=== PATIENT | female | born 1960 | race Caucasian/White ===

== ENCOUNTER → 2019-04-27 | Outpatient (CLI) | payer BC ==
--- NOTE | 2019-04-28 08:49 | USB ---
Reason for exam: additional evaluation requested from abnormal screening. History: Patient is postmenopausal. Family history of breast cancer in mother at age 37, breast cancer in maternal grandmother, and breast cancer in maternal cousin. Benign excisional biopsy of the right breast, 1999. Physical Findings: Nurse did not find any significant physical abnormalities on exam. US Breast Workup Limited LT Left limited breast ultrasound including focal area of concern, retroareolar and axilla demonstrates a 10 x 4 x 7mm oval, hypoechoic lesion at 10 o'clock. These results were verbally communicated with the patient and result sheet given to the patient on 04/27/19. ASSESSMENT: Suspicious, BI-RAD 4 RECOMMENDATION: Ultrasound core biopsy of the left breast. Called Dr. Rubio's office with mammographic findings and has scheduled an appointment for the patient for 05/26/19 at 4:[address] Bell. Biopsy scheduled for 05/29/19 at 12:20. PRELIMINARY REPORT CALLED AND FAXED TO DR. BELL ON 04/28/19.
== END | disposition home or self-care (01) ==
LOC: RADUSWWP 15:00
PROVIDERS: ATTEND Family Medicine
DX: R92.8 Other abnormal and inconclusive findings on diagnostic imaging of breast (principal)

== ENCOUNTER → 2019-05-29 | Day surgery (SDC) | payer BC ==
--- NOTE | 2019-05-29 14:09 | USB ---
EXAMINATION TYPE: US biopsy breast VAD LT DATE OF EXAM: 05/29/2019 CLINICAL HISTORY: R92.8 ABN. MAMMOGRAM. TECHNIQUE: Ultrasound guided core biopsy of left breast. COMPARISON: Left breast ultrasound dated 04/27/2019 FINDINGS: The procedure of ultrasound guided core biopsy was explained to the patient. Benefits, alt ernatives, and risks were discussed. An informed consent was then obtained. Preprocedural timeout w as performed. The patient was placed in supine positioning for imaging and for the procedure. The overlying skin wa s prepped and draped in usual sterile fashion. 10 cc of 1% lidocaine was used as anesthetic into the skin and subcutaneous tissue up to a 1.0 x 0.4 x 0.7 cm mass at the 10:00 position in the left breast . Under ultrasound guidance, a 12-gauge vacuum assisted biopsy gun device was used to obtain 5 core drew ples. Following this, a ribbon-shaped biopsy marker was left in the mass. Postprocedure mammogram de monstrates appropriate biopsy marker placement, concordant with the mammographic mass on the exam of 04/13/2019. The patient tolerated the procedure well without any immediate complication. The patient was kept in the radiology department for short stay after the procedure and then discharged home in stable condi tion. IMPRESSION: Successful, uncomplicated ultrasound guided core biopsy of a 1.0 cm left breast mass at t he 10:00 position, full pathology results to follow.
--- NOTE | 2019-05-29 14:27 | MM ---
Reason for exam: additional evaluation requested from abnormal screening. Last mammogram was performed 1 month ago. History: Patient is postmenopausal. Family history of breast cancer in mother at age 37, breast cancer in maternal grandmother, and breast cancer in maternal cousin. Benign excisional biopsy of the right breast, 1999. MG Diagnostic Mammo LT Wo CAD CC and MLO view(s) were taken of the left breast. Prior study comparison: April 13, 2019, bilateral MG 3d screening mammo w/cad. December 16, 2017, mammogram, performed at [facility]. ASSESSMENT: Post procedure mammogram for marker placement RECOMMENDATION: Ultrasound of the left breast in 6 months. PENDING PATHOLOGY RESULTS.
[2019-05-29 15:22] VITALS: BP 142/77; PULSE 98; RESP 16; TEMP 97.8
== END ==
LOC: RADUSWWP 11:17
PROVIDERS: ATTEND Surgery
DX: D24.2 Benign neoplasm of left breast (principal); Z80.3 Family history of malignant neoplasm of breast; Z78.0 Asymptomatic menopausal state
CPT/HCPCS: 88305; 77065; 19083; A4648; J2001

== ENCOUNTER → 2019-06-02 | Outpatient (CLI) | payer BC ==
[2019-06-02 15:27] VITALS: BP 184/78; PULSE 98; RESP 16; TEMP 98.2
--- NOTE | 2019-06-02 15:42 | P.PN ---
Subjective Progress Note Date: 06/02/19 Principal diagnosis: Patient status post ultrasound quite guided core biopsy left breast/fibroadenoma Sergio is a 58-year-old white female status post ultrasound guided core biopsy left breast on . Pathology revealed fibroadenoma. Patient developed some ecchymosis following the procedure but otherwise has no complaints. Objective - Vital Signs Vital signs: Vital Signs Temp 98.2 F 06/02/19 15:25 Pulse 98 06/02/19 15:25 Resp 16 06/02/19 15:25 BP 184/78 06/02/19 15:25 Pulse Ox 96 06/02/19 15:25 Intake & Output 06/01/19 06/02/19 06/02/19 18:59 06:59 18:59 Weight 113.398 kg - Exam BMI 45.7 - Constitutional General appearance: Present: obese - EENT Eyes: Present: EOMI ENT: Present: hearing grossly normal - Respiratory Respiratory: bilateral: CTA - Cardiovascular Rhythm: regular Heart sounds: normal: S1, S2 - Integumentary Integumentary: Present: normal turgor - Musculoskeletal Musculoskeletal: Present: gait normal - Psychiatric Psychiatric: Present: A&O x's 3, appropriate affect - Additional findings Additional findings: Breast exam: Ecchymosis at biopsy site left breast No evidence of infection Assessment and Plan Assessment: Impression: 1. Patient status post left breast ultrasound core biopsy pathology consistent with fibroadenoma this is concordant Plan: 1. Repeat left breast mammogram and ultrasound in 6 months 2. If patient notes anything of concern she will call us sooner Cc: Dr. Rubio encounter 15 minutes, > 50% of time in planning and counselling
== END ==
LOC: WWCWWP 15:09
PROVIDERS: ATTEND Surgery
DX: Z53.9 Procedure and treatment not carried out, unspecified reason (principal)

== ENCOUNTER → 2019-11-27 | Outpatient (CLI) | payer BC ==
--- NOTE | 2019-11-27 13:18 | MM ---
Reason for exam: follow-up at short interval from prior study. Last mammogram was performed 6 months ago. History: Patient is postmenopausal. Family history of breast cancer in mother at age 37, breast cancer in maternal grandmother, and breast cancer in maternal cousin. Benign US biopsy breast VAD LT of the left breast, May 29, 2019. Benign excisional biopsy of the right breast, 1999. Physical Findings: Nurse did not find any significant physical abnormalities on exam. MG 3D Diag Mammo W/Cad LT CC, MLO, and XCCL view(s) were taken of the left breast. Prior study comparison: May 29, 2019, left breast MG diagnostic mammo LT wo CAD. April 13, 2019, bilateral MG 3d screening mammo w/cad. There are scattered fibroglandular densities. Previous mammotome biopsy in the left breast. There is chronic nodularity in the left breast. No significant new findings when compared with previous films. These results were verbally communicated with the patient and result sheet given to the patient on 11/27/19. ASSESSMENT: Incomplete: need additional imaging evaluation, BI-RAD 0 RECOMMENDATION: Ultrasound of the left breast.
--- NOTE | 2019-11-27 13:20 | USB ---
Reason for exam: follow-up at short interval from prior study. History: Patient is postmenopausal. Family history of breast cancer in mother at age 37, breast cancer in maternal grandmother, and breast cancer in maternal cousin. Benign US biopsy breast VAD LT of the left breast, May 29, 2019. Benign excisional biopsy of the right breast, 1999. US Breast Limited LT Left limited breast ultrasound including focal area of concern, retroareolar and axilla demonstrates a 0.6 x 0.5 x 0.5cm mixed, hypoechoic, benign lesion at 10 o'clock, biopsy proven fibroadenoma and a 0.3 x 0.3 x 0.2cm oval lesion too small to characterize at 11:30. Scanned 9-12 o'clock. These results were verbally communicated with the patient and result sheet given to the patient on 11/27/19. ASSESSMENT: Benign, BI-RAD 2 RECOMMENDATION: Return to routine screening mammogram schedule for both breasts. Back on schedule for April 2020.
== END | disposition home or self-care (01) ==
LOC: RADMAMWWP 10:54
PROVIDERS: ATTEND Surgery
DX: R92.8 Other abnormal and inconclusive findings on diagnostic imaging of breast (principal)
CPT/HCPCS: 77061; 77065

== ENCOUNTER 2021-03-18 09:50 | Inpatient (IN) | payer BC ==
[2021-03-18] MEDS ORDERED: DEXAMETHASONE SOD PHOSPHATE 10 MG/ML 1 ML VIAL IV STA (10:14)
[2021-03-18] MEDS ORDERED: ACETAMINOPHEN TAB 500 MG TAB PO STA (10:16)
--- NOTE | 2021-03-18 10:18 | ED ---
General Adult HPI - General Chief complaint: Shortness of Breath Stated complaint: covid+, low oxygen Time Seen by Provider: 03/18/21 10:07 Source: patient, RN notes reviewed Mode of arrival: wheelchair Limitations: no limitations - History of Present Illness Initial comments: Patient is a 60-year-old female presented to the emergency room today with chief complaint of increased shortness of breath. Patient does admit that symptoms started on March 06. Patient states that 2 days ago she had a positive cocaine test. Patient states that she's been checking her pulse ox at home as been running down into the 80s and at times even in the 70s percent. Patient does admit to cough, congestion, bodyaches. Patient denies any other complaints or symptoms at this time. Patient denies any chest pain, back pain, abdominal pain, nausea or vomiting, headaches or visual changes, or any other complaints. - Related Data Home Medications Medication Instructions Recorded Confirmed Empagliflozin [Jardiance] 25 mg PO QAM 05/18/19 06/02/19 Insuln Asp Prt/Insulin Aspart 65 unit SQ BID 05/18/19 06/02/19 [NovoLOG MIX 70-30 VIAL] sitaGLIPtin PHOS/metFORMIN HCL 1 each PO BID 05/18/19 06/02/19 [Janumet 50-1,000 mg Tablet] Allergies Allergy/AdvReac Type Severity Reaction Status Date / Time No Known Allergies Allergy Verified 06/02/19 15:24 Review of Systems ROS Statement: Those systems with pertinent positive or pertinent negative responses have been documented in the HPI. ROS Other: All systems not noted in ROS Statement are negative. Past Medical History Past Medical History: Diabetes Mellitus History of Any Multi-Drug Resistant Organisms: None Reported Past Surgical History: Breast Surgery, Tonsillectomy Additional Past Surgical History / Comment(s): right breast biopsy benign Past Anesthesia/Blood Transfusion Reactions: No Reported Reaction Past Psychological History: No Psychological Hx Reported Smoking Status: Former smoker Past Alcohol Use History: Occasional Past Drug Use History: None Reported General Exam - General Exam Comments Initial Comments: General: The patient is awake and alert, in no distress, and does not appear acutely ill. Eye: There is normal conjunctiva bilaterally. No signs of icterus. Ears, nose, mouth and throat: There are moist mucous membranes and no oral lesions. Neck: The neck is supple, there is no tenderness or JVD. Respiratory: respirations are non-labored, breath sounds are equal. Musculoskeletal: Normal ROM, no tenderness. Strength 5/5. Sensation intact. Neurological: A&O x 3. CN II-XII intact, There are no obvious motor or sensory deficits. Coordination appears grossly intact. Speech is normal. Skin: Skin is warm and dry and no rashes or lesions are noted. Psychiatric: Cooperative, appropriate mood & affect, normal judgment. Limitations: no limitations Course Vital Signs 03/18/21 03/18/21 09:57 11:02 Temperature 100.6 F H Pulse Rate 102 H Respiratory 21 Rate Blood Pressure 139/72 O2 Sat by Pulse 75 L 90 L Oximetry Medical Decision Making - Medical Decision Making Patient was hypoxic at triage and in the 70s. Was placed on nasal cannula oxygen at 6 L. Oxygenation improved at the ninth 1%. Patient's chest x-ray does show bilateral Covid pneumonia. Patient started on dexamethasone here in emergency room. Case discussed with admitting physician Dr. Tompkins with consult pulmonary. - Lab Data Result diagrams: 03/18/21 11:00 03/18/21 11:00 Lab Results 03/18/21 03/18/21 03/18/21 Range/Units 11:00 11:00 11:00 WBC 8.4 (3.8-10.6) k/uL RBC 4.81 (3.80-5.40) m/uL Hgb 14.2 (11.4-16.0) gm/dL Hct 43.7 (34.0-46.0) % MCV 90.8 (80.0-100.0) fL MCH 29.6 (25.0-35.0) pg MCHC 32.6 (31.0-37.0) g/dL RDW 13.4 (11.5-15.5) % Plt Count 204 (150-450) k/uL MPV 8.5 Neutrophils % 87 % Lymphocytes % 9 % Monocytes % 3 % Eosinophils % 0 % Basophils % 0 % Neutrophils # 7.3 (1.3-7.7) k/uL Lymphocytes # 0.7 L (1.0-4.8) k/uL Monocytes # 0.3 (0-1.0) k/uL Eosinophils # 0.0 (0-0.7) k/uL Basophils # 0.0 (0-0.2) k/uL Sodium 134 L (137-145) mmol/L Potassium 4.0 (3.5-5.1) mmol/L Chloride 99 (98-107) mmol/L Carbon Dioxide 22 (22-30) mmol/L Anion Gap 13 mmol/L BUN 29 H (7-17) mg/dL Creatinine 0.83 (0.52-1.04) mg/dL Est GFR (CKD-EPI)AfAm 88 (>60 ml/min/1.73 sqM) Est GFR (CKD-EPI)NonAf 76 (>60 ml/min/1.73 sqM) Glucose 200 H (74-99) mg/dL Plasma Lactic Acid Niko 2.1 H* (0.7-2.0) mmol/L Calcium 9.7 (8.4-10.2) mg/dL Total Bilirubin 0.6 (0.2-1.3) mg/dL AST 54 H (14-36) U/L ALT 38 H (4-34) U/L Alkaline Phosphatase 73 (38-126) U/L Total Protein 7.4 (6.3-8.2) g/dL Albumin 4.1 (3.5-5.0) g/dL Critical Care Time Critical Care Time: Yes (hypoxia) Total Critical Care Time: 32 Disposition Clinical Impression: Pneumonia due to COVID-19 virus, Hypoxia Disposition: ADMITTED IP TO THIS HOSP Condition: Fair Is patient prescribed a controlled substance at d/c from ED?: No Referrals: Dayami Rubio MD [Primary Care Provider] - 1-2 days
--- NOTE | 2021-03-18 10:58 | XR ---
EXAMINATION TYPE: XR chest 1V portable DATE OF EXAM: 03/18/2021 COMPARISON: NONE HISTORY: Shortness of breath TECHNIQUE: Single frontal view of the chest is obtained. FINDINGS: Diffuse bilateral near complete opacification of both hemithoraces compatible with diffuse pneumonia. ARDS in the differential diagnosis. No sizable pleural effusion or pneumothorax. Heart si ze normal. Osseous structures intact. IMPRESSION: Diffuse near complete opacification of bilateral lungs suggestive of diffuse pneumonia or ARDS.
[2021-03-18 11:14] LABS: Basophils % (A) 0 %; Eosinophils % (A) 0 %; HCT 43.7 % (34.0-46.0); HGB 14.2 gm/dL (11.4-16.0); Lymphocytes # (A) 0.7 k/uL (1.0-4.8); Lymphocytes % (A) 9 %; MCH 29.6 pg (25.0-35.0); MCHC 32.6 g/dL (31.0-37.0); MCV 90.8 fL (80.0-100.0); Mean Platelet Volume 8.5; Monocytes # (A) 0.3 k/uL (0-1.0); Monocytes % (A) 3 %; Neutrophils # (A) 7.3 k/uL (1.3-7.7); Neutrophils % (A) 87 %; Platelet Count 204 k/uL (150-450); RBC 4.81 m/uL (3.80-5.40); RDW 13.4 % (11.5-15.5); WBC 8.4 k/uL (3.8-10.6)
[2021-03-18 11:27] LABS: Albumin 4.1 g/dL (3.5-5.0); Calcium 9.7 mg/dL (8.4-10.2); Total Bilirubin 0.6 mg/dL (0.2-1.3); Total Protein 7.4 g/dL (6.3-8.2)
[2021-03-18] MEDS ORDERED: SODIUM CHLORIDE 0.9% 1,000 ML IV ONE (11:47)
[2021-03-18] MEDS: ALBUTEROL HFA INHALER INHALATION SCH ×2 (17:21→20:05)
--- NOTE | 2021-03-18 17:28 | P.HPIM ---
History of Present Illness H&P Date: 03/18/21 Sergio Villatoro, is a 60-year-old female who presented to [facility] emergency room with a chief complaint of cough and shortness of breath, patient stated that she started getting sick on 03/06/2021, she was checked for Covid at that time but the test was negative, she continued to get worse, she had a second test on 03/16/2021 that was positive, patient started getting worsening shortness of breath and she decided to come to emergency room on 03/18/2021. Patient stated that she did not get vaccinated for Covid, her risk factors include diabetes and morbid obesity, she denies any cardiac history. She was evaluated in the emergency room vital examination reveals a temperature of 100.6 pulse 102 respiration 21 blood pressure 139/72 pulse ox 75% on room air and 90% on 6 L nasal cannula, white blood count was 8.4 hemoglobin 14.2 platelet count 204 sodium 134 potassium 4.2 chloride 99 CO2 22 BUN 29 creatinine 0.83 plasma lactic acid was 2.1 AST 54 ALT 38 troponin less than 0.012 EKG was normal, chest x-ray revealed diffuse near complete opacification of bilateral lungs suggestive of diffuse pneumonia or ARDS. Patient was started on IV dexamethasone, subcu Lovenox, vitamin C, vitamin D, and zinc supplements, pulmonary consultation and infectious disease consultation were requested. Patient is a former smoker, she denies ever being diagnosed with asthma or emphysema. Past Medical History Past Medical History: Diabetes Mellitus History of Any Multi-Drug Resistant Organisms: None Reported Past Surgical History: Breast Surgery, Tonsillectomy Additional Past Surgical History / Comment(s): right breast biopsy benign Past Anesthesia/Blood Transfusion Reactions: No Reported Reaction Past Psychological History: No Psychological Hx Reported Smoking Status: Former smoker Past Alcohol Use History: Occasional Past Drug Use History: None Reported Medications and Allergies Home Medications Medication Instructions Recorded Confirmed Type Empagliflozin [Jardiance] 25 mg PO DAILY 05/18/19 03/18/21 History Insuln Asp Prt/Insulin Aspart 65 unit SQ BID 05/18/19 03/18/21 History [NovoLOG MIX 70-30 VIAL] Albuterol Nebulized [Ventolin 2.5 mg INHALATION RT-QID PRN 03/18/21 03/18/21 History Nebulized] Azithromycin [Zithromax] 500 mg PO DAILY 03/18/21 03/18/21 History Dulaglutide [Trulicity] 1.5 mg SQ BENITO 03/18/21 03/18/21 History predniSONE [Deltasone] 20 mg PO BID 03/18/21 03/18/21 History sitaGLIPtin PHOS/metFORMIN HCL 1 tab PO DAILY 03/18/21 03/18/21 History [Janumet Xr 50-1,000 mg Tablet] Allergies Allergy/AdvReac Type Severity Reaction Status Date / Time No Known Allergies Allergy Verified 03/18/21 12:12 Physical Exam Vitals: Vital Signs Temp Pulse Resp BP Pulse Ox 03/18/21 13:35 98.9 F 83 22 117/84 85 L 03/18/21 11:02 90 L 03/18/21 09:57 100.6 F H 102 H 21 139/72 75 L Intake and Output 03/18/21 03/18/21 03/18/21 06:59 14:59 22:59 Other: Weight 127.006 kg In general patient is alert and oriented x 3 in no distress HEENT head normocephalic and atraumatic Neck is supple no JVD no goiter no lymphadenopathy no carotid bruit Chest examination coarse crackles in both lung shah with wheezing Cardiac exam reveals regular heart sounds S1 and S2 no gallops no murmurs Abdomen is soft nontender no organomegaly with normal bowel sounds Extremity exam reveals no edema no cyanosis or clubbing Neurological examination reveals no gross focal deficits Results CBC & Chem 7: 03/18/21 11:00 03/18/21 11:00 Labs: Abnormal Lab Results - Last 24 Hours (Table) 03/18/21 03/18/21 03/18/21 Range/Units 11:00 11:00 11:00 Lymphocytes # 0.7 L (1.0-4.8) k/uL Sodium 134 L (137-145) mmol/L BUN 29 H (7-17) mg/dL Glucose 200 H (74-99) mg/dL Plasma Lactic Acid Niko 2.1 H* (0.7-2.0) mmol/L AST 54 H (14-36) U/L ALT 38 H (4-34) U/L Assessment and Plan Plan: Acute COVID-19 infection Bilateral Pneumonia related to COVID-19 Acute hypoxic respiratory failure, now maintained on high flow oxygen Underlying history of insulin-dependent diabetes mellitus Underlying history of morbid obesity Previous history of smoking patient denies being diagnosed with COPD in the past At this time patient will be admitted to telemetry floor Home medications reviewed and reordered I started patient on subcu Lovenox, IV Decadron, vitamin C vitamin D and zinc supplements Pulmonary and infectious disease consultation were requested, case was discussed with Dr. Huynh over the phone Prognosis is guarded, will follow closely
[2021-03-18] MEDS: ZINC SULFATE 220 MG CAP PO SCH (17:37)
[2021-03-18] MEDS: ENOXAPARIN 40 MG/0.4 ML SYRINGE SQ SCH (17:37)
[2021-03-18] MEDS: CHOLECALCIFEROL 25 MCG (1000 IU) TABLET PO SCH (17:37)
[2021-03-18] MEDS ORDERED: ALBUTEROL NEBULIZED 2.5 MG/3 ML INHALATION SCH (20:00)
[2021-03-18 20:28] LABS: Glucose,Whole Blood 365 mg/dL (75-99)
[2021-03-18] MEDS: ASCORBIC ACID 500 MG TAB PO SCH (20:39)
[2021-03-18] MEDS: INSULN ASP PRT/INSULIN ASPART 100 UNIT/ML 10 ML VIAL SQ SCH (20:39)
[2021-03-18] MEDS ORDERED: LORazepam 2 MG/ML INJ IV PRN (23:39)
[2021-03-19 00:37] LABS: ABG Base Excess 3.1 mmol/L; ABG HCO3 28 mmol/L (21-25); ABG Oxygen Saturation 91.2 % (94-97); ABG PCO2 44 mmHg (35-45); ABG PH 7.41 (7.35-7.45); ABG TCO2 29 mmol/L (19-24); Allen Test Performed? Yes
[2021-03-19 00:55] LABS: ABG PO2 58 mmHg (83-108)
[2021-03-19 01:16] LABS: Glucose,Whole Blood 239 mg/dL (75-99)
[2021-03-19] MEDS ORDERED: LORazepam 2 MG/ML INJ IV PRN (01:34)
[2021-03-19] MEDS ORDERED: DEXMEDETOMIDINE/0.9% NACL(PMX) 400 MCG in EMPTY BAG 1 BAG IV SCH (03:30)
[2021-03-19] MEDS ORDERED: CISATRACURIUM 2 MG/ML 5 ML VIAL IV ONE (04:37)
[2021-03-19 04:41] LABS: Basophils % (A) 0 %; Eosinophils % (A) 0 %; HCT 45.2 % (34.0-46.0); HGB 14.9 gm/dL (11.4-16.0); Lymphocytes # (A) 0.5 k/uL (1.0-4.8); Lymphocytes % (A) 6 %; MCH 30.8 pg (25.0-35.0); MCV 93.3 fL (80.0-100.0); Mean Platelet Volume 8.6; Monocytes # (A) 0.2 k/uL (0-1.0); Monocytes % (A) 3 %; Neutrophils # (A) 8.1 k/uL (1.3-7.7); Neutrophils % (A) 90 %; Platelet Count 195 k/uL (150-450); RBC 4.85 m/uL (3.80-5.40); RDW 14.1 % (11.5-15.5)
[2021-03-19] MEDS: CISATRACURIUM 200 MG in SODIUM CHLORIDE 0.9% 180 ML IV SCH ×2 (04:53→16:27)
[2021-03-19 05:25] LABS: ALT 32 U/L (4-34); AST 92 U/L (14-36); African American GFR (CKD) >90 (>60 ml/min/1.73 sqM); Albumin 3.7 g/dL (3.5-5.0); Alkaline Phosphatase 54 U/L (38-126); Anion Gap 15 mmol/L; Blood Urea Nitrogen 28 mg/dL (7-17); Calcium 9.4 mg/dL (8.4-10.2); Carbon Dioxide 15 mmol/L (22-30); Chloride 104 mmol/L (98-107); Glucose 215 mg/dL (74-99); Non-African American GFR(CKD) >90 (>60 ml/min/1.73 sqM); Sodium 134 mmol/L (137-145); Total Bilirubin 1.1 mg/dL (0.2-1.3); Total Protein 7.3 g/dL (6.3-8.2)
[2021-03-19 05:30] LABS: Potassium 6.1 mmol/L (3.5-5.1)
--- NOTE | 2021-03-19 05:33 | XR ---
EXAMINATION TYPE: XR chest 1V portable DATE OF EXAM: 03/19/2021 COMPARISON: Yesterday HISTORY: Respiratory failure TECHNIQUE: Single view FINDINGS: Endotracheal tube is 6 cm from the jennifer. There is moderate pulmonary airspace edema. Ther e is nasogastric tube that appears to have the tip in the lower esophagus at the T11 level. There are chest leads. IMPRESSION: There is moderate pulmonary edema without change compared to yesterday.
[2021-03-19] MEDS: HYDROmorphone 1 MG/ML 1 ML SYRINGE IVP SCH ×10 (05:39→22:12)
[2021-03-19 06:03] LABS: ABG Base Excess 1.2 mmol/L; ABG HCO3 28 mmol/L (21-25); ABG Oxygen Saturation 94.3 % (94-97); ABG PCO2 57 mmHg (35-45); ABG PH 7.29 (7.35-7.45); ABG PO2 76 mmHg (83-108); ABG TCO2 30 mmol/L (19-24); Allen Test Performed? Yes
[2021-03-19 06:13] LABS: Glucose,Whole Blood 245 mg/dL (75-99)
[2021-03-19] MEDS: ALBUTEROL HFA INHALER INHALATION SCH ×4 (08:25→19:36)
[2021-03-19] MEDS ORDERED: NON FORMULARY DRUG (Empagliflozin [Jardiance] 25 MG Tablet) PO SCH (09:00)
[2021-03-19] MEDS ORDERED: LINAGLIPTIN 5 MG TABLET PO SCH (09:00)
[2021-03-19] MEDS ORDERED: metFORMIN 500 MG TAB PO SCH (09:00)
[2021-03-19] MEDS: ASCORBIC ACID 500 MG TAB PO SCH ×2 (09:09→20:51)
[2021-03-19] MEDS: CHOLECALCIFEROL 25 MCG (1000 IU) TABLET PO SCH (09:09)
[2021-03-19] MEDS: ZINC SULFATE 220 MG CAP PO SCH (09:09)
[2021-03-19] MEDS: CHLORHEXIDINE GLUCONATE 15 ML CUP MUCOUS MEM SCH ×2 (09:09→20:52)
[2021-03-19] MEDS: DEXAMETHASONE SOD PHOSPHATE 10 MG/ML 1 ML VIAL IVP SCH (09:10)
[2021-03-19] MEDS: INSULN ASP PRT/INSULIN ASPART 100 UNIT/ML 10 ML VIAL SQ SCH ×2 (09:12→20:52)
[2021-03-19] MEDS: ARTIFICIAL TEARS-HYPROMELLOSE DROPS 15 ML BTL BOTH EYES SCH ×4 (09:16→20:52)
[2021-03-19] MEDS ORDERED: INSULIN REGULAR 100 UNIT/ML VIAL (IV) IV ONE (09:32)
[2021-03-19] MEDS ORDERED: DEXTROSE 50% SYRINGE 50 ML IVP STA (09:32)
[2021-03-19] MEDS ORDERED: SODIUM BICARB 8.4% 50 ML SYR (1 MEQ/ML) IV STA (09:34)
--- NOTE | 2021-03-19 10:58 | XR ---
EXAMINATION TYPE: XR chest 1V portable DATE OF EXAM: 03/19/2021 COMPARISON: 03/19/2021 HISTORY: Central line placement TECHNIQUE: Single frontal view of the chest is obtained. FINDINGS: Central line seen with the tip overlying the SVC. NG tube at the level of the GE junction could be advanced. Diffuse bilateral infiltrates are stable. Tiny effusion suspected with no sizable pneumothorax. ET tube is been removed. IMPRESSION: 1. Central line appears in good position with no sizable pneumothorax. 2. Diffuse bilateral airspace disease stable. 3. Interval removal of ET tube.
--- NOTE | 2021-03-19 11:44 | P.CNPUL ---
History of Present Illness Consult date: 03/19/21 Requesting physician: Clover Tompkins Reason for consult: hypoxemia, abnormal CXR/CT, other (Ventilator/critical care management) Chief complaint: Shortness of breath, cough, congestion History of present illness: This is a 60-year-old female patient with a history of diabetes mellitus, obesity, former smoker who presented to the emergency room yesterday with complaints of increasing shortness of breath and low oxygen that she was measuring at home. The patient started having symptoms of shortness of breath cough congestion on 03/06/2021 and reportedly tested negative for CoVID. She was treated with azithromycin and prednisone in the outpatient setting. Her symptoms progressed and she did test positive on 03/16/2021. She was admitted to the regular medical floor and placed on BiPAP over 6 and 70% FiO2 with O2 saturations 85-86% with respiratory rate of 44 and A team was called at 11:00 last night and the patient remained on the floor. Her oxygen requirements continued to progress and she was urgently intubated at 04:43 this morning and placed on mechanical ventilator. He is seen today in consultation in the intensive care unit. Current settings are assist-control mode at a rate of 26, tidal volume 500, FiO2 100% and a PEEP of 14. Blood gases revealed a PaO2 of 76, pCO2 of 47 and a pH of 7.29. She is currently sedated on to follow at 40 mcg/kg/m. She is on Nimbex at 2 mcg/kg/m. She is receiving Dilaudid IVP. 0.9 normal saline at 75 ML's per hour. Chest x-ray reveals diffuse bilateral airspace disease. The endotracheal tube was noted to be quite high and is to be repositioned urgently. White count 9.0. Hemoglobin 14.9. Lymphocytes 0.5. Sodium 134. Potassium 6.1. Chloride 104. Bicarb 15. BUN 28. Creatinine 0.72. Glucose 215. She was initiated on Decadron, Lovenox, vitamin supplements. Review of Systems ROS unobtainable: due to endotracheal tube Past Medical History Past Medical History: Diabetes Mellitus History of Any Multi-Drug Resistant Organisms: None Reported Past Surgical History: Breast Surgery, Tonsillectomy Additional Past Surgical History / Comment(s): right/left breast biopsy benign Past Anesthesia/Blood Transfusion Reactions: No Reported Reaction Past Psychological History: No Psychological Hx Reported Smoking Status: Former smoker Past Alcohol Use History: Occasional Additional Past Alcohol Use History / Comment(s): Quit smoking in 2014, smoked for 30 years, 1ppd Past Drug Use History: None Reported Medications and Allergies Home Medications Medication Instructions Recorded Confirmed Type Empagliflozin [Jardiance] 25 mg PO DAILY 05/18/19 03/18/21 History Insuln Asp Prt/Insulin Aspart 65 unit SQ BID 05/18/19 03/18/21 History [NovoLOG MIX 70-30 VIAL] Albuterol Nebulized [Ventolin 2.5 mg INHALATION RT-QID PRN 03/18/21 03/18/21 History Nebulized] Azithromycin [Zithromax] 500 mg PO DAILY 03/18/21 03/18/21 History Dulaglutide [Trulicity] 1.5 mg SQ BENITO 03/18/21 03/18/21 History predniSONE [Deltasone] 20 mg PO BID 03/18/21 03/18/21 History sitaGLIPtin PHOS/metFORMIN HCL 1 tab PO DAILY 03/18/21 03/18/21 History [Janumet Xr 50-1,000 mg Tablet] Allergies Allergy/AdvReac Type Severity Reaction Status Date / Time No Known Allergies Allergy Verified 03/18/21 12:12 Physical Exam Vitals: Vital Signs Temp Pulse Pulse Resp BP BP Pulse Ox 03/19/21 07:10 88 26 H 146/54 93 L 03/19/21 07:00 89 26 H 134/59 93 L 03/19/21 06:50 84 26 H 139/55 93 L 03/19/21 06:40 83 26 H 139/53 93 L 03/19/21 06:30 80 26 H 134/53 93 L 03/19/21 06:20 76 26 H 147/57 91 L 03/19/21 06:10 74 26 H 122/83 94 L 03/19/21 06:00 84 16 124/63 94 L 03/19/21 05:50 74 26 H 132/57 94 L 03/19/21 05:40 62 23 121/65 93 L 03/19/21 05:30 64 26 H 111/56 93 L 03/19/21 05:20 58 L 26 H 89/45 91 L 03/19/21 05:10 55 L 26 H 92/79 89 L 03/19/21 05:06 92 L 12/15/21 05:00 72 56 H 151/66 63 L 03/19/21 04:50 66 0 L 90 L 03/19/21 04:40 65 51 H 114/57 91 L 03/19/21 04:30 65 38 H 114/57 91 L 03/19/21 04:20 63 62 H 114/57 89 L 03/19/21 04:10 62 64 H 114/57 90 L 03/19/21 04:00 101.3 F H 60 33 H 127/80 87 L 03/19/21 03:50 87 5 L 127/80 85 L 03/19/21 03:40 106 H 53 H 127/80 85 L 03/19/21 03:30 105 H 16 127/80 91 L 03/19/21 03:20 101.7 F H 109 H 55 H 127/80 84 L 03/19/21 03:10 95 28 H 127/80 85 L 03/19/21 03:00 93 40 H 154/64 92 L 03/19/21 02:50 94 55 H 154/64 93 L 03/19/21 02:40 103 H 35 H 154/64 91 L 03/19/21 02:30 101 H 60 H 154/64 90 L 03/19/21 02:20 86 51 H 154/64 89 L 03/19/21 02:10 98 57 H 154/64 92 L 03/19/21 02:00 67 52 H 150/65 92 L 03/19/21 01:50 99 48 H 150/65 92 L 03/19/21 01:40 79 44 H 150/65 90 L 03/19/21 01:30 92 58 H 150/65 91 L 03/19/21 01:20 95 26 H 91 L 03/19/21 01:15 52 H 03/19/21 00:35 107 H 53 H 163/74 88 L 03/19/21 00:26 108 H 54 H 165/74 90 L 03/19/21 00:04 115 H 50 H 168/72 82 L 03/18/21 23:12 99.8 F H 113 H 44 H 180/81 85 L 03/18/21 20:00 99 F 72 33 H 162/67 91 L 03/18/21 17:38 88 24 91 L 03/18/21 13:35 98.9 F 83 22 117/84 85 L Intake and Output 03/18/21 03/19/21 03/19/21 22:59 06:59 14:59 Intake Total 80 69.914 Output Total 800 0 Balance -720 69.914 Intake: Intake, IV Titration 80 69.914 Amount Sodium Chloride 0.9% 1, 80 20 000 ml @ 20 mls/hr IV . Q24H [facility] Rx#:[id number] propofoL 1,000 mg In 49.914 Empty Bag 1 bag @ Titrate IV .Q0M [facility] Rx#: [id number] Oral 0 Output: Urine 800 0 Other: Voiding Method Bedside Commode Indwelling Catheter # Voids 2 Weight 127.006 kg 113.7 kg GENERAL EXAM: Intubated, sedated and paralyzed 60-year-old female patient on the mechanical ventilator with FiO2 100% and a PEEP of 14, comfortable in no apparent distress. HEAD: Normocephalic. EYES: Sluggish reaction of pupils, equal size. NOSE: Clear with pink turbinates. THROAT: Oral endotracheal and gastric tube secured in place. No erythema or exudates. NECK: No masses, no JVD. CHEST: No chest wall deformity. LUNGS: Equal air entry with bibasilar coarse crackles. CVS: S1 and S2 normal with no audible murmur, regular rhythm. ABDOMEN: No hepatosplenomegaly, normal bowel sounds, no guarding or rigidity. SPINE: No scoliosis or deformity SKIN: No rashes CENTRAL NERVOUS SYSTEM: Sedated, paralyzed, tone is normal in all 4 extremities. EXTREMITIES: There is no peripheral edema. No clubbing, no cyanosis. Peripheral pulses are intact. Results - Laboratory Findings CBC and BMP: 03/19/21 04:24 03/19/21 04:24 ABG ABG pH 7.29 (7.35-7.45) L 03/19/21 05:58 ABG pCO2 57 mmHg (35-45) H 03/19/21 05:58 ABG pO2 76 mmHg (83-108) L 03/19/21 05:58 ABG O2 Saturation 94.3 % (94-97) 03/19/21 05:58 PT/INR, D-dimer D-Dimer 1.23 mg/L FEU (<0.60) H 03/18/21 19:43 Abnormal lab findings: Abnormal Labs 03/18/21 03/18/21 03/18/21 11:00 11:00 11:00 Neutrophils # Lymphocytes # 0.7 L D-Dimer ABG pH ABG pCO2 ABG pO2 ABG HCO3 ABG Total CO2 ABG O2 Saturation Sodium 134 L Potassium Carbon Dioxide BUN 29 H Glucose 200 H POC Glucose (mg/dL) Plasma Lactic Acid Niko 2.1 H* AST 54 H ALT 38 H 03/18/21 03/18/21 03/19/21 19:43 20:26 00:33 Neutrophils # Lymphocytes # D-Dimer 1.23 H ABG pH ABG pCO2 ABG pO2 58 L* ABG HCO3 28 H ABG Total CO2 29 H ABG O2 Saturation 91.2 L Sodium Potassium Carbon Dioxide BUN Glucose POC Glucose (mg/dL) 365 H Plasma Lactic Acid Niko AST ALT 03/19/21 03/19/21 03/19/21 01:15 04:24 04:24 Neutrophils # 8.1 H Lymphocytes # 0.5 L D-Dimer ABG pH ABG pCO2 ABG pO2 ABG HCO3 ABG Total CO2 ABG O2 Saturation Sodium 134 L Potassium 6.1 H* Carbon Dioxide 15 L BUN 28 H Glucose 215 H POC Glucose (mg/dL) 239 H Plasma Lactic Acid Niko AST 92 H ALT 03/19/21 03/19/21 05:58 06:12 Neutrophils # Lymphocytes # D-Dimer ABG pH 7.29 L ABG pCO2 57 H ABG pO2 76 L ABG HCO3 28 H ABG Total CO2 30 H ABG O2 Saturation Sodium Potassium Carbon Dioxide BUN Glucose POC Glucose (mg/dL) 245 H Plasma Lactic Acid Niko AST ALT - Diagnostic Findings Chest x-ray: image reviewed Assessment and Plan Assessment: 1 Acute hypoxemic respiratory failure secondary to COVID-19 pneumonia requiring intubation and mechanical ventilatory support on 03/19/2021. The patient is not vaccinated. She tested positive on 03/16/2021. Symptoms started 03/06/2021. 2 Obesity with a BMI of 45.8 kg per metered square 3 Diabetes mellitus 4 Former smoker 5 Hyperkalemia Plan: The patient was seen and evaluated Chest x-ray, ABGs and labs reviewed Emergent repositioning of the endotracheal tube Left subclavian triple-lumen catheter placed Right radial arterial line placed Increase the PEEP to 18, increased respiratory rate 30 Titrate down the FiO2 as tolerated Obtain inflammatory markers Obtain pro-calcitonin Continue Lovenox, Decadron, vitamin supplement Follow-up chest x-ray, ABGs and labs in the a.m. We will continue to follow make further recommendations based on her clinical status I, the cosigning physician, performed a history & physical examination of the patient. Lungs sounds with bibasilar crackles. Maintaining O2 saturations in the 90s and 100% FiO2 and a PEEP of 18 via the mechanical ventilator I discussed the assessment and plan of care with my nurse practitioner, Gloria Melgar. I attest to the above consultation as dictated by her. Time with Patient: Greater than 30
--- NOTE | 2021-03-19 12:22 | P.PN ---
Subjective Progress Note Date: 03/19/21 Sergio Villatoro, is a 60-year-old female who presented to [facility] emergency room with a chief complaint of cough and shortness of breath, patient stated that she started getting sick on 03/06/2021, she was checked for Covid at that time but the test was negative, she continued to get worse, she had a second test on 03/16/2021 that was positive, patient started getting worsening shortness of breath and she decided to come to emergency room on 03/18/2021. Patient stated that she did not get vaccinated for Covid, her risk factors include diabetes and morbid obesity, she denies any cardiac history. She was evaluated in the emergency room vital examination reveals a temperature of 100.6 pulse 102 respiration 21 blood pressure 139/72 pulse ox 75% on room air and 90% on 6 L nasal cannula, white blood count was 8.4 hemoglobin 14.2 platelet count 204 sodium 134 potassium 4.2 chloride 99 CO2 22 BUN 29 creatinine 0.83 plasma lactic acid was 2.1 AST 54 ALT 38 troponin less than 0.012 EKG was normal, chest x-ray revealed diffuse near complete opacification of bilateral lungs suggestive of diffuse pneumonia or ARDS. Patient was started on IV dexamethasone, subcu Lovenox, vitamin C, vitamin D, and zinc supplements, pulmonary consultation and infectious disease consultation were requested. Patient is a former smoker, she denies ever being diagnosed with asthma or emphysema. On 03/19/2021 patient was urgently intubated this a.m. per critical care services due to decreasing respiratory status. Patient has been started on sedation. Patient remains on Decadron, vitamin C, vitamin D and zinc. Critical care and infectious disease services are following. Patient remains on Lovenox for DVT prophylaxis. PH 7.29, pCO2 57, pO2 76 HCO3 28. Objective - Vital Signs Vital signs: Vital Signs Temp 101.3 F H 03/19/21 04:00 Pulse 88 03/19/21 07:10 Resp 26 H 03/19/21 07:10 BP 146/54 03/19/21 07:10 Pulse Ox 93 L 03/19/21 07:10 Intake & Output 03/18/21 03/19/21 03/19/21 18:59 06:59 18:59 Intake Total 80 124.831 Output Total 800 0 Balance -720 124.831 Weight 127.006 kg 113.7 kg 113.7 kg Intake: Intake, IV Titration 80 124.831 Amount Sodium Chloride 0.9% 1, 80 20 000 ml @ 20 mls/hr IV . Q24H [facility] Rx#:[id number] propofoL 1,000 mg In 104.831 Empty Bag 1 bag @ Titrate IV .Q0M [facility] Rx#: [id number] Oral 0 Output: Urine 800 0 Other: Voiding Method Indwelling Catheter # Voids 2 - Exam In general patient is alert and oriented x 3 in no distress HEENT head normocephalic and atraumatic Neck is supple no JVD no goiter no lymphadenopathy no carotid bruit Chest examination coarse crackles in both lung shah with wheezing Cardiac exam reveals regular heart sounds S1 and S2 no gallops no murmurs Abdomen is soft nontender no organomegaly with normal bowel sounds Extremity exam reveals no edema no cyanosis or clubbing Neurological examination reveals no gross focal deficits - Labs CBC & Chem 7: 03/19/21 04:24 03/19/21 04:24 Labs: Abnormal Lab Results - Last 24 Hours (Table) 03/18/21 03/18/21 03/19/21 Range/Units 19:43 20:26 00:33 Neutrophils # (1.3-7.7) k/uL Lymphocytes # (1.0-4.8) k/uL D-Dimer 1.23 H (<0.60) mg/L FEU ABG pH (7.35-7.45) ABG pCO2 (35-45) mmHg ABG pO2 58 L* (83-108) mmHg ABG HCO3 28 H (21-25) mmol/L ABG Total CO2 29 H (19-24) mmol/L ABG O2 Saturation 91.2 L (94-97) % Sodium (137-145) mmol/L Potassium (3.5-5.1) mmol/L Carbon Dioxide (22-30) mmol/L BUN (7-17) mg/dL Glucose (74-99) mg/dL POC Glucose (mg/dL) 365 H (75-99) mg/dL AST (14-36) U/L 03/19/21 03/19/21 03/19/21 Range/Units 01:15 04:24 04:24 Neutrophils # 8.1 H (1.3-7.7) k/uL Lymphocytes # 0.5 L (1.0-4.8) k/uL D-Dimer (<0.60) mg/L FEU ABG pH (7.35-7.45) ABG pCO2 (35-45) mmHg ABG pO2 (83-108) mmHg ABG HCO3 (21-25) mmol/L ABG Total CO2 (19-24) mmol/L ABG O2 Saturation (94-97) % Sodium 134 L (137-145) mmol/L Potassium 6.1 H* (3.5-5.1) mmol/L Carbon Dioxide 15 L (22-30) mmol/L BUN 28 H (7-17) mg/dL Glucose 215 H (74-99) mg/dL POC Glucose (mg/dL) 239 H (75-99) mg/dL AST 92 H (14-36) U/L 03/19/21 03/19/21 Range/Units 05:58 06:12 Neutrophils # (1.3-7.7) k/uL Lymphocytes # (1.0-4.8) k/uL D-Dimer (<0.60) mg/L FEU ABG pH 7.29 L (7.35-7.45) ABG pCO2 57 H (35-45) mmHg ABG pO2 76 L (83-108) mmHg ABG HCO3 28 H (21-25) mmol/L ABG Total CO2 30 H (19-24) mmol/L ABG O2 Saturation (94-97) % Sodium (137-145) mmol/L Potassium (3.5-5.1) mmol/L Carbon Dioxide (22-30) mmol/L BUN (7-17) mg/dL Glucose (74-99) mg/dL POC Glucose (mg/dL) 245 H (75-99) mg/dL AST (14-36) U/L Assessment and Plan Plan: Acute COVID-19 infection Acute hypoxic respiratory failure secondary to COVID-19 pneumonia requiring in tubation and mechanical ventilation on 03/19/2021 Bilateral Pneumonia related to COVID-19 Underlying history of insulin-dependent diabetes mellitus Underlying history of morbid obesity Previous history of smoking patient denies being diagnosed with COPD in the past Hyperkalemia Maintained on subcu Lovenox, IV Decadron, vitamin C vitamin D and zinc supplements Pulmonary and infectious disease consultation were requested, case was discussed with Dr. Huynh over the phone Prognosis is guarded, will follow closely Repeat labs and x-ray ordered for a.m.
--- NOTE | 2021-03-19 12:26 | XR ---
EXAMINATION TYPE: XR chest 1V portable DATE OF EXAM: 03/19/2021 COMPARISON: 03/19/2021 HISTORY: ET tube clinically TECHNIQUE: Single frontal view of the chest is obtained. FINDINGS: ET tube is now seen approximately 5.7 cm from the jennifer. Left-sided central line seen wit h diffuse bilateral interstitial alveolar infiltrate. No pneumothorax or pleural effusion. Central li ne stable. IMPRESSION: 1. Bilateral interstitial infiltrate stable. 2. ET tube 5.7 cm above jennifer.
[2021-03-19 12:40] LABS: Appearance,Urine Cloudy (Clear); Bacteria,Urine Rare /hpf; Bilirubin,Urine Negative (Negative); Blood,Urine Moderate (Negative); Color,Urine Yellow; Glucose,Urine (UA) 3+ (Negative); Hyaline Casts,Urine 7 /lpf (0-2); Ketones,Urine Negative (Negative); Leukocyte Esterase,Urine Trace (Negative); Mucus,Urine Rare /hpf; Nitrite,Urine Negative (Negative); Protein,Urine 1+ (Negative); RBC,Urine 8 /hpf (0-5); Specific Gravity,Urine 1.022 (1.001-1.035); Squamous Epithelial Cell,Urine <1 /hpf (0-4); Urobilinogen,Urine <2.0 mg/dL (<2.0); WBC,Urine 5 /hpf (0-5)
[2021-03-19 12:41] LABS: Glucose,Whole Blood 272 mg/dL (75-99)
[2021-03-19 12:56] LABS: Albumin 3.3 g/dL (3.5-5.0); Calcium 8.9 mg/dL (8.4-10.2); Potassium 4.6 mmol/L (3.5-5.1); Total Bilirubin 0.5 mg/dL (0.2-1.3); Total Protein 6.2 g/dL (6.3-8.2)
[2021-03-19 13:19] LABS: C Reactive Protein 18.6 mg/dL (<1.0)
[2021-03-19] MEDS ORDERED: NOREPINEPHRIN 4 MG-0.9% NS PMX 4 MG/250 ML ML IV ONE (14:36)
[2021-03-19] MEDS ORDERED: SUCCINYLCHOLINE CHLORIDE VIAL 200 MG/10 ML VIAL IV ONE (16:43)
[2021-03-19] MEDS ORDERED: ETOMIDATE 2 MG/ML 10 ML VIAL ONE (16:43)
[2021-03-19 17:38] LABS: Glucose,Whole Blood 245 mg/dL (75-99)
[2021-03-19] MEDS: ENOXAPARIN 40 MG/0.4 ML SYRINGE SQ SCH (18:21)
[2021-03-19] MEDS: INSULIN ASPART (NovoLOG) 100 UNIT/ML VIAL SQ SCH (18:21)
[2021-03-19] MEDS: NOREPINEPHRINE 4 MG in SODIUM CHLORIDE 0.9% 250 ML IV SCH (18:21)
[2021-03-19] MEDS: SODIUM CHLORIDE 0.9% 1,000 ML IV SCH ×2 (18:22→20:52)
--- NOTE | 2021-03-19 19:32 | PCN ---
PROCEDURE NOTE PULMONARY/CRITICAL CARE PROCEDURE NOTE: PROCEDURE PERFORMED: Left subclavian triple-lumen catheter. PREOP DIAGNOSIS: Administration of fluids and pressors. POSTOP: Administration of fluids and pressors. OPERATORS: Dr. Bach, Dr. Melgar And Dr. Manning. TRIPLE LUMEN CATHETER PLACEMENT: Indication: Hemodynamic monitoring/Intravenous access. A time-out was completed verifying correct patient, procedure, site, positioning, and implant(s) or special equipment if applicable. The patient was placed in a dependent position appropriate for triple lumen catheter placement based on the vein to be cannulated. The patient's left shoulder was prepped and draped in sterile fashion. 1% Lidocaine was used to anesthetize the surrounding skin area. A triple lumen 9F Cordis catheter was introduced into the subclavian vein using Seldinger technique. The catheter was threaded smoothly over the guide wire and appropriate blood return was obtained. Each lumen of the catheter was evacuated of air and flushed with sterile saline. The catheter was then sutured in place to the skin and a sterile dressing applied. Perfusion to the extremity distal to the point of catheter insertion was checked and found to be adequate. There was informed consent. We used the left subclavian site. There was no immediate complications. There was good blood return from all 3 ports. The patient tolerated the procedure well. The catheter was sutured in place. A sterile dressing was applied by the nurse. The tip of catheter was seen in the area of the superior vena cava right atrium. A sterile dressing was applied by the nurse. There was no immediate complication. A chest x-ray was ordered. MMODL / IJN: [id number] /
--- NOTE | 2021-03-19 20:38 | PCN ---
PROCEDURE NOTE RIGHT RADIAL ARTERIAL LINE PLACEMENT: OPERATORS: 1. Dr. Bach. 2. Dr. Melgar. 3. Dr. Manning. PREOPERATIVE DIAGNOSIS: Frequent blood draws and blood gas monitoring. POSTOPERATIVE DIAGNOSIS: Frequent blood draws and blood gas monitoring. PROCEDURE DESCRIPTION: There was informed consent, and universal timeout was completed verifying correct patient, procedure, site, positioning, and implant(s) or special equipment if applicable. Zachary's test was performed to ensure adequate perfusion. The patient's right wrist was prepped and draped in sterile fashion. 1% Lidocaine was used to anesthetize the area. An 18G Arrow arterial line was introduced into the right radial artery. The catheter was threaded over the guide wire and the needle was removed with appropriate pulsatile blood return. There was good blood return and waveform. Blood loss was minimal. The catheter was then sutured in place to the skin and a sterile dressing was applied by the nurse. Perfusion to the extremity distal to the point of catheter insertion was checked and found to be adequate. The patient tolerated the procedure well without issues and there were no immediate complications. MMODL / IJN: [id number] /
[2021-03-19 23:59] LABS: Glucose,Whole Blood 222 mg/dL (75-99)
[2021-03-20] MEDS: INSULIN ASPART (NovoLOG) 100 UNIT/ML VIAL SQ SCH ×5 (00:45→23:57)
[2021-03-20] MEDS: ARTIFICIAL TEARS-HYPROMELLOSE DROPS 15 ML BTL BOTH EYES SCH ×7 (00:46→23:56)
[2021-03-20] MEDS: HYDROmorphone 1 MG/ML 1 ML SYRINGE IVP SCH ×12 (00:46→23:55)
[2021-03-20] MEDS: NOREPINEPHRINE 4 MG in SODIUM CHLORIDE 0.9% 250 ML IV SCH ×2 (01:05→14:52)
[2021-03-20] MEDS: CISATRACURIUM 200 MG in SODIUM CHLORIDE 0.9% 180 ML IV SCH ×2 (04:48→20:08)
[2021-03-20] MEDS: SODIUM CHLORIDE 0.9% 1,000 ML IV SCH ×2 (04:48→18:19)
[2021-03-20 04:49] LABS: Basophils % (A) 0 %; Eosinophils % (A) 0 %; HCT 37.4 % (34.0-46.0); HGB 12.1 gm/dL (11.4-16.0); Lymphocytes # (A) 0.6 k/uL (1.0-4.8); Lymphocytes % (A) 8 %; MCH 30.3 pg (25.0-35.0); MCHC 32.4 g/dL (31.0-37.0); MCV 93.5 fL (80.0-100.0); Mean Platelet Volume 8.5; Monocytes # (A) 0.3 k/uL (0-1.0); Monocytes % (A) 4 %; Neutrophils # (A) 6.9 k/uL (1.3-7.7); Neutrophils % (A) 86 %; Platelet Count 224 k/uL (150-450); RDW 13.7 % (11.5-15.5)
[2021-03-20 05:02] LABS: Albumin 3.1 g/dL (3.5-5.0); Calcium 8.7 mg/dL (8.4-10.2); Potassium 4.6 mmol/L (3.5-5.1); Total Bilirubin 0.4 mg/dL (0.2-1.3)
[2021-03-20 05:23] LABS: C Reactive Protein 16.1 mg/dL (<1.0)
[2021-03-20 05:35] LABS: ABG Base Excess 2.7 mmol/L; ABG HCO3 28 mmol/L (21-25); ABG Oxygen Saturation 94.8 % (94-97); ABG PCO2 51 mmHg (35-45); ABG PH 7.35 (7.35-7.45); ABG PO2 71 mmHg (83-108); ABG TCO2 30 mmol/L (19-24); Allen Test Performed? Yes
[2021-03-20 06:35] LABS: Glucose,Whole Blood 159 mg/dL (75-99)
--- NOTE | 2021-03-20 06:56 | XR ---
EXAMINATION TYPE: XR chest 1V portable DATE OF EXAM: 03/20/2021 CLINICAL HISTORY: Difficulty breathing progress study. TECHNIQUE: Single AP portable semiupright view of the chest is obtained. COMPARISON: Chest x-ray from one day earlier and older studies. FINDINGS: Stable orogastric tube and left subclavian central venous catheter. Endotracheal tube not included in field of view preserved high in position. Bilateral multifocal increased opacities redemonstrated. Cardiac silhouette size is stable and within normal limits. Osseous structures are intact. IMPRESSION: 1. Bilateral multifocal increased opacities consistent with covid-19 infection redemonstrated. No sig nificant change from one day earlier. 2. High positioned endotracheal tube outside the field of view above superior clavicular margin, advi se advancing 4.0 cm. A Yellow level critical message alert has been initiated for Dre Bach via the [employer] Critical Results System on 03/20/2021 6:53 AM. This message alert has been sent to Dre Bach via the preferences provided by the clinician for the receipt of Radiology Critical Findings. Message ID [id number].
[2021-03-20] MEDS: CHLORHEXIDINE GLUCONATE 15 ML CUP MUCOUS MEM SCH ×2 (09:00→20:09)
[2021-03-20] MEDS: ASCORBIC ACID 500 MG TAB PO SCH ×2 (09:00→20:09)
[2021-03-20] MEDS: ZINC SULFATE 220 MG CAP PO SCH (09:00)
[2021-03-20] MEDS: DEXAMETHASONE SOD PHOSPHATE 10 MG/ML 1 ML VIAL IVP SCH (09:00)
--- NOTE | 2021-03-20 09:02 | XR ---
EXAMINATION TYPE: XR chest 1V portable DATE OF EXAM: 03/20/2021 Comparison: 03/20/2021 Clinical History: 60-year-old female confirm ET placement Findings: ET tube tip remains high at the level of the thoracic inlet. Advancement by 3.5 cm in reassessment fo llow-up. Left subclavian CVC tip at the cavoatrial junction. Heart upper limits of normal in size. NG tube is present. Patchy groundglass and interstitial changes bilaterally are unchanged. Impression: 1. ET tube remains high. Tip at the thoracic inlet. Advance by 3.5 cm and reassess at follow-up. 2. Continued bilateral groundglass infiltrates.
[2021-03-20] MEDS: CHOLECALCIFEROL 25 MCG (1000 IU) TABLET PO SCH (09:04)
[2021-03-20] MEDS: INSULN ASP PRT/INSULIN ASPART 100 UNIT/ML 10 ML VIAL SQ SCH ×2 (09:06→20:10)
[2021-03-20] MEDS: ALBUTEROL HFA INHALER INHALATION SCH ×4 (09:08→19:50)
--- NOTE | 2021-03-20 09:41 | P.PN ---
Subjective Progress Note Date: 03/20/21 Principal diagnosis: COVID-19 pneumonia This is a 60-year-old female patient with a history of diabetes mellitus, obesity, former smoker who presented to the emergency room yesterday with complaints of increasing shortness of breath and low oxygen that she was measuring at home. The patient started having symptoms of shortness of breath cough congestion on 03/06/2021 and reportedly tested negative for CoVID. She was treated with azithromycin and prednisone in the outpatient setting. Her symptoms progressed and she did test positive on 03/16/2021. She was admitted to the regular medical floor and placed on BiPAP over 6 and 70% FiO2 with O2 saturations 85-86% with respiratory rate of 44 and A team was called at 11:00 last night and the patient remained on the floor. Her oxygen requirements continued to progress and she was urgently intubated at 04:43 this morning and placed on mechanical ventilator. He is seen today in consultation in the intensive care unit. Current settings are assist-control mode at a rate of 26, tidal volume 500, FiO2 100% and a PEEP of 14. Blood gases revealed a PaO2 of 76, pCO2 of 47 and a pH of 7.29. She is currently sedated on to follow at 40 mcg/kg/m. She is on Nimbex at 2 mcg/kg/m. She is receiving Dilaudid IVP. 0.9 normal saline at 75 ML's per hour. Chest x-ray reveals diffuse bilateral airspace disease. The endotracheal tube was noted to be quite high and is to be repositioned urgently. White count 9.0. Hemoglobin 14.9. Lymphocytes 0.5. Sodium 134. Potassium 6.1. Chloride 104. Bicarb 15. BUN 28. Creatinine 0.72. Glucose 215. She was initiated on Decadron, Lovenox, vitamin supplements. The patient is seen today 03/20/2021 in follow-up in the intensive care unit. She remains intubated and on mechanical ventilator. Currently an assist-control mode at a rate of 30, temperature Ativan 400, FiO2 70% and a PEEP of 14. Morning blood gases revealed a PaO2 of 71, pCO2 51, pH 7.35. Continued on sedat ion of propofol at 50 mcg/kg/m, Nimbex at 1 mcg/kg/m. Normal saline at 75 ML's per hour. Norepinephrine has been off since approximately 8 PM last evening. She is being nourished with vital AF at 36 ML's per hour which is goal. Urine output has been borderline. Creatinine is up to 1.30. BUN 49. Sodium 136. Potassium 4.6. AST 5. ALT 23. LDH 2112. C-reactive protein 16.1. White count 8.0. Hemoglobin 12.1. Lymphocytes 0.6. D-dimer 1.63. She remains on Lovenox, Decadron, vitamin supplements. Chest x-ray continues show patchy bilateral infiltrates. Endotracheal tube to be repositioned. Sputum culture reveals no growth to date. Blood cultures reveal no growth to date. Had a t emperature of 100.2 yesterday afebrile today. Objective - Vital Signs Vital signs: Vital Signs Temp 98.6 F 03/20/21 04:00 Pulse 65 03/20/21 07:00 Resp 30 H 03/20/21 07:00 BP 103/54 03/20/21 07:00 Pulse Ox 92 L 03/20/21 07:00 Intake & Output 03/19/21 03/20/21 03/20/21 18:59 06:59 18:59 Intake Total 4810.429 3843.640 242.746 Output Total 485 385 30 Balance 765.240 1201.640 212.746 Weight 115.5 kg Intake: Intake, IV Titration 5790.565 4442.640 192.746 Amount Cisatracurium 200 mg In 176.288 188.226 50.549 Sodium Chloride 0.9% 180 ml @ 2 MCG/KG/MIN 15.241 mls/hr IV .Q13H8M [facility] Rx# :[id number] Sodium Chloride 0.9% 1, 40 000 ml @ 20 mls/hr IV . Q24H ONE Rx#:[id number] Sodium Chloride 0.9% 1, 750 825 75 000 ml @ 75 mls/hr IV . [id number] [facility] Rx#:[id number] propofoL 1,000 mg In 196.928 252.414 67.197 Empty Bag 1 bag @ Titrate IV .Q0M [facility] Rx#: [id number] Tube Feeding 220 20 Other 150 30 Output: Urine 485 385 30 Other: Voiding Method Indwelling Catheter Indwelling Catheter ABP, PAP, CO, CI - Last Documented Arterial Blood Pressure 126/54 - Exam GENERAL EXAM: Intubated, sedated and paralyzed 60-year-old female patient on the mechanical ventilator with FiO2 70% and a PEEP of 14, comfortable in no apparent distress. HEAD: Normocephalic. EYES: Sluggish reaction of pupils, equal size. NOSE: Clear with pink turbinates. THROAT: Oral endotracheal and gastric tube secured in place. No erythema or exudates. NECK: No masses, no JVD. CHEST: No chest wall deformity. LUNGS: Equal air entry with bibasilar coarse crackles. CVS: S1 and S2 normal with no audible murmur, regular rhythm. ABDOMEN: No hepatosplenomegaly, normal bowel sounds, no guarding or rigidity. SPINE: No scoliosis or deformity SKIN: No rashes CENTRAL NERVOUS SYSTEM: Sedated, paralyzed, tone is normal in all 4 extremities. EXTREMITIES: There is no peripheral edema. No clubbing, no cyanosis. Peripheral pulses are intact. - Labs CBC & Chem 7: 03/20/21 04:10 03/20/21 04:10 Labs: Abnormal Lab Results - Last 24 Hours (Table) 03/18/21 03/19/21 03/19/21 Range/Units 12:10 12:10 12:10 Lymphocytes # (1.0-4.8) k/uL D-Dimer 1.28 H (<0.60) mg/L FEU ABG pCO2 (35-45) mmHg ABG pO2 (83-108) mmHg ABG HCO3 (21-25) mmol/L ABG Total CO2 (19-24) mmol/L Sodium (137-145) mmol/L BUN 37 H (7-17) mg/dL Creatinine 1.17 H (0.52-1.04) mg/dL Glucose 299 H (74-99) mg/dL POC Glucose (mg/dL) (75-99) mg/dL AST 64 H (14-36) U/L Lactate Dehydrogenase 2533 H (313-618) U/L C-Reactive Protein 18.6 H (<1.0) mg/dL Total Protein 6.2 L (6.3-8.2) g/dL Albumin 3.3 L (3.5-5.0) g/dL Procalcitonin (0.02-0.09) ng/mL Urine Appearance Cloudy H (Clear) Urine Protein 1+ H (Negative) Urine Glucose (UA) 3+ H (Negative) Urine Blood Moderate H (Negative) Ur Leukocyte Esterase Trace H (Negative) Urine RBC 8 H (0-5) /hpf Urine Bacteria Rare H (None) /hpf Hyaline Casts 7 H (0-2) /lpf Urine Mucus Rare H (None) /hpf 03/19/21 03/19/21 03/19/21 Range/Units 12:10 12:29 17:37 Lymphocytes # (1.0-4.8) k/uL D-Dimer (<0.60) mg/L FEU ABG pCO2 (35-45) mmHg ABG pO2 (83-108) mmHg ABG HCO3 (21-25) mmol/L ABG Total CO2 (19-24) mmol/L Sodium (137-145) mmol/L BUN (7-17) mg/dL Creatinine (0.52-1.04) mg/dL Glucose (74-99) mg/dL POC Glucose (mg/dL) 272 H 245 H (75-99) mg/dL AST (14-36) U/L Lactate Dehydrogenase (313-618) U/L C-Reactive Protein (<1.0) mg/dL Total Protein (6.3-8.2) g/dL Albumin (3.5-5.0) g/dL Procalcitonin 0.89 H (0.02-0.09) ng/mL Urine Appearance (Clear) Urine Protein (Negative) Urine Glucose (UA) (Negative) Urine Blood (Negative) Ur Leukocyte Esterase (Negative) Urine RBC (0-5) /hpf Urine Bacteria (None) /hpf Hyaline Casts (0-2) /lpf Urine Mucus (None) /hpf 03/19/21 03/20/21 03/20/21 Range/Units 23:56 04:10 04:10 Lymphocytes # (1.0-4.8) k/uL D-Dimer 1.63 H (<0.60) mg/L FEU ABG pCO2 (35-45) mmHg ABG pO2 (83-108) mmHg ABG HCO3 (21-25) mmol/L ABG Total CO2 (19-24) mmol/L Sodium 136 L (137-145) mmol/L BUN 49 H (7-17) mg/dL Creatinine 1.30 H (0.52-1.04) mg/dL Glucose 191 H (74-99) mg/dL POC Glucose (mg/dL) 222 H (75-99) mg/dL AST 45 H (14-36) U/L Lactate Dehydrogenase 2112 H (313-618) U/L C-Reactive Protein 16.1 H (<1.0) mg/dL Total Protein 6.0 L (6.3-8.2) g/dL Albumin 3.1 L (3.5-5.0) g/dL Procalcitonin (0.02-0.09) ng/mL Urine Appearance (Clear) Urine Protein (Negative) Urine Glucose (UA) (Negative) Urine Blood (Negative) Ur Leukocyte Esterase (Negative) Urine RBC (0-5) /hpf Urine Bacteria (None) /hpf Hyaline Casts (0-2) /lpf Urine Mucus (None) /hpf 03/20/21 03/20/21 03/20/21 Range/Units 04:10 05:32 06:34 Lymphocytes # 0.6 L (1.0-4.8) k/uL D-Dimer (<0.60) mg/L FEU ABG pCO2 51 H (35-45) mmHg ABG pO2 71 L (83-108) mmHg ABG HCO3 28 H (21-25) mmol/L ABG Total CO2 30 H (19-24) mmol/L Sodium (137-145) mmol/L BUN (7-17) mg/dL Creatinine (0.52-1.04) mg/dL Glucose (74-99) mg/dL POC Glucose (mg/dL) 159 H (75-99) mg/dL AST (14-36) U/L Lactate Dehydrogenase (313-618) U/L C-Reactive Protein (<1.0) mg/dL Total Protein (6.3-8.2) g/dL Albumin (3.5-5.0) g/dL Procalcitonin (0.02-0.09) ng/mL Urine Appearance (Clear) Urine Protein (Negative) Urine Glucose (UA) (Negative) Urine Blood (Negative) Ur Leukocyte Esterase (Negative) Urine RBC (0-5) /hpf Urine Bacteria (None) /hpf Hyaline Casts (0-2) /lpf Urine Mucus (None) /hpf Microbiology - Last 24 Hours (Table) 03/19/21 05:16 Sputum Culture - Preliminary Sputum 03/18/21 11:00 Blood Culture - Preliminary Blood No Growth after 24 hours Assessment and Plan Assessment: 1 Acute hypoxemic respiratory failure secondary to COVID-19 pneumonia requiring intubation and mechanical ventilatory support on 03/19/2021. The patient is not vaccinated. She tested positive on 03/16/2021. Symptoms started 03/06/2021. 2 Obesity with a BMI of 45.8 kg per metered square 3 Diabetes mellitus 4 Former smoker 5 Hyperkalemia Plan: The patient was seen and evaluated Chest x-ray, ABGs and labs reviewed Obtain a Doppler of the lower extremities Titrate down the FiO2 as tolerated Procalcitonin 0.89, sputum and blood cultures pending Continue Lovenox, Decadron, vitamin supplement Follow-up chest x-ray, ABGs and labs in the a.m. We will continue to follow make further recommendations based on her clinical status Critical care time 38 minutes I, the cosigning physician, performed a history & physical examination of the patient. Lungs sounds with bibasilar crackles. Maintaining O2 saturations in the 90s and 70% FiO2 and a PEEP of 14 via the mechanical ventilator I discussed the assessment and plan of care with my nurse practitioner, Gloria Melgar. I attest to the above note as dictated by her.
--- NOTE | 2021-03-20 11:07 | US ---
EXAMINATION TYPE: US venous doppler duplex LE DATE OF EXAM: 03/20/2021 10:31 AM COMPARISON: NONE CLINICAL HISTORY: CoVID, Elevated d-dimer. Swelling. SIDE PERFORMED: Bilateral TECHNIQUE: The lower extremity deep venous system is examined utilizing real time linear array sonog idalmis with graded compression, doppler sonography and color-flow sonography. VESSELS IMAGED: Common Femoral Vein Deep Femoral Vein Greater Saphenous Vein * Femoral Vein Popliteal Vein Small Saphenous Vein * Proximal Calf Veins (* superficial vessels) slow flow noted. Right Leg: Negative for DVT Left Leg: Negative for DVT Grayscale, color doppler, spectral doppler imaging performed of the deep veins of the bilateral lower extremities. There is normal flow, compressibility, vascular waveforms. IMPRESSION: No ultrasound evidence for acute DVT in either lower extremity.
[2021-03-20 13:20] LABS: Glucose,Whole Blood 198 mg/dL (75-99)
[2021-03-20] MEDS: ENOXAPARIN 40 MG/0.4 ML SYRINGE SQ SCH (16:21)
[2021-03-20 17:15] LABS: Glucose,Whole Blood 157 mg/dL (75-99)
--- NOTE | 2021-03-20 17:15 | P.PN ---
Subjective Progress Note Date: 03/20/21 Sergio Villatoro, is a 60-year-old female who presented to [facility] emergency room with a chief complaint of cough and shortness of breath, patient stated that she started getting sick on 03/06/2021, she was checked for Covid at that time but the test was negative, she continued to get worse, she had a second test on 03/16/2021 that was positive, patient started getting worsening shortness of breath and she decided to come to emergency room on 03/18/2021. Patient stated that she did not get vaccinated for Covid, her risk factors include diabetes and morbid obesity, she denies any cardiac history. She was evaluated in the emergency room vital examination reveals a temperature of 100.6 pulse 102 respiration 21 blood pressure 139/72 pulse ox 75% on room air and 90% on 6 L nasal cannula, white blood count was 8.4 hemoglobin 14.2 platelet count 204 sodium 134 potassium 4.2 chloride 99 CO2 22 BUN 29 creatinine 0.83 plasma lactic acid was 2.1 AST 54 ALT 38 troponin less than 0.012 EKG was normal, chest x-ray revealed diffuse near complete opacification of bilateral lungs suggestive of diffuse pneumonia or ARDS. Patient was started on IV dexamethasone, subcu Lovenox, vitamin C, vitamin D, and zinc supplements, pulmonary consultation and infectious disease consultation were requested. Patient is a former smoker, she denies ever being diagnosed with asthma or emphysema. On 03/19/2021 patient was urgently intubated this a.m. per critical care services due to decreasing respiratory status. Patient has been started on sedation. Patient remains on Decadron, vitamin C, vitamin D and zinc. Critical care and infectious disease services are following. Patient remains on Lovenox for DVT prophylaxis. PH 7.29, pCO2 57, pO2 76 HCO3 28. On 03/20/2021 patient was seen and examined in the ICU she is intubated sedated maintained on mechanical ventilation, she is maintained on IV Decadron subcu Lovenox, and vitamin supplements bilateral lower extremity Doppler was negative for DVT, pulmonary and infectious disease are following, prognosis is guarded Objective - Vital Signs Vital signs: Vital Signs Temp 98.6 F 03/20/21 04:00 Pulse 65 03/20/21 07:00 Resp 30 H 03/20/21 07:00 BP 103/54 03/20/21 07:00 Pulse Ox 92 L 03/20/21 07:00 Intake & Output 03/19/21 03/20/21 03/20/21 18:59 06:59 18:59 Intake Total 9995.454 5534.640 242.746 Output Total 485 385 30 Balance 559.409 7967.640 212.746 Weight 115.5 kg Intake: Intake, IV Titration 9241.912 6979.640 192.746 Amount Cisatracurium 200 mg In 176.288 188.226 50.549 Sodium Chloride 0.9% 180 ml @ 2 MCG/KG/MIN 15.241 mls/hr IV .Q13H8M [facility] Rx# :[id number] Sodium Chloride 0.9% 1, 40 000 ml @ 20 mls/hr IV . Q24H [facility] Rx#:[id number] Sodium Chloride 0.9% 1, 750 825 75 000 ml @ 75 mls/hr IV . [id number] [facility] Rx#:[id number] propofoL 1,000 mg In 196.928 252.414 67.197 Empty Bag 1 bag @ Titrate IV .Q0M [facility] Rx#: [id number] Tube Feeding 220 20 Other 150 30 Output: Urine 485 385 30 Other: Voiding Method Indwelling Catheter Indwelling Catheter ABP, PAP, CO, CI - Last Documented Arterial Blood Pressure 126/54 - Exam In general patient is alert and oriented x 3 in no distress HEENT head normocephalic and atraumatic Neck is supple no JVD no goiter no lymphadenopathy no carotid bruit Chest examination coarse crackles in both lung shah with wheezing Cardiac exam reveals regular heart sounds S1 and S2 no gallops no murmurs Abdomen is soft nontender no organomegaly with normal bowel sounds Extremity exam reveals no edema no cyanosis or clubbing Neurological examination reveals no gross focal deficits - Labs CBC & Chem 7: 03/20/21 04:10 03/20/21 04:10 Labs: Abnormal Lab Results - Last 24 Hours (Table) 03/18/21 03/19/21 03/19/21 Range/Units 12:10 12:10 12:10 Lymphocytes # (1.0-4.8) k/uL D-Dimer 1.28 H (<0.60) mg/L FEU ABG pCO2 (35-45) mmHg ABG pO2 (83-108) mmHg ABG HCO3 (21-25) mmol/L ABG Total CO2 (19-24) mmol/L Sodium (137-145) mmol/L BUN 37 H (7-17) mg/dL Creatinine 1.17 H (0.52-1.04) mg/dL Glucose 299 H (74-99) mg/dL POC Glucose (mg/dL) (75-99) mg/dL AST 64 H (14-36) U/L Lactate Dehydrogenase 2533 H (313-618) U/L C-Reactive Protein 18.6 H (<1.0) mg/dL Total Protein 6.2 L (6.3-8.2) g/dL Albumin 3.3 L (3.5-5.0) g/dL Procalcitonin (0.02-0.09) ng/mL Urine Appearance Cloudy H (Clear) Urine Protein 1+ H (Negative) Urine Glucose (UA) 3+ H (Negative) Urine Blood Moderate H (Negative) Ur Leukocyte Esterase Trace H (Negative) Urine RBC 8 H (0-5) /hpf Urine Bacteria Rare H (None) /hpf Hyaline Casts 7 H (0-2) /lpf Urine Mucus Rare H (None) /hpf 03/19/21 03/19/21 03/19/21 Range/Units 12:10 12:29 17:37 Lymphocytes # (1.0-4.8) k/uL D-Dimer (<0.60) mg/L FEU ABG pCO2 (35-45) mmHg ABG pO2 (83-108) mmHg ABG HCO3 (21-25) mmol/L ABG Total CO2 (19-24) mmol/L Sodium (137-145) mmol/L BUN (7-17) mg/dL Creatinine (0.52-1.04) mg/dL Glucose (74-99) mg/dL POC Glucose (mg/dL) 272 H 245 H (75-99) mg/dL AST (14-36) U/L Lactate Dehydrogenase (313-618) U/L C-Reactive Protein (<1.0) mg/dL Total Protein (6.3-8.2) g/dL Albumin (3.5-5.0) g/dL Procalcitonin 0.89 H (0.02-0.09) ng/mL Urine Appearance (Clear) Urine Protein (Negative) Urine Glucose (UA) (Negative) Urine Blood (Negative) Ur Leukocyte Esterase (Negative) Urine RBC (0-5) /hpf Urine Bacteria (None) /hpf Hyaline Casts (0-2) /lpf Urine Mucus (None) /hpf 03/19/21 03/20/21 03/20/21 Range/Units 23:56 04:10 04:10 Lymphocytes # (1.0-4.8) k/uL D-Dimer 1.63 H (<0.60) mg/L FEU ABG pCO2 (35-45) mmHg ABG pO2 (83-108) mmHg ABG HCO3 (21-25) mmol/L ABG Total CO2 (19-24) mmol/L Sodium 136 L (137-145) mmol/L BUN 49 H (7-17) mg/dL Creatinine 1.30 H (0.52-1.04) mg/dL Glucose 191 H (74-99) mg/dL POC Glucose (mg/dL) 222 H (75-99) mg/dL AST 45 H (14-36) U/L Lactate Dehydrogenase 2112 H (313-618) U/L C-Reactive Protein 16.1 H (<1.0) mg/dL Total Protein 6.0 L (6.3-8.2) g/dL Albumin 3.1 L (3.5-5.0) g/dL Procalcitonin (0.02-0.09) ng/mL Urine Appearance (Clear) Urine Protein (Negative) Urine Glucose (UA) (Negative) Urine Blood (Negative) Ur Leukocyte Esterase (Negative) Urine RBC (0-5) /hpf Urine Bacteria (None) /hpf Hyaline Casts (0-2) /lpf Urine Mucus (None) /hpf 03/20/21 03/20/21 03/20/21 Range/Units 04:10 05:32 06:34 Lymphocytes # 0.6 L (1.0-4.8) k/uL D-Dimer (<0.60) mg/L FEU ABG pCO2 51 H (35-45) mmHg ABG pO2 71 L (83-108) mmHg ABG HCO3 28 H (21-25) mmol/L ABG Total CO2 30 H (19-24) mmol/L Sodium (137-145) mmol/L BUN (7-17) mg/dL Creatinine (0.52-1.04) mg/dL Glucose (74-99) mg/dL POC Glucose (mg/dL) 159 H (75-99) mg/dL AST (14-36) U/L Lactate Dehydrogenase (313-618) U/L C-Reactive Protein (<1.0) mg/dL Total Protein (6.3-8.2) g/dL Albumin (3.5-5.0) g/dL Procalcitonin (0.02-0.09) ng/mL Urine Appearance (Clear) Urine Protein (Negative) Urine Glucose (UA) (Negative) Urine Blood (Negative) Ur Leukocyte Esterase (Negative) Urine RBC (0-5) /hpf Urine Bacteria (None) /hpf Hyaline Casts (0-2) /lpf Urine Mucus (None) /hpf Microbiology - Last 24 Hours (Table) 03/19/21 05:16 Sputum Culture - Preliminary Sputum 03/18/21 11:00 Blood Culture - Preliminary Blood No Growth after 24 hours Assessment and Plan Plan: Acute COVID-19 infection Acute hypoxic respiratory failure secondary to COVID-19 pneumonia requiring intubation and mechanical ventilation on 03/19/2021 Bilateral Pneumonia related to COVID-19 Underlying history of insulin-dependent diabetes mellitus Underlying history of morbid obesity Previous history of smoking patient denies being diagnosed with COPD in the past Hyperkalemia Maintained on subcu Lovenox, IV Decadron, vitamin C vitamin D and zinc supplements Pulmonary and infectious disease consultation were requested, case was discussed with Dr. Huynh over the phone Prognosis is guarded, will follow closely Repeat labs and x-ray ordered for a.m.
--- NOTE | 2021-03-20 22:45 | PN ---
PROGRESS NOTE DATE OF SERVICE: 03/20/2021 REASON FOR FOLLOWUP: COVID-19 pneumonia. INTERVAL HISTORY: The patient's overall fever pattern has improved. The patient is hemodynamically stable. FiO2 is currently 55%. No significant purulent secretions in the ET, diarrhea or any other changes reported by the nursing staff. The patient has been tolerating her tube feeds. PHYSICAL EXAMINATION: Blood pressure 117/59, pulse of 60, temperature of 99. She is 93% on 55% FiO2. General description is a middle-aged female intubated on the vent. Respiratory system: Unlabored breathing, decreased intensity of breath sounds. No wheeze. Heart S1, S2. Regular rate and rhythm. Abdomen soft, no tenderness. Extremities no edema of the feet. LABS: Hemoglobin is 12.1, white count 8.0. Creatinine is 1.30. DIAGNOSTIC IMPRESSION AND PLAN: Patient with acute respiratory failure secondary to COVID-19 pneumonia in this patient currently covered with dexamethasone, Lovenox, zinc and ascorbic acid; to continue along with respiratory support and monitor clinical course closely. MMODL / MELISSAN: [id number] /
[2021-03-20 23:28] LABS: Glucose,Whole Blood 133 mg/dL (75-99)
[2021-03-21] MEDS: HYDROmorphone 1 MG/ML 1 ML SYRINGE IVP SCH ×5 (01:05→08:38)
[2021-03-21] MEDS: NOREPINEPHRINE 4 MG in SODIUM CHLORIDE 0.9% 250 ML IV SCH ×2 (02:16→16:17)
[2021-03-21 06:06] LABS: ABG Base Excess 2.8 mmol/L; ABG HCO3 28 mmol/L (21-25); ABG Oxygen Saturation 97.1 % (94-97); ABG PCO2 47 mmHg (35-45); ABG PH 7.38 (7.35-7.45); ABG PO2 89 mmHg (83-108); ABG TCO2 29 mmol/L (19-24); Allen Test Performed? Yes
[2021-03-21 06:16] LABS: Glucose,Whole Blood 80 mg/dL (75-99)
--- NOTE | 2021-03-21 06:27 | XR ---
EXAMINATION TYPE: XR chest 1V portable DATE OF EXAM: 03/21/2021 CLINICAL HISTORY: Shortness of breath. TECHNIQUE: Single AP portable semiupright view of the chest is obtained. COMPARISON: Chest x-ray from one day earlier and older studies. FINDINGS: Interval advancement of endotracheal tube now at aortic knob level approximately 2 cm abov e jennifer. Stable left sided subclavian central venous catheter. Stable orogastric tube projecting below diaphra gm. Bilateral multifocal increased reticular opacities redemonstrated. Cardiac silhouette size is stable and within normal limits. Osseous structures are intact. IMPRESSION: 1. Bilateral multifocal reticular increased opacities consistent with covid-19 infection redemonstrat ed. No significant change from one day earlier. 2. Interval advancement of endotracheal tube. IMPRESSION: Overall stable findings,
[2021-03-21] MEDS: ARTIFICIAL TEARS-HYPROMELLOSE DROPS 15 ML BTL BOTH EYES SCH ×5 (06:38→20:33)
[2021-03-21] MEDS: INSULIN ASPART (NovoLOG) 100 UNIT/ML VIAL SQ SCH ×3 (06:39→17:26)
[2021-03-21] MEDS: ALBUTEROL HFA INHALER INHALATION SCH ×4 (07:34→18:52)
[2021-03-21 08:28] LABS: Glucose,Whole Blood 76 mg/dL (75-99)
[2021-03-21] MEDS: INSULN ASP PRT/INSULIN ASPART 100 UNIT/ML 10 ML VIAL SQ SCH ×3 (08:28→20:36)
[2021-03-21] MEDS: DEXAMETHASONE SOD PHOSPHATE 10 MG/ML 1 ML VIAL IVP SCH (08:37)
[2021-03-21] MEDS: CHLORHEXIDINE GLUCONATE 15 ML CUP MUCOUS MEM SCH ×2 (08:37→20:33)
[2021-03-21] MEDS: ZINC SULFATE 220 MG CAP PO SCH (08:38)
[2021-03-21] MEDS: ASCORBIC ACID 500 MG TAB PO SCH ×2 (08:38→20:33)
[2021-03-21] MEDS: CISATRACURIUM 200 MG in SODIUM CHLORIDE 0.9% 180 ML IV SCH ×2 (08:39→23:56)
[2021-03-21 09:36] LABS: Basophils % (A) 0 %; Eosinophils % (A) 0 %; HCT 35.8 % (34.0-46.0); Lymphocytes # (A) 0.9 k/uL (1.0-4.8); Lymphocytes % (A) 10 %; MCH 31.4 pg (25.0-35.0); MCHC 33.5 g/dL (31.0-37.0); MCV 93.7 fL (80.0-100.0); Mean Platelet Volume 8.6; Monocytes # (A) 0.4 k/uL (0-1.0); Monocytes % (A) 5 %; Neutrophils % (A) 82 %; Platelet Count 248 k/uL (150-450); RBC 3.82 m/uL (3.80-5.40); RDW 14.3 % (11.5-15.5); WBC 8.5 k/uL (3.8-10.6)
[2021-03-21 09:58] LABS: Potassium 4.7 mmol/L (3.5-5.1)
[2021-03-21 09:59] LABS: C Reactive Protein 4.4 mg/dL (<1.0); Calcium 9.1 mg/dL (8.4-10.2); Total Bilirubin 0.3 mg/dL (0.2-1.3)
--- NOTE | 2021-03-21 10:07 | P.PN ---
Subjective Progress Note Date: 03/21/21 Sergio Villatoro, is a 60-year-old female who presented to [facility] emergency room with a chief complaint of cough and shortness of breath, patient stated that she started getting sick on 03/06/2021, she was checked for Covid at that time but the test was negative, she continued to get worse, she had a second test on 03/16/2021 that was positive, patient started getting worsening shortness of breath and she decided to come to emergency room on 03/18/2021. Patient stated that she did not get vaccinated for Covid, her risk factors include diabetes and morbid obesity, she denies any cardiac history. She was evaluated in the emergency room vital examination reveals a temperature of 100.6 pulse 102 respiration 21 blood pressure 139/72 pulse ox 75% on room air and 90% on 6 L nasal cannula, white blood count was 8.4 hemoglobin 14.2 platelet count 204 sodium 134 potassium 4.2 chloride 99 CO2 22 BUN 29 creatinine 0.83 plasma lactic acid was 2.1 AST 54 ALT 38 troponin less than 0.012 EKG was normal, chest x-ray revealed diffuse near complete opacification of bilateral lungs suggestive of diffuse pneumonia or ARDS. Patient was started on IV dexamethasone, subcu Lovenox, vitamin C, vitamin D, and zinc supplements, pulmonary consultation and infectious disease consultation were requested. Patient is a former smoker, she denies ever being diagnosed with asthma or emphysema. On 03/19/2021 patient was urgently intubated this a.m. per critical care services due to decreasing respiratory status. Patient has been started on sedation. Patient remains on Decadron, vitamin C, vitamin D and zinc. Critical care and infectious disease services are following. Patient remains on Lovenox for DVT prophylaxis. PH 7.29, pCO2 57, pO2 76 HCO3 28. On 03/20/2021 patient was seen and examined in the ICU she is intubated sedated maintained on mechanical ventilation, she is maintained on IV Decadron subcu Lovenox, and vitamin supplements bilateral lower extremity Doppler was negative for DVT, pulmonary and infectious disease are following, prognosis is guarded On 03/21/2021 patient is intubated and remains on sedation. Per nursing staff patient is no longer on Levophed. Patient currently on an FiO2 of 55%. PH of 7.38, pCO2 47 pO2 HCO3 28. Pulmonary and infectious disease service is following Objective - Vital Signs Vital signs: Vital Signs Temp 99.0 F 03/21/21 08:00 Pulse 60 03/21/21 09:15 Resp 30 H 03/21/21 09:15 BP 121/55 03/21/21 08:00 Pulse Ox 95 03/21/21 09:15 Intake & Output 03/20/21 03/21/21 03/21/21 18:59 06:59 18:59 Intake Total 8531.887 9043.946 111 Output Total 410 485 30 Balance 9499.461 2539.946 81 Intake: IV 825 75 Sodium Chloride 0.9% 1, 825 75 000 ml @ 75 mls/hr IV . [id number] [facility] Rx#:[id number] Intake, IV Titration 1368.306 613.946 Amount Cisatracurium 200 mg In 50.549 149.451 Sodium Chloride 0.9% 180 ml @ 2 MCG/KG/MIN 15.241 mls/hr IV .[id number] [facility] Rx# :[id number] Sodium Chloride 0.9% 1, 975 000 ml @ 75 mls/hr IV . [id number] [facility] Rx#:[id number] propofoL 1,000 mg In 342.757 464.495 Empty Bag 1 bag @ Titrate IV .Q0M MENDOZA Rx#: [id number] Tube Feeding 416 396 36 Other 90 90 Output: Urine 410 485 30 Other: Voiding Method Indwelling Catheter Indwelling Catheter ABP, PAP, CO, CI - Last Documented Arterial Blood Pressure 147/54 - Exam In general patient is alert and oriented x 3 in no distress HEENT head normocephalic and atraumatic Neck is supple no JVD no goiter no lymphadenopathy no carotid bruit Chest examination coarse crackles in both lung shah with wheezing Cardiac exam reveals regular heart sounds S1 and S2 no gallops no murmurs Abdomen is soft nontender no organomegaly with normal bowel sounds Extremity exam reveals no edema no cyanosis or clubbing Neurological examination reveals no gross focal deficits - Labs CBC & Chem 7: 03/21/21 09:00 03/21/21 09:00 Labs: Abnormal Lab Results - Last 24 Hours (Table) 03/20/21 03/20/21 03/20/21 Range/Units 13:18 17:14 23:27 Lymphocytes # (1.0-4.8) k/uL D-Dimer (<0.60) mg/L FEU ABG pCO2 (35-45) mmHg ABG HCO3 (21-25) mmol/L ABG Total CO2 (19-24) mmol/L ABG O2 Saturation (94-97) % Chloride (98-107) mmol/L BUN (7-17) mg/dL Creatinine (0.52-1.04) mg/dL POC Glucose (mg/dL) 198 H 157 H 133 H (75-99) mg/dL AST (14-36) U/L Lactate Dehydrogenase (313-618) U/L C-Reactive Protein (<1.0) mg/dL Total Protein (6.3-8.2) g/dL Albumin (3.5-5.0) g/dL 03/21/21 03/21/21 03/21/21 Range/Units 06:20 09:00 09:00 Lymphocytes # 0.9 L (1.0-4.8) k/uL D-Dimer (<0.60) mg/L FEU ABG pCO2 47 H (35-45) mmHg ABG HCO3 28 H (21-25) mmol/L ABG Total CO2 29 H (19-24) mmol/L ABG O2 Saturation 97.1 H (94-97) % Chloride 108 H (98-107) mmol/L BUN 48 H (7-17) mg/dL Creatinine 1.05 H (0.52-1.04) mg/dL POC Glucose (mg/dL) (75-99) mg/dL AST 41 H (14-36) U/L Lactate Dehydrogenase 1559 H (313-618) U/L C-Reactive Protein 4.4 H (<1.0) mg/dL Total Protein 6.0 L (6.3-8.2) g/dL Albumin 3.0 L (3.5-5.0) g/dL 03/21/21 Range/Units 09:00 Lymphocytes # (1.0-4.8) k/uL D-Dimer 10.94 H (<0.60) mg/L FEU ABG pCO2 (35-45) mmHg ABG HCO3 (21-25) mmol/L ABG Total CO2 (19-24) mmol/L ABG O2 Saturation (94-97) % Chloride (98-107) mmol/L BUN (7-17) mg/dL Creatinine (0.52-1.04) mg/dL POC Glucose (mg/dL) (75-99) mg/dL AST (14-36) U/L Lactate Dehydrogenase (313-618) U/L C-Reactive Protein (<1.0) mg/dL Total Protein (6.3-8.2) g/dL Albumin (3.5-5.0) g/dL Microbiology - Last 24 Hours (Table) 03/18/21 11:00 Blood Culture - Preliminary Blood No Growth after 48 hours 03/19/21 05:16 Gram Stain - Preliminary Sputum Sputum Culture - Preliminary Assessment and Plan Plan: Acute COVID-19 infection Acute hypoxic respiratory failure secondary to COVID-19 pneumonia requiring intubation and mechanical ventilation on 03/19/2021 Bilateral Pneumonia related to COVID-19 Underlying history of insulin-dependent diabetes mellitus Underlying history of morbid obesity Previous history of smoking patient denies being diagnosed with COPD in the past Hyperkalemia Maintained on subcu Lovenox, IV Decadron, vitamin C vitamin D and zinc supplements Pulmonary and infectious disease consultation were requested, case was discussed with Dr. Huynh over the phone Prognosis is guarded, will follow closely Repeat labs and x-ray ordered for a.m.
--- NOTE | 2021-03-21 11:01 | P.PN ---
Subjective Progress Note Date: 03/21/21 Principal diagnosis: COVID-19 pneumonia This is a 60-year-old female patient with a history of diabetes mellitus, obesity, former smoker who presented to the emergency room yesterday with complaints of increasing shortness of breath and low oxygen that she was measuring at home. The patient started having symptoms of shortness of breath cough congestion on 03/06/2021 and reportedly tested negative for CoVID. She was treated with azithromycin and prednisone in the outpatient setting. Her symptoms progressed and she did test positive on 03/16/2021. She was admitted to the regular medical floor and placed on BiPAP over 6 and 70% FiO2 with O2 saturations 85-86% with respiratory rate of 44 and A team was called at 11:00 last night and the patient remained on the floor. Her oxygen requirements continued to progress and she was urgently intubated at 04:43 this morning and placed on mechanical ventilator. He is seen today in consultation in the intensive care unit. Current settings are assist-control mode at a rate of 26, tidal volume 500, FiO2 100% and a PEEP of 14. Blood gases revealed a PaO2 of 76, pCO2 of 47 and a pH of 7.29. She is currently sedated on to follow at 40 mcg/kg/m. She is on Nimbex at 2 mcg/kg/m. She is receiving Dilaudid IVP. 0.9 normal saline at 75 ML's per hour. Chest x-ray reveals diffuse bilateral airspace disease. The endotracheal tube was noted to be quite high and is to be repositioned urgently. White count 9.0. Hemoglobin 14.9. Lymphocytes 0.5. Sodium 134. Potassium 6.1. Chloride 104. Bicarb 15. BUN 28. Creatinine 0.72. Glucose 215. She was initiated on Decadron, Lovenox, vitamin supplements. The patient is seen today 03/20/2021 in follow-up in the intensive care unit. She remains intubated and on mechanical ventilator. Currently an assist-control mode at a rate of 30, temperature Ativan 400, FiO2 70% and a PEEP of 14. Morning blood gases revealed a PaO2 of 71, pCO2 51, pH 7.35. Continued on sedat ion of propofol at 50 mcg/kg/m, Nimbex at 1 mcg/kg/m. Normal saline at 75 ML's per hour. Norepinephrine has been off since approximately 8 PM last evening. She is being nourished with vital AF at 36 ML's per hour which is goal. Urine output has been borderline. Creatinine is up to 1.30. BUN 49. Sodium 136. Potassium 4.6. AST 5. ALT 23. LDH 2112. C-reactive protein 16.1. White count 8.0. Hemoglobin 12.1. Lymphocytes 0.6. D-dimer 1.63. She remains on Lovenox, Decadron, vitamin supplements. Chest x-ray continues show patchy bilateral infiltrates. Endotracheal tube to be repositioned. Sputum culture reveals no growth to date. Blood cultures reveal no growth to date. Had a t emperature of 100.2 yesterday afebrile today. The patient is seen today 03/21/2021 in follow-up in the intensive care unit. She remains intubated on the mechanical ventilator. Current settings are assist control mode with respiratory rate of 30, telephone 400, FiO2 55% and a PEEP of 18. Morning blood gases reveal a pO2 of 89, pCO2 47, pH 7.38. She is sedated on propofol. Nimbex at 1 g/kg/m. Normal saline at 75 ML's per hour. He is being nourished with vital AF at 36 ML's per hour which is goal. Urine output averaging 30-50 ML's per hour. Today's chest x-ray reveals bilateral multifocal reticular opacities consistent with COVID-19 pneumonia. Endotracheal tube in good position. Blood cultures reveal no growth. Sputum culture pending. White count 8.5. Hemoglobin 12.0. Lymphocytes 0.9. D-dimer 10.94. Sodium 138. Potassium 4.7. Creatinine 1.05. LDH 1559. C-reactive protein 4.4. Currently on Decadron, Lovenox, vitamin supplements. Objective - Vital Signs Vital signs: Vital Signs Temp 99.0 F 03/21/21 08:00 Pulse 60 03/21/21 09:15 Resp 30 H 03/21/21 09:15 BP 121/55 03/21/21 08:00 Pulse Ox 95 03/21/21 09:15 Intake & Output 03/20/21 03/21/21 03/21/21 18:59 06:59 18:59 Intake Total 9222.218 2714.946 111 Output Total 410 485 30 Balance 6696.395 5551.946 81 Intake: IV 825 75 Sodium Chloride 0.9% 1, 825 75 000 ml @ 75 mls/hr IV . [id number] [facility] Rx#:[id number] Intake, IV Titration 1368.306 613.946 Amount Cisatracurium 200 mg In 50.549 149.451 Sodium Chloride 0.9% 180 ml @ 2 MCG/KG/MIN 15.241 mls/hr IV .Q13H8M [facility] Rx# :[id number] Sodium Chloride 0.9% 1, 975 000 ml @ 75 mls/hr IV . [id number] [facility] Rx#:[id number] propofoL 1,000 mg In 342.757 464.495 Empty Bag 1 bag @ Titrate IV .Q0M [facility]OZA Rx#: [id number] Tube Feeding 416 396 36 Other 90 90 Output: Urine 410 485 30 Other: Voiding Method Indwelling Catheter Indwelling Catheter ABP, PAP, CO, CI - Last Documented Arterial Blood Pressure 147/54 - Exam GENERAL EXAM: Intubated, sedated and paralyzed 60-year-old female patient on the mechanical ventilator with FiO2 55% and a PEEP of 18, comfortable in no apparent distress. HEAD: Normocephalic. EYES: Sluggish reaction of pupils, equal size. NOSE: Clear with pink turbinates. THROAT: Oral endotracheal and gastric tube secured in place. No erythema or exudates. NECK: No masses, no JVD. CHEST: No chest wall deformity. LUNGS: Equal air entry with bibasilar coarse crackles. CVS: S1 and S2 normal with no audible murmur, regular rhythm. ABDOMEN: No hepatosplenomegaly, normal bowel sounds, no guarding or rigidity. SPINE: No scoliosis or deformity SKIN: No rashes CENTRAL NERVOUS SYSTEM: Sedated, paralyzed, tone is normal in all 4 extremities. EXTREMITIES: There is no peripheral edema. No clubbing, no cyanosis. Peripheral pulses are intact. - Labs CBC & Chem 7: 03/21/21 09:00 03/21/21 09:00 Labs: Abnormal Lab Results - Last 24 Hours (Table) 03/20/21 03/20/21 03/20/21 Range/Units 13:18 17:14 23:27 Lymphocytes # (1.0-4.8) k/uL D-Dimer (<0.60) mg/L FEU ABG pCO2 (35-45) mmHg ABG HCO3 (21-25) mmol/L ABG Total CO2 (19-24) mmol/L ABG O2 Saturation (94-97) % Chloride (98-107) mmol/L BUN (7-17) mg/dL Creatinine (0.52-1.04) mg/dL POC Glucose (mg/dL) 198 H 157 H 133 H (75-99) mg/dL AST (14-36) U/L Lactate Dehydrogenase (313-618) U/L C-Reactive Protein (<1.0) mg/dL Total Protein (6.3-8.2) g/dL Albumin (3.5-5.0) g/dL 03/21/21 03/21/21 03/21/21 Range/Units 06:20 09:00 09:00 Lymphocytes # 0.9 L (1.0-4.8) k/uL D-Dimer (<0.60) mg/L FEU ABG pCO2 47 H (35-45) mmHg ABG HCO3 28 H (21-25) mmol/L ABG Total CO2 29 H (19-24) mmol/L ABG O2 Saturation 97.1 H (94-97) % Chloride 108 H (98-107) mmol/L BUN 48 H (7-17) mg/dL Creatinine 1.05 H (0.52-1.04) mg/dL POC Glucose (mg/dL) (75-99) mg/dL AST 41 H (14-36) U/L Lactate Dehydrogenase 1559 H (313-618) U/L C-Reactive Protein 4.4 H (<1.0) mg/dL Total Protein 6.0 L (6.3-8.2) g/dL Albumin 3.0 L (3.5-5.0) g/dL 03/21/21 Range/Units 09:00 Lymphocytes # (1.0-4.8) k/uL D-Dimer 10.94 H (<0.60) mg/L FEU ABG pCO2 (35-45) mmHg ABG HCO3 (21-25) mmol/L ABG Total CO2 (19-24) mmol/L ABG O2 Saturation (94-97) % Chloride (98-107) mmol/L BUN (7-17) mg/dL Creatinine (0.52-1.04) mg/dL POC Glucose (mg/dL) (75-99) mg/dL AST (14-36) U/L Lactate Dehydrogenase (313-618) U/L C-Reactive Protein (<1.0) mg/dL Total Protein (6.3-8.2) g/dL Albumin (3.5-5.0) g/dL Microbiology - Last 24 Hours (Table) 03/18/21 11:00 Blood Culture - Preliminary Blood No Growth after 48 hours 03/19/21 05:16 Gram Stain - Preliminary Sputum Sputum Culture - Preliminary Assessment and Plan Assessment: 1 Acute hypoxemic respiratory failure secondary to COVID-19 pneumonia requiring intubation and mechanical ventilatory support on 03/19/2021. The patient is not vaccinated. She tested positive on 03/16/2021. Symptoms started 03/06/2021. 2 Obesity with a BMI of 45.8 kg per metered square 3 Diabetes mellitus 4 Former smoker 5 Hyperkalemia, improved 6 Elevated inflammatory markers secondary to above Plan: The patient was seen and evaluated Chest x-ray, ABGs and labs reviewed Venous Dopplers negative yesterday Elevated d-dimer, obtain a CT angiogram Titrate down the FiO2 as tolerated Add fentanyl drip Continue Lovenox, Decadron, vitamin supplement Follow-up chest x-ray, ABGs and labs in the a.m. We will continue to follow make further recommendations based on her clinical status Critical care time 36 minutes I, the cosigning physician, performed a history & physical examination of the patient. Lungs sounds with bibasilar crackles. Maintaining O2 saturations in the 90s and 55% FiO2 and a PEEP of 18 via the mechanical ventilator I discussed the assessment and plan of care with my nurse practitioner, Gloria Melgar. I attest to the above note as dictated by her.
[2021-03-21] MEDS: fentaNYL (PF). 1,000 MCG in SODIUM CHLORIDE 0.9% 80 ML IV SCH ×4 (11:36→23:21)
[2021-03-21 11:39] LABS: Glucose,Whole Blood 101 mg/dL (75-99)
[2021-03-21] MEDS: SODIUM CHLORIDE 0.9% 1,000 ML IV SCH (11:44)
--- NOTE | 2021-03-21 14:33 | CT ---
EXAMINATION TYPE: CT angio chest DATE OF EXAM: 03/21/2021 COMPARISON: Chest x-ray earlier today and older x-ray studies. HISTORY: covid, elevated dimer CT DLP: 918.3 mGycm. Automated Exposure Control for Dose Reduction was Utilized. CONTRAST: CTA scan of the thorax is performed with IV Contrast, patient injected with 100 mL of Isovue 300, pul monary embolism protocol. MIP Images are created on CT scanner and reviewed. FINDINGS: LUNGS: Multifocal and fairly diffuse areas of groundglass opacity bilaterally with posterior consolid ations correlates with x-ray. No significant pleural effusions or pneumothorax. Endotracheal tube ter minates above jennifer. MEDIASTINUM: There is slightly suboptimal study due to sedated patient with heterogeneity but no conv incing CT evidence for acute central pulmonary embolism. There are enlarged bilateral hilar and medi astinal lymph nodes presumed reactive. No cardiomegaly or pericardial effusion is seen. OTHER: The oral gastric tube projects below diaphragm. IMPRESSION: Suboptimal study without central acute pulmonary embolism. Bilateral fairly diffuse groun dglass opacities with posterior consolidations consistent with known covid-19 infection are redemonst rated.
[2021-03-21] MEDS: ENOXAPARIN 40 MG/0.4 ML SYRINGE SQ SCH (16:20)
[2021-03-21 17:15] LABS: Glucose,Whole Blood 160 mg/dL (75-99)
[2021-03-21 23:47] LABS: Glucose,Whole Blood 167 mg/dL (75-99)
[2021-03-22] MEDS: INSULIN ASPART (NovoLOG) 100 UNIT/ML VIAL SQ SCH ×4 (01:14→19:03)
[2021-03-22] MEDS: ARTIFICIAL TEARS-HYPROMELLOSE DROPS 15 ML BTL BOTH EYES SCH ×6 (01:15→19:44)
--- NOTE | 2021-03-22 01:25 | PN ---
PROGRESS NOTE DATE OF SERVICE: 03/21/2021 REASON FOR FOLLOWUP: COVID-19 pneumonia. INTERVAL HISTORY: The patient is afebrile. The patient is hemodynamically stable. FiO2 is currently stable. No significant purulent secretions through the ET, diarrhea or any other changes reported by the nursing staff. PHYSICAL EXAMINATION: Blood pressure 130/60 with a pulse of 49, temperature 98.7. She is 97% on 55% FiO2. General description is a middle-aged female intubated on the vent. Respiratory system: Unlabored breathing, decreased breath sounds, no wheeze. Heart S1, S2. Regular rate and rhythm. Abdomen soft, no tenderness. LABS: Hemoglobin is 12.7, white count 8.5, creatinine is 1.05. Blood culture has been negative. DIAGNOSTIC IMPRESSION AND PLAN: Patient with acute respiratory failure secondary to COVID-19 pneumonia. The patient did have an elevated D-dimer. Did have a CT angiogram which was negative for PE, did show evidence of bilateral diffuse ground glass opacities related to COVID-19. The patient is currently covered with dexamethasone, Lovenox, zinc and ascorbic acid to continue along with respiratory support and monitor clinical course closely. MMODL / IJN: [id number] /
[2021-03-22] MEDS: NOREPINEPHRINE 4 MG in SODIUM CHLORIDE 0.9% 250 ML IV SCH ×2 (04:23→13:16)
[2021-03-22] MEDS: fentaNYL (PF). 1,000 MCG in SODIUM CHLORIDE 0.9% 80 ML IV SCH ×5 (04:25→21:39)
[2021-03-22] MEDS: SODIUM CHLORIDE 0.9% 1,000 ML IV SCH ×2 (04:25→19:02)
[2021-03-22 05:03] LABS: Basophils # (A) 0.1 k/uL (0-0.2); Basophils % (A) 1 %; Eosinophils # (A) 0.1 k/uL (0-0.7); Eosinophils % (A) 1 %; HCT 36.7 % (34.0-46.0); HGB 11.9 gm/dL (11.4-16.0); Lymphocytes # (A) 1.1 k/uL (1.0-4.8); Lymphocytes % (A) 15 %; MCH 30.3 pg (25.0-35.0); MCHC 32.5 g/dL (31.0-37.0); MCV 93.5 fL (80.0-100.0); Mean Platelet Volume 8.6; Monocytes # (A) 0.5 k/uL (0-1.0); Monocytes % (A) 7 %; Neutrophils # (A) 5.4 k/uL (1.3-7.7); Neutrophils % (A) 73 %; Platelet Count 286 k/uL (150-450); RBC 3.92 m/uL (3.80-5.40); RDW 13.9 % (11.5-15.5); WBC 7.4 k/uL (3.8-10.6)
[2021-03-22 05:23] LABS: Albumin 2.9 g/dL (3.5-5.0); C Reactive Protein 2.6 mg/dL (<1.0); Calcium 8.8 mg/dL (8.4-10.2); Potassium 4.8 mmol/L (3.5-5.1); Total Bilirubin 0.3 mg/dL (0.2-1.3); Total Protein 5.8 g/dL (6.3-8.2)
[2021-03-22 05:55] LABS: ABG Base Excess 0.9 mmol/L; ABG HCO3 26 mmol/L (21-25); ABG Oxygen Saturation 98.5 % (94-97); ABG PCO2 42 mmHg (35-45); ABG PO2 110 mmHg (83-108); ABG TCO2 27 mmol/L (19-24)
[2021-03-22 06:17] LABS: Allen Test Performed? no
--- NOTE | 2021-03-22 06:33 | XR ---
EXAMINATION TYPE: XR chest 1V portable DATE OF EXAM: 03/22/2021 COMPARISON: 03/21/2021 HISTORY: Tube placement TECHNIQUE: Single frontal view of the chest is obtained. There is a PICC line entering the left arm and terminating in the SVC/R junction. ET tube is approxim ately 3.7 cm above the jennifer. There is an NG tube stomach. The osseous structures are intact. FINDINGS: There is persistent mild pulmonary vascular congestion and interstitial edema. There are n o large pleural effusions and no pneumothorax. IMPRESSION: No change in the acute cardiopulmonary disease as described above. ET tube is 3.7-3.8 cm above the jennifer.
[2021-03-22] MEDS: ALBUTEROL HFA INHALER INHALATION SCH ×4 (09:09→21:55)
[2021-03-22] MEDS: CHOLECALCIFEROL 25 MCG (1000 IU) TABLET PO SCH (09:46)
[2021-03-22] MEDS: ASCORBIC ACID 500 MG TAB PO SCH ×2 (09:46→19:44)
[2021-03-22] MEDS: ZINC SULFATE 220 MG CAP PO SCH (09:46)
[2021-03-22] MEDS: DEXAMETHASONE SOD PHOSPHATE 10 MG/ML 1 ML VIAL IVP SCH (10:08)
[2021-03-22] MEDS: CHLORHEXIDINE GLUCONATE 15 ML CUP MUCOUS MEM SCH ×2 (10:08→19:44)
[2021-03-22] MEDS: INSULN ASP PRT/INSULIN ASPART 100 UNIT/ML 10 ML VIAL SQ SCH ×2 (10:09→19:44)
[2021-03-22 10:13] LABS: Glucose,Whole Blood 164 mg/dL (75-99)
--- NOTE | 2021-03-22 10:14 | P.PN ---
Subjective Progress Note Date: 03/22/21 Principal diagnosis: Respiratory failure. COVID-19 pneumonia This is a 60-year-old female patient with a history of diabetes mellitus, obesity, former smoker who presented to the emergency room yesterday with complaints of increasing shortness of breath and low oxygen that she was measuring at home. The patient started having symptoms of shortness of breath cough congestion on 03/06/2021 and reportedly tested negative for CoVID. She was treated with azithromycin and prednisone in the outpatient setting. Her symptoms progressed and she did test positive on 03/16/2021. She was admitted to the regular medical floor and placed on BiPAP over 6 and 70% FiO2 with O2 saturations 85-86% with respiratory rate of 44 and A team was called at 11:00 last night and the patient remained on the floor. Her oxygen requirements continued to progress and she was urgently intubated at 04:43 this morning and placed on mechanical ventilator. He is seen today in consultation in the intensive care unit. Current settings are assist-control mode at a rate of 26, tidal volume 500, FiO2 100% and a PEEP of 14. Blood gases revealed a PaO2 of 76, pCO2 of 47 and a pH of 7.29. She is currently sedated on to follow at 40 mcg/kg/m. She is on Nimbex at 2 mcg/kg/m. She is receiving Dilaudid IVP. 0.9 normal saline at 75 ML's per hour. Chest x-ray reveals diffuse bilateral airspace disease. The endotracheal tube was noted to be quite high and is to be repositioned urgently. White count 9.0. Hemoglobin 14.9. Lymphocytes 0.5. Sodium 134. Potassium 6.1. Chloride 104. Bicarb 15. BUN 28. Creatinine 0.72. Glucose 215. She was initiated on Decadron, Lovenox, vitamin supple ments. The patient is seen today 03/20/2021 in follow-up in the intensive care unit. She remains intubated and on mechanical ventilator. Currently an assist-control mode at a rate of 30, temperature Ativan 400, FiO2 70% and a PEEP of 14. Morning blood gases revealed a PaO2 of 71, pCO2 51, pH 7.35. Continued on sedation of propofol at 50 mcg/kg/m, Nimbex at 1 mcg/kg/m. Normal saline at 75 ML's per hour. Norepinephrine has been off since approximately 8 PM last evening. She is being nourished with vital AF at 36 ML's per hour which is goal. Urine output has been borderline. Creatinine is up to 1.30. BUN 49. Sodium 136. Potassium 4.6. AST 5. ALT 23. LDH 2112. C-reactive protein 16.1. White count 8.0. Hemoglobin 12.1. Lymphocytes 0.6. D-dimer 1.63. She remains on Lovenox, Decadron, vitamin supplements. Chest x-ray continues show patchy bilateral infiltrates. Endotracheal tube to be repositioned. Sputum culture reveals no growth to date. Blood cultures reveal no growth to date. Had a temperature of 100.2 yesterday afebrile today. The patient is seen today 03/21/2021 in follow-up in the intensive care unit. She remains intubated on the mechanical ventilator. Current settings are assist control mode with respiratory rate of 30, telephone 400, FiO2 55% and a PEEP of 18. Morning blood gases reveal a pO2 of 89, pCO2 47, pH 7.38. She is sedated on propofol. Nimbex at 1 g/kg/m. Normal saline at 75 ML's per hour. He is being nourished with vital AF at 36 ML's per hour which is goal. Urine output averaging 30-50 ML's per hour. Today's chest x-ray reveals bilateral multifocal reticular opacities consistent with COVID-19 pneumonia. Endotracheal tube in good position. Blood cultures reveal no growth. Sputum culture pending. White count 8.5. Hemoglobin 12.0. Lymphocytes 0.9. D-dimer 10.94. Sodium 138. Potassium 4.7. Creatinine 1.05. LDH 1559. C-reactive protein 4.4. Currently on Decadron, Lovenox, vitamin supplements. Progress note dated 03/22/2021. 60-year-old female, who was seen in room 264. The patient was admitted with a diagnosis of coronavirus associated pneumonia. Because of worsening hypoxemic respiratory failure, she was intubated and mechanically ventilated on 03/19/2021. She remains on the ventilator. She currently is on the volume assist control mode, rate 30, tidal volume 400, FiO2 55%, and a PEEP of 18. Blood gases show pO2 of 110, pCO2 42, and a pH is 7.4. The patient is on Nimbex at 1 mcg/kg/m, and fentanyl at 2 mcg/kg per hour. She's getting propofol at 50 mcg/kg/m, saline at 75 mL an hour, and vital HP at 29 mL an hour, which is goal. The patient's FiO2 will be reduced down to 50%. White count 7.4, hemoglobin 11.9, hematocrit 36.7, and platelet count 286,000. Sodium 139, potassium 4.8, c hlorides 107, CO2 26, anion gap 6, BUN 40, with a creatinine of 0.91. Chest x- ray shows diffuse bilateral infiltrates. CT angiogram was negative for pulmonary embolism. Objective - Vital Signs Vital signs: Vital Signs Temp 98.3 F 03/22/21 04:00 Pulse 48 L 03/22/21 07:00 Resp 30 H 03/22/21 07:00 BP 132/60 03/22/21 07:00 Pulse Ox 97 03/22/21 07:00 Intake & Output 03/21/21 03/22/21 03/22/21 18:59 06:59 18:59 Intake Total 9621.121 8611.533 111 Output Total 610 850 75 Balance 3274.214 6769.533 36 Weight 115.5 kg Intake: IV 675 825 75 Sodium Chloride 0.9% 1, 675 825 75 000 ml @ 75 mls/hr IV . [id number] [facility] Rx#:[id number] Intake, IV Titration 381.717 586.533 Amount fentaNYL (PF). 1,000 mcg 81.717 294.133 In Sodium Chloride 0.9% 80 ml @ 0.5 MCG/KG/HR 5. 775 mls/hr IV .[id number] [facility] Rx#:[id number] propofoL 1,000 mg In 300 292.4 Empty Bag 1 bag @ Titrate IV .Q0M [facility] Rx#: [id number] Tube Feeding 504 432 36 Other 90 90 Output: Urine 610 850 75 Other: Voiding Method Indwelling Catheter Indwelling Catheter ABP, PAP, CO, CI - Last Documented Arterial Blood Pressure 160/52 - Exam No acute distress, sedated and paralyzed, with an orally placed endotracheal tube and NG tube. HEENT examination is grossly unremarkable. Neck supple. Full range of motion. No adenopathy thyromegaly or neck vein distention. Cardiovascular examination reveals regular rhythm rate. S1-S2 normal. No S3 or S4. No discernible murmur noted. Heart sounds distant. Heart rate 50 bpm. Lungs reveal coarse rhonchi. No wheezes or crackles. Breath sounds equal bilaterally. Saturations 97%. Abdomen soft bowel sounds are heard. No masses or tenderness. Extremities are intact. No cyanosis clubbing or edema. Skin is without rash or lesion. Neurologic examination cannot be adequately assessed as the patient's currently sedated and paralyzed. - Labs CBC & Chem 7: 03/22/21 04:30 03/22/21 04:30 Labs: Abnormal Lab Results - Last 24 Hours (Table) 03/21/21 03/21/21 03/21/21 Range/Units 11:37 17:12 23:46 D-Dimer (<0.60) mg/L FEU ABG pO2 (83-108) mmHg ABG HCO3 (21-25) mmol/L ABG Total CO2 (19-24) mmol/L ABG O2 Saturation (94-97) % BUN (7-17) mg/dL Glucose (74-99) mg/dL POC Glucose (mg/dL) 101 H 160 H 167 H (75-99) mg/dL Lactate Dehydrogenase (313-618) U/L C-Reactive Protein (<1.0) mg/dL Total Protein (6.3-8.2) g/dL Albumin (3.5-5.0) g/dL 03/22/21 03/22/21 03/22/21 Range/Units 04:30 04:30 05:53 D-Dimer 6.36 H (<0.60) mg/L FEU ABG pO2 110 H (83-108) mmHg ABG HCO3 26 H (21-25) mmol/L ABG Total CO2 27 H (19-24) mmol/L ABG O2 Saturation 98.5 H (94-97) % BUN 40 H (7-17) mg/dL Glucose 130 H (74-99) mg/dL POC Glucose (mg/dL) (75-99) mg/dL Lactate Dehydrogenase 1275 H (313-618) U/L C-Reactive Protein 2.6 H (<1.0) mg/dL Total Protein 5.8 L (6.3-8.2) g/dL Albumin 2.9 L (3.5-5.0) g/dL Microbiology - Last 24 Hours (Table) 03/18/21 11:00 Blood Culture - Preliminary Blood No Growth after 72 hours 03/19/21 05:16 Gram Stain - Final Sputum Sputum Culture - Final Assessment and Plan Assessment: Acute hypoxemic respiratory failure secondary to coronavirus associated pneumonia, with intubation and mechanical ventilation on March 19. Obesity, with a BMI of 46. Diabetes mellitus. Former tobacco user. Hyperkalemia, improved. Elevated inflammatory marker secondary to coronavirus action. Plan: Plan dated 03/22/2021. The patient's CT angiogram was negative for pulmonary embolism. Venous Dopplers were also negative for DVT. The patient will have morning labs including a CBC, basic metabolic profile, and blood gas. A chest x-ray will also be ordered. The patient continues on Lovenox, Decadron, and vitamin C, vitamin D3, and zinc. The patient remains on Nimbex, fentanyl, and propofol. The patient is re ceiving nutrition at goal. We will continue to follow make patients where appropriate. Prognosis is guarded. Time with Patient: Greater than 30
[2021-03-22] MEDS: CLEVIDIPINE BUTYRATE 25 MG in EMPTY BAG 1 BAG IV SCH ×5 (10:55→22:47)
[2021-03-22] MEDS: CISATRACURIUM 200 MG in SODIUM CHLORIDE 0.9% 180 ML IV SCH (11:09)
--- NOTE | 2021-03-22 11:12 | P.PN ---
Subjective Progress Note Date: 03/22/21 Sergio Villatoro, is a 60-year-old female who presented to [facility] emergency room with a chief complaint of cough and shortness of breath, patient stated that she started getting sick on 03/06/2021, she was checked for Covid at that time but the test was negative, she continued to get worse, she had a second test on 03/16/2021 that was positive, patient started getting worsening shortness of breath and she decided to come to emergency room on 03/18/2021. Patient stated that she did not get vaccinated for Covid, her risk factors include diabetes and morbid obesity, she denies any cardiac history. She was evaluated in the emergency room vital examination reveals a temperature of 100.6 pulse 102 respiration 21 blood pressure 139/72 pulse ox 75% on room air and 90% on 6 L nasal cannula, white blood count was 8.4 hemoglobin 14.2 platelet count 204 sodium 134 potassium 4.2 chloride 99 CO2 22 BUN 29 creatinine 0.83 plasma lactic acid was 2.1 AST 54 ALT 38 troponin less than 0.012 EKG was normal, chest x-ray revealed diffuse near complete opacification of bilateral lungs suggestive of diffuse pneumonia or ARDS. Patient was started on IV dexamethasone, subcu Lovenox, vitamin C, vitamin D, and zinc supplements, pulmonary consultation and infectious disease consultation were requested. Patient is a former smoker, she denies ever being diagnosed with asthma or emphysema. On 03/19/2021 patient was urgently intubated this a.m. per critical care services due to decreasing respiratory status. Patient has been started on sedation. Patient remains on Decadron, vitamin C, vitamin D and zinc. Critical care and infectious disease services are following. Patient remains on Lovenox for DVT prophylaxis. PH 7.29, pCO2 57, pO2 76 HCO3 28. On 03/20/2021 patient was seen and examined in the ICU she is intubated sedated maintained on mechanical ventilation, she is maintained on IV Decadron subcu Lovenox, and vitamin supplements bilateral lower extremity Doppler was negative for DVT, pulmonary and infectious disease are following, prognosis is guarded On 03/21/2021 patient is intubated and remains on sedation. Per nursing staff patient is no longer on Levophed. Patient currently on an FiO2 of 55%. PH of 7.38, pCO2 47 pO2 HCO3 28. Pulmonary and infectious disease service is following On 03/22/2021 patient was seen and examined in the ICU she is intubated sedated maintained on mechanical ventilation, she is maintained on IV Decadron subcu Lovenox, and vitamin supplements bilateral lower extremity Doppler was negative for DVT, temperature is 98.3 pulse 48 respiration 30 blood pressure 130/58 pulse ox 97% on FiO2 of 50% white blood count 7.4 hemoglobin 11.9 platelet count 286 d-dimer elevated at 6.36 ABG reveals a pH of 7.4 pCO2 42 PO2 110 pulmonary and infectious disease are following, prognosis is guarded Objective - Vital Signs Vital signs: Vital Signs Temp 98.3 F 03/22/21 04:00 Pulse 48 L 03/22/21 07:00 Resp 30 H 03/22/21 07:00 BP 132/60 03/22/21 07:00 Pulse Ox 97 03/22/21 07:00 Intake & Output 03/21/21 03/22/21 03/22/21 18:59 06:59 18:59 Intake Total 4492.927 1701.533 111 Output Total 610 850 75 Balance 5163.531 0092.533 36 Weight 115.5 kg Intake: IV 675 825 75 Sodium Chloride 0.9% 1, 675 825 75 000 ml @ 75 mls/hr IV . [id number] [facility] Rx#:[id number] Intake, IV Titration 381.717 586.533 Amount fentaNYL (PF). 1,000 mcg 81.717 294.133 In Sodium Chloride 0.9% 80 ml @ 0.5 MCG/KG/HR 5. 775 mls/hr IV .[id number] [facility] Rx#:[id number] propofoL 1,000 mg In 300 292.4 Empty Bag 1 bag @ Titrate IV .Q0M [facility] Rx#: [id number] Tube Feeding 504 432 36 Other 90 90 Output: Urine 610 850 75 Other: Voiding Method Indwelling Catheter Indwelling Catheter ABP, PAP, CO, CI - Last Documented Arterial Blood Pressure 160/52 - Exam In general patient is intubated sedated maintained on mechanical ventilation HEENT head normocephalic and atraumatic Neck is supple no JVD no goiter no lymphadenopathy no carotid bruit Chest examination coarse crackles in both lung shah with wheezing Cardiac exam reveals regular heart sounds S1 and S2 no gallops no murmurs Abdomen is soft nontender no organomegaly with normal bowel sounds Extremity exam reveals no edema no cyanosis or clubbing Neurological examination reveals no gross focal deficits - Labs CBC & Chem 7: 03/22/21 04:30 03/22/21 04:30 Labs: Abnormal Lab Results - Last 24 Hours (Table) 03/21/21 03/21/21 03/21/21 Range/Units 11:37 17:12 23:46 D-Dimer (<0.60) mg/L FEU ABG pO2 (83-108) mmHg ABG HCO3 (21-25) mmol/L ABG Total CO2 (19-24) mmol/L ABG O2 Saturation (94-97) % BUN (7-17) mg/dL Glucose (74-99) mg/dL POC Glucose (mg/dL) 101 H 160 H 167 H (75-99) mg/dL Lactate Dehydrogenase (313-618) U/L C-Reactive Protein (<1.0) mg/dL Total Protein (6.3-8.2) g/dL Albumin (3.5-5.0) g/dL 03/22/21 03/22/21 03/22/21 Range/Units 04:30 04:30 05:53 D-Dimer 6.36 H (<0.60) mg/L FEU ABG pO2 110 H (83-108) mmHg ABG HCO3 26 H (21-25) mmol/L ABG Total CO2 27 H (19-24) mmol/L ABG O2 Saturation 98.5 H (94-97) % BUN 40 H (7-17) mg/dL Glucose 130 H (74-99) mg/dL POC Glucose (mg/dL) (75-99) mg/dL Lactate Dehydrogenase 1275 H (313-618) U/L C-Reactive Protein 2.6 H (<1.0) mg/dL Total Protein 5.8 L (6.3-8.2) g/dL Albumin 2.9 L (3.5-5.0) g/dL 03/22/21 Range/Units 10:12 D-Dimer (<0.60) mg/L FEU ABG pO2 (83-108) mmHg ABG HCO3 (21-25) mmol/L ABG Total CO2 (19-24) mmol/L ABG O2 Saturation (94-97) % BUN (7-17) mg/dL Glucose (74-99) mg/dL POC Glucose (mg/dL) 164 H (75-99) mg/dL Lactate Dehydrogenase (313-618) U/L C-Reactive Protein (<1.0) mg/dL Total Protein (6.3-8.2) g/dL Albumin (3.5-5.0) g/dL Microbiology - Last 24 Hours (Table) 03/18/21 11:00 Blood Culture - Preliminary Blood No Growth after 72 hours 03/19/21 05:16 Gram Stain - Final Sputum Sputum Culture - Final Assessment and Plan Plan: Acute COVID-19 infection Acute hypoxic respiratory failure secondary to COVID-19 pneumonia requiring intubation and mechanical ventilation on 03/19/2021 Bilateral Pneumonia related to COVID-19 Underlying history of insulin-dependent diabetes mellitus Underlying history of morbid obesity Previous history of smoking patient denies being diagnosed with COPD in the past Hyperkalemia Maintained on subcu Lovenox, IV Decadron, vitamin C vitamin D and zinc supplements Pulmonary and infectious disease consultation were requested, case was discussed with Dr. Huynh over the phone Prognosis is guarded, will follow closely Repeat labs and x-ray ordered for a.m.
[2021-03-22 11:30] LABS: Glucose,Whole Blood 186 mg/dL (75-99)
[2021-03-22 17:34] LABS: Glucose,Whole Blood 183 mg/dL (75-99)
[2021-03-22] MEDS: ENOXAPARIN 40 MG/0.4 ML SYRINGE SQ SCH (19:03)
--- NOTE | 2021-03-22 23:14 | PN ---
PROGRESS NOTE DATE OF SERVICE: 03/22/2021 REASON FOR FOLLOWUP: COVID-19 pneumonia. INTERVAL HISTORY: Patient is afebrile. The patient is hemodynamically stable not on any pressor support. FiO2 is currently stable. No significant purulent secretions thru the ET, diarrhea or any other changes reported by the nursing staff. EXAMINATION: Blood pressure 158/59, pulse 79, temperature 98. She is 94% on 50% FIO2. General description is a middle-aged female lying in bed in no distress. Respiratory system: Unlabored breathing, decreased intensity of breath sounds. No wheeze. Heart S1, S2. Regular rate and rhythm. Abdomen soft, no tenderness. LABS: Hemoglobin is 11.8, white count 7.4, creatinine 0.91. DIAGNOSTIC IMPRESSION/PLAN: Patient with acute respiratory failure secondary to Covid 19 pneumonia in this patient seems to have shown some clinical improvement and has required less supplemental oxygen. Patient is covered with dexamethasone, Lovenox, zinc and ascorbic acid along with respiratory support and monitor clinical course closely. MMODL / IJN: [id number] /
[2021-03-23 00:50] LABS: Glucose,Whole Blood 161 mg/dL (75-99)
[2021-03-23] MEDS: ARTIFICIAL TEARS-HYPROMELLOSE DROPS 15 ML BTL BOTH EYES SCH ×6 (01:17→22:15)
[2021-03-23] MEDS: INSULIN ASPART (NovoLOG) 100 UNIT/ML VIAL SQ SCH ×4 (01:17→17:32)
[2021-03-23] MEDS: fentaNYL (PF). 1,000 MCG in SODIUM CHLORIDE 0.9% 80 ML IV SCH ×5 (02:55→22:12)
[2021-03-23] MEDS: CISATRACURIUM 200 MG in SODIUM CHLORIDE 0.9% 180 ML IV SCH ×2 (04:36→12:41)
[2021-03-23] MEDS: NOREPINEPHRINE 4 MG in SODIUM CHLORIDE 0.9% 250 ML IV SCH ×2 (04:36→17:32)
[2021-03-23 04:59] LABS: Basophils # (A) 0.1 k/uL (0-0.2); Basophils % (A) 1 %; Eosinophils # (A) 0.1 k/uL (0-0.7); Eosinophils % (A) 1 %; HGB 11.8 gm/dL (11.4-16.0); Lymphocytes # (A) 1.4 k/uL (1.0-4.8); Lymphocytes % (A) 14 %; MCH 30.3 pg (25.0-35.0); MCHC 31.8 g/dL (31.0-37.0); MCV 95.2 fL (80.0-100.0); Mean Platelet Volume 8.4; Monocytes # (A) 0.7 k/uL (0-1.0); Monocytes % (A) 7 %; Neutrophils # (A) 7.4 k/uL (1.3-7.7); Neutrophils % (A) 74 %; Platelet Count 297 k/uL (150-450); RBC 3.88 m/uL (3.80-5.40); RDW 14.1 % (11.5-15.5)
[2021-03-23 05:19] LABS: Albumin 2.8 g/dL (3.5-5.0); Calcium 8.7 mg/dL (8.4-10.2); Potassium 4.7 mmol/L (3.5-5.1); Total Bilirubin 0.3 mg/dL (0.2-1.3); Total Protein 5.7 g/dL (6.3-8.2)
--- NOTE | 2021-03-23 06:27 | XR ---
EXAMINATION TYPE: XR chest 1V portable DATE OF EXAM: 03/23/2021 COMPARISON: 03/22/2021 HISTORY: Tube placement TECHNIQUE: Single frontal view of the chest is obtained. FINDINGS: There is been no change in the placement left PICC line or NG tube. The ET tube is 3.67 cm above the jennifer. There has been no change moderate pulmonary vascular congestion and mild interstitial edema. There is no large pleural effusion. There is no pneumothorax. The osseous structures are intact. IMPRESSION: No change in the acute cardiopulmonary disease or interval placement of the NG tube, ET tube or left arm PICC line.
[2021-03-23] MEDS: SODIUM CHLORIDE 0.9% 1,000 ML IV SCH ×2 (06:36→19:08)
[2021-03-23 06:39] LABS: ABG HCO3 25 mmol/L (21-25); ABG Oxygen Saturation 96.1 % (94-97); ABG PCO2 45 mmHg (35-45); ABG PH 7.35 (7.35-7.45); ABG PO2 83 mmHg (83-108); ABG TCO2 26 mmol/L (19-24); Allen Test Performed? Yes
[2021-03-23] MEDS ORDERED: NON FORMULARY DRUG (Dulaglutide [Trulicity] 1.5 MG/0.5 ML Each) SQ SCH (07:00)
[2021-03-23] MEDS: CLEVIDIPINE BUTYRATE 25 MG in EMPTY BAG 1 BAG IV SCH ×3 (07:26→23:44)
[2021-03-23] MEDS ORDERED: propofoL 100 ML IV ONE (07:49)
[2021-03-23] MEDS: CHOLECALCIFEROL 25 MCG (1000 IU) TABLET PO SCH (08:12)
[2021-03-23] MEDS: ASCORBIC ACID 500 MG TAB PO SCH ×2 (08:12→22:16)
[2021-03-23] MEDS: ZINC SULFATE 220 MG CAP PO SCH (08:12)
[2021-03-23] MEDS: CHLORHEXIDINE GLUCONATE 15 ML CUP MUCOUS MEM SCH ×2 (08:13→22:15)
[2021-03-23] MEDS: DEXAMETHASONE SOD PHOSPHATE 10 MG/ML 1 ML VIAL IVP SCH (08:13)
[2021-03-23] MEDS: ALBUTEROL HFA INHALER INHALATION SCH ×4 (09:09→19:23)
[2021-03-23] MEDS: INSULN ASP PRT/INSULIN ASPART 100 UNIT/ML 10 ML VIAL SQ SCH ×2 (09:44→22:15)
--- NOTE | 2021-03-23 10:48 | P.PN ---
Subjective Progress Note Date: 03/23/21 Sergio Villatoro, is a 60-year-old female who presented to [facility] emergency room with a chief complaint of cough and shortness of breath, patient stated that she started getting sick on 03/06/2021, she was checked for Covid at that time but the test was negative, she continued to get worse, she had a second test on 03/16/2021 that was positive, patient started getting worsening shortness of breath and she decided to come to emergency room on 03/18/2021. Patient stated that she did not get vaccinated for Covid, her risk factors include diabetes and morbid obesity, she denies any cardiac history. She was evaluated in the emergency room vital examination reveals a temperature of 100.6 pulse 102 respiration 21 blood pressure 139/72 pulse ox 75% on room air and 90% on 6 L nasal cannula, white blood count was 8.4 hemoglobin 14.2 platelet count 204 sodium 134 potassium 4.2 chloride 99 CO2 22 BUN 29 creatinine 0.83 plasma lactic acid was 2.1 AST 54 ALT 38 troponin less than 0.012 EKG was normal, chest x-ray revealed diffuse near complete opacification of bilateral lungs suggestive of diffuse pneumonia or ARDS. Patient was started on IV dexamethasone, subcu Lovenox, vitamin C, vitamin D, and zinc supplements, pulmonary consultation and infectious disease consultation were requested. Patient is a former smoker, she denies ever being diagnosed with asthma or emphysema. On 03/19/2021 patient was urgently intubated this a.m. per critical care services due to decreasing respiratory status. Patient has been started on sedation. Patient remains on Decadron, vitamin C, vitamin D and zinc. Critical care and infectious disease services are following. Patient remains on Lovenox for DVT prophylaxis. PH 7.29, pCO2 57, pO2 76 HCO3 28. On 03/20/2021 patient was seen and examined in the ICU she is intubated sedated maintained on mechanical ventilation, she is maintained on IV Decadron subcu Lovenox, and vitamin supplements bilateral lower extremity Doppler was negative for DVT, pulmonary and infectious disease are following, prognosis is guarded On 03/21/2021 patient is intubated and remains on sedation. Per nursing staff patient is no longer on Levophed. Patient currently on an FiO2 of 55%. PH of 7.38, pCO2 47 pO2 HCO3 28. Pulmonary and infectious disease service is following On 03/22/2021 patient was seen and examined in the ICU she is intubated sedated maintained on mechanical ventilation, she is maintained on IV Decadron subcu Lovenox, and vitamin supplements bilateral lower extremity Doppler was negative for DVT, temperature is 98.3 pulse 48 respiration 30 blood pressure 130/58 pulse ox 97% on FiO2 of 50% white blood count 7.4 hemoglobin 11.9 platelet count 286 d-dimer elevated at 6.36 ABG reveals a pH of 7.4 pCO2 42 PO2 110 pulmonary and infectious disease are following, prognosis is guarded On 03/23/2021 patient remains in the intensive care unit intubated sedated and on mechanical ventilation. Patient remains on fentanyl and propofol drips. Critical care and infectious disease services are following today's ABG showing pH of 7.35 pCO2 45 pO2 83 and HCO3 levels 25 Objective - Vital Signs Vital signs: Vital Signs Temp 99.9 F H 03/23/21 00:00 Pulse 58 L 03/23/21 07:00 Resp 30 H 03/23/21 07:00 BP 132/60 03/22/21 07:00 Pulse Ox 95 03/23/21 07:00 Intake & Output 03/22/21 03/23/21 03/23/21 18:59 06:59 18:59 Intake Total 2129.550 1848.992 204 Output Total 750 620 50 Balance 6453.279 5794.992 154 Intake: IV 900 900 75 Sodium Chloride 0.9% 1, 900 900 75 000 ml @ 75 mls/hr IV . [id number] [facility] Rx#:[id number] Intake, IV Titration 812.550 540.992 100 Amount Cisatracurium 200 mg In 200 Sodium Chloride 0.9% 180 ml @ 2 MCG/KG/MIN 15.241 mls/hr IV .[id number] [facility] Rx# :[id number] Clevidipine Butyrate 25 77.700 146.667 mg In Empty Bag 1 bag @ 1 MG/HR 2 mls/hr IV .Q24H [facility] Rx#:[id number] fentaNYL (PF). 1,000 mcg 255.155 194.325 100 In Sodium Chloride 0.9% 80 ml @ 0.5 MCG/KG/HR 5. 775 mls/hr IV .[id number] [facility] Rx#:[id number] propofoL 1,000 mg In 279.695 200 Empty Bag 1 bag @ Titrate IV .Q0M [facility] Rx#: [id number] Tube Feeding 297 348 29 Other 120 60 Output: Urine 750 620 50 Other: Voiding Method Indwelling Catheter Indwelling Catheter ABP, PAP, CO, CI - Last Documented Arterial Blood Pressure 145/49 - Exam In general patient is intubated sedated maintained on mechanical ventilation HEENT head normocephalic and atraumatic Neck is supple no JVD no goiter no lymphadenopathy no carotid bruit Chest examination coarse crackles in both lung shah with wheezing Cardiac exam reveals regular heart sounds S1 and S2 no gallops no murmurs Abdomen is soft nontender no organomegaly with normal bowel sounds Extremity exam reveals no edema no cyanosis or clubbing - Labs CBC & Chem 7: 03/23/21 04:25 03/23/21 04:25 Labs: Abnormal Lab Results - Last 24 Hours (Table) 03/22/21 03/22/21 03/23/21 Range/Units 11:29 17:32 00:48 ABG Total CO2 (19-24) mmol/L Chloride (98-107) mmol/L BUN (7-17) mg/dL Glucose (74-99) mg/dL POC Glucose (mg/dL) 186 H 183 H 161 H (75-99) mg/dL Total Protein (6.3-8.2) g/dL Albumin (3.5-5.0) g/dL 03/23/21 03/23/21 Range/Units 04:25 06:25 ABG Total CO2 26 H (19-24) mmol/L Chloride 109 H (98-107) mmol/L BUN 45 H (7-17) mg/dL Glucose 136 H (74-99) mg/dL POC Glucose (mg/dL) (75-99) mg/dL Total Protein 5.7 L (6.3-8.2) g/dL Albumin 2.8 L (3.5-5.0) g/dL Microbiology - Last 24 Hours (Table) 03/18/21 11:00 Blood Culture - Preliminary Blood No Growth after 96 hours Assessment and Plan Plan: Acute COVID-19 infection Acute hypoxic respiratory failure secondary to COVID-19 pneumonia requiring intubation and mechanical ventilation on 03/19/2021 Bilateral Pneumonia related to COVID-19 Underlying history of insulin-dependent diabetes mellitus Underlying history of morbid obesity Previous history of smoking patient denies being diagnosed with COPD in the past Hyperkalemia. Resolved Maintained on subcu Lovenox, IV Decadron, vitamin C vitamin D and zinc supplements Pulmonary and infectious disease consultation were requested, case was discussed with Dr. Huynh over the phone Patient remains intubated and sedated on mechanical ventilation in the intensive care unit Prognosis is guarded, will follow closely Repeat labs and x-ray ordered for a.m.
--- NOTE | 2021-03-23 11:37 | P.PN ---
Subjective Progress Note Date: 03/23/21 Principal diagnosis: Respiratory failure. COVID-19 pneumonia This is a 60-year-old female patient with a history of diabetes mellitus, obesity, former smoker who presented to the emergency room yesterday with complaints of increasing shortness of breath and low oxygen that she was measuring at home. The patient started having symptoms of shortness of breath cough congestion on 03/06/2021 and reportedly tested negative for CoVID. She was treated with azithromycin and prednisone in the outpatient setting. Her symptoms progressed and she did test positive on 03/16/2021. She was admitted to the regular medical floor and placed on BiPAP over 6 and 70% FiO2 with O2 saturations 85-86% with respiratory rate of 44 and A team was called at 11:00 last night and the patient remained on the floor. Her oxygen requirements continued to progress and she was urgently intubated at 04:43 this morning and placed on mechanical ventilator. He is seen today in consultation in the intensive care unit. Current settings are assist-control mode at a rate of 26, tidal volume 500, FiO2 100% and a PEEP of 14. Blood gases revealed a PaO2 of 76, pCO2 of 47 and a pH of 7.29. She is currently sedated on to follow at 40 mcg/kg/m. She is on Nimbex at 2 mcg/kg/m. She is receiving Dilaudid IVP. 0.9 normal saline at 75 ML's per hour. Chest x-ray reveals diffuse bilateral airspace disease. The endotracheal tube was noted to be quite high and is to be repositioned urgently. White count 9.0. Hemoglobin 14.9. Lymphocytes 0.5. Sodium 134. Potassium 6.1. Chloride 104. Bicarb 15. BUN 28. Creatinine 0.72. Glucose 215. She was initiated on Decadron, Lovenox, vitamin supple ments. The patient is seen today 03/20/2021 in follow-up in the intensive care unit. She remains intubated and on mechanical ventilator. Currently an assist-control mode at a rate of 30, temperature Ativan 400, FiO2 70% and a PEEP of 14. Morning blood gases revealed a PaO2 of 71, pCO2 51, pH 7.35. Continued on sedation of propofol at 50 mcg/kg/m, Nimbex at 1 mcg/kg/m. Normal saline at 75 ML's per hour. Norepinephrine has been off since approximately 8 PM last evening. She is being nourished with vital AF at 36 ML's per hour which is goal. Urine output has been borderline. Creatinine is up to 1.30. BUN 49. Sodium 136. Potassium 4.6. AST 5. ALT 23. LDH 2112. C-reactive protein 16.1. White count 8.0. Hemoglobin 12.1. Lymphocytes 0.6. D-dimer 1.63. She remains on Lovenox, Decadron, vitamin supplements. Chest x-ray continues show patchy bilateral infiltrates. Endotracheal tube to be repositioned. Sputum culture reveals no growth to date. Blood cultures reveal no growth to date. Had a temperature of 100.2 yesterday afebrile today. The patient is seen today 03/21/2021 in follow-up in the intensive care unit. She remains intubated on the mechanical ventilator. Current settings are assist control mode with respiratory rate of 30, telephone 400, FiO2 55% and a PEEP of 18. Morning blood gases reveal a pO2 of 89, pCO2 47, pH 7.38. She is sedated on propofol. Nimbex at 1 g/kg/m. Normal saline at 75 ML's per hour. He is being nourished with vital AF at 36 ML's per hour which is goal. Urine output averaging 30-50 ML's per hour. Today's chest x-ray reveals bilateral multifocal reticular opacities consistent with COVID-19 pneumonia. Endotracheal tube in good position. Blood cultures reveal no growth. Sputum culture pending. White count 8.5. Hemoglobin 12.0. Lymphocytes 0.9. D-dimer 10.94. Sodium 138. Potassium 4.7. Creatinine 1.05. LDH 1559. C-reactive protein 4.4. Currently on Decadron, Lovenox, vitamin supplements. Progress note dated 03/22/2021. 60-year-old female, who was seen in room 264. The patient was admitted with a diagnosis of coronavirus associated pneumonia. Because of worsening hypoxemic respiratory failure, she was intubated and mechanically ventilated on 03/19/2021. She remains on the ventilator. She currently is on the volume assist control mode, rate 30, tidal volume 400, FiO2 55%, and a PEEP of 18. Blood gases show pO2 of 110, pCO2 42, and a pH is 7.4. The patient is on Nimbex at 1 mcg/kg/m, and fentanyl at 2 mcg/kg per hour. She's getting propofol at 50 mcg/kg/m, saline at 75 mL an hour, and vital HP at 29 mL an hour, which is goal. The patient's FiO2 will be reduced down to 50%. White count 7.4, hemoglobin 11.9, hematocrit 36.7, and platelet count 286,000. Sodium 139, potassium 4.8, c hlorides 107, CO2 26, anion gap 6, BUN 40, with a creatinine of 0.91. Chest x- ray shows diffuse bilateral infiltrates. CT angiogram was negative for pulmonary embolism. Progress note dated 03/23/2021. 60-year-old female, seen again in the intensive care unit, room 264. She was admitted with a diagnosis of coronavirus associated pneumonia. Because of worsening hypoxemic respiratory failure, the patient was intubated and ventilated on 03/19/2021. Patient remains on the ventilator. The patient is on the volume assist control mode, rate 30, tidal volume 400, FiO2 50%, and PEEP of 18. Blood gases show pO2 83, pCO2 45, and pH is 7.35. The patient remains on Nimbex at 1 mcg/kg/m, saline at 75 mL an hour, fentanyl at 2 mcg/kg/h, propofol at 50 mcg/kg/m, Cleveprex at 4 mg an hour, and vital high protein at 29 mL an hour, which is goal. Again, we will attempt to wean the patient off Nimbex. White count is 10, hemoglobin 11.8, hematocrit 37, and platelet count 2 97,000. Sodium 138, potassium 4.7, chlorides 109, CO2 23, anion gap 6, BUN 45, and creatinine 0.86. Microbiologic studies are thus far negative. Chest x-ray continues to show diffuse bilateral infiltrates, consistent with coronavirus associated pneumonia. Objective - Vital Signs Vital signs: Vital Signs Temp 99.9 F H 03/23/21 00:00 Pulse 64 03/23/21 11:00 Resp 30 H 03/23/21 11:00 BP 132/60 03/22/21 07:00 Pulse Ox 92 L 03/23/21 11:00 Intake & Output 03/22/21 03/23/21 03/23/21 18:59 06:59 18:59 Intake Total 2129.550 1848.992 542.018 Output Total 750 620 180 Balance 3708.150 1656.992 362.018 Intake: IV 900 900 300 Sodium Chloride 0.9% 1, 900 900 300 000 ml @ 75 mls/hr IV . [id number] MENDOZA Rx#:[id number] Intake, IV Titration 812.550 540.992 156.018 Amount Cisatracurium 200 mg In 200 Sodium Chloride 0.9% 180 ml @ 2 MCG/KG/MIN 15.241 mls/hr IV .Q13H8M [facility]OZA Rx# :[id number] Clevidipine Butyrate 25 77.700 146.667 mg In Empty Bag 1 bag @ 1 MG/HR 2 mls/hr IV .Q24H [facility] Rx#:[id number] fentaNYL (PF). 1,000 mcg 255.155 194.325 100 In Sodium Chloride 0.9% 80 ml @ 0.5 MCG/KG/HR 5. 775 mls/hr IV .[id number] [facility] Rx#:[id number] propofoL 1,000 mg In 279.695 200 56.018 Empty Bag 1 bag @ Titrate IV .Q0M [facility]ENDOZA Rx#: [id number] Tube Feeding 297 348 86 Other 120 60 Output: Urine 750 620 180 Other: Voiding Method Indwelling Catheter Indwelling Catheter ABP, PAP, CO, CI - Last Documented Arterial Blood Pressure 153/51 - Exam No acute distress, sedated and paralyzed, with an orally placed endotracheal tube and NG tube. Saturations are between 90-95%. HEENT examination is grossly unremarkable. Neck supple. Full range of motion. No adenopathy thyromegaly or neck vein distention. Cardiovascular examination reveals regular rhythm rate. S1-S2 normal. No S3 or S4. No discernible murmur noted. Heart sounds distant. Heart rate 50 bpm. Lungs reveal coarse rhonchi. No wheezes or crackles. Breath sounds equal bilaterally. Abdomen soft bowel sounds are heard. No masses or tenderness. Extremities are intact. No cyanosis clubbing or edema. Skin is without rash or lesion. Neurologic examination cannot be adequately assessed as the patient's currently sedated and paralyzed. - Labs CBC & Chem 7: 03/23/21 04:25 03/23/21 04:25 Labs: Abnormal Lab Results - Last 24 Hours (Table) 03/22/21 03/23/21 03/23/21 Range/Units 17:32 00:48 04:25 ABG Total CO2 (19-24) mmol/L Chloride 109 H (98-107) mmol/L BUN 45 H (7-17) mg/dL Glucose 136 H (74-99) mg/dL POC Glucose (mg/dL) 183 H 161 H (75-99) mg/dL Total Protein 5.7 L (6.3-8.2) g/dL Albumin 2.8 L (3.5-5.0) g/dL 03/23/21 Range/Units 06:25 ABG Total CO2 26 H (19-24) mmol/L Chloride (98-107) mmol/L BUN (7-17) mg/dL Glucose (74-99) mg/dL POC Glucose (mg/dL) (75-99) mg/dL Total Protein (6.3-8.2) g/dL Albumin (3.5-5.0) g/dL Microbiology - Last 24 Hours (Table) 03/18/21 11:00 Blood Culture - Preliminary Blood No Growth after 96 hours Assessment and Plan Assessment: Acute hypoxemic respiratory failure secondary to coronavirus associated pneumonia, S/P intubation and mechanical ventilation on March 19. Obesity, with a BMI of 46. Diabetes mellitus. Former tobacco user. Hyperkalemia, improved. Elevated inflammatory marker secondary to coronavirus action. Plan: Plan dated 03/22/2021. The patient's CT angiogram was negative for pulmonary embolism. Venous Dopplers were also negative for DVT. The patient will have morning labs including a CBC, basic metabolic profile, and blood gas. A chest x-ray will also be ordered. The patient continues on Lovenox, Decadron, and vitamin C, vitamin D3, and zinc. The patient remains on Nimbex, fentanyl, and propofol. The patient is receiving nutrition at goal. We will continue to follow make patients where appropriate. Prognosis is guarded. Plan dated 03/23/2021. As mentioned above, the patient's CT angiogram was negative for pulmonary emboli sm. Venous Dopplers were also negative for DVT. The patient continues on Lovenox, Decadron, vitamin C, vitamin D3, and zinc. The patient also continues on propofol, fentanyl, and Nimbex. We will again attempt to wean the Nimbex off. The patient is receiving vital high protein at goal. X-ray, labs, medications are all reviewed. Morning labs and x-rays will be ordered. We will continue to follow this patient and make recommendations where appropriate. Prognosis is guarded. Time with Patient: Greater than 30
[2021-03-23 11:48] LABS: Glucose,Whole Blood 131 mg/dL (75-99)
--- NOTE | 2021-03-23 17:30 | PN ---
PROGRESS NOTE DATE OF SERVICE: 03/23/2021 REASON FOR FOLLOWUP: COVID-19 pneumonia. INTERVAL HISTORY: The patient is afebrile. The patient is hemodynamically stable. The patient's FiO2 is currently 50%. PEEP is the same at 18. No purulent secretions through the ET, diarrhea or any other changes reported by nursing staff. PHYSICAL EXAMINATION: Blood pressure 149/50 with a pulse of 60, temperature of 98.8. She is 93% on 50% FiO2. General description is a middle-aged female intubated on the vent. Respiratory system: Unlabored breathing, decreased intensity of breath sounds. No wheeze. Heart S1, S2. Regular rate and rhythm. Abdomen: Soft, mildly distended. No guarding. No rigidity. Extremities are no edema of the feet. LABS: Hemoglobin 11.1, white count 10.0, creatinine 0.86. DIAGNOSTIC IMPRESSION AND PLAN: Patient with acute respiratory failure secondary to Covid 19 pneumonia. No evidence of any secondary bacterial pneumonia. The patient is currently on dexamethasone, Lovenox, zinc and ascorbic acid to continue along with respiratory support and monitor clinical course closely. MMODL / IJN: [id number] /
[2021-03-23] MEDS: ENOXAPARIN 40 MG/0.4 ML SYRINGE SQ SCH (17:31)
[2021-03-23 17:33] LABS: Glucose,Whole Blood 120 mg/dL (75-99)
[2021-03-23] MEDS: DOCUSATE ORAL SOLN 100 MG/10 ML CUP PO SCH (22:15)
[2021-03-23 23:47] LABS: Glucose,Whole Blood 138 mg/dL (75-99)
[2021-03-24] MEDS: INSULIN ASPART (NovoLOG) 100 UNIT/ML VIAL SQ SCH ×4 (00:30→19:07)
[2021-03-24] MEDS: ARTIFICIAL TEARS-HYPROMELLOSE DROPS 15 ML BTL BOTH EYES SCH ×6 (01:47→20:10)
[2021-03-24] MEDS: fentaNYL (PF). 1,000 MCG in SODIUM CHLORIDE 0.9% 80 ML IV SCH ×5 (02:47→22:00)
[2021-03-24] MEDS: CLEVIDIPINE BUTYRATE 25 MG in EMPTY BAG 1 BAG IV SCH ×5 (04:01→22:10)
[2021-03-24 04:31] LABS: Albumin 2.8 g/dL (3.5-5.0); Calcium 8.7 mg/dL (8.4-10.2); Potassium 4.7 mmol/L (3.5-5.1); Total Bilirubin 0.4 mg/dL (0.2-1.3); Total Protein 5.8 g/dL (6.3-8.2)
[2021-03-24 04:32] LABS: Basophils # (A) 0.1 k/uL (0-0.2); Basophils % (A) 1 %; Eosinophils # (A) 0.2 k/uL (0-0.7); Eosinophils % (A) 2 %; HCT 37.1 % (34.0-46.0); HGB 11.7 gm/dL (11.4-16.0); Lymphocytes # (A) 1.4 k/uL (1.0-4.8); Lymphocytes % (A) 12 %; MCH 30.2 pg (25.0-35.0); MCHC 31.6 g/dL (31.0-37.0); MCV 95.6 fL (80.0-100.0); Mean Platelet Volume 8.2; Monocytes # (A) 0.7 k/uL (0-1.0); Monocytes % (A) 6 %; Neutrophils # (A) 8.8 k/uL (1.3-7.7); Neutrophils % (A) 77 %; Platelet Count 327 k/uL (150-450); RBC 3.88 m/uL (3.80-5.40); RDW 14.2 % (11.5-15.5); WBC 11.5 k/uL (3.8-10.6)
[2021-03-24 06:00] LABS: Allen Test Performed? Yes
[2021-03-24 06:01] LABS: ABG Base Excess -1.7 mmol/L; ABG HCO3 24 mmol/L (21-25); ABG Oxygen Saturation 94.5 % (94-97); ABG PCO2 43 mmHg (35-45); ABG PH 7.36 (7.35-7.45); ABG PO2 70 mmHg (83-108); ABG TCO2 25 mmol/L (19-24)
[2021-03-24 06:05] LABS: Glucose,Whole Blood 99 mg/dL (75-99)
[2021-03-24] MEDS: DEXAMETHASONE SOD PHOSPHATE 10 MG/ML 1 ML VIAL IVP SCH (08:10)
[2021-03-24] MEDS: CHLORHEXIDINE GLUCONATE 15 ML CUP MUCOUS MEM SCH ×2 (08:10→20:10)
[2021-03-24] MEDS: ASCORBIC ACID 500 MG TAB PO SCH ×2 (08:10→20:10)
[2021-03-24] MEDS: ZINC SULFATE 220 MG CAP PO SCH (08:10)
[2021-03-24] MEDS: CHOLECALCIFEROL 25 MCG (1000 IU) TABLET PO SCH (08:13)
[2021-03-24] MEDS: SODIUM CHLORIDE 0.9% 1,000 ML IV SCH ×2 (08:14→22:27)
[2021-03-24] MEDS: NOREPINEPHRINE 4 MG in SODIUM CHLORIDE 0.9% 250 ML IV SCH (08:15)
[2021-03-24] MEDS: CISATRACURIUM 200 MG in SODIUM CHLORIDE 0.9% 180 ML IV SCH ×2 (08:15→12:08)
--- NOTE | 2021-03-24 09:08 | XR ---
EXAMINATION TYPE: XR chest 1V portable DATE OF EXAM: 03/24/2021 Comparison: 03/23/2021 Clinical History: 60-year-old female Tube placement Findings: ET tube tip 2.5 cm from the jennifer. Left subclavian CVC tip at the cavoatrial junction. Heart borderl ine enlarged. Diffuse interstitial opacity persists. Some worsening patchy left basilar and left eliot hilar opacity. Impression: Continued diffuse interstitial opacities with worsening airspace disease left base and left perihilar region.
--- NOTE | 2021-03-24 09:22 | P.PN ---
Subjective Progress Note Date: 03/24/21 This is a 60-year-old female patient with a history of diabetes mellitus, obesity, former smoker who presented to the emergency room yesterday with complaints of increasing shortness of breath and low oxygen that she was measuring at home. The patient started having symptoms of shortness of breath cough congestion on 03/06/2021 and reportedly tested negative for CoVID. She was treated with azithromycin and prednisone in the outpatient setting. Her symptoms progressed and she did test positive on 03/16/2021. She was admitted to the regular medical floor and placed on BiPAP and because of worsening hypoxemic respiratory failure, the patient was intubated and ventilated on 03/19/2021. Patient remains on the ventilator. On 03/24/2021, she is currently sedated and she is currently on propofol running at 50 mcg/kg per minute and the patient is also on Nimbex for paralysis on Nimbex is running at 1 mcg/kg per minute. The patient is adequately sedated and paralyzed. The patient has had has a mechanical ventilator. The patient is currently on a volume assist control mode, rate 30, tidal volume 400, FiO2 50%, and PEEP of 18. Blood gases from today shows a pH of 7.36 with a pCO2 of 43 and pO2 of 70. The chest x-ray from today is showing bilateral pulmonary infiltrates, consistent with COVID 19 related pneumonia. No major interval change compared to yesterday. Triple-lumen catheter in place. Orotracheal tube is also in place. In terms of her inflammatory markers, the patient had a LDH level that was downtrending and was down to 1275 on 03/22/2021. Rest of the blood work essentially normal. The white cell count is at 11.5 with a hemoglobin of 11.7, normal electrolytes, BUN is 46 with a creatinine of 0.8. The patient is currently being treated with a combination of Decadron 6 mg and the patient is also on Lovenox 40 mg subcu for DVT prophylaxis. She is hypertensice and she is on Cleveprex at 4 mg an hour, and vital high protein at 29 mL an hour, which is goal. Microbiologic studies are thus far negative. Her fluid balance is at 2.8 liters positive and 5 kg in 3 days. The procalcitonin level is at 0.89 Objective - Vital Signs Vital signs: Vital Signs Temp 100.3 F H 03/24/21 08:00 Pulse 68 03/24/21 08:00 Resp 30 H 03/24/21 08:00 BP 132/60 03/22/21 07:00 Pulse Ox 88 L 03/24/21 08:00 Intake & Output 03/23/21 03/24/21 03/24/21 18:59 06:59 18:59 Intake Total 2080.162 2009.833 413 Output Total 565 630 125 Balance 0336.485 3171.833 288 Weight 127 kg Intake: IV 900 900 150 Sodium Chloride 0.9% 1, 900 900 150 000 ml @ 75 mls/hr IV . [id number] [facility]OZA Rx#:[id number] Intake, IV Titration 742.162 592.833 200 Amount Cisatracurium 200 mg In 194.564 Sodium Chloride 0.9% 180 ml @ 2 MCG/KG/MIN 15.241 mls/hr IV .Q13H8M [facility] Rx# :[id number] Clevidipine Butyrate 25 50 92.833 mg In Empty Bag 1 bag @ 1 MG/HR 2 mls/hr IV .Q24H [facility]ENDOZA Rx#:[id number] fentaNYL (PF). 1,000 mcg 300 200 100 In Sodium Chloride 0.9% 80 ml @ 0.5 MCG/KG/HR 5. 775 mls/hr IV .[id number] [facility]ENDOZA Rx#:[id number] propofoL 1,000 mg In 197.598 300 100 Empty Bag 1 bag @ Titrate IV .Q0M MENDOZA Rx#: [id number] Tube Feeding 318 337 57 Other 120 180 6 Output: Urine 565 630 125 Other: Voiding Method Indwelling Catheter Indwelling Catheter ABP, PAP, CO, CI - Last Documented Arterial Blood Pressure 152/60 - Exam No acute distress, sedated and paralyzed, with an orally placed endotracheal tube and NG tube. HEENT examination is grossly unremarkable. Neck supple. Full range of motion. No adenopathy thyromegaly or neck vein distention. Cardiovascular examination reveals regular rhythm rate. S1-S2 normal. No S3 or S4. No discernible murmur noted. Heart sounds distant. Lungs reveal coarse rhonchi. No wheezes or crackles. Breath sounds equal bilaterally. Abdomen soft bowel sounds are heard. No masses or tenderness. Extremities are intact. No cyanosis clubbing or edema. Skin is without rash or lesion. Neurologic examination cannot be adequately assessed as the patient's currently sedated and paralyzed. - Labs CBC & Chem 7: 03/24/21 03:50 03/24/21 03:50 Labs: Abnormal Lab Results - Last 24 Hours (Table) 03/23/21 03/23/21 03/23/21 Range/Units 11:47 17:31 23:45 WBC (3.8-10.6) k/uL Neutrophils # (1.3-7.7) k/uL ABG pO2 (83-108) mmHg ABG Total CO2 (19-24) mmol/L Chloride (98-107) mmol/L BUN (7-17) mg/dL Glucose (74-99) mg/dL POC Glucose (mg/dL) 131 H 120 H 138 H (75-99) mg/dL Total Protein (6.3-8.2) g/dL Albumin (3.5-5.0) g/dL 03/24/21 03/24/21 03/24/21 Range/Units 03:50 03:50 06:00 WBC 11.5 H (3.8-10.6) k/uL Neutrophils # 8.8 H (1.3-7.7) k/uL ABG pO2 70 L (83-108) mmHg ABG Total CO2 25 H (19-24) mmol/L Chloride 110 H (98-107) mmol/L BUN 46 H (7-17) mg/dL Glucose 102 H (74-99) mg/dL POC Glucose (mg/dL) (75-99) mg/dL Total Protein 5.8 L (6.3-8.2) g/dL Albumin 2.8 L (3.5-5.0) g/dL Microbiology - Last 24 Hours (Table) 03/18/21 11:00 Blood Culture - Preliminary Blood No Growth after 120 hours Assessment and Plan Plan: 1 Acute hypoxemic respiratory failure secondary to coronavirus associated pn eum[place], S/P intubation and mechanical ventilation on 03/19/2021. The patient for now is sedated and paralyzed and intubated on a mechanical ventilator. The patient is on Decadron 6 mg IV every 24 hours and the patient is also on Lovenox for DVT prophylaxis. The CTA showed no evidence of any pulmo nary embolism. Doppler of the lower extremities has been negative. The patient failed BiPAP therapy and subsequent the patient to be intubated and placed on mechanical ventilator. The patient has been intubated on 03/19/2021 and the patient remains on a mechanical ventilator since. The patient remains hemodynamically stable at this point in time. The patient remains on Decadron. No signs of any infection at this point. The patient has bilateral pulmonary infiltrates. The peak airway pressure 37, static pressure is 35. Remains sedated and paralyzed. The patient has been noted to be in a positive fluid balance. 2 acute coronary syndrome related pneumonia with secondary respiratory failure 3 elevated inflammatory markers second COVID-19 infection 4 morbid obesity with BMI 46 5 diabetes mellitus currently on insulin 70/30 in addition to sliding scale coverage Plan Continue ventilator support no ventilator changes will be done for today The patient sedated and paralyzed Repeat another blood gases around noontime Start the patient on Lasix 40 mg every 12 hours IV fluids to KVO Continue the patient on Decadron Repeat inflammatory markers Recheck pro-calcitonin level Continue enteral feeding for nutritional support Blood sugar management We will continue to follow. Condition remains critical. Limited improvement over the past 24-48 hours. Chest x-ray findings are essentially unchanged and the patient remains on a mechanical ventilator for now. We'll continue to follow. Continued care evaluation, more than 30 minutes. Total of Time with Patient: Greater than 30
[2021-03-24] MEDS ORDERED: FUROSEMIDE 10 MG/ML 4 ML VIAL IV SCH (09:30)
[2021-03-24] MEDS: ALBUTEROL HFA INHALER INHALATION SCH ×4 (10:19→20:22)
[2021-03-24 11:53] LABS: Glucose,Whole Blood 186 mg/dL (75-99)
[2021-03-24] MEDS: DOCUSATE ORAL SOLN 100 MG/10 ML CUP PO SCH ×2 (12:02→20:18)
[2021-03-24] MEDS: INSULN ASP PRT/INSULIN ASPART 100 UNIT/ML 10 ML VIAL SQ SCH ×2 (12:08→20:53)
[2021-03-24 12:34] LABS: ABG Base Excess -0.7 mmol/L; ABG HCO3 25 mmol/L (21-25); ABG Oxygen Saturation 93.4 % (94-97); ABG PCO2 49 mmHg (35-45); ABG PH 7.32 (7.35-7.45); ABG PO2 70 mmHg (83-108); ABG TCO2 27 mmol/L (19-24); Allen Test Performed? Yes
[2021-03-24 13:08] LABS: C Reactive Protein 2.6 mg/dL (<1.0)
[2021-03-24] MEDS: ENOXAPARIN 40 MG/0.4 ML SYRINGE SQ SCH (16:41)
[2021-03-24 17:58] LABS: Glucose,Whole Blood 115 mg/dL (75-99)
--- NOTE | 2021-03-24 18:01 | P.PN ---
Subjective Progress Note Date: 03/24/21 Sergio Villatoro, is a 60-year-old female who presented to [facility] emergency room with a chief complaint of cough and shortness of breath, patient stated that she started getting sick on 03/06/2021, she was checked for Covid at that time but the test was negative, she continued to get worse, she had a second test on 03/16/2021 that was positive, patient started getting worsening shortness of breath and she decided to come to emergency room on 03/18/2021. Patient stated that she did not get vaccinated for Covid, her risk factors include diabetes and morbid obesity, she denies any cardiac history. She was evaluated in the emergency room vital examination reveals a temperature of 100.6 pulse 102 respiration 21 blood pressure 139/72 pulse ox 75% on room air and 90% on 6 L nasal cannula, white blood count was 8.4 hemoglobin 14.2 platelet count 204 sodium 134 potassium 4.2 chloride 99 CO2 22 BUN 29 creatinine 0.83 plasma lactic acid was 2.1 AST 54 ALT 38 troponin less than 0.012 EKG was normal, chest x-ray revealed diffuse near complete opacification of bilateral lungs suggestive of diffuse pneumonia or ARDS. Patient was started on IV dexamethasone, subcu Lovenox, vitamin C, vitamin D, and zinc supplements, pulmonary consultation and infectious disease consultation were requested. Patient is a former smoker, she denies ever being diagnosed with asthma or emphysema. On 03/19/2021 patient was urgently intubated this a.m. per critical care services due to decreasing respiratory status. Patient has been started on sedation. Patient remains on Decadron, vitamin C, vitamin D and zinc. Critical care and infectious disease services are following. Patient remains on Lovenox for DVT prophylaxis. PH 7.29, pCO2 57, pO2 76 HCO3 28. On 03/20/2021 patient was seen and examined in the ICU she is intubated sedated maintained on mechanical ventilation, she is maintained on IV Decadron subcu Lovenox, and vitamin supplements bilateral lower extremity Doppler was negative for DVT, pulmonary and infectious disease are following, prognosis is guarded On 03/21/2021 patient is intubated and remains on sedation. Per nursing staff patient is no longer on Levophed. Patient currently on an FiO2 of 55%. PH of 7.38, pCO2 47 pO2 HCO3 28. Pulmonary and infectious disease service is following On 03/22/2021 patient was seen and examined in the ICU she is intubated sedated maintained on mechanical ventilation, she is maintained on IV Decadron subcu Lovenox, and vitamin supplements bilateral lower extremity Doppler was negative for DVT, temperature is 98.3 pulse 48 respiration 30 blood pressure 130/58 pulse ox 97% on FiO2 of 50% white blood count 7.4 hemoglobin 11.9 platelet count 286 d-dimer elevated at 6.36 ABG reveals a pH of 7.4 pCO2 42 PO2 110 pulmonary and infectious disease are following, prognosis is guarded On 03/23/2021 patient remains in the intensive care unit intubated sedated and on mechanical ventilation. Patient remains on fentanyl and propofol drips. Critical care and infectious disease services are following today's ABG showing pH of 7.35 pCO2 45 pO2 83 and HCO3 levels 25 On 03/24/2021 patient was seen and examined in the ICU she is intubated sedated maintained on mechanical ventilation, vital examination reveals a temperature of 100.3 pulse 82 respiration 30 blood pressure 170/53 pulse ox 93% on 50% FiO2 laboratory data reveals white blood count 11.5 hemoglobin 11.7 platelet count 327 sodium 138 potassium 4.7 chloride 110 CO2 22 BUN 46 creatinine 0.83 chest x- ray reveals diffuse interstitial opacities with worsening airspace disease in the left base and left perihilar region. Arterial blood gas reveals a pH of 7.36 pCO2 43 PO2 70 Objective - Vital Signs Vital signs: Vital Signs Temp 98.0 F 03/24/21 04:00 Pulse 59 L 03/24/21 07:00 Resp 30 H 03/24/21 07:00 BP 132/60 03/22/21 07:00 Pulse Ox 87 L 03/24/21 07:00 Intake & Output 03/23/21 03/24/21 03/24/21 18:59 06:59 18:59 Intake Total 2080.162 2009.833 303 Output Total 565 630 80 Balance 9791.232 5214.833 223 Weight 127 kg Intake: IV 900 900 75 Sodium Chloride 0.9% 1, 900 900 75 000 ml @ 75 mls/hr IV . [id number] [facility] Rx#:[id number] Intake, IV Titration 742.162 592.833 200 Amount Cisatracurium 200 mg In 194.564 Sodium Chloride 0.9% 180 ml @ 2 MCG/KG/MIN 15.241 mls/hr IV .Q13H8M [facility] Rx# :[id number] Clevidipine Butyrate 25 50 92.833 mg In Empty Bag 1 bag @ 1 MG/HR 2 mls/hr IV .Q24H [facility] Rx#:[id number] fentaNYL (PF). 1,000 mcg 300 200 100 In Sodium Chloride 0.9% 80 ml @ 0.5 MCG/KG/HR 5. 775 mls/hr IV .[id number] [facility] Rx#:[id number] propofoL 1,000 mg In 197.598 300 100 Empty Bag 1 bag @ Titrate IV .Q0M [facility] Rx#: [id number] Tube Feeding 318 337 28 Other 120 180 Output: Urine 565 630 80 Other: Voiding Method Indwelling Catheter Indwelling Catheter ABP, PAP, CO, CI - Last Documented Arterial Blood Pressure 137/57 - Exam In general patient is intubated sedated maintained on mechanical ventilation HEENT head normocephalic and atraumatic Neck is supple no JVD no goiter no lymphadenopathy no carotid bruit Chest examination coarse crackles in both lung shah with wheezing Cardiac exam reveals regular heart sounds S1 and S2 no gallops no murmurs Abdomen is soft nontender no organomegaly with normal bowel sounds Extremity exam reveals no edema no cyanosis or clubbing - Labs CBC & Chem 7: 03/24/21 03:50 03/24/21 03:50 Labs: Abnormal Lab Results - Last 24 Hours (Table) 03/23/21 03/23/21 03/23/21 Range/Units 11:47 17:31 23:45 WBC (3.8-10.6) k/uL Neutrophils # (1.3-7.7) k/uL ABG pO2 (83-108) mmHg ABG Total CO2 (19-24) mmol/L Chloride (98-107) mmol/L BUN (7-17) mg/dL Glucose (74-99) mg/dL POC Glucose (mg/dL) 131 H 120 H 138 H (75-99) mg/dL Total Protein (6.3-8.2) g/dL Albumin (3.5-5.0) g/dL 03/24/21 03/24/21 03/24/21 Range/Units 03:50 03:50 06:00 WBC 11.5 H (3.8-10.6) k/uL Neutrophils # 8.8 H (1.3-7.7) k/uL ABG pO2 70 L (83-108) mmHg ABG Total CO2 25 H (19-24) mmol/L Chloride 110 H (98-107) mmol/L BUN 46 H (7-17) mg/dL Glucose 102 H (74-99) mg/dL POC Glucose (mg/dL) (75-99) mg/dL Total Protein 5.8 L (6.3-8.2) g/dL Albumin 2.8 L (3.5-5.0) g/dL Microbiology - Last 24 Hours (Table) 03/18/21 11:00 Blood Culture - Preliminary Blood No Growth after 120 hours Assessment and Plan Plan: Acute COVID-19 infection Acute hypoxic respiratory failure secondary to COVID-19 pneumonia requiring intubation and mechanical ventilation on 03/19/2021 Bilateral Pneumonia related to COVID-19 Underlying history of insulin-dependent diabetes mellitus Underlying history of morbid obesity Previous history of smoking patient denies being diagnosed with COPD in the past Hyperkalemia. Resolved Maintained on subcu Lovenox, IV Decadron, vitamin C vitamin D and zinc supplements Pulmonary and infectious disease consultation were requested, case was discussed with Dr. Huynh over the phone Patient remains intubated and sedated on mechanical ventilation in the intensive care unit Prognosis is guarded, will follow closely Repeat labs and x-ray ordered for a.m.
[2021-03-24 20:14] LABS: Glucose,Whole Blood 82 mg/dL (75-99)
[2021-03-24] MEDS: FUROSEMIDE 10 MG/ML 4 ML VIAL IV SCH (20:52)
--- NOTE | 2021-03-24 22:55 | PN ---
PROGRESS NOTE DATE OF SERVICE: 03/24/2021 REASON FOR FOLLOWUP: COVID-19 pneumonia. INTERVAL HISTORY: The patient is afebrile. The patient is hemodynamically stable. FiO2 is currently at 50%. remains to be 20 of PEEP. No significant purulent secretions through the ET, diarrhea or other changes reported by the nursing staff. PHYSICAL EXAMINATION: Blood pressure 132/52 with a pulse of 53, temperature 99.5. She is 92% on 50% FiO2. General description is a middle-aged female intubated on the vent. Respiratory system: Unlabored breathing, decreased intensity of breath sounds. No wheeze. Heart S1, S2. Regular rate and rhythm. Abdomen soft, no tenderness. LABS: Hemoglobin is 11.7, white count 11.5, creatinine 0.83. Electrolytes are normal. normal. DIAGNOSTIC IMPRESSION AND PLAN: Patient with acute respiratory failure secondary to COVID-19 pneumonia. Patient's condition remains critical. No worsening. Patient to continue with dexamethasone, Lovenox, zinc and ascorbic acid along with respiratory support and will monitor clinical course closely. MMODL / IJN: [id number] /
[2021-03-24 23:54] LABS: Glucose,Whole Blood 62 mg/dL (75-99)
[2021-03-24] MEDS ORDERED: DEXTROSE 50% SYRINGE 50 ML IVP ONE (23:55)
[2021-03-25 00:10] LABS: Glucose,Whole Blood 122 mg/dL (75-99)
[2021-03-25 02:44] LABS: Glucose,Whole Blood 58 mg/dL (75-99)
[2021-03-25] MEDS ORDERED: DEXTROSE 50% SYRINGE 50 ML IVP STA ×2 (02:45)
[2021-03-25 02:59] LABS: Glucose,Whole Blood 101 mg/dL (75-99)
[2021-03-25] MEDS: ARTIFICIAL TEARS-HYPROMELLOSE DROPS 15 ML BTL BOTH EYES SCH ×6 (03:51→20:36)
[2021-03-25] MEDS: INSULIN ASPART (NovoLOG) 100 UNIT/ML VIAL SQ SCH ×4 (03:52→18:01)
[2021-03-25] MEDS: fentaNYL (PF). 1,000 MCG in SODIUM CHLORIDE 0.9% 80 ML IV SCH ×4 (05:08→22:01)
[2021-03-25 05:14] LABS: Glucose,Whole Blood 81 mg/dL (75-99)
[2021-03-25 05:27] LABS: C Reactive Protein 3.1 mg/dL (<1.0)
[2021-03-25 06:46] LABS: Glucose,Whole Blood 96 mg/dL (75-99)
[2021-03-25 07:32] LABS: ABG Base Excess 0.6 mmol/L; ABG HCO3 25 mmol/L (21-25); ABG Oxygen Saturation 90.3 % (94-97); ABG PCO2 42 mmHg (35-45); ABG TCO2 27 mmol/L (19-24)
[2021-03-25 07:35] LABS: ABG PO2 57 mmHg (83-108); Allen Test Performed? no
[2021-03-25] MEDS: ALBUTEROL HFA INHALER INHALATION SCH ×4 (08:09→20:13)
[2021-03-25 08:17] LABS: Albumin 2.6 g/dL (3.5-5.0); Calcium 8.7 mg/dL (8.4-10.2); Potassium 4.2 mmol/L (3.5-5.1); Total Bilirubin 0.5 mg/dL (0.2-1.3); Total Protein 5.7 g/dL (6.3-8.2)
[2021-03-25 08:20] LABS: HCT 34.2 % (34.0-46.0); HGB 11.3 gm/dL (11.4-16.0); MCH 31.1 pg (25.0-35.0); MCHC 33.1 g/dL (31.0-37.0); MCV 93.7 fL (80.0-100.0); Mean Platelet Volume 8.8; Platelet Count 339 k/uL (150-450); RBC 3.65 m/uL (3.80-5.40); WBC 13.3 k/uL (3.8-10.6)
[2021-03-25 09:29] LABS: Band Neutrophils % 2 %; Eosinophils # (M) 0.27 k/uL (0-0.7); Lymphocytes # (M) 2.39 k/uL (1.0-4.8); Metamyelocytes # (M) 0.13 k/uL (0); Metamyelocytes % 1 %; Monocytes # (M) 1.06 k/uL (0-1.0); Myelocytes # (M) 0.13 k/uL (0); Myelocytes % 1 %; Neutrophils % (M) 69 %; Nucleated Red Blood Cells 0 /100 WBC (0-0); Total Cells Counted 200
--- NOTE | 2021-03-25 09:42 | P.PN ---
Subjective Progress Note Date: 03/25/21 This is a 60-year-old female patient with a history of diabetes mellitus, obesity, former smoker who presented to the emergency room yesterday with complaints of increasing shortness of breath and low oxygen that she was measuring at home. The patient started having symptoms of shortness of breath cough congestion on 03/06/2021 and reportedly tested negative for CoVID. She was treated with azithromycin and prednisone in the outpatient setting. Her symptoms progressed and she did test positive on 03/16/2021. She was admitted to the regular medical floor and placed on BiPAP and because of worsening hypoxemic respiratory failure, the patient was intubated and ventilated on 03/19/2021. Patient remains on the ventilator. On 03/24/2021, she is currently sedated and she is currently on propofol running at 50 mcg/kg per minute and the patient is also on Nimbex for paralysis on Nimbex is running at 1 mcg/kg per minute. The patient is adequately sedated and paralyzed. The patient has had has a mechanical ventilator. The patient is currently on a volume assist control mode, rate 30, tidal volume 400, FiO2 50%, and PEEP of 18. Blood gases from today shows a pH of 7.36 with a pCO2 of 43 and pO2 of 70. The chest x-ray from today is showing bilateral pulmonary infiltrates, consistent with COVID 19 related pneumonia. No major interval change compared to yesterday. Triple-lumen catheter in place. Orotracheal tube is also in place. In terms of her inflammatory markers, the patient had a LDH level that was downtrending and was down to 1275 on 03/22/2021. Rest of the blood work essentially normal. The white cell count is at 11.5 with a hemoglobin of 11.7, normal electrolytes, BUN is 46 with a creatinine of 0.8. The patient is currently being treated with a combination of Decadron 6 mg and the patient is also on Lovenox 40 mg subcu for DVT prophylaxis. She is hypertensice and she is on Cleveprex at 4 mg an hour, and vital high protein at 29 mL an hour, which is goal. Microbiologic studies are thus far negative. Her fluid balance is at 2.8 liters positive and 5 kg in 3 days. The procalcitonin level is at 0.89 on today's evaluation of 03/25/2021, the patient remains intubated on a mechanical ventilator. she is still on a combination of propofol running at 50 m cg/kg per minute and index is at 1 mcg/kg per minute. She is adequately sedated and paralyzed. On a mechanical ventilator, she is an assist-control at the rate of surgery with a tidal volume of 400 and FiO2 of 50% with a PEEP of 18. The peak airway pressure on the mechanical ventilator is 37 anesthetic pressures around 35. these are essentially the same and unchanged compared to yesterday. meanwhile, the blood pressure with a pH of 7.40 with a pCO2 of 42 and pO2 of 57 and ass such oxygenation is quite limited. no chest x-rays available from today and this is to be performed and completed. The chest x-ray from yesterday showed bilateral pulmonary infiltrates consistent with COVID 19 pneumonia. in terms of her treatment, the patient remains on Decadron 6 mg IV every 24 hours. she is also on anticoagulation with Lovenox 40 mg subcu every 24 hours. In terms of her blood work, and inflammatory markers, the patient had a LDH level of 982 and the CRP level of 3.1. rest of the electrodes are essentially within normal limits. Note that her LDH level has been down trending. BUN is a 50 with a creatinine of 0.9. on today's evaluation, the white cell count is currently at 13.3 which is slightly trending up. hemoglobin is currently at 11.3 and the platelet count is at 339. in terms of her hemodynamics and blood pressure, the patient is still on Cleviprex drip which is running at 4 mg an hour. she is also on Lasix 40 mg IV every 12 hours. this was added yesterday and the patient has been diuresing adequately and she is achieving a negative fluid balance for today. she remains on Lovenox and I reduced the dose yesterday as there was concern of hypoglycemia. She is on NovoLog 7030 mix 50 units twice a day along with a sliding scale coverage. her blood sugars have been running lower. The lowest blood sugar was from yesterday and was as low as 58 and the patient was given D50. I'm recommending a further drop in the NovoLog 7030 mix. IV fluids are currently at KVO. she is receiving enteral feeding for nutritional support and she is on vital high protein at the rate of 29 mL an hour. no abdominal distention. normal bowel movement activity at. Objective - Vital Signs Vital signs: Vital Signs Temp 99.7 F H 03/25/21 04:00 Pulse 50 L 03/25/21 05:00 Resp 30 H 03/25/21 05:00 BP 132/65 03/24/21 20:00 Pulse Ox 92 L 03/25/21 05:00 Intake & Output 03/24/21 03/25/21 03/25/21 18:59 06:59 18:59 Intake Total 1537.097 755.80 23 Output Total 1505 995 45 Balance 32.097 -239.20 -22 Weight 127 kg 128.8 kg Intake: IV 350 273 23 Sodium Chloride 0.9% 1, 350 240 20 000 ml @ 20 mls/hr IV . Q24H [facility] Rx#:[id number] pressure bag 33 3 Intake, IV Titration 880.097 350.80 Amount Cisatracurium 200 mg In 178.689 Sodium Chloride 0.9% 180 ml @ 2 MCG/KG/MIN 15.241 mls/hr IV .Q13H8M [facility] Rx# :[id number] Clevidipine Butyrate 25 110.933 50.8 mg In Empty Bag 1 bag @ 1 MG/HR 2 mls/hr IV .Q24H [facility] Rx#:[id number] fentaNYL (PF). 1,000 mcg 290.475 200.00 In Sodium Chloride 0.9% 80 ml @ 0.5 MCG/KG/HR 5. 775 mls/hr IV .[id number] [facility] Rx#:[id number] propofoL 1,000 mg In 300 100 Empty Bag 1 bag @ Titrate IV .Q0M [facility] Rx#: [id number] Tube Feeding 211 132 Other 96 Output: Urine 1505 925 45 Oral Regurgitation 70 Other: Voiding Method Indwelling Catheter Indwelling Catheter ABP, PAP, CO, CI - Last Documented Arterial Blood Pressure 129/50 - Exam No acute distress, sedated and paralyzed, with an orally placed endotracheal tube and NG tube. HEENT examination is grossly unremarkable. Neck supple. Full range of motion. No adenopathy thyromegaly or neck vein distention. Cardiovascular examination reveals regular rhythm rate. S1-S2 normal. No S3 or S4. No discernible murmur noted. Heart sounds distant. Lungs reveal coarse rhonchi. No wheezes or crackles. Breath sounds equal bilaterally. Abdomen soft bowel sounds are heard. No masses or tenderness. Extremities are intact. No cyanosis clubbing or edema. Skin is without rash or lesion. Neurologic examination cannot be adequately assessed as the patient's currently sedated and paralyzed. - Labs CBC & Chem 7: 03/25/21 07:52 03/25/21 07:52 Labs: Abnormal Lab Results - Last 24 Hours (Table) 03/24/21 03/24/21 03/24/21 Range/Units 03:50 03:50 11:52 WBC (3.8-10.6) k/uL RBC (3.80-5.40) m/uL Hgb (11.4-16.0) gm/dL Neutrophils # (Manual) (1.3-7.7) k/uL Monocytes # (Manual) (0-1.0) k/uL Metamyelocytes # (Man) (0) k/uL Myelocytes # (Manual) (0) k/uL ABG pH (7.35-7.45) ABG pCO2 (35-45) mmHg ABG pO2 (83-108) mmHg ABG Total CO2 (19-24) mmol/L ABG O2 Saturation (94-97) % Chloride (98-107) mmol/L BUN (7-17) mg/dL POC Glucose (mg/dL) 186 H (75-99) mg/dL ALT (4-34) U/L Lactate Dehydrogenase 975 H (313-618) U/L C-Reactive Protein 2.6 H (<1.0) mg/dL Total Protein (6.3-8.2) g/dL Albumin (3.5-5.0) g/dL Procalcitonin 0.18 H (0.02-0.09) ng/mL 03/24/21 03/24/21 03/24/21 Range/Units 12:29 17:56 23:52 WBC (3.8-10.6) k/uL RBC (3.80-5.40) m/uL Hgb (11.4-16.0) gm/dL Neutrophils # (Manual) (1.3-7.7) k/uL Monocytes # (Manual) (0-1.0) k/uL Metamyelocytes # (Man) (0) k/uL Myelocytes # (Manual) (0) k/uL ABG pH 7.32 L (7.35-7.45) ABG pCO2 49 H (35-45) mmHg ABG pO2 70 L (83-108) mmHg ABG Total CO2 27 H (19-24) mmol/L ABG O2 Saturation 93.4 L (94-97) % Chloride (98-107) mmol/L BUN (7-17) mg/dL POC Glucose (mg/dL) 115 H 62 L (75-99) mg/dL ALT (4-34) U/L Lactate Dehydrogenase (313-618) U/L C-Reactive Protein (<1.0) mg/dL Total Protein (6.3-8.2) g/dL Albumin (3.5-5.0) g/dL Procalcitonin (0.02-0.09) ng/mL 03/25/21 03/25/21 03/25/21 Range/Units 00:08 02:40 02:52 WBC (3.8-10.6) k/uL RBC (3.80-5.40) m/uL Hgb (11.4-16.0) gm/dL Neutrophils # (Manual) (1.3-7.7) k/uL Monocytes # (Manual) (0-1.0) k/uL Metamyelocytes # (Man) (0) k/uL Myelocytes # (Manual) (0) k/uL ABG pH (7.35-7.45) ABG pCO2 (35-45) mmHg ABG pO2 (83-108) mmHg ABG Total CO2 (19-24) mmol/L ABG O2 Saturation (94-97) % Chloride (98-107) mmol/L BUN (7-17) mg/dL POC Glucose (mg/dL) 122 H 58 L 101 H (75-99) mg/dL ALT (4-34) U/L Lactate Dehydrogenase (313-618) U/L C-Reactive Protein (<1.0) mg/dL Total Protein (6.3-8.2) g/dL Albumin (3.5-5.0) g/dL Procalcitonin (0.02-0.09) ng/mL 03/25/21 03/25/21 03/25/21 Range/Units 04:00 07:30 07:52 WBC (3.8-10.6) k/uL RBC (3.80-5.40) m/uL Hgb (11.4-16.0) gm/dL Neutrophils # (Manual) (1.3-7.7) k/uL Monocytes # (Manual) (0-1.0) k/uL Metamyelocytes # (Man) (0) k/uL Myelocytes # (Manual) (0) k/uL ABG pH (7.35-7.45) ABG pCO2 (35-45) mmHg ABG pO2 57 L* (83-108) mmHg ABG Total CO2 27 H (19-24) mmol/L ABG O2 Saturation 90.3 L (94-97) % Chloride 111 H (98-107) mmol/L BUN 50 H (7-17) mg/dL POC Glucose (mg/dL) (75-99) mg/dL ALT 40 H (4-34) U/L Lactate Dehydrogenase 982 H (313-618) U/L C-Reactive Protein 3.1 H (<1.0) mg/dL Total Protein 5.7 L (6.3-8.2) g/dL Albumin 2.6 L (3.5-5.0) g/dL Procalcitonin (0.02-0.09) ng/mL 03/25/21 Range/Units 07:52 WBC 13.3 H (3.8-10.6) k/uL RBC 3.65 L (3.80-5.40) m/uL Hgb 11.3 L (11.4-16.0) gm/dL Neutrophils # (Manual) 9.40 H (1.3-7.7) k/uL Monocytes # (Manual) 1.06 H (0-1.0) k/uL Metamyelocytes # (Man) 0.13 H (0) k/uL Myelocytes # (Manual) 0.13 H (0) k/uL ABG pH (7.35-7.45) ABG pCO2 (35-45) mmHg ABG pO2 (83-108) mmHg ABG Total CO2 (19-24) mmol/L ABG O2 Saturation (94-97) % Chloride (98-107) mmol/L BUN (7-17) mg/dL POC Glucose (mg/dL) (75-99) mg/dL ALT (4-34) U/L Lactate Dehydrogenase (313-618) U/L C-Reactive Protein (<1.0) mg/dL Total Protein (6.3-8.2) g/dL Albumin (3.5-5.0) g/dL Procalcitonin (0.02-0.09) ng/mL Microbiology - Last 24 Hours (Table) 03/18/21 11:00 Blood Culture - Final Blood No Growth after 144 hours Assessment and Plan Plan: 1 Acute hypoxemic respiratory failure secondary to coronavirus associated pneumonia, S/P intubation and mechanical ventilation on 03/19/2021. The patient for now is sedated and paralyzed and intubated on a mechanical ventilator. The patient is on Decadron 6 mg IV every 24 hours and the patient is also on Lovenox for DVT prophylaxis. The CTA showed no evidence of any pulmonary embolism. Doppler of the lower extremities has been negative. The patient failed BiPAP therapy and subsequent the patient to be intubated and placed on mechanical ventilator. The patient has been intubated on 03/19/2021 and the patient remains on a mechanical ventilator since. The patient remains hemodynamically stable at this point in time. The patient remains on Decadron. No signs of any infection at this point. The patient has bilateral pulmonary infiltrates. The peak airway pressure 37, static pressure is 35. Remains sedated and paralyzed. The patient has been noted to be in a positive fluid balance. the patient was started on Lasix yesterday 40 mg IV every 12 hours and the patient is headed towards a negative fluid balance. on today's evaluation, essentially n o changes in her blood gases or oxygenation. a follow-up chest x-ray will be needed. I think it's reasonable to repeat a blood gas at around noontime and see there is any room for weaning. She is currently on a PEEP of 18 with an FiO2 of 50%. chest x-ray from today has to be completed. 2 acute coronary syndrome related pneumonia with secondary respiratory failure 3 elevated inflammatory markers second COVID-19 infection 4 morbid obesity with BMI 46 5 diabetes mellitus currently on insulin 70/30 in addition to sliding scale coverage , having episodes of hypoglycemia and the insulin dose will be adjusted. Plan Continue ventilator support no ventilator changes will be done for today repeat the blood gases at around noontime and decide if there is any room for further weaning The patient sedated and paralyzed Repeat another blood gases around noontime continue the patient on Lasix 40 mg every 12 hours IV fluids to KVO Continue the patient on Decadron Repeat inflammatory markers , LDH and CRP levels have been improving l Continue enteral feeding for nutritional support Blood sugar management , reduce the dose of NovoLog 7030 down to 30 units twice a day along with a sliding scale coverage We will continue to follow. Condition remains critical.The patient remains on a mechanical ventilator for now. We'll continue to follow. Continued care evaluation, more than 30 minutes.
--- NOTE | 2021-03-25 10:09 | XR ---
EXAMINATION TYPE: XR chest 1V portable DATE OF EXAM: 03/25/2021 CLINICAL HISTORY: Difficulty breathing progress study. TECHNIQUE: Single AP portable semiupright view of the chest is obtained. COMPARISON: Chest x-ray from one day earlier and older studies. FINDINGS: Stable endotracheal and orogastric tubes. Stable left-sided subclavian central venous cath eter. Persistent bilateral multifocal increased opacities greatest in the bases. Cardiac silhouette size is stable and upper limits of normal. Osseous structures are intact. IMPRESSION: Bilateral multifocal increased opacities consistent with covid-19 infection redemonstrate d, no significant change from one day earlier.
[2021-03-25] MEDS: CHOLECALCIFEROL 25 MCG (1000 IU) TABLET PO SCH (10:14)
[2021-03-25] MEDS: FUROSEMIDE 10 MG/ML 4 ML VIAL IV SCH ×2 (10:14→20:36)
[2021-03-25] MEDS: ZINC SULFATE 220 MG CAP PO SCH (10:14)
[2021-03-25] MEDS: CHLORHEXIDINE GLUCONATE 15 ML CUP MUCOUS MEM SCH ×2 (10:14→20:34)
[2021-03-25] MEDS: ASCORBIC ACID 500 MG TAB PO SCH ×2 (10:14→20:35)
[2021-03-25] MEDS: DEXAMETHASONE SOD PHOSPHATE 10 MG/ML 1 ML VIAL IVP SCH (10:15)
[2021-03-25] MEDS: DOCUSATE ORAL SOLN 100 MG/10 ML CUP PO SCH ×2 (10:17→20:37)
[2021-03-25] MEDS: CISATRACURIUM 200 MG in SODIUM CHLORIDE 0.9% 180 ML IV SCH ×2 (10:18→17:53)
[2021-03-25] MEDS: CLEVIDIPINE BUTYRATE 25 MG in EMPTY BAG 1 BAG IV SCH ×2 (11:15→21:20)
[2021-03-25 12:08] LABS: Glucose,Whole Blood 135 mg/dL (75-99)
[2021-03-25 12:20] LABS: ABG Base Excess 0.2 mmol/L; ABG HCO3 25 mmol/L (21-25); ABG Oxygen Saturation 89.3 % (94-97); ABG PCO2 42 mmHg (35-45); ABG PH 7.39 (7.35-7.45); ABG TCO2 27 mmol/L (19-24)
[2021-03-25 12:23] LABS: ABG PO2 56 mmHg (83-108); Allen Test Performed? no
[2021-03-25 17:46] LABS: Glucose,Whole Blood 219 mg/dL (75-99)
[2021-03-25] MEDS: ENOXAPARIN 40 MG/0.4 ML SYRINGE SQ SCH (17:52)
--- NOTE | 2021-03-25 19:53 | P.PN ---
Subjective Progress Note Date: 03/25/21 Sergio Villatoro, is a 60-year-old female who presented to [facility] emergency room with a chief complaint of cough and shortness of breath, patient stated that she started getting sick on 03/06/2021, she was checked for Covid at that time but the test was negative, she continued to get worse, she had a second test on 03/16/2021 that was positive, patient started getting worsening shortness of breath and she decided to come to emergency room on 03/18/2021. Patient stated that she did not get vaccinated for Covid, her risk factors include diabetes and morbid obesity, she denies any cardiac history. She was evaluated in the emergency room vital examination reveals a temperature of 100.6 pulse 102 respiration 21 blood pressure 139/72 pulse ox 75% on room air and 90% on 6 L nasal cannula, white blood count was 8.4 hemoglobin 14.2 platelet count 204 sodium 134 potassium 4.2 chloride 99 CO2 22 BUN 29 creatinine 0.83 plasma lactic acid was 2.1 AST 54 ALT 38 troponin less than 0.012 EKG was normal, chest x-ray revealed diffuse near complete opacification of bilateral lungs suggestive of diffuse pneumonia or ARDS. Patient was started on IV dexamethasone, subcu Lovenox, vitamin C, vitamin D, and zinc supplements, pulmonary consultation and infectious disease consultation were requested. Patient is a former smoker, she denies ever being diagnosed with asthma or emphysema. On 03/19/2021 patient was urgently intubated this a.m. per critical care services due to decreasing respiratory status. Patient has been started on sedation. Patient remains on Decadron, vitamin C, vitamin D and zinc. Critical care and infectious disease services are following. Patient remains on Lovenox for DVT prophylaxis. PH 7.29, pCO2 57, pO2 76 HCO3 28. On 03/20/2021 patient was seen and examined in the ICU she is intubated sedated maintained on mechanical ventilation, she is maintained on IV Decadron subcu Lovenox, and vitamin supplements bilateral lower extremity Doppler was negative for DVT, pulmonary and infectious disease are following, prognosis is guarded On 03/21/2021 patient is intubated and remains on sedation. Per nursing staff patient is no longer on Levophed. Patient currently on an FiO2 of 55%. PH of 7.38, pCO2 47 pO2 HCO3 28. Pulmonary and infectious disease service is following On 03/22/2021 patient was seen and examined in the ICU she is intubated sedated maintained on mechanical ventilation, she is maintained on IV Decadron subcu Lovenox, and vitamin supplements bilateral lower extremity Doppler was negative for DVT, temperature is 98.3 pulse 48 respiration 30 blood pressure 130/58 pulse ox 97% on FiO2 of 50% white blood count 7.4 hemoglobin 11.9 platelet count 286 d-dimer elevated at 6.36 ABG reveals a pH of 7.4 pCO2 42 PO2 110 pulmonary and infectious disease are following, prognosis is guarded On 03/23/2021 patient remains in the intensive care unit intubated sedated and on mechanical ventilation. Patient remains on fentanyl and propofol drips. Critical care and infectious disease services are following today's ABG showing pH of 7.35 pCO2 45 pO2 83 and HCO3 levels 25 On 03/24/2021 patient was seen and examined in the ICU she is intubated sedated maintained on mechanical ventilation, vital examination reveals a temperature of 100.3 pulse 82 respiration 30 blood pressure 170/53 pulse ox 93% on 50% FiO2 laboratory data reveals white blood count 11.5 hemoglobin 11.7 platelet count 327 sodium 138 potassium 4.7 chloride 110 CO2 22 BUN 46 creatinine 0.83 chest x- ray reveals diffuse interstitial opacities with worsening airspace disease in the left base and left perihilar region. Arterial blood gas reveals a pH of 7.36 pCO2 43 PO2 70 On 03/25/2021 patient was seen and examined in ICU she is intubated sedated maintained on mechanical ventilation, she is on assist control tidal volume 400 FiO2 50% and PEEP of 18 she is maintained on IV Decadron and subcu Lovenox she is also maintained on insulin patient had episode of hypoglycemia and her NovoLog 70/30 was decreased to 30 units twice daily Objective - Vital Signs Vital signs: Vital Signs Temp 101.1 F H 03/25/21 12:00 Pulse 56 L 03/25/21 13:00 Resp 30 H 03/25/21 13:00 BP 132/65 03/24/21 20:00 Pulse Ox 94 L 03/25/21 13:00 Intake & Output 03/24/21 03/25/21 03/25/21 18:59 06:59 18:59 Intake Total 1537.097 805.00 713.153 Output Total 1505 995 720 Balance 32.097 -190.00 -6.847 Weight 127 kg 128.8 kg Intake: IV 350 273 161 Sodium Chloride 0.9% 1, 350 240 140 000 ml @ 20 mls/hr IV . Q24H [facility] Rx#:[id number] pressure bag 33 21 Intake, IV Titration 880.097 400.00 396.153 Amount Cisatracurium 200 mg In 178.689 168.91 Sodium Chloride 0.9% 180 ml @ 2 MCG/KG/MIN 15.241 mls/hr IV .Q13H8M [facility] Rx# :[id number] Clevidipine Butyrate 25 110.933 100.0 mg In Empty Bag 1 bag @ 1 MG/HR 2 mls/hr IV .Q24H [facility] Rx#:[id number] fentaNYL (PF). 1,000 mcg 290.475 200.00 91.823 In Sodium Chloride 0.9% 80 ml @ 0.5 MCG/KG/HR 5. 775 mls/hr IV .[id number] [facility] Rx#:[id number] propofoL 1,000 mg In 300 100 135.42 Empty Bag 1 bag @ Titrate IV .Q0M [facility] Rx#: [id number] Tube Feeding 211 132 96 Other 96 60 Output: Urine 1505 925 720 Oral Regurgitation 70 Other: Voiding Method Indwelling Catheter Indwelling Catheter Indwelling Catheter ABP, PAP, CO, CI - Last Documented Arterial Blood Pressure 156/54 - Exam In general patient is intubated sedated maintained on mechanical ventilation HEENT head normocephalic and atraumatic Neck is supple no JVD no goiter no lymphadenopathy no carotid bruit Chest examination coarse crackles in both lung shah with wheezing Cardiac exam reveals regular heart sounds S1 and S2 no gallops no murmurs Abdomen is soft nontender no organomegaly with normal bowel sounds Extremity exam reveals no edema no cyanosis or clubbing - Labs CBC & Chem 7: 03/25/21 07:52 03/25/21 07:52 Labs: Abnormal Lab Results - Last 24 Hours (Table) 03/24/21 03/24/21 03/24/21 Range/Units 03:50 17:56 23:52 WBC (3.8-10.6) k/uL RBC (3.80-5.40) m/uL Hgb (11.4-16.0) gm/dL Neutrophils # (Manual) (1.3-7.7) k/uL Monocytes # (Manual) (0-1.0) k/uL Metamyelocytes # (Man) (0) k/uL Myelocytes # (Manual) (0) k/uL ABG pO2 (83-108) mmHg ABG Total CO2 (19-24) mmol/L ABG O2 Saturation (94-97) % Chloride (98-107) mmol/L BUN (7-17) mg/dL POC Glucose (mg/dL) 115 H 62 L (75-99) mg/dL ALT (4-34) U/L Lactate Dehydrogenase (313-618) U/L C-Reactive Protein (<1.0) mg/dL Total Protein (6.3-8.2) g/dL Albumin (3.5-5.0) g/dL Procalcitonin 0.18 H (0.02-0.09) ng/mL 03/25/21 03/25/21 03/25/21 Range/Units 00:08 02:40 02:52 WBC (3.8-10.6) k/uL RBC (3.80-5.40) m/uL Hgb (11.4-16.0) gm/dL Neutrophils # (Manual) (1.3-7.7) k/uL Monocytes # (Manual) (0-1.0) k/uL Metamyelocytes # (Man) (0) k/uL Myelocytes # (Manual) (0) k/uL ABG pO2 (83-108) mmHg ABG Total CO2 (19-24) mmol/L ABG O2 Saturation (94-97) % Chloride (98-107) mmol/L BUN (7-17) mg/dL POC Glucose (mg/dL) 122 H 58 L 101 H (75-99) mg/dL ALT (4-34) U/L Lactate Dehydrogenase (313-618) U/L C-Reactive Protein (<1.0) mg/dL Total Protein (6.3-8.2) g/dL Albumin (3.5-5.0) g/dL Procalcitonin (0.02-0.09) ng/mL 03/25/21 03/25/21 03/25/21 Range/Units 04:00 04:00 07:30 WBC (3.8-10.6) k/uL RBC (3.80-5.40) m/uL Hgb (11.4-16.0) gm/dL Neutrophils # (Manual) (1.3-7.7) k/uL Monocytes # (Manual) (0-1.0) k/uL Metamyelocytes # (Man) (0) k/uL Myelocytes # (Manual) (0) k/uL ABG pO2 57 L* (83-108) mmHg ABG Total CO2 27 H (19-24) mmol/L ABG O2 Saturation 90.3 L (94-97) % Chloride (98-107) mmol/L BUN (7-17) mg/dL POC Glucose (mg/dL) (75-99) mg/dL ALT (4-34) U/L Lactate Dehydrogenase 982 H (313-618) U/L C-Reactive Protein 3.1 H (<1.0) mg/dL Total Protein (6.3-8.2) g/dL Albumin (3.5-5.0) g/dL Procalcitonin 0.20 H (0.02-0.09) ng/mL 03/25/21 03/25/21 03/25/21 Range/Units 07:52 07:52 12:08 WBC 13.3 H (3.8-10.6) k/uL RBC 3.65 L (3.80-5.40) m/uL Hgb 11.3 L (11.4-16.0) gm/dL Neutrophils # (Manual) 9.40 H (1.3-7.7) k/uL Monocytes # (Manual) 1.06 H (0-1.0) k/uL Metamyelocytes # (Man) 0.13 H (0) k/uL Myelocytes # (Manual) 0.13 H (0) k/uL ABG pO2 (83-108) mmHg ABG Total CO2 (19-24) mmol/L ABG O2 Saturation (94-97) % Chloride 111 H (98-107) mmol/L BUN 50 H (7-17) mg/dL POC Glucose (mg/dL) 135 H (75-99) mg/dL ALT 40 H (4-34) U/L Lactate Dehydrogenase (313-618) U/L C-Reactive Protein (<1.0) mg/dL Total Protein 5.7 L (6.3-8.2) g/dL Albumin 2.6 L (3.5-5.0) g/dL Procalcitonin (0.02-0.09) ng/mL 03/25/21 Range/Units 12:18 WBC (3.8-10.6) k/uL RBC (3.80-5.40) m/uL Hgb (11.4-16.0) gm/dL Neutrophils # (Manual) (1.3-7.7) k/uL Monocytes # (Manual) (0-1.0) k/uL Metamyelocytes # (Man) (0) k/uL Myelocytes # (Manual) (0) k/uL ABG pO2 56 L* (83-108) mmHg ABG Total CO2 27 H (19-24) mmol/L ABG O2 Saturation 89.3 L (94-97) % Chloride (98-107) mmol/L BUN (7-17) mg/dL POC Glucose (mg/dL) (75-99) mg/dL ALT (4-34) U/L Lactate Dehydrogenase (313-618) U/L C-Reactive Protein (<1.0) mg/dL Total Protein (6.3-8.2) g/dL Albumin (3.5-5.0) g/dL Procalcitonin (0.02-0.09) ng/mL Microbiology - Last 24 Hours (Table) 03/18/21 11:00 Blood Culture - Final Blood No Growth after 144 hours Assessment and Plan Plan: Acute COVID-19 infection Acute hypoxic respiratory failure secondary to COVID-19 pneumonia requiring intubation and mechanical ventilation on 03/19/2021 Bilateral Pneumonia related to COVID-19 Underlying history of insulin-dependent diabetes mellitus Underlying history of morbid obesity Previous history of smoking patient denies being diagnosed with COPD in the past Hyperkalemia. Resolved Maintained on subcu Lovenox, IV Decadron, vitamin C vitamin D and zinc supplements Pulmonary and infectious disease consultation were requested, case was discussed with Dr. Huynh over the phone Patient remains intubated and sedated on mechanical ventilation in the intensive care unit Prognosis is guarded, will follow closely Repeat labs and x-ray ordered for a.m.
[2021-03-25 20:39] LABS: Glucose,Whole Blood 201 mg/dL (75-99)
[2021-03-25] MEDS: INSULN ASP PRT/INSULIN ASPART 100 UNIT/ML 10 ML VIAL SQ SCH (20:54)
--- NOTE | 2021-03-25 22:14 | PN ---
PROGRESS NOTE DATE OF SERVICE: 03/25/2021 REASON FOR FOLLOWUP: COVID-19 pneumonia. INTERVAL HISTORY: The patient did spike a fever this afternoon of 101 degrees Fahrenheit. The patient was also noted to have worsening of her respiratory status, requiring more oxygen. However, no significant respiratory secretion has been reported by nursing staff or any diarrhea. The patient remains intubated on the vent. PHYSICAL EXAMINATION: Blood pressure 130/43 with a pulse of 55, temperature of 101. She is 93% on 70% FiO2. General description is a middle-aged female intubated on the vent. Respiratory system: Unlabored breathing, decreased intensity of breath sounds. No wheeze. Heart S1, S2. Regular rate and rhythm. Abdomen soft, no tenderness. Extremities no edema of the feet. LABS: Hemoglobin is 11.3 with a white count of 13.3, creatinine 0.93. DIAGNOSTIC IMPRESSION AND PLAN: Patient with acute respiratory failure secondary to COVID-19 pneumonia in this patient now with a new fever and requiring more supplemental oxygen. Cultures will be done. Sputum cultures will be obtained as well as procalcitonin and antibiotic added on the basis of these results. Continue with current supportive treatment and monitor clinical course closely. MMODL / IJN: [id number] /
[2021-03-25] MEDS: SODIUM CHLORIDE 0.9% 1,000 ML IV SCH (22:30)
[2021-03-25 23:56] LABS: Glucose,Whole Blood 185 mg/dL (75-99)
[2021-03-26] MEDS: CLEVIDIPINE BUTYRATE 25 MG in EMPTY BAG 1 BAG IV SCH ×5 (00:30→19:45)
[2021-03-26] MEDS: ARTIFICIAL TEARS-HYPROMELLOSE DROPS 15 ML BTL BOTH EYES SCH ×7 (01:24→23:23)
[2021-03-26] MEDS: INSULIN ASPART (NovoLOG) 100 UNIT/ML VIAL SQ SCH ×4 (01:24→17:39)
[2021-03-26] MEDS: fentaNYL (PF). 1,000 MCG in SODIUM CHLORIDE 0.9% 80 ML IV SCH ×5 (04:25→21:55)
[2021-03-26 05:18] LABS: Glucose,Whole Blood 165 mg/dL (75-99)
[2021-03-26 07:06] LABS: HCT 33.5 % (34.0-46.0); HGB 10.8 gm/dL (11.4-16.0); MCH 30.2 pg (25.0-35.0); MCHC 32.2 g/dL (31.0-37.0); MCV 93.8 fL (80.0-100.0); Mean Platelet Volume 9.5; Platelet Count 346 k/uL (150-450); RBC 3.57 m/uL (3.80-5.40); RDW 13.9 % (11.5-15.5); WBC 13.7 k/uL (3.8-10.6)
--- NOTE | 2021-03-26 07:24 | P.PN ---
Subjective Progress Note Date: 03/26/21 This is a 60-year-old female patient with a history of diabetes mellitus, obesity, former smoker who presented to the emergency room yesterday with complaints of increasing shortness of breath and low oxygen that she was measuring at home. The patient started having symptoms of shortness of breath cough congestion on 03/06/2021 and reportedly tested negative for CoVID. She was treated with azithromycin and prednisone in the outpatient setting. Her symptoms progressed and she did test positive on 03/16/2021. She was admitted to the regular medical floor and placed on BiPAP and because of worsening hypoxemic respiratory failure, the patient was intubated and ventilated on 03/19/2021. Patient remains on the ventilator. On 03/24/2021, she is currently sedated and she is currently on propofol running at 50 mcg/kg per minute and the patient is also on Nimbex for paralysis on Nimbex is running at 1 mcg/kg per minute. The patient is adequately sedated and paralyzed. The patient has had has a mechanical ventilator. The patient is currently on a volume assist control mode, rate 30, tidal volume 400, FiO2 50%, and PEEP of 18. Blood gases from today shows a pH of 7.36 with a pCO2 of 43 and pO2 of 70. The chest x-ray from today is showing bilateral pulmonary infiltrates, consistent with COVID 19 related pneumonia. No major interval change compared to yesterday. Triple-lumen catheter in place. Orotracheal tube is also in place. In terms of her inflammatory markers, the patient had a LDH level that was downtrending and was down to 1275 on 03/22/2021. Rest of the blood work essentially normal. The white cell count is at 11.5 with a hemoglobin of 11.7, normal electrolytes, BUN is 46 with a creatinine of 0.8. The patient is currently being treated with a combination of Decadron 6 mg and the patient is also on Lovenox 40 mg subcu for DVT prophylaxis. She is hypertensice and she is on Cleveprex at 4 mg an hour, and vital high protein at 29 mL an hour, which is goal. Microbiologic studies are thus far negative. Her fluid balance is at 2.8 liters positive and 5 kg in 3 days. The procalcitonin level is at 0.89 on today's evaluation of 03/25/2021, the patient remains intubated on a mechanical ventilator. she is still on a combination of propofol running at 50 m cg/kg per minute and index is at 1 mcg/kg per minute. She is adequately sedated and paralyzed. On a mechanical ventilator, she is an assist-control at the rate of surgery with a tidal volume of 400 and FiO2 of 50% with a PEEP of 18. The peak airway pressure on the mechanical ventilator is 37 anesthetic pressures around 35. these are essentially the same and unchanged compared to yesterday. meanwhile, the blood pressure with a pH of 7.40 with a pCO2 of 42 and pO2 of 57 and ass such oxygenation is quite limited. no chest x-rays available from today and this is to be performed and completed. The chest x-ray from yesterday showed bilateral pulmonary infiltrates consistent with COVID 19 pneumonia. in terms of her treatment, the patient remains on Decadron 6 mg IV every 24 hours. she is also on anticoagulation with Lovenox 40 mg subcu every 24 hours. In terms of her blood work, and inflammatory markers, the patient had a LDH level of 982 and the CRP level of 3.1. rest of the electrodes are essentially within normal limits. Note that her LDH level has been down trending. BUN is a 50 with a creatinine of 0.9. on today's evaluation, the white cell count is currently at 13.3 which is slightly trending up. hemoglobin is currently at 11.3 and the platelet count is at 339. in terms of her hemodynamics and blood pressure, the patient is still on Cleviprex drip which is running at 4 mg an hour. she is also on Lasix 40 mg IV every 12 hours. this was added yesterday and the patient has been diuresing adequately and she is achieving a negative fluid balance for today. she remains on Lovenox and I reduced the dose yesterday as there was concern of hypoglycemia. She is on NovoLog 7030 mix 50 units twice a day along with a sliding scale coverage. her blood sugars have been running lower. The lowest blood sugar was from yesterday and was as low as 58 and the patient was given D50. I'm recommending a further drop in the NovoLog 7030 mix. IV fluids are currently at KVO. she is receiving enteral feeding for nutritional support and she is on vital high protein at the rate of 29 mL an hour. no abdominal distention. normal bowel movement activity at. On , the patient remains intubated on a mechanical ventilator the patient is being seen for a follow-up. On today's evaluation, the patient is sedated and she remains on propofol running at 50 mcg/kg per minute and the patient is also on Nimbex running at 1 mcg/kg per minute. As such, the level of sedation and paralytics is unchanged compared to yesterday. She remains on a mechanical ventilator and she remained on assist control mode at the rate of 30 with a tidal volume of 100 and FiO2 of 65% with a PEEP of 18. Chest x-ray from today is in progress. Note that the chest x-ray from yesterday is improved. The peak air pressure today to 36, static pressures 34 and we are still awaiting for the blood gases from today. Meanwhile, the patient's current pulse ox is around 96% on above-mentioned ventilator setting. The patient continues to get diuresed with Lasix and the patient is on Lasix 40 mg IV every 12 hours. Overall fluid balance over the past 24 hours has been -157 mL and the patient seems to be he aded towards a negative fluid balance. The patient's blood sugars under better control. No further episodes of hypoglycemia. She remains on Decadron 6 mg IV every 24 hours. She is also on Lovenox 40 mg subcu every 24 hours. D-dimer level is at 3.54. In terms of her blood pressure control, the patient is on Cleviprex which is still running at 2 mg an hour. Suggestive starting the patient on Norvasc 5 mg by mouth twice a day and gradually wean off the Cleviprex and discontinue. IV fluids are currently at KVO. She is receiving enteral feeding for nutritional support and the patient is on vital high protein at the rate of 12 mL an hour. Otherwise, no other significant changes over the past 24 hours. Objective - Vital Signs Vital signs: Vital Signs Temp 98.8 F 03/25/21 16:00 Pulse 55 L 03/26/21 04:00 Resp 30 H 03/25/21 19:00 BP 132/65 03/24/21 20:00 Pulse Ox 93 L 03/25/21 19:00 Intake & Output 03/25/21 03/26/21 03/26/21 18:59 06:59 18:59 Intake Total 1175.557 985.467 Output Total 1095 1265 Balance 80.557 -279.533 Weight 127.7 kg Intake: IV 276 276 Sodium Chloride 0.9% 1, 240 240 000 ml @ 20 mls/hr IV . Q24H [facility] Rx#:[id number] pressure bag 36 36 Intake, IV Titration 653.557 697.467 Amount Cisatracurium 200 mg In 226.695 Sodium Chloride 0.9% 180 ml @ 2 MCG/KG/MIN 15.241 mls/hr IV .Q13H8M [facility] Rx# :[id number] Clevidipine Butyrate 25 197.467 mg In Empty Bag 1 bag @ 1 MG/HR 2 mls/hr IV .Q24H [facility] Rx#:[id number] fentaNYL (PF). 1,000 mcg 191.442 200 In Sodium Chloride 0.9% 80 ml @ 0.5 MCG/KG/HR 5. 775 mls/hr IV .[id number] [facility] Rx#:[id number] propofoL 1,000 mg In 235.42 300 Empty Bag 1 bag @ Titrate IV .Q0M [facility] Rx#: [id number] Oral 12 Tube Feeding 144 12 Other 90 Output: Urine 1095 1265 Other: Voiding Method Indwelling Catheter Indwelling Catheter ABP, PAP, CO, CI - Last Documented Arterial Blood Pressure 130/43 - Exam No acute distress, sedated and paralyzed, with an orally placed endotracheal tube and NG tube. HEENT examination is grossly unremarkable. Neck supple. Full range of motion. No adenopathy thyromegaly or neck vein distention. Cardiovascular examination reveals regular rhythm rate. S1-S2 normal. No S3 or S4. No discernible murmur noted. Heart sounds distant. Lungs reveal coarse rhonchi. No wheezes or crackles. Breath sounds equal bilaterally. Abdomen soft bowel sounds are heard. No masses or tenderness. Extremities are intact. No cyanosis clubbing and some increased edema in all 4 extremities. Skin is without rash or lesion. Neurologic examination cannot be adequately assessed as the patient's currently sedated and paralyzed. - Labs CBC & Chem 7: 03/25/21 07:52 03/25/21 07:52 Labs: Abnormal Lab Results - Last 24 Hours (Table) 03/25/21 03/25/21 03/25/21 Range/Units 04:00 07:30 07:52 WBC (3.8-10.6) k/uL RBC (3.80-5.40) m/uL Hgb (11.4-16.0) gm/dL Neutrophils # (Manual) (1.3-7.7) k/uL Monocytes # (Manual) (0-1.0) k/uL Metamyelocytes # (Man) (0) k/uL Myelocytes # (Manual) (0) k/uL D-Dimer (<0.60) mg/L FEU ABG pO2 57 L* (83-108) mmHg ABG Total CO2 27 H (19-24) mmol/L ABG O2 Saturation 90.3 L (94-97) % Chloride 111 H (98-107) mmol/L BUN 50 H (7-17) mg/dL POC Glucose (mg/dL) (75-99) mg/dL ALT 40 H (4-34) U/L Total Protein 5.7 L (6.3-8.2) g/dL Albumin 2.6 L (3.5-5.0) g/dL Procalcitonin 0.20 H (0.02-0.09) ng/mL 03/25/21 03/25/21 03/25/21 Range/Units 07:52 12:08 12:18 WBC 13.3 H (3.8-10.6) k/uL RBC 3.65 L (3.80-5.40) m/uL Hgb 11.3 L (11.4-16.0) gm/dL Neutrophils # (Manual) 9.40 H (1.3-7.7) k/uL Monocytes # (Manual) 1.06 H (0-1.0) k/uL Metamyelocytes # (Man) 0.13 H (0) k/uL Myelocytes # (Manual) 0.13 H (0) k/uL D-Dimer (<0.60) mg/L FEU ABG pO2 56 L* (83-108) mmHg ABG Total CO2 27 H (19-24) mmol/L ABG O2 Saturation 89.3 L (94-97) % Chloride (98-107) mmol/L BUN (7-17) mg/dL POC Glucose (mg/dL) 135 H (75-99) mg/dL ALT (4-34) U/L Total Protein (6.3-8.2) g/dL Albumin (3.5-5.0) g/dL Procalcitonin (0.02-0.09) ng/mL 03/25/21 03/25/21 03/25/21 Range/Units 17:43 20:38 23:52 WBC (3.8-10.6) k/uL RBC (3.80-5.40) m/uL Hgb (11.4-16.0) gm/dL Neutrophils # (Manual) (1.3-7.7) k/uL Monocytes # (Manual) (0-1.0) k/uL Metamyelocytes # (Man) (0) k/uL Myelocytes # (Manual) (0) k/uL D-Dimer (<0.60) mg/L FEU ABG pO2 (83-108) mmHg ABG Total CO2 (19-24) mmol/L ABG O2 Saturation (94-97) % Chloride (98-107) mmol/L BUN (7-17) mg/dL POC Glucose (mg/dL) 219 H 201 H 185 H (75-99) mg/dL ALT (4-34) U/L Total Protein (6.3-8.2) g/dL Albumin (3.5-5.0) g/dL Procalcitonin (0.02-0.09) ng/mL 03/26/21 03/26/21 Range/Units 05:00 05:15 WBC (3.8-10.6) k/uL RBC (3.80-5.40) m/uL Hgb (11.4-16.0) gm/dL Neutrophils # (Manual) (1.3-7.7) k/uL Monocytes # (Manual) (0-1.0) k/uL Metamyelocytes # (Man) (0) k/uL Myelocytes # (Manual) (0) k/uL D-Dimer 3.54 H (<0.60) mg/L FEU ABG pO2 (83-108) mmHg ABG Total CO2 (19-24) mmol/L ABG O2 Saturation (94-97) % Chloride (98-107) mmol/L BUN (7-17) mg/dL POC Glucose (mg/dL) 165 H (75-99) mg/dL ALT (4-34) U/L Total Protein (6.3-8.2) g/dL Albumin (3.5-5.0) g/dL Procalcitonin (0.02-0.09) ng/mL Assessment and Plan Plan: 1 Acute hypoxemic respiratory failure secondary to coronavirus associated pneumonia, S/P intubation and mechanical ventilation on 03/19/2021. The patient for now is sedated and paralyzed and intubated on a mechanical ventilator. The patient is on Decadron 6 mg IV every 24 hours and the patient is also on Lovenox for DVT prophylaxis. The CTA showed no evidence of any pulmonary embolism. Doppler of the lower extremities has been negative. The patient failed BiPAP therapy and subsequent the patient to be intubated and placed on mechanical ventilator. The patient has been intubated on 03/19/2021 and the patient remains on a mechanical ventilator since. The patient remains hemodynamically stable at this point in time. The patient remains on Decadron. No signs of any infection at this point. The patient has bilateral pulmonary infiltrates. The peak airway pressure 36, static pressure is 34. Remains sedated and paralyzed. No major changes since yesterday and the patient is still on Decadron. Awaiting follow-up chest x-ray and blood gases from today. Meanwhile, the patient remains sedated and paralyzed. The level of PEEP is still high at 18 with an FiO2 of 60%. Hemodynamically stable. She is subjected to diuresis. 2 acute coronary syndrome related pneumonia with secondary respiratory failure 3 elevated inflammatory markers second COVID-19 infection 4 morbid obesity with BMI 46 5 diabetes mellitus currently on insulin 70/30 in addition to sliding scale coverage , having episodes of hypoglycemia and the insulin dose will be adjusted. Plan Continue ventilator support no ventilator changes will be done for today The patient sedated and paralyzed continue the patient on Lasix 40 mg every 12 hours IV fluids to KVO Continue the patient on Decadron Repeat inflammatory markers , LDH and CRP levels have been improving Continue enteral feeding for nutritional support Blood sugar management , reduce the dose of NovoLog 7030 down to 30 units twice a day along with a sliding scale coverage Lactulose 10 cc BID We will continue to follow. Condition remains critical.The patient remains on a mechanical ventilator for now. We'll continue to follow. Continued care evaluation, more than 30 minutes.
[2021-03-26] MEDS: CISATRACURIUM 200 MG in SODIUM CHLORIDE 0.9% 180 ML IV SCH ×2 (07:29→19:13)
[2021-03-26 07:30] LABS: Calcium 8.9 mg/dL (8.4-10.2); Potassium 4.4 mmol/L (3.5-5.1)
[2021-03-26] MEDS: CHOLECALCIFEROL 25 MCG (1000 IU) TABLET PO SCH (08:28)
[2021-03-26] MEDS: INSULN ASP PRT/INSULIN ASPART 100 UNIT/ML 10 ML VIAL SQ SCH ×2 (08:28→19:58)
[2021-03-26] MEDS: ASCORBIC ACID 500 MG TAB PO SCH ×2 (08:28→19:57)
[2021-03-26] MEDS: DEXAMETHASONE SOD PHOSPHATE 10 MG/ML 1 ML VIAL IVP SCH (08:28)
[2021-03-26] MEDS: CHLORHEXIDINE GLUCONATE 15 ML CUP MUCOUS MEM SCH ×2 (08:28→19:57)
[2021-03-26] MEDS: ZINC SULFATE 220 MG CAP PO SCH (08:28)
[2021-03-26] MEDS: FUROSEMIDE 10 MG/ML 4 ML VIAL IV SCH ×2 (08:29→19:58)
[2021-03-26 08:38] LABS: Amorphous Sediment,Urine Moderate /hpf; Appearance,Urine Cloudy (Clear); Bacteria,Urine Occasional /hpf; Bilirubin,Urine Negative (Negative); Blood,Urine Small (Negative); Color,Urine Yellow; Glucose,Urine (UA) Negative (Negative); Hyaline Casts,Urine 3 /lpf (0-2); Ketones,Urine Negative (Negative); Leukocyte Esterase,Urine Small (Negative); Mucus,Urine Occasional /hpf; Nitrite,Urine Negative (Negative); Protein,Urine Trace (Negative); RBC,Urine 70 /hpf (0-5); Specific Gravity,Urine 1.024 (1.001-1.035); Squamous Epithelial Cell,Urine <1 /hpf (0-4); Urobilinogen,Urine <2.0 mg/dL (<2.0); WBC,Urine 46 /hpf (0-5)
[2021-03-26] MEDS: amLODIPine 5 MG TAB PO SCH ×2 (08:38→19:57)
[2021-03-26] MEDS: ALBUTEROL HFA INHALER INHALATION SCH ×4 (09:35→20:08)
[2021-03-26 09:49] LABS: ABG Base Excess 0.3 mmol/L; ABG HCO3 25 mmol/L (21-25); ABG PCO2 38 mmHg (35-45); ABG PH 7.42 (7.35-7.45); ABG PO2 82 mmHg (83-108); ABG TCO2 26 mmol/L (19-24); Allen Test Performed? Yes
[2021-03-26] MEDS: DOCUSATE ORAL SOLN 100 MG/10 ML CUP PO SCH ×2 (10:00→20:11)
--- NOTE | 2021-03-26 10:37 | P.PN ---
Subjective Progress Note Date: 03/26/21 Sergio Villatoro, is a 60-year-old female who presented to [facility] emergency room with a chief complaint of cough and shortness of breath, patient stated that she started getting sick on 03/06/2021, she was checked for Covid at that time but the test was negative, she continued to get worse, she had a second test on 03/16/2021 that was positive, patient started getting worsening shortness of breath and she decided to come to emergency room on 03/18/2021. Patient stated that she did not get vaccinated for Covid, her risk factors include diabetes and morbid obesity, she denies any cardiac history. She was evaluated in the emergency room vital examination reveals a temperature of 100.6 pulse 102 respiration 21 blood pressure 139/72 pulse ox 75% on room air and 90% on 6 L nasal cannula, white blood count was 8.4 hemoglobin 14.2 platelet count 204 sodium 134 potassium 4.2 chloride 99 CO2 22 BUN 29 creatinine 0.83 plasma lactic acid was 2.1 AST 54 ALT 38 troponin less than 0.012 EKG was normal, chest x-ray revealed diffuse near complete opacification of bilateral lungs suggestive of diffuse pneumonia or ARDS. Patient was started on IV dexamethasone, subcu Lovenox, vitamin C, vitamin D, and zinc supplements, pulmonary consultation and infectious disease consultation were requested. Patient is a former smoker, she denies ever being diagnosed with asthma or emphysema. On 03/19/2021 patient was urgently intubated this a.m. per critical care services due to decreasing respiratory status. Patient has been started on sedation. Patient remains on Decadron, vitamin C, vitamin D and zinc. Critical care and infectious disease services are following. Patient remains on Lovenox for DVT prophylaxis. PH 7.29, pCO2 57, pO2 76 HCO3 28. On 03/20/2021 patient was seen and examined in the ICU she is intubated sedated maintained on mechanical ventilation, she is maintained on IV Decadron subcu Lovenox, and vitamin supplements bilateral lower extremity Doppler was negative for DVT, pulmonary and infectious disease are following, prognosis is guarded On 03/21/2021 patient is intubated and remains on sedation. Per nursing staff patient is no longer on Levophed. Patient currently on an FiO2 of 55%. PH of 7.38, pCO2 47 pO2 HCO3 28. Pulmonary and infectious disease service is following On 03/22/2021 patient was seen and examined in the ICU she is intubated sedated maintained on mechanical ventilation, she is maintained on IV Decadron subcu Lovenox, and vitamin supplements bilateral lower extremity Doppler was negative for DVT, temperature is 98.3 pulse 48 respiration 30 blood pressure 130/58 pulse ox 97% on FiO2 of 50% white blood count 7.4 hemoglobin 11.9 platelet count 286 d-dimer elevated at 6.36 ABG reveals a pH of 7.4 pCO2 42 PO2 110 pulmonary and infectious disease are following, prognosis is guarded On 03/23/2021 patient remains in the intensive care unit intubated sedated and on mechanical ventilation. Patient remains on fentanyl and propofol drips. Critical care and infectious disease services are following today's ABG showing pH of 7.35 pCO2 45 pO2 83 and HCO3 levels 25 On 03/24/2021 patient was seen and examined in the ICU she is intubated sedated maintained on mechanical ventilation, vital examination reveals a temperature of 100.3 pulse 82 respiration 30 blood pressure 170/53 pulse ox 93% on 50% FiO2 laboratory data reveals white blood count 11.5 hemoglobin 11.7 platelet count 327 sodium 138 potassium 4.7 chloride 110 CO2 22 BUN 46 creatinine 0.83 chest x- ray reveals diffuse interstitial opacities with worsening airspace disease in the left base and left perihilar region. Arterial blood gas reveals a pH of 7.36 pCO2 43 PO2 70 On 03/25/2021 patient was seen and examined in ICU she is intubated sedated maintained on mechanical ventilation, she is on assist control tidal volume 400 FiO2 50% and PEEP of 18 she is maintained on IV Decadron and subcu Lovenox she is also maintained on insulin patient had episode of hypoglycemia and her NovoLog 70/30 was decreased to 30 units twice daily On 03/26/2021 patient remains in the intensive care unit intubated and sedated on mechanical ventilation. Patient's FiO2 has been increased to 65% due to increased oxygen demands. Patient remains on IV Lasix. PH 7.42, pCO2 38, pO2 82 and HCO3 level 25. Infectious disease and critical care services are following Objective - Vital Signs Vital signs: Vital Signs Temp 98.7 F 03/26/21 09:00 Pulse 42 L 03/26/21 10:00 Resp 30 H 12/22/21 10:00 BP 132/65 03/24/21 20:00 Pulse Ox 93 L 03/26/21 10:00 Intake & Output 03/25/21 03/26/21 03/26/21 18:59 06:59 18:59 Intake Total 1175.557 985.467 269.6 Output Total 1095 1265 455 Balance 80.557 -279.533 -185.4 Weight 127.7 kg Intake: IV 276 276 92 Sodium Chloride 0.9% 1, 240 240 80 000 ml @ 20 mls/hr IV . Q24H [facility] Rx#:[id number] pressure bag 36 36 12 Intake, IV Titration 653.557 697.467 111.6 Amount Cisatracurium 200 mg In 226.695 Sodium Chloride 0.9% 180 ml @ 2 MCG/KG/MIN 15.241 mls/hr IV .Q13H8M [facility] Rx# :[id number] Clevidipine Butyrate 25 197.467 11.6 mg In Empty Bag 1 bag @ 1 MG/HR 2 mls/hr IV .Q24H [facility] Rx#:[id number] fentaNYL (PF). 1,000 mcg 191.442 200 100 In Sodium Chloride 0.9% 80 ml @ 0.5 MCG/KG/HR 5. 775 mls/hr IV .[id number] [facility] Rx#:[id number] propofoL 1,000 mg In 235.42 300 Empty Bag 1 bag @ Titrate IV .Q0M [facility] Rx#: [id number] Oral 12 Tube Feeding 144 12 36 Other 90 30 Output: Urine 1095 1265 455 Other: Voiding Method Indwelling Catheter Indwelling Catheter ABP, PAP, CO, CI - Last Documented Arterial Blood Pressure 135/41 - Exam In general patient is intubated sedated maintained on mechanical ventilation HEENT head normocephalic and atraumatic Neck is supple no JVD no goiter no lymphadenopathy no carotid bruit Chest examination coarse crackles in both lung shah with wheezing Cardiac exam reveals regular heart sounds S1 and S2 no gallops no murmurs Abdomen is soft nontender no organomegaly with normal bowel sounds Extremity exam reveals no edema no cyanosis or clubbing - Labs CBC & Chem 7: 03/26/21 04:35 03/26/21 06:00 Labs: Abnormal Lab Results - Last 24 Hours (Table) 03/25/21 03/25/21 03/25/21 Range/Units 04:00 12:08 12:18 WBC (3.8-10.6) k/uL RBC (3.80-5.40) m/uL Hgb (11.4-16.0) gm/dL Hct (34.0-46.0) % D-Dimer (<0.60) mg/L FEU ABG pO2 56 L* (83-108) mmHg ABG Total CO2 27 H (19-24) mmol/L ABG O2 Saturation 89.3 L (94-97) % Chloride (98-107) mmol/L BUN (7-17) mg/dL Glucose (74-99) mg/dL POC Glucose (mg/dL) 135 H (75-99) mg/dL Lactate Dehydrogenase (313-618) U/L Procalcitonin 0.20 H (0.02-0.09) ng/mL Urine Appearance (Clear) Urine Protein (Negative) Urine Blood (Negative) Ur Leukocyte Esterase (Negative) Urine RBC (0-5) /hpf Urine WBC (0-5) /hpf Urine WBC Clumps (None) /hpf Amorphous Sediment (None) /hpf Urine Bacteria (None) /hpf Hyaline Casts (0-2) /lpf Urine Mucus (None) /hpf 03/25/21 03/25/21 03/25/21 Range/Units 17:43 20:38 23:52 WBC (3.8-10.6) k/uL RBC (3.80-5.40) m/uL Hgb (11.4-16.0) gm/dL Hct (34.0-46.0) % D-Dimer (<0.60) mg/L FEU ABG pO2 (83-108) mmHg ABG Total CO2 (19-24) mmol/L ABG O2 Saturation (94-97) % Chloride (98-107) mmol/L BUN (7-17) mg/dL Glucose (74-99) mg/dL POC Glucose (mg/dL) 219 H 201 H 185 H (75-99) mg/dL Lactate Dehydrogenase (313-618) U/L Procalcitonin (0.02-0.09) ng/mL Urine Appearance (Clear) Urine Protein (Negative) Urine Blood (Negative) Ur Leukocyte Esterase (Negative) Urine RBC (0-5) /hpf Urine WBC (0-5) /hpf Urine WBC Clumps (None) /hpf Amorphous Sediment (None) /hpf Urine Bacteria (None) /hpf Hyaline Casts (0-2) /lpf Urine Mucus (None) /hpf 03/26/21 03/26/21 03/26/21 Range/Units 04:35 04:56 05:00 WBC 13.7 H (3.8-10.6) k/uL RBC 3.57 L (3.80-5.40) m/uL Hgb 10.8 L (11.4-16.0) gm/dL Hct 33.5 L (34.0-46.0) % D-Dimer 3.54 H (<0.60) mg/L FEU ABG pO2 82 L (83-108) mmHg ABG Total CO2 26 H (19-24) mmol/L ABG O2 Saturation (94-97) % Chloride (98-107) mmol/L BUN (7-17) mg/dL Glucose (74-99) mg/dL POC Glucose (mg/dL) (75-99) mg/dL Lactate Dehydrogenase (313-618) U/L Procalcitonin (0.02-0.09) ng/mL Urine Appearance (Clear) Urine Protein (Negative) Urine Blood (Negative) Ur Leukocyte Esterase (Negative) Urine RBC (0-5) /hpf Urine WBC (0-5) /hpf Urine WBC Clumps (None) /hpf Amorphous Sediment (None) /hpf Urine Bacteria (None) /hpf Hyaline Casts (0-2) /lpf Urine Mucus (None) /hpf 03/26/21 03/26/21 03/26/21 Range/Units 05:00 05:15 06:00 WBC (3.8-10.6) k/uL RBC (3.80-5.40) m/uL Hgb (11.4-16.0) gm/dL Hct (34.0-46.0) % D-Dimer (<0.60) mg/L FEU ABG pO2 (83-108) mmHg ABG Total CO2 (19-24) mmol/L ABG O2 Saturation (94-97) % Chloride 109 H (98-107) mmol/L BUN 53 H (7-17) mg/dL Glucose 166 H (74-99) mg/dL POC Glucose (mg/dL) 165 H (75-99) mg/dL Lactate Dehydrogenase 859 H (313-618) U/L Procalcitonin (0.02-0.09) ng/mL Urine Appearance (Clear) Urine Protein (Negative) Urine Blood (Negative) Ur Leukocyte Esterase (Negative) Urine RBC (0-5) /hpf Urine WBC (0-5) /hpf Urine WBC Clumps (None) /hpf Amorphous Sediment (None) /hpf Urine Bacteria (None) /hpf Hyaline Casts (0-2) /lpf Urine Mucus (None) /hpf 03/26/21 Range/Units 06:15 WBC (3.8-10.6) k/uL RBC (3.80-5.40) m/uL Hgb (11.4-16.0) gm/dL Hct (34.0-46.0) % D-Dimer (<0.60) mg/L FEU ABG pO2 (83-108) mmHg ABG Total CO2 (19-24) mmol/L ABG O2 Saturation (94-97) % Chloride (98-107) mmol/L BUN (7-17) mg/dL Glucose (74-99) mg/dL POC Glucose (mg/dL) (75-99) mg/dL Lactate Dehydrogenase (313-618) U/L Procalcitonin (0.02-0.09) ng/mL Urine Appearance Cloudy H (Clear) Urine Protein Trace H (Negative) Urine Blood Small H (Negative) Ur Leukocyte Esterase Small H (Negative) Urine RBC 70 H (0-5) /hpf Urine WBC 46 H (0-5) /hpf Urine WBC Clumps Occasional H (None) /hpf Amorphous Sediment Moderate H (None) /hpf Urine Bacteria Occasional H (None) /hpf Hyaline Casts 3 H (0-2) /lpf Urine Mucus Occasional H (None) /hpf Assessment and Plan Plan: Acute COVID-19 infection Acute hypoxic respiratory failure secondary to COVID-19 pneumonia requiring intubation and mechanical ventilation on 03/19/2021 Bilateral Pneumonia related to COVID-19 Underlying history of insulin-dependent diabetes mellitus Underlying history of morbid obesity Previous history of smoking patient denies being diagnosed with COPD in the past Hyperkalemia. Resolved Maintained on subcu Lovenox, IV Decadron, vitamin C vitamin D and zinc supplements Pulmonary and infectious disease consultation were requested, case was discussed with Dr. Huynh over the phone Patient remains intubated and sedated on mechanical ventilation in the intensive care unit Prognosis is guarded, will follow closely Repeat labs and x-ray ordered for a.m.
--- NOTE | 2021-03-26 10:52 | XR ---
EXAMINATION TYPE: XR chest 1V portable DATE OF EXAM: 03/26/2021 COMPARISON: 03/25/2021 HISTORY: Shortness of breath TECHNIQUE: Single frontal view of the chest is obtained. FINDINGS: Stable endotracheal and orogastric tubes. Stable left-sided subclavian central venous cath eter. Persistent bilateral multifocal increased opacities greatest in the bases. Cardiac silhouette s ize is stable and upper limits of normal. Osseous structures are intact. IMPRESSION: Bilateral infiltrates are stable.
[2021-03-26 11:18] LABS: C Reactive Protein 3.2 mg/dL (<1.0)
[2021-03-26 13:26] LABS: Glucose,Whole Blood 168 mg/dL (75-99)
[2021-03-26] MEDS: ENOXAPARIN 40 MG/0.4 ML SYRINGE SQ SCH (17:16)
[2021-03-26 17:38] LABS: Glucose,Whole Blood 169 mg/dL (75-99)
[2021-03-26] MEDS: LACTULOSE 20 GM/30 ML CUP PO SCH (19:56)
[2021-03-26 20:23] LABS: Glucose,Whole Blood 153 mg/dL (75-99)
[2021-03-26] MEDS ORDERED: LACTULOSE 20 GM/30 ML CUP PO SCH (21:00)
--- NOTE | 2021-03-26 23:00 | PN ---
PROGRESS NOTE DATE OF SERVICE: 03/26/2021 REASON FOR FOLLOWUP: 1. COVID-19 pneumonia. 2. New fever. INTERVAL HISTORY: The patient is afebrile today. The patient is hemodynamically stable. FiO2 is currently 65%, slightly higher than yesterday of 50%. No significant purulent secretions in the ET, diarrhea or any other changes reported by the nursing staff. PHYSICAL EXAMINATION: Blood pressure 151/47, pulse of 42, temperature 98. She is 95% on 65% FiO2. General description is a middle-aged female lying in bed in no distress. Respiratory system: Unlabored breathing. Diminished breath sounds. No wheeze. Heart S1, S2. Regular rate and rhythm. Abdomen soft, no tenderness. LABS: BUN of 53, creatinine 0.94. Procalcitonin 0.17. Urine is positive. DIAGNOSTIC IMPRESSION AND PLAN: Patient with acute respiratory failure secondary to COVID-19 pneumonia in this patient who did have a new fever. Chest x-ray with bilateral infiltrate. Did have a positive UA. Sputum and blood culture have been ordered, which will be followed. Empirically add cefepime while waiting for the culture to finalize and monitor her clinical course closely. MMODL / IJN: [id number] /
[2021-03-26] MEDS: CEFEPIME 2 GM in SODIUM CHLORIDE 0.9% 100 ML IVPB SCH (23:22)
[2021-03-26] MEDS: ACETYLCYSTEINE 800 MG/4 ML VIAL PO SCH (23:22)
[2021-03-26] MEDS: SODIUM CHLORIDE 0.9% 1,000 ML IV SCH (23:23)
[2021-03-26 23:26] LABS: Glucose,Whole Blood 133 mg/dL (75-99)
[2021-03-27] MEDS: INSULIN ASPART (NovoLOG) 100 UNIT/ML VIAL SQ SCH ×4 (01:17→17:52)
[2021-03-27] MEDS: fentaNYL (PF). 1,000 MCG in SODIUM CHLORIDE 0.9% 80 ML IV SCH ×2 (04:30→10:22)
[2021-03-27 05:00] LABS: Basophils # (A) 0.1 k/uL (0-0.2); Basophils % (A) 1 %; Eosinophils # (A) 0.1 k/uL (0-0.7); Eosinophils % (A) 1 %; Lymphocytes # (A) 1.7 k/uL (1.0-4.8); Lymphocytes % (A) 14 %; MCH 30.1 pg (25.0-35.0); MCHC 32.4 g/dL (31.0-37.0); MCV 92.7 fL (80.0-100.0); Mean Platelet Volume 9.4; Monocytes % (A) 8 %; Neutrophils % (A) 75 %; Platelet Count 348 k/uL (150-450); RBC 3.67 m/uL (3.80-5.40); RDW 13.9 % (11.5-15.5); WBC 12.1 k/uL (3.8-10.6)
[2021-03-27 05:17] LABS: ALT 33 U/L (4-34); AST 23 U/L (14-36); African American GFR (CKD) >90 (>60 ml/min/1.73 sqM); Albumin 2.8 g/dL (3.5-5.0); Alkaline Phosphatase 61 U/L (38-126); Anion Gap 4 mmol/L; Blood Urea Nitrogen 54 mg/dL (7-17); C Reactive Protein 2.3 mg/dL (<1.0); Carbon Dioxide 26 mmol/L (22-30); Chloride 109 mmol/L (98-107); Glucose 122 mg/dL (74-99); LDH 746 U/L (313-618); Non-African American GFR(CKD) 82 (>60 ml/min/1.73 sqM); Sodium 139 mmol/L (137-145); Total Bilirubin 0.5 mg/dL (0.2-1.3); Total Protein 6.1 g/dL (6.3-8.2)
[2021-03-27 05:38] LABS: Glucose,Whole Blood 120 mg/dL (75-99)
[2021-03-27 06:05] LABS: ABG Base Excess 2.1 mmol/L; ABG HCO3 26 mmol/L (21-25); ABG Oxygen Saturation 92.9 % (94-97); ABG PCO2 39 mmHg (35-45); ABG PH 7.44 (7.35-7.45); ABG PO2 64 mmHg (83-108); ABG TCO2 27 mmol/L (19-24)
[2021-03-27 06:15] LABS: Allen Test Performed? No
[2021-03-27] MEDS: ARTIFICIAL TEARS-HYPROMELLOSE DROPS 15 ML BTL BOTH EYES SCH ×5 (06:47→20:37)
--- NOTE | 2021-03-27 08:19 | XR ---
EXAMINATION TYPE: XR chest 1V portable DATE OF EXAM: 03/27/2021 COMPARISON: Chest x-ray 03/26/2021 HISTORY: Intubated TECHNIQUE: Single frontal view of the chest is obtained. FINDINGS: Endotracheal tube, NG tube, left supraclavicular central venous catheter are overlying radha ropriate positions. No evident pneumothorax. There is interval obscured appearance of the left hemidi aphragm. Cardiac mediastinal silhouette is stable. There are overlying artifacts. IMPRESSION: Correlate for pneumonia
[2021-03-27] MEDS: CEFEPIME 2 GM in SODIUM CHLORIDE 0.9% 100 ML IVPB SCH ×2 (08:47→16:34)
[2021-03-27] MEDS: amLODIPine 5 MG TAB PO SCH ×2 (08:47→20:37)
[2021-03-27] MEDS: LACTULOSE 20 GM/30 ML CUP PO SCH ×2 (08:47→20:36)
[2021-03-27] MEDS: CHOLECALCIFEROL 25 MCG (1000 IU) TABLET PO SCH (08:47)
[2021-03-27] MEDS: ZINC SULFATE 220 MG CAP PO SCH (08:47)
[2021-03-27] MEDS: ACETYLCYSTEINE 800 MG/4 ML VIAL PO SCH ×2 (08:48→20:37)
[2021-03-27] MEDS: ASCORBIC ACID 500 MG TAB PO SCH ×2 (08:48→20:37)
[2021-03-27] MEDS: CHLORHEXIDINE GLUCONATE 15 ML CUP MUCOUS MEM SCH ×2 (08:48→20:37)
[2021-03-27] MEDS: DEXAMETHASONE SOD PHOSPHATE 10 MG/ML 1 ML VIAL IVP SCH (08:48)
[2021-03-27] MEDS: INSULN ASP PRT/INSULIN ASPART 100 UNIT/ML 10 ML VIAL SQ SCH ×2 (08:49→20:38)
[2021-03-27] MEDS: ALBUTEROL HFA INHALER INHALATION SCH ×4 (09:16→19:33)
[2021-03-27] MEDS: DOCUSATE ORAL SOLN 100 MG/10 ML CUP PO SCH ×2 (09:17→20:37)
[2021-03-27] MEDS: FUROSEMIDE 10 MG/ML 4 ML VIAL IV SCH ×2 (09:18→20:37)
[2021-03-27 13:18] LABS: Glucose,Whole Blood 191 mg/dL (75-99)
--- NOTE | 2021-03-27 15:25 | P.PN ---
Subjective Progress Note Date: 03/27/21 Principal diagnosis: Acute hypoxic respiratory failure secondary to COVID-19 pneumonia On , the patient remains intubated on a mechanical ventilator the patient is being seen for a follow-up. On today's evaluation, the patient is sedated and she remains on propofol running at 50 mcg/kg per minute and the patient is also on Nimbex running at 1 mcg/kg per minute. As such, the level of sedation and paralytics is unchanged compared to yesterday. She remains on a mechanical ventilator and she remained on assist control mode at the rate of 30 with a tidal volume of 100 and FiO2 of 65% with a PEEP of 18. Chest x-ray from today is in progress. Note that the chest x-ray from yesterday is improved. The peak air pressure today to 36, static pressures 34 and we are still awaiting for the blood gases from today. Meanwhile, the patient's current pulse ox is around 96% on above-mentioned ventilator setting. The patient continues to get diuresed with Lasix and the patient is on Lasix 40 mg IV every 12 hours. Overall fluid balance over the past 24 hours has been -157 mL and the patient seems to be headed towards a negative fluid balance. The patient's blood sugars under better control. No further episodes of hypoglycemia. She remains on Decadron 6 mg IV every 24 hours. She is also on Lovenox 40 mg subcu every 24 hours. D-dimer level is at 3.54. In terms of her blood pressure control, the patient is on Cleviprex which is still running at 2 mg an hour. Suggestive starting the patient on Norvasc 5 mg by mouth twice a day and gradually wean off the Cleviprex and discontinue. IV fluids are currently at KVO. She is receiving enteral feeding for nutritional support and the patient is on vital high protein at the rate of 12 mL an hour. Otherwise, no other significant changes over the past 24 hours. Reevaluated today on 03/27/21, patient remains in the ICU, intubated and mechanically ventilated. She is on assist control rate of 30 tidal volume 400 FiO2 55% PEEP is 15. ABG is marginal pO2 is 64 pCO2 is 39 pH of 7.44. Hence no changes were made in the present vent settings. Chest x-ray continues show bilateral infiltrates consistent with COVID-19 pneumonia. Patient is on enteral feeding. She is also on propofol at 50, fentanyl at 1.5. And she is also on Nimbex. 1 mcg/kg/m. Rest x-ray showed endotracheal tube in the proper pos ition. Left supraclavicular central venous line is in appropriate position. WBC count today is 12.1 hemoglobin 11.0 d-dimer is 3 basic metabolic profile is normal, BUN is 54 creatinine 0.78 LDH is 746 C-reactive protein is 2.3 patient remains on Mucomyst, albuterol, ascorbic acid, cefepime, Peridex, Decadron 6 mg IV push daily, Lovenox 40 mg subcu daily Lasix 40 mg IV push every 12 hours zinc, lactulose 10 mg by mouth twice a day and she is also on insulin as per scale. Objective - Vital Signs Vital signs: Vital Signs Temp 98.8 F 03/27/21 12:00 Pulse 73 03/27/21 14:00 Resp 30 H 03/27/21 14:00 BP 146/64 03/27/21 14:00 Pulse Ox 94 L 03/27/21 14:00 Intake & Output 03/26/21 03/27/21 03/27/21 18:59 06:59 18:59 Intake Total 866.535 7066.408 757.674 Output Total 1245 1835 1510 Balance -293.925 -723.592 -752.326 Weight 127.7 kg 127.8 kg Intake: IV 276 276 124 Sodium Chloride 0.9% 1, 240 240 100 000 ml @ 20 mls/hr IV . Q24H [facility] Rx#:[id number] pressure bag 36 36 24 Intake, IV Titration 459.075 589.408 537.674 Amount Cefepime 2 gm In Sodium 125 Chloride 0.9% 100 ml @ 25 mls/hr IVPB Q8HR [facility] Rx# :[id number] Cisatracurium 200 mg In 103.632 89.408 142.24 Sodium Chloride 0.9% 180 ml @ 2 MCG/KG/MIN 15.241 mls/hr IV .Q13H8M [facility] Rx# :[id number] Clevidipine Butyrate 25 61.6 49.933 mg In Empty Bag 1 bag @ 1 MG/HR 2 mls/hr IV .Q24H [facility] Rx#:[id number] fentaNYL (PF). 1,000 mcg 193.843 200 120.501 In Sodium Chloride 0.9% 80 ml @ 0.5 MCG/KG/HR 5. 775 mls/hr IV .[id number] [facility] Rx#:[id number] propofoL 1,000 mg In 100 300 100 Empty Bag 1 bag @ Titrate IV .Q0M [facility] Rx#: [id number] Tube Feeding 156 156 96 Other 60 90 Output: Urine 1245 1835 1510 Other: Voiding Method Indwelling Catheter Indwelling Catheter Indwelling Catheter ABP, PAP, CO, CI - Last Documented Arterial Blood Pressure 173/54 - Exam Physical Exam revealed a 60-year-old female intubated, mechanically ventilated, sedated, and paralyzed. Head: Atraumatic, normocephalic. Dry mucous membranes HEENT:[Neck is supple.] [No neck masses.] [No thyromegaly.] [No JVD.] Chest: Crackles at the bases no rhonchi and no wheezes Cardiac Exam: [Normal S1 and S2, no S3 gallop, no murmur.] Abdomen: [Soft, nontender, no megaly, no rebound, no guarding, normal bowel sounds.] Extremities: [No clubbing, no edema, no cyanosis.] Neurological Exam: Not assessed patient is sedated and paralyzed. Psychiatric: Could not assess sedated and paralyzed. - Labs CBC & Chem 7: 03/27/21 04:15 03/27/21 04:15 Labs: Abnormal Lab Results - Last 24 Hours (Table) 03/26/21 03/26/21 03/26/21 Range/Units 06:00 17:37 20:21 WBC (3.8-10.6) k/uL RBC (3.80-5.40) m/uL Hgb (11.4-16.0) gm/dL Neutrophils # (1.3-7.7) k/uL D-Dimer (<0.60) mg/L FEU ABG pO2 (83-108) mmHg ABG HCO3 (21-25) mmol/L ABG Total CO2 (19-24) mmol/L ABG O2 Saturation (94-97) % Chloride (98-107) mmol/L BUN (7-17) mg/dL Glucose (74-99) mg/dL POC Glucose (mg/dL) 169 H 153 H (75-99) mg/dL Lactate Dehydrogenase (313-618) U/L C-Reactive Protein (<1.0) mg/dL Total Protein (6.3-8.2) g/dL Albumin (3.5-5.0) g/dL Procalcitonin 0.17 H (0.02-0.09) ng/mL 03/26/21 03/27/21 03/27/21 Range/Units 23:25 04:15 04:15 WBC (3.8-10.6) k/uL RBC (3.80-5.40) m/uL Hgb (11.4-16.0) gm/dL Neutrophils # (1.3-7.7) k/uL D-Dimer 3.02 H (<0.60) mg/L FEU ABG pO2 (83-108) mmHg ABG HCO3 (21-25) mmol/L ABG Total CO2 (19-24) mmol/L ABG O2 Saturation (94-97) % Chloride 109 H (98-107) mmol/L BUN 54 H (7-17) mg/dL Glucose 122 H (74-99) mg/dL POC Glucose (mg/dL) 133 H (75-99) mg/dL Lactate Dehydrogenase 746 H (313-618) U/L C-Reactive Protein 2.3 H (<1.0) mg/dL Total Protein 6.1 L (6.3-8.2) g/dL Albumin 2.8 L (3.5-5.0) g/dL Procalcitonin (0.02-0.09) ng/mL 03/27/21 03/27/21 03/27/21 Range/Units 04:15 05:36 05:43 WBC 12.1 H (3.8-10.6) k/uL RBC 3.67 L (3.80-5.40) m/uL Hgb 11.0 L (11.4-16.0) gm/dL Neutrophils # 9.0 H (1.3-7.7) k/uL D-Dimer (<0.60) mg/L FEU ABG pO2 64 L (83-108) mmHg ABG HCO3 26 H (21-25) mmol/L ABG Total CO2 27 H (19-24) mmol/L ABG O2 Saturation 92.9 L (94-97) % Chloride (98-107) mmol/L BUN (7-17) mg/dL Glucose (74-99) mg/dL POC Glucose (mg/dL) 120 H (75-99) mg/dL Lactate Dehydrogenase (313-618) U/L C-Reactive Protein (<1.0) mg/dL Total Protein (6.3-8.2) g/dL Albumin (3.5-5.0) g/dL Procalcitonin (0.02-0.09) ng/mL 03/27/21 Range/Units 13:16 WBC (3.8-10.6) k/uL RBC (3.80-5.40) m/uL Hgb (11.4-16.0) gm/dL Neutrophils # (1.3-7.7) k/uL D-Dimer (<0.60) mg/L FEU ABG pO2 (83-108) mmHg ABG HCO3 (21-25) mmol/L ABG Total CO2 (19-24) mmol/L ABG O2 Saturation (94-97) % Chloride (98-107) mmol/L BUN (7-17) mg/dL Glucose (74-99) mg/dL POC Glucose (mg/dL) 191 H (75-99) mg/dL Lactate Dehydrogenase (313-618) U/L C-Reactive Protein (<1.0) mg/dL Total Protein (6.3-8.2) g/dL Albumin (3.5-5.0) g/dL Procalcitonin (0.02-0.09) ng/mL Microbiology - Last 24 Hours (Table) 03/26/21 04:30 Blood Culture - Preliminary Blood No Growth after 24 hours 03/26/21 01:15 Gram Stain - Preliminary Sputum Sputum Culture - Preliminary 03/26/21 06:15 Urine Culture - Preliminary Urine,Clean Catch Assessment and Plan Assessment: Impression: Acute hypoxic respiratory failure secondary to over 19 pneumonia intubated on 03/19, remains intubated sedated and paralyzed. Patient had no evidence of pulmonary embolism based on CT angios the chest. Remains on the COVID-19 cocktail. Continues to have a relatively high peak airway pressure and static pressure consistent with ARDS. Still requiring high PEEP at 15. And she is on 55% FiO2. Elevated inflammatory markers secondary to COVID-19 infection Morbid obesity BMI 46 Type 2 diabetes Recommendation: Continue ventilatory support Continue Lasix and keep the patient dry as much as possible Continue COVID-19 cocktail including Decadron and Lovenox. Nutritional support/enteral feeding Continue lactulose Continue insulin and treat as per protocol. Continue cefepime empirically. Continue Mucomyst. Continue Lovenox 40 mg subcu daily. Patient is not ready for any type of weaning at this point. Remains critically ill. Critical care time is over 30 minutes Time with Patient: Greater than 30
[2021-03-27] MEDS: CLEVIDIPINE BUTYRATE 25 MG in EMPTY BAG 1 BAG IV SCH (16:49)
[2021-03-27] MEDS: ENOXAPARIN 40 MG/0.4 ML SYRINGE SQ SCH (17:37)
[2021-03-27 17:42] LABS: Glucose,Whole Blood 160 mg/dL (75-99)
[2021-03-27] MEDS: CISATRACURIUM 200 MG in SODIUM CHLORIDE 0.9% 180 ML IV SCH (18:42)
[2021-03-27] MEDS: SODIUM CHLORIDE 0.9% 1,000 ML IV SCH (20:38)
[2021-03-27] MEDS ORDERED: HYDROmorphone 2 MG/ML 1 ML SYRINGE IVP PRN (21:11)
--- NOTE | 2021-03-27 22:43 | PN ---
PROGRESS NOTE DATE OF SERVICE: 03/27/2021 REASON FOR FOLLOWUP: 1. COVID-19 pneumonia. 2. New fever. INTERVAL HISTORY: The patient is afebrile. No fever recorded in the last 48 hours. The patient is hemodynamically stable. FiO2 is currently at 50%. No significant purulent secretions in the ET, diarrhea or any other changes reported by the nursing staff. PHYSICAL EXAMINATION: Blood pressure 127/44, pulse of 52, temperature of 98.3. She is 92% on 50% FiO2. General description is a middle-aged female intubated on the vent. Respiratory system: Unlabored breathing, decreased intensity of breath sounds. No wheeze. Heart S1, S2. Regular rate and rhythm. Abdomen soft, no tenderness. LABS: Hemoglobin is 11, white count of 12.1, creatinine 0.78. DIAGNOSTIC IMPRESSION AND PLAN: 1. Patient with acute respiratory failure which is multifactorial secondary to COVID- 19 pneumonia. Patient is currently on dexamethasone, Lovenox, zinc and ascorbic acid. 2. Patient with a new fever, concern for possible urinary tract infection versus pneumonia. Cultures are pending. Patient seems to be responding to the cefepime; to continue and monitor clinical course closely. MMODL / IJN: [id number] /
[2021-03-28 01:22] LABS: Glucose,Whole Blood 136 mg/dL (75-99)
[2021-03-28] MEDS: ARTIFICIAL TEARS-HYPROMELLOSE DROPS 15 ML BTL BOTH EYES SCH ×6 (01:22→20:15)
[2021-03-28] MEDS: CEFEPIME 2 GM in SODIUM CHLORIDE 0.9% 100 ML IVPB SCH ×3 (01:22→15:19)
[2021-03-28] MEDS: INSULIN ASPART (NovoLOG) 100 UNIT/ML VIAL SQ SCH ×4 (01:23→17:40)
[2021-03-28] MEDS: CISATRACURIUM 200 MG in SODIUM CHLORIDE 0.9% 180 ML IV SCH ×2 (02:41→11:57)
[2021-03-28] MEDS: HYDROmorphone 1 MG/ML 1 ML SYRINGE IVP PRN ×3 (04:30→20:38)
[2021-03-28 05:02] LABS: Basophils # (A) 0.1 k/uL (0-0.2); Basophils % (A) 1 %; Eosinophils # (A) 0.2 k/uL (0-0.7); Eosinophils % (A) 1 %; HCT 34.1 % (34.0-46.0); Lymphocytes # (A) 1.8 k/uL (1.0-4.8); Lymphocytes % (A) 14 %; MCHC 32.3 g/dL (31.0-37.0); MCV 92.8 fL (80.0-100.0); Mean Platelet Volume 8.8; Monocytes # (A) 0.9 k/uL (0-1.0); Monocytes % (A) 8 %; Neutrophils # (A) 9.3 k/uL (1.3-7.7); Neutrophils % (A) 74 %; Platelet Count 358 k/uL (150-450); RBC 3.68 m/uL (3.80-5.40); WBC 12.6 k/uL (3.8-10.6)
[2021-03-28 05:33] LABS: ALT 36 U/L (4-34); AST 26 U/L (14-36); African American GFR (CKD) >90 (>60 ml/min/1.73 sqM); Albumin 2.7 g/dL (3.5-5.0); Alkaline Phosphatase 69 U/L (38-126); Anion Gap 9 mmol/L; Blood Urea Nitrogen 41 mg/dL (7-17); C Reactive Protein 2.5 mg/dL (<1.0); Carbon Dioxide 24 mmol/L (22-30); Chloride 108 mmol/L (98-107); Glucose 130 mg/dL (74-99); LDH 717 U/L (313-618); Non-African American GFR(CKD) 85 (>60 ml/min/1.73 sqM); Potassium 3.6 mmol/L (3.5-5.1); Sodium 141 mmol/L (137-145); Total Bilirubin 0.5 mg/dL (0.2-1.3)
[2021-03-28 05:35] LABS: ABG Base Excess 3.5 mmol/L; ABG HCO3 27 mmol/L (21-25); ABG Oxygen Saturation 94.8 % (94-97); ABG PCO2 36 mmHg (35-45); ABG PH 7.48 (7.35-7.45); ABG PO2 69 mmHg (83-108); ABG TCO2 28 mmol/L (19-24)
--- NOTE | 2021-03-28 05:58 | XR ---
EXAMINATION TYPE: XR chest 1V portable DATE OF EXAM: 03/28/2021 CLINICAL HISTORY: Difficulty breathing and covid pneumonia progress study. TECHNIQUE: Single AP portable semiupright view of the chest is obtained. COMPARISON: Chest x-ray from one day earlier and older studies FINDINGS: Stable endotracheal and orogastric tubes. Stable left-sided subclavian central venous cath eter. Persistent bilateral multifocal increased opacities greatest in the bases. Cardiac silhouette size is stable and upper limits of normal. Osseous structures are intact. IMPRESSION: Bilateral multifocal increased opacities consistent with covid-19 infection redemonstrate d, no significant change from one day earlier.
[2021-03-28] MEDS ORDERED: POTASSIUM CHLORIDE 20 MEQ in WATER FOR INJECTION 1 100ML.BAG IVPB ONE (06:00)
[2021-03-28 06:18] LABS: Allen Test Performed? no
[2021-03-28] MEDS: ALBUTEROL HFA INHALER INHALATION SCH ×4 (08:20→20:10)
[2021-03-28] MEDS: ZINC SULFATE 220 MG CAP PO SCH (09:41)
[2021-03-28] MEDS: CHLORHEXIDINE GLUCONATE 15 ML CUP MUCOUS MEM SCH ×2 (09:42→20:14)
[2021-03-28] MEDS: ASCORBIC ACID 500 MG TAB PO SCH ×2 (09:48→20:14)
[2021-03-28] MEDS: CHOLECALCIFEROL 25 MCG (1000 IU) TABLET PO SCH (09:48)
[2021-03-28] MEDS: DEXAMETHASONE SOD PHOSPHATE 10 MG/ML 1 ML VIAL IVP SCH (09:48)
[2021-03-28] MEDS: FUROSEMIDE 10 MG/ML 4 ML VIAL IV SCH ×2 (09:48→20:15)
[2021-03-28] MEDS: ACETYLCYSTEINE 800 MG/4 ML VIAL PO SCH ×2 (09:48→22:23)
[2021-03-28] MEDS: amLODIPine 5 MG TAB PO SCH ×2 (09:49→20:14)
[2021-03-28] MEDS: LACTULOSE 20 GM/30 ML CUP PO SCH ×2 (09:49→20:14)
[2021-03-28] MEDS: DOCUSATE ORAL SOLN 100 MG/10 ML CUP PO SCH (09:49)
--- NOTE | 2021-03-28 10:35 | P.PN ---
Subjective Progress Note Date: 03/28/21 Sergio Villatoro, is a 60-year-old female who presented to [facility] emergency room with a chief complaint of cough and shortness of breath, patient stated that she started getting sick on 03/06/2021, she was checked for Covid at that time but the test was negative, she continued to get worse, she had a second test on 03/16/2021 that was positive, patient started getting worsening shortness of breath and she decided to come to emergency room on 03/18/2021. Patient stated that she did not get vaccinated for Covid, her risk factors include diabetes and morbid obesity, she denies any cardiac history. She was evaluated in the emergency room vital examination reveals a temperature of 100.6 pulse 102 respiration 21 blood pressure 139/72 pulse ox 75% on room air and 90% on 6 L nasal cannula, white blood count was 8.4 hemoglobin 14.2 platelet count 204 sodium 134 potassium 4.2 chloride 99 CO2 22 BUN 29 creatinine 0.83 plasma lactic acid was 2.1 AST 54 ALT 38 troponin less than 0.012 EKG was normal, chest x-ray revealed diffuse near complete opacification of bilateral lungs suggestive of diffuse pneumonia or ARDS. Patient was started on IV dexamethasone, subcu Lovenox, vitamin C, vitamin D, and zinc supplements, pulmonary consultation and infectious disease consultation were requested. Patient is a former smoker, she denies ever being diagnosed with asthma or emphysema. On 03/19/2021 patient was urgently intubated this a.m. per critical care services due to decreasing respiratory status. Patient has been started on sedation. Patient remains on Decadron, vitamin C, vitamin D and zinc. Critical care and infectious disease services are following. Patient remains on Lovenox for DVT prophylaxis. PH 7.29, pCO2 57, pO2 76 HCO3 28. On 03/20/2021 patient was seen and examined in the ICU she is intubated sedated maintained on mechanical ventilation, she is maintained on IV Decadron subcu Lovenox, and vitamin supplements bilateral lower extremity Doppler was negative for DVT, pulmonary and infectious disease are following, prognosis is guarded On 03/21/2021 patient is intubated and remains on sedation. Per nursing staff patient is no longer on Levophed. Patient currently on an FiO2 of 55%. PH of 7.38, pCO2 47 pO2 HCO3 28. Pulmonary and infectious disease service is following On 03/22/2021 patient was seen and examined in the ICU she is intubated sedated maintained on mechanical ventilation, she is maintained on IV Decadron subcu Lovenox, and vitamin supplements bilateral lower extremity Doppler was negative for DVT, temperature is 98.3 pulse 48 respiration 30 blood pressure 130/58 pulse ox 97% on FiO2 of 50% white blood count 7.4 hemoglobin 11.9 platelet count 286 d-dimer elevated at 6.36 ABG reveals a pH of 7.4 pCO2 42 PO2 110 pulmonary and infectious disease are following, prognosis is guarded On 03/23/2021 patient remains in the intensive care unit intubated sedated and on mechanical ventilation. Patient remains on fentanyl and propofol drips. Critical care and infectious disease services are following today's ABG showing pH of 7.35 pCO2 45 pO2 83 and HCO3 levels 25 On 03/24/2021 patient was seen and examined in the ICU she is intubated sedated maintained on mechanical ventilation, vital examination reveals a temperature of 100.3 pulse 82 respiration 30 blood pressure 170/53 pulse ox 93% on 50% FiO2 laboratory data reveals white blood count 11.5 hemoglobin 11.7 platelet count 327 sodium 138 potassium 4.7 chloride 110 CO2 22 BUN 46 creatinine 0.83 chest x- ray reveals diffuse interstitial opacities with worsening airspace disease in the left base and left perihilar region. Arterial blood gas reveals a pH of 7.36 pCO2 43 PO2 70 On 03/25/2021 patient was seen and examined in ICU she is intubated sedated maintained on mechanical ventilation, she is on assist control tidal volume 400 FiO2 50% and PEEP of 18 she is maintained on IV Decadron and subcu Lovenox she is also maintained on insulin patient had episode of hypoglycemia and her NovoLog 70/30 was decreased to 30 units twice daily On 03/26/2021 patient remains in the intensive care unit intubated and sedated on mechanical ventilation. Patient's FiO2 has been increased to 65% due to increased oxygen demands. Patient remains on IV Lasix. PH 7.42, pCO2 38, pO2 82 and HCO3 level 25. Infectious disease and critical care services are following On 03/27/2021 patient was seen and examined in the intensive care unit she is intubated sedated maintained on mechanical ventilation, patient is maintained on FiO2 55% and PEEP of 15 vital examination reveals a temperature of 98.1 pulse 70 respiration 30 blood pressure 173/58 pulse ox 95% ABG reveals a pH of 7.44 pCO2 39 PO2 64 white blood count 12.1 hemoglobin 11.0 platelet count 348 BUN 54 creatinine 0.78 glucose level 122 she is maintained on IV Decadron, IV cefepime, subcu Lovenox, IV Lasix, insulin per sliding scale and vitamin supplements. On 03/28/2021 she remains in the intensive care unit intubated on mechanical ventilation. FiO2 has been decreased to 50%. PH 7.4 a pCO2 36 pO2 69 and HCO3 28. Critical care and infectious disease services following patient remains on sedation and IV Lasix Objective - Vital Signs Vital signs: Vital Signs Temp 97.4 F L 03/28/21 03:00 Pulse 36 L 03/28/21 07:00 Resp 30 H 03/28/21 07:00 BP 121/48 03/28/21 04:00 Pulse Ox 94 L 03/28/21 07:00 Intake & Output 03/27/21 03/28/21 03/28/21 18:59 06:59 18:59 Intake Total 1170.088 754.218 129.576 Output Total 1775 1600 50 Balance -604.912 -845.782 79.576 Weight 128 kg Intake: IV 136 216 23 Sodium Chloride 0.9% 1, 100 180 20 000 ml @ 20 mls/hr IV . Q24H [facility] Rx#:[id number] pressure bag 36 36 3 Intake, IV Titration 890.088 308.218 96.576 Amount Cefepime 2 gm In Sodium 225 25 Chloride 0.9% 100 ml @ 25 mls/hr IVPB Q8HR [facility] Rx# :[id number] Cisatracurium 200 mg In 199.139 60.579 Sodium Chloride 0.9% 180 ml @ 2 MCG/KG/MIN 15.241 mls/hr IV .Q13H8M [facility] Rx# :[id number] Clevidipine Butyrate 25 50.067 mg In Empty Bag 1 bag @ 1 MG/HR 2 mls/hr IV .Q24H [facility] Rx#:[id number] fentaNYL (PF). 1,000 mcg 142.397 4.236 In Sodium Chloride 0.9% 80 ml @ 0.5 MCG/KG/HR 5. 775 mls/hr IV .[id number] [facility] Rx#:[id number] propofoL 1,000 mg In 273.485 218.403 96.576 Empty Bag 1 bag @ Titrate IV .Q0M [facility] Rx#: [id number] Tube Feeding 144 140 10 Other 90 Output: Urine 1775 1600 50 Other: Voiding Method Indwelling Catheter Indwelling Catheter ABP, PAP, CO, CI - Last Documented Arterial Blood Pressure 133/41 - Exam In general patient is intubated sedated maintained on mechanical ventilation HEENT head normocephalic and atraumatic Neck is supple no JVD no goiter no lymphadenopathy no carotid bruit Chest examination coarse crackles in both lung shah with wheezing Cardiac exam reveals regular heart sounds S1 and S2 no gallops no murmurs Abdomen is soft nontender no organomegaly with normal bowel sounds Extremity exam reveals no edema no cyanosis or clubbing - Labs CBC & Chem 7: 03/28/21 04:15 03/28/21 04:15 Labs: Abnormal Lab Results - Last 24 Hours (Table) 03/27/21 03/27/21 03/28/21 Range/Units 13:16 17:41 01:18 WBC (3.8-10.6) k/uL RBC (3.80-5.40) m/uL Hgb (11.4-16.0) gm/dL Neutrophils # (1.3-7.7) k/uL D-Dimer (<0.60) mg/L FEU ABG pH (7.35-7.45) ABG pO2 (83-108) mmHg ABG HCO3 (21-25) mmol/L ABG Total CO2 (19-24) mmol/L Chloride (98-107) mmol/L BUN (7-17) mg/dL Glucose (74-99) mg/dL POC Glucose (mg/dL) 191 H 160 H 136 H (75-99) mg/dL ALT (4-34) U/L Lactate Dehydrogenase (313-618) U/L C-Reactive Protein (<1.0) mg/dL Total Protein (6.3-8.2) g/dL Albumin (3.5-5.0) g/dL 03/28/21 03/28/21 03/28/21 Range/Units 04:15 04:15 04:15 WBC 12.6 H (3.8-10.6) k/uL RBC 3.68 L (3.80-5.40) m/uL Hgb 11.0 L (11.4-16.0) gm/dL Neutrophils # 9.3 H (1.3-7.7) k/uL D-Dimer 3.01 H (<0.60) mg/L FEU ABG pH (7.35-7.45) ABG pO2 (83-108) mmHg ABG HCO3 (21-25) mmol/L ABG Total CO2 (19-24) mmol/L Chloride 108 H (98-107) mmol/L BUN 41 H (7-17) mg/dL Glucose 130 H (74-99) mg/dL POC Glucose (mg/dL) (75-99) mg/dL ALT 36 H (4-34) U/L Lactate Dehydrogenase 717 H (313-618) U/L C-Reactive Protein 2.5 H (<1.0) mg/dL Total Protein 6.0 L (6.3-8.2) g/dL Albumin 2.7 L (3.5-5.0) g/dL 03/28/21 Range/Units 05:34 WBC (3.8-10.6) k/uL RBC (3.80-5.40) m/uL Hgb (11.4-16.0) gm/dL Neutrophils # (1.3-7.7) k/uL D-Dimer (<0.60) mg/L FEU ABG pH 7.48 H (7.35-7.45) ABG pO2 69 L (83-108) mmHg ABG HCO3 27 H (21-25) mmol/L ABG Total CO2 28 H (19-24) mmol/L Chloride (98-107) mmol/L BUN (7-17) mg/dL Glucose (74-99) mg/dL POC Glucose (mg/dL) (75-99) mg/dL ALT (4-34) U/L Lactate Dehydrogenase (313-618) U/L C-Reactive Protein (<1.0) mg/dL Total Protein (6.3-8.2) g/dL Albumin (3.5-5.0) g/dL Microbiology - Last 24 Hours (Table) 03/26/21 06:15 Urine Culture - Preliminary Urine,Clean Catch Gram Neg Bacilli 03/26/21 01:15 Gram Stain - Final Sputum Sputum Culture - Final 03/26/21 04:30 Blood Culture - Preliminary Blood No Growth after 48 hours Assessment and Plan Plan: Acute COVID-19 infection Acute hypoxic respiratory failure secondary to COVID-19 pneumonia requiring intubation and mechanical ventilation on 03/19/2021 Bilateral Pneumonia related to COVID-19 Underlying history of insulin-dependent diabetes mellitus Underlying history of morbid obesity Previous history of smoking patient denies being diagnosed with COPD in the past Hyperkalemia. Resolved Maintained on subcu Lovenox, IV Decadron, vitamin C vitamin D and zinc supplements Pulmonary and infectious disease consultation were requested, case was discussed with Dr. Huynh over the phone Patient remains intubated and sedated on mechanical ventilation in the intensive care unit Prognosis is guarded, will follow closely Repeat labs and x-ray ordered for a.m.
[2021-03-28] MEDS: INSULN ASP PRT/INSULIN ASPART 100 UNIT/ML 10 ML VIAL SQ SCH ×2 (10:56→20:16)
[2021-03-28 11:42] LABS: Glucose,Whole Blood 188 mg/dL (75-99)
[2021-03-28] MEDS: METOCLOPRAMIDE 5 MG/ML 2 ML VIAL IVP SCH ×2 (11:50→17:03)
--- NOTE | 2021-03-28 12:28 | P.PN ---
Subjective Progress Note Date: 03/28/21 Principal diagnosis: Acute hypoxic respiratory failure secondary to COVID-19 pneumonia On , the patient remains intubated on a mechanical ventilator the patient is being seen for a follow-up. On today's evaluation, the patient is sedated and she remains on propofol running at 50 mcg/kg per minute and the patient is also on Nimbex running at 1 mcg/kg per minute. As such, the level of sedation and paralytics is unchanged compared to yesterday. She remains on a mechanical ventilator and she remained on assist control mode at the rate of 30 with a tidal volume of 100 and FiO2 of 65% with a PEEP of 18. Chest x-ray from today is in progress. Note that the chest x-ray from yesterday is improved. The peak air pressure today to 36, static pressures 34 and we are still awaiting for the blood gases from today. Meanwhile, the patient's current pulse ox is around 96% on above-mentioned ventilator setting. The patient continues to get diuresed with Lasix and the patient is on Lasix 40 mg IV every 12 hours. Overall fluid balance over the past 24 hours has been -157 mL and the patient seems to be headed towards a negative fluid balance. The patient's blood sugars under better control. No further episodes of hypoglycemia. She remains on Decadron 6 mg IV every 24 hours. She is also on Lovenox 40 mg subcu every 24 hours. D-dimer level is at 3.54. In terms of her blood pressure control, the patient is on Cleviprex which is still running at 2 mg an hour. Suggestive starting the patient on Norvasc 5 mg by mouth twice a day and gradually wean off the Cleviprex and discontinue. IV fluids are currently at KVO. She is receiving enteral feeding for nutritional support and the patient is on vital high protein at the rate of 12 mL an hour. Otherwise, no other significant changes over the past 24 hours. Reevaluated today on 03/27/21, patient remains in the ICU, intubated and mechanically ventilated. She is on assist control rate of 30 tidal volume 400 FiO2 55% PEEP is 15. ABG is marginal pO2 is 64 pCO2 is 39 pH of 7.44. Hence no changes were made in the present vent settings. Chest x-ray continues show bilateral infiltrates consistent with COVID-19 pneumonia. Patient is on enteral feeding. She is also on propofol at 50, fentanyl at 1.5. And she is also on Nimbex. 1 mcg/kg/m. Rest x-ray showed endotracheal tube in the proper pos ition. Left supraclavicular central venous line is in appropriate position. WBC count today is 12.1 hemoglobin 11.0 d-dimer is 3 basic metabolic profile is normal, BUN is 54 creatinine 0.78 LDH is 746 C-reactive protein is 2.3 patient remains on Mucomyst, albuterol, ascorbic acid, cefepime, Peridex, Decadron 6 mg IV push daily, Lovenox 40 mg subcu daily Lasix 40 mg IV push every 12 hours zinc, lactulose 10 mg by mouth twice a day and she is also on insulin as per scale. Reevaluated today on 03/28/21, patient remains in the ICU intubated and mechanically ventilated. She is on assist control rate of 30 tidal volume 400 FiO2 50% PEEP is 15 and I cut it down to 14. She is on Nimbex at 2 propofol at 40 she is on vital AF at 10 mL per hour. Her ABG today showed a pO2 of 69 pCO2 of 36 pH of 7.48. Chest x-ray continues to show bilateral multifocal increased opacities consistent with COVID-19 pneumonia, not much exchange specialist the last few days. [facility] count today is 12.6 hemoglobin is 11.1. Electrolytes are normal and renal profile is normal d-dimer is 3.01. LDH is 717 slightly lower compared to the last few days. And C-reactive protein is 2.5, not significantly elevated patient remains on the him empirically, she is also on albuterol, Decadron 6 mg IV push daily, Lovenox 40 mg subcu daily Lasix 40 mg IV push every 12 hours, and lactulose as well as Reglan. Objective - Vital Signs Vital signs: Vital Signs Temp 97.4 F L 03/28/21 03:00 Pulse 39 L 03/28/21 12:00 Resp 30 H 03/28/21 12:00 BP 121/48 03/28/21 04:00 Pulse Ox 92 L 03/28/21 12:00 Intake & Output 03/27/21 03/28/21 03/28/21 18:59 06:59 18:59 Intake Total 1170.088 754.218 721.773 Output Total 1775 1600 1000 Balance -604.912 -845.782 -278.227 Weight 128 kg Intake: IV 136 216 138 Sodium Chloride 0.9% 1, 100 180 120 000 ml @ 20 mls/hr IV . Q24H [facility] Rx#:[id number] pressure bag 36 36 18 Intake, IV Titration 890.088 308.218 463.773 Amount Cefepime 2 gm In Sodium 225 25 100 Chloride 0.9% 100 ml @ 25 mls/hr IVPB Q8HR [facility] Rx# :[id number] Cisatracurium 200 mg In 199.139 60.579 139.421 Sodium Chloride 0.9% 180 ml @ 2 MCG/KG/MIN 15.241 mls/hr IV .Q13H8M [facility] Rx# :[id number] Clevidipine Butyrate 25 50.067 mg In Empty Bag 1 bag @ 1 MG/HR 2 mls/hr IV .Q24H [facility] Rx#:[id number] Potassium Chloride 20 meq 100 In Water For Injection 1 100ml.bag @ 50 mls/hr IVPB [facility]CE [facility] Rx#: [id number] fentaNYL (PF). 1,000 mcg 142.397 4.236 In Sodium Chloride 0.9% 80 ml @ 0.5 MCG/KG/HR 5. 775 mls/hr IV .[id number] [facility] Rx#:[id number] propofoL 1,000 mg In 273.485 218.403 124.352 Empty Bag 1 bag @ Titrate IV .Q0M [facility] Rx#: [id number] Tube Feeding 144 140 60 Other 90 60 Output: Urine 1775 1600 1000 Other: Voiding Method Indwelling Catheter Indwelling Catheter Indwelling Catheter ABP, PAP, CO, CI - Last Documented Arterial Blood Pressure 140/45 - Exam Physical Exam revealed a 60-year-old female intubated, mechanically ventilated, sedated, and paralyzed. Head: Atraumatic, normocephalic. Dry mucous membranes HEENT:[Neck is supple.] [No neck masses.] [No thyromegaly.] [No JVD.] Chest: Crackles at the bases no rhonchi and no wheezes Cardiac Exam: [Normal S1 and S2, no S3 gallop, no murmur.] Abdomen: [Soft, nontender, no megaly, no rebound, no guarding, normal bowel sounds.] Extremities: [No clubbing, no edema, no cyanosis.] Neurological Exam: Not assessed patient is sedated and paralyzed. Psychiatric: Could not assess sedated and paralyzed. - Labs CBC & Chem 7: 03/28/21 04:15 03/28/21 04:15 Labs: Abnormal Lab Results - Last 24 Hours (Table) 03/27/21 03/27/21 03/28/21 Range/Units 13:16 17:41 01:18 WBC (3.8-10.6) k/uL RBC (3.80-5.40) m/uL Hgb (11.4-16.0) gm/dL Neutrophils # (1.3-7.7) k/uL D-Dimer (<0.60) mg/L FEU ABG pH (7.35-7.45) ABG pO2 (83-108) mmHg ABG HCO3 (21-25) mmol/L ABG Total CO2 (19-24) mmol/L Chloride (98-107) mmol/L BUN (7-17) mg/dL Glucose (74-99) mg/dL POC Glucose (mg/dL) 191 H 160 H 136 H (75-99) mg/dL ALT (4-34) U/L Lactate Dehydrogenase (313-618) U/L C-Reactive Protein (<1.0) mg/dL Total Protein (6.3-8.2) g/dL Albumin (3.5-5.0) g/dL 03/28/21 03/28/21 03/28/21 Range/Units 04:15 04:15 04:15 WBC 12.6 H (3.8-10.6) k/uL RBC 3.68 L (3.80-5.40) m/uL Hgb 11.0 L (11.4-16.0) gm/dL Neutrophils # 9.3 H (1.3-7.7) k/uL D-Dimer 3.01 H (<0.60) mg/L FEU ABG pH (7.35-7.45) ABG pO2 (83-108) mmHg ABG HCO3 (21-25) mmol/L ABG Total CO2 (19-24) mmol/L Chloride 108 H (98-107) mmol/L BUN 41 H (7-17) mg/dL Glucose 130 H (74-99) mg/dL POC Glucose (mg/dL) (75-99) mg/dL ALT 36 H (4-34) U/L Lactate Dehydrogenase 717 H (313-618) U/L C-Reactive Protein 2.5 H (<1.0) mg/dL Total Protein 6.0 L (6.3-8.2) g/dL Albumin 2.7 L (3.5-5.0) g/dL 03/28/21 03/28/21 Range/Units 05:34 11:39 WBC (3.8-10.6) k/uL RBC (3.80-5.40) m/uL Hgb (11.4-16.0) gm/dL Neutrophils # (1.3-7.7) k/uL D-Dimer (<0.60) mg/L FEU ABG pH 7.48 H (7.35-7.45) ABG pO2 69 L (83-108) mmHg ABG HCO3 27 H (21-25) mmol/L ABG Total CO2 28 H (19-24) mmol/L Chloride (98-107) mmol/L BUN (7-17) mg/dL Glucose (74-99) mg/dL POC Glucose (mg/dL) 188 H (75-99) mg/dL ALT (4-34) U/L Lactate Dehydrogenase (313-618) U/L C-Reactive Protein (<1.0) mg/dL Total Protein (6.3-8.2) g/dL Albumin (3.5-5.0) g/dL Microbiology - Last 24 Hours (Table) 03/26/21 06:15 Urine Culture - Preliminary Urine,Clean Catch Gram Neg Bacilli 03/26/21 01:15 Gram Stain - Final Sputum Sputum Culture - Final 03/26/21 04:30 Blood Culture - Preliminary Blood No Growth after 48 hours Assessment and Plan Assessment: Impression: Acute hypoxic respiratory failure secondary COVID-19 pneumonia intubated on 03/19, remains intubated sedated and paralyzed. Patient had no evidence of pulmonary embolism based on CT angios the chest. Remains on the COVID-19 cocktail. Continues to have a relatively high peak airway pressure and static pressure consistent with ARDS. Still requiring high PEEP at 15. And she is down to 50% FiO2. PEEP was cut down to 14. Elevated inflammatory markers secondary to COVID-19 infection Morbid obesity BMI 46 Type 2 diabetes Recommendation: Continue ventilatory support, assist control rate of 30 tidal volume 400 FiO2 50% PEEP 14. Continue Lasix and keep the patient dry as much as possible Continue COVID-19 cocktail including Decadron and Lovenox. No evidence of pulmonary embolism on CT angiogram of the chest. Hence we'll continue prophylactic Lovenox. Nutritional support/enteral feeding Continue lactulose, added Reglan. Continue insulin and treat as per protocol. Continue cefepime empirically. Continue Lovenox 40 mg subcu daily. Patient is not ready for any type of weaning at this point. Remains critically ill. Critical care time is over 30 minutes Time with Patient: Greater than 30
--- NOTE | 2021-03-28 15:26 | PN ---
PROGRESS NOTE DATE OF SERVICE: 03/28/2021 REASON FOR FOLLOWUP: Pneumonia and fever. INTERVAL HISTORY: The patient is afebrile. No fever has been recorded in the last 72 hours. The patient is hemodynamically stable. FiO2 is currently 50%. No significant purulent secretions through the ET, diarrhea or any other changes reported by nursing staff. PHYSICAL EXAMINATION: Blood pressure 140/45, pulse of 79, temperature 98. She is 92% on 50% FiO2. General description is a middle-aged female intubated on the vent. Respiratory system: Unlabored breathing, decreased intensity of breath sounds. No wheeze. Heart S1, S2. Regular rate and rhythm. Abdomen soft, no tenderness. LABS: Hemoglobin is 11, white count 12.6, creatinine 0.76. Urine is showing Gram-negative bacilli. Sputum has been negative. Blood culture negative. DIAGNOSTIC IMPRESSION AND PLAN: 1. Patient with acute respiratory failure secondary to COVID-19 pneumonia. Condition remains critical. Chest x-ray with no significant change. The patient is currently covered with dexamethasone, Lovenox, zinc and ascorbic acid. 2. Patient with a new fever, possible urinary tract infection. Urine is showing a Gram- negative. Patient is covered cefepime; to continue while waiting for the culture to finalize. Monitor clinical course closely. MMODL / IJN: [id number] /
[2021-03-28] MEDS: ENOXAPARIN 40 MG/0.4 ML SYRINGE SQ SCH (17:03)
[2021-03-28 17:41] LABS: Glucose,Whole Blood 173 mg/dL (75-99)
[2021-03-28 20:18] LABS: Glucose,Whole Blood 170 mg/dL (75-99)
[2021-03-29 00:23] LABS: Glucose,Whole Blood 173 mg/dL (75-99)
[2021-03-29] MEDS: HYDROmorphone 1 MG/ML 1 ML SYRINGE IVP PRN ×3 (00:34→21:27)
[2021-03-29] MEDS: DOCUSATE ORAL SOLN 100 MG/10 ML CUP PO SCH ×3 (00:38→20:26)
[2021-03-29] MEDS: METOCLOPRAMIDE 5 MG/ML 2 ML VIAL IVP SCH ×4 (00:42→16:52)
[2021-03-29] MEDS: INSULIN ASPART (NovoLOG) 100 UNIT/ML VIAL SQ SCH ×4 (00:42→17:42)
[2021-03-29] MEDS: CEFEPIME 2 GM in SODIUM CHLORIDE 0.9% 100 ML IVPB SCH ×3 (00:43→16:53)
[2021-03-29] MEDS: ARTIFICIAL TEARS-HYPROMELLOSE DROPS 15 ML BTL BOTH EYES SCH ×6 (00:43→20:27)
[2021-03-29] MEDS: SODIUM CHLORIDE 0.9% 1,000 ML IV SCH (00:44)
[2021-03-29 03:48] LABS: Basophils # (A) 0.1 k/uL (0-0.2); Basophils % (A) 1 %; Eosinophils # (A) 0.1 k/uL (0-0.7); Eosinophils % (A) 1 %; HCT 33.4 % (34.0-46.0); HGB 10.6 gm/dL (11.4-16.0); Lymphocytes # (A) 1.6 k/uL (1.0-4.8); Lymphocytes % (A) 14 %; MCH 29.7 pg (25.0-35.0); MCHC 31.7 g/dL (31.0-37.0); MCV 93.5 fL (80.0-100.0); Mean Platelet Volume 8.7; Monocytes # (A) 0.8 k/uL (0-1.0); Monocytes % (A) 7 %; Neutrophils # (A) 8.7 k/uL (1.3-7.7); Neutrophils % (A) 76 %; Platelet Count 364 k/uL (150-450); RBC 3.57 m/uL (3.80-5.40); RDW 13.9 % (11.5-15.5); WBC 11.5 k/uL (3.8-10.6)
[2021-03-29 04:01] LABS: ALT 33 U/L (4-34); AST 22 U/L (14-36); African American GFR (CKD) >90 (>60 ml/min/1.73 sqM); Albumin 2.7 g/dL (3.5-5.0); Alkaline Phosphatase 73 U/L (38-126); Anion Gap 5 mmol/L; Blood Urea Nitrogen 35 mg/dL (7-17); Calcium 8.9 mg/dL (8.4-10.2); Carbon Dioxide 25 mmol/L (22-30); Chloride 110 mmol/L (98-107); Glucose 154 mg/dL (74-99); LDH 643 U/L (313-618); Non-African American GFR(CKD) >90 (>60 ml/min/1.73 sqM); Potassium 3.7 mmol/L (3.5-5.1); Sodium 140 mmol/L (137-145); Total Bilirubin 0.6 mg/dL (0.2-1.3); Total Protein 5.9 g/dL (6.3-8.2)
[2021-03-29 05:23] LABS: C Reactive Protein 2.7 mg/dL (<1.0)
[2021-03-29] MEDS ORDERED: Potassium Replacement Protocol 1 EACH MISC MISCELLANE PRN (05:58)
[2021-03-29] MEDS ORDERED: POTASSIUM BICARB-CITRIC ACID 25 MEQ TABLET.EFF PO SCH (06:00)
[2021-03-29 06:03] LABS: ABG Base Excess 3.6 mmol/L; ABG HCO3 27 mmol/L (21-25); ABG Oxygen Saturation 96.4 % (94-97); ABG PCO2 35 mmHg (35-45); ABG PO2 77 mmHg (83-108); ABG TCO2 28 mmol/L (19-24)
[2021-03-29 06:10] LABS: Glucose,Whole Blood 147 mg/dL (75-99)
[2021-03-29] MEDS: CISATRACURIUM 200 MG in SODIUM CHLORIDE 0.9% 180 ML IV SCH ×2 (06:14→16:53)
[2021-03-29 06:27] LABS: Allen Test Performed? No
[2021-03-29] MEDS: ALBUTEROL HFA INHALER INHALATION SCH ×4 (08:27→20:04)
[2021-03-29] MEDS: LACTULOSE 20 GM/30 ML CUP PO SCH ×2 (09:42→20:26)
[2021-03-29] MEDS: INSULN ASP PRT/INSULIN ASPART 100 UNIT/ML 10 ML VIAL SQ SCH ×3 (09:42→22:03)
[2021-03-29] MEDS: CHLORHEXIDINE GLUCONATE 15 ML CUP MUCOUS MEM SCH ×2 (09:42→20:26)
[2021-03-29] MEDS: amLODIPine 5 MG TAB PO SCH ×2 (09:43→20:26)
[2021-03-29] MEDS: CHOLECALCIFEROL 25 MCG (1000 IU) TABLET PO SCH (09:43)
[2021-03-29] MEDS: ZINC SULFATE 220 MG CAP PO SCH (09:43)
[2021-03-29] MEDS: FUROSEMIDE 10 MG/ML 4 ML VIAL IV SCH ×2 (09:43→20:26)
[2021-03-29] MEDS: ACETYLCYSTEINE 800 MG/4 ML VIAL PO SCH ×2 (09:43→20:26)
[2021-03-29] MEDS: ASCORBIC ACID 500 MG TAB PO SCH ×2 (09:43→20:26)
[2021-03-29] MEDS: DEXAMETHASONE SOD PHOSPHATE 10 MG/ML 1 ML VIAL IVP SCH (09:44)
--- NOTE | 2021-03-29 10:02 | XR ---
EXAMINATION TYPE: XR chest 1V portable DATE OF EXAM: 03/29/2021 COMPARISON: 03/28/2021 HISTORY: 60 years Female. STUDY INDICATION GIVEN: covid . TECHNIQUE: AP upright chest radiograph IMPRESSION: Left CVC tip at the cavoatrial junction. Tip of endotracheal tube in the midthoracic trachea. Enteric tube courses into the stomach, sidehole at the gastroesophageal junction recommend advancing. Patchy bibasilar and interstitial opacities slightly decreased. No pneumothorax or large effusion. Stable mildly enlarged cardiomediastinal silhouette. Stable osseous structures including mild inferior subluxation of the right joint.
--- NOTE | 2021-03-29 11:52 | P.PN ---
Subjective Progress Note Date: 03/29/21 Principal diagnosis: Acute hypoxic respiratory failure secondary to COVID-19 pneumonia On , the patient remains intubated on a mechanical ventilator the patient is being seen for a follow-up. On today's evaluation, the patient is sedated and she remains on propofol running at 50 mcg/kg per minute and the patient is also on Nimbex running at 1 mcg/kg per minute. As such, the level of sedation and paralytics is unchanged compared to yesterday. She remains on a mechanical ventilator and she remained on assist control mode at the rate of 30 with a tidal volume of 100 and FiO2 of 65% with a PEEP of 18. Chest x-ray from today is in progress. Note that the chest x-ray from yesterday is improved. The peak air pressure today to 36, static pressures 34 and we are still awaiting for the blood gases from today. Meanwhile, the patient's current pulse ox is around 96% on above-mentioned ventilator setting. The patient continues to get diuresed with Lasix and the patient is on Lasix 40 mg IV every 12 hours. Overall fluid balance over the past 24 hours has been -157 mL and the patient seems to be headed towards a negative fluid balance. The patient's blood sugars under better control. No further episodes of hypoglycemia. She remains on Decadron 6 mg IV every 24 hours. She is also on Lovenox 40 mg subcu every 24 hours. D-dimer level is at 3.54. In terms of her blood pressure control, the patient is on Cleviprex which is still running at 2 mg an hour. Suggestive starting the patient on Norvasc 5 mg by mouth twice a day and gradually wean off the Cleviprex and discontinue. IV fluids are currently at KVO. She is receiving enteral feeding for nutritional support and the patient is on vital high protein at the rate of 12 mL an hour. Otherwise, no other significant changes over the past 24 hours. Reevaluated today on 03/27/21, patient remains in the ICU, intubated and mechanically ventilated. She is on assist control rate of 30 tidal volume 400 FiO2 55% PEEP is 15. ABG is marginal pO2 is 64 pCO2 is 39 pH of 7.44. Hence no changes were made in the present vent settings. Chest x-ray continues show bilateral infiltrates consistent with COVID-19 pneumonia. Patient is on enteral feeding. She is also on propofol at 50, fentanyl at 1.5. And she is also on Nimbex. 1 mcg/kg/m. Rest x-ray showed endotracheal tube in the proper pos ition. Left supraclavicular central venous line is in appropriate position. WBC count today is 12.1 hemoglobin 11.0 d-dimer is 3 basic metabolic profile is normal, BUN is 54 creatinine 0.78 LDH is 746 C-reactive protein is 2.3 patient remains on Mucomyst, albuterol, ascorbic acid, cefepime, Peridex, Decadron 6 mg IV push daily, Lovenox 40 mg subcu daily Lasix 40 mg IV push every 12 hours zinc, lactulose 10 mg by mouth twice a day and she is also on insulin as per scale. Reevaluated today on 03/28/21, patient remains in the ICU intubated and mechanically ventilated. She is on assist control rate of 30 tidal volume 400 FiO2 50% PEEP is 15 and I cut it down to 14. She is on Nimbex at 2 propofol at 40 she is on vital AF at 10 mL per hour. Her ABG today showed a pO2 of 69 pCO2 of 36 pH of 7.48. Chest x-ray continues to show bilateral multifocal increased opacities consistent with COVID-19 pneumonia, not much mold changer the last few days. Regency count today is 12.6 hemoglobin is 11.1. Electrolytes are normal and renal profile is normal d-dimer is 3.01. LDH is 717 slightly lower compared to the last few days. And C-reactive protein is 2.5, not significantly elevated patient remains on the him empirically, she is also on albuterol, Decadron 6 mg IV push daily, Lovenox 40 mg subcu daily Lasix 40 mg IV push every 12 hours, and lactulose as well as Reglan. Reevaluated today on 03/29/2021, remains in the ICU intubated and mechanically ventilated. Remains on assist control rate of 30 tidal volume 400 FiO2 50% PEEP 14. Her O2 saturations 94%, and her ABG showed a pO2 of 77 pCO2 of 35 pH of 7.50 hence I recommended cutting down her FiO2 to 45%. And keep PEEP at 14 for now. Chest x-ray is showing slight improvement in her bilateral infiltrates, d- dimer today is 1.97, seems to be trending down compared to a few days ago was as high as 10.94.. WBC count is 11.5 hemoglobin is 10.6. Asymmetric metabolic profile is normal renal profile is normal LDH is 643 and that is encouraging seems to be trending down steadily since admission from 2532 on March 19. Patient remains on Nimbex at 2 mcg/kg/m, propofol 50 mcg/kg/m. And she is on Dilaudid when necessary. Objective - Vital Signs Vital signs: Vital Signs Temp 97.3 F L 03/29/21 09:00 Pulse 40 L 03/29/21 11:00 Resp 30 H 03/29/21 11:00 BP 121/48 03/28/21 04:00 Pulse Ox 92 L 03/29/21 11:00 Intake & Output 03/28/21 03/29/21 03/29/21 18:59 06:59 18:59 Intake Total 1081.997 987.28 212 Output Total 1335 1310 470 Balance -253.003 -322.72 -258 Weight 128 kg 128.4 kg Intake: IV 276 276 92 Sodium Chloride 0.9% 1, 240 240 80 000 ml @ 20 mls/hr IV . Q24H [facility] Rx#:[id number] pressure bag 36 36 12 Intake, IV Titration 535.997 381.28 Amount Cefepime 2 gm In Sodium 100 Chloride 0.9% 100 ml @ 25 mls/hr IVPB Q8HR [facility] Rx# :[id number] Cisatracurium 200 mg In 139.421 200 Sodium Chloride 0.9% 180 ml @ 2 MCG/KG/MIN 15.241 mls/hr IV .Q13H8M [facility] Rx# :[id number] Potassium Chloride 20 meq 100 In Water For Injection 1 100ml.bag @ 50 mls/hr IVPB ONCE ONE Rx#: [id number] propofoL 1,000 mg In 196.576 181.28 Empty Bag 1 bag @ Titrate IV .Q0M [facility] Rx#: [id number] Tube Feeding 180 330 90 Other 90 30 Output: Urine 1335 1310 470 Other: Voiding Method Indwelling Catheter Indwelling Catheter Indwelling Catheter ABP, PAP, CO, CI - Last Documented Arterial Blood Pressure 143/45 - Exam Physical Exam revealed a 60-year-old female intubated, mechanically ventilated, sedated, and paralyzed. Head: Atraumatic, normocephalic. Dry mucous membranes HEENT:[Neck is supple.] [No neck masses.] [No thyromegaly.] [No JVD.] Chest: Crackles at the bases no rhonchi and no wheezes Cardiac Exam: [Normal S1 and S2, no S3 gallop, no murmur.] Abdomen: [Soft, nontender, no megaly, no rebound, no guarding, normal bowel sounds.] Extremities: [No clubbing, no edema, no cyanosis.] Neurological Exam: Not assessed patient is sedated and paralyzed. Psychiatric: Could not assess sedated and paralyzed. - Labs CBC & Chem 7: 03/29/21 03:34 03/29/21 03:34 Labs: Abnormal Lab Results - Last 24 Hours (Table) 03/28/21 03/28/21 03/29/21 Range/Units 17:39 20:15 00:22 WBC (3.8-10.6) k/uL RBC (3.80-5.40) m/uL Hgb (11.4-16.0) gm/dL Hct (34.0-46.0) % Neutrophils # (1.3-7.7) k/uL D-Dimer (<0.60) mg/L FEU ABG pH (7.35-7.45) ABG pO2 (83-108) mmHg ABG HCO3 (21-25) mmol/L ABG Total CO2 (19-24) mmol/L Chloride (98-107) mmol/L BUN (7-17) mg/dL Glucose (74-99) mg/dL POC Glucose (mg/dL) 173 H 170 H 173 H (75-99) mg/dL Lactate Dehydrogenase (313-618) U/L C-Reactive Protein (<1.0) mg/dL Total Protein (6.3-8.2) g/dL Albumin (3.5-5.0) g/dL 03/29/21 03/29/21 03/29/21 Range/Units 01:04 03:34 03:34 WBC (3.8-10.6) k/uL RBC (3.80-5.40) m/uL Hgb (11.4-16.0) gm/dL Hct (34.0-46.0) % Neutrophils # (1.3-7.7) k/uL D-Dimer 1.97 H (<0.60) mg/L FEU ABG pH 7.50 H (7.35-7.45) ABG pO2 77 L (83-108) mmHg ABG HCO3 27 H (21-25) mmol/L ABG Total CO2 28 H (19-24) mmol/L Chloride 110 H (98-107) mmol/L BUN 35 H (7-17) mg/dL Glucose 154 H (74-99) mg/dL POC Glucose (mg/dL) (75-99) mg/dL Lactate Dehydrogenase 643 H (313-618) U/L C-Reactive Protein 2.7 H (<1.0) mg/dL Total Protein 5.9 L (6.3-8.2) g/dL Albumin 2.7 L (3.5-5.0) g/dL 03/29/21 03/29/21 Range/Units 03:34 06:07 WBC 11.5 H (3.8-10.6) k/uL RBC 3.57 L (3.80-5.40) m/uL Hgb 10.6 L (11.4-16.0) gm/dL Hct 33.4 L (34.0-46.0) % Neutrophils # 8.7 H (1.3-7.7) k/uL D-Dimer (<0.60) mg/L FEU ABG pH (7.35-7.45) ABG pO2 (83-108) mmHg ABG HCO3 (21-25) mmol/L ABG Total CO2 (19-24) mmol/L Chloride (98-107) mmol/L BUN (7-17) mg/dL Glucose (74-99) mg/dL POC Glucose (mg/dL) 147 H (75-99) mg/dL Lactate Dehydrogenase (313-618) U/L C-Reactive Protein (<1.0) mg/dL Total Protein (6.3-8.2) g/dL Albumin (3.5-5.0) g/dL Microbiology - Last 24 Hours (Table) 03/26/21 04:30 Blood Culture - Preliminary Blood No Growth after 72 hours 03/26/21 06:15 Urine Culture - Final Urine,Clean Catch Escherichia coli 03/26/21 01:15 Gram Stain - Final Sputum Sputum Culture - Final Assessment and Plan Assessment: Impression: Acute hypoxic respiratory failure secondary COVID-19 pneumonia intubated on 03/19, remains intubated sedated and paralyzed. Patient had no evidence of pulmonary embolism based on CT angios the chest. Remains on the COVID-19 cocktail. Continues to have a relatively high peak airway pressure and static pressure consistent with ARDS. Still on a PEEP of 14 and FiO2 cut down to 45% today. Elevated inflammatory markers secondary to COVID-19 infection Morbid obesity BMI 46 Type 2 diabetes Recommendation: Continue ventilatory support, assist control rate of 30 tidal volume 400 FiO2 45% and PEEP down to 14. Continue Lasix Continue COVID-19 cocktail including Decadron and Lovenox. No evidence of pulmonary embolism on CT angiogram of the chest. Hence we'll continue prophylactic Lovenox. Nutritional support/enteral feeding Continue lactulose, and Reglan. Continue insulin and treat as per protocol. Continue cefepime empirically. Continue Lovenox 40 mg subcu daily. Not ready for weaning but I'm hoping we can start weaning trials in the next couple of days. Remains critically ill. Critical care time is over 30 minutes Time with Patient: Greater than 30
--- NOTE | 2021-03-29 11:57 | P.PN ---
Subjective Progress Note Date: 03/27/21 Sergio Villatoro, is a 60-year-old female who presented to [facility] emergency room with a chief complaint of cough and shortness of breath, patient stated that she started getting sick on 03/06/2021, she was checked for Covid at that time but the test was negative, she continued to get worse, she had a second test on 03/16/2021 that was positive, patient started getting worsening shortness of breath and she decided to come to emergency room on 03/18/2021. Patient stated that she did not get vaccinated for Covid, her risk factors include diabetes and morbid obesity, she denies any cardiac history. She was evaluated in the emergency room vital examination reveals a temperature of 100.6 pulse 102 respiration 21 blood pressure 139/72 pulse ox 75% on room air and 90% on 6 L nasal cannula, white blood count was 8.4 hemoglobin 14.2 platelet count 204 sodium 134 potassium 4.2 chloride 99 CO2 22 BUN 29 creatinine 0.83 plasma lactic acid was 2.1 AST 54 ALT 38 troponin less than 0.012 EKG was normal, chest x-ray revealed diffuse near complete opacification of bilateral lungs suggestive of diffuse pneumonia or ARDS. Patient was started on IV dexamethasone, subcu Lovenox, vitamin C, vitamin D, and zinc supplements, pulmonary consultation and infectious disease consultation were requested. Patient is a former smoker, she denies ever being diagnosed with asthma or emphysema. On 03/19/2021 patient was urgently intubated this a.m. per critical care services due to decreasing respiratory status. Patient has been started on sedation. Patient remains on Decadron, vitamin C, vitamin D and zinc. Critical care and infectious disease services are following. Patient remains on Lovenox for DVT prophylaxis. PH 7.29, pCO2 57, pO2 76 HCO3 28. On 03/20/2021 patient was seen and examined in the ICU she is intubated sedated maintained on mechanical ventilation, she is maintained on IV Decadron subcu Lovenox, and vitamin supplements bilateral lower extremity Doppler was negative for DVT, pulmonary and infectious disease are following, prognosis is guarded On 03/21/2021 patient is intubated and remains on sedation. Per nursing staff patient is no longer on Levophed. Patient currently on an FiO2 of 55%. PH of 7.38, pCO2 47 pO2 HCO3 28. Pulmonary and infectious disease service is following On 03/22/2021 patient was seen and examined in the ICU she is intubated sedated maintained on mechanical ventilation, she is maintained on IV Decadron subcu Lovenox, and vitamin supplements bilateral lower extremity Doppler was negative for DVT, temperature is 98.3 pulse 48 respiration 30 blood pressure 130/58 pulse ox 97% on FiO2 of 50% white blood count 7.4 hemoglobin 11.9 platelet count 286 d-dimer elevated at 6.36 ABG reveals a pH of 7.4 pCO2 42 PO2 110 pulmonary and infectious disease are following, prognosis is guarded On 03/23/2021 patient remains in the intensive care unit intubated sedated and on mechanical ventilation. Patient remains on fentanyl and propofol drips. Critical care and infectious disease services are following today's ABG showing pH of 7.35 pCO2 45 pO2 83 and HCO3 levels 25 On 03/24/2021 patient was seen and examined in the ICU she is intubated sedated maintained on mechanical ventilation, vital examination reveals a temperature of 100.3 pulse 82 respiration 30 blood pressure 170/53 pulse ox 93% on 50% FiO2 laboratory data reveals white blood count 11.5 hemoglobin 11.7 platelet count 327 sodium 138 potassium 4.7 chloride 110 CO2 22 BUN 46 creatinine 0.83 chest x- ray reveals diffuse interstitial opacities with worsening airspace disease in the left base and left perihilar region. Arterial blood gas reveals a pH of 7.36 pCO2 43 PO2 70 On 03/25/2021 patient was seen and examined in ICU she is intubated sedated maintained on mechanical ventilation, she is on assist control tidal volume 400 FiO2 50% and PEEP of 18 she is maintained on IV Decadron and subcu Lovenox she is also maintained on insulin patient had episode of hypoglycemia and her NovoLog 70/30 was decreased to 30 units twice daily On 03/26/2021 patient remains in the intensive care unit intubated and sedated on mechanical ventilation. Patient's FiO2 has been increased to 65% due to increased oxygen demands. Patient remains on IV Lasix. PH 7.42, pCO2 38, pO2 82 and HCO3 level 25. Infectious disease and critical care services are following On 03/27/2021 patient was seen and examined in the intensive care unit she is intubated sedated maintained on mechanical ventilation, patient is maintained on FiO2 55% and PEEP of 15 vital examination reveals a temperature of 98.1 pulse 70 respiration 30 blood pressure 173/58 pulse ox 95% ABG reveals a pH of 7.44 pCO2 39 PO2 64 white blood count 12.1 hemoglobin 11.0 platelet count 348 BUN 54 creatinine 0.78 glucose level 122 she is maintained on IV Decadron, IV cefepime, subcu Lovenox, IV Lasix, insulin per sliding scale and vitamin supplements. Objective - Vital Signs Vital signs: Vital Signs Temp 98.2 F 03/27/21 04:00 Pulse 39 L 03/27/21 06:00 Resp 30 H 03/27/21 06:00 BP 132/65 03/24/21 20:00 Pulse Ox 87 L 03/27/21 06:00 Intake & Output 03/26/21 03/26/21 03/27/21 06:59 18:59 06:59 Intake Total 1085.467 429.470 3072.408 Output Total 1265 1245 1835 Balance -179.533 -293.925 -823.592 Weight 127.7 kg 127.7 kg 127.8 kg Intake: IV 276 276 276 Sodium Chloride 0.9% 1, 240 240 240 000 ml @ 20 mls/hr IV . Q24H [facility] Rx#:[id number] pressure bag 36 36 36 Intake, IV Titration 797.467 459.075 489.408 Amount Cisatracurium 200 mg In 103.632 89.408 Sodium Chloride 0.9% 180 ml @ 2 MCG/KG/MIN 15.241 mls/hr IV .Q13H8M [facility] Rx# :[id number] Clevidipine Butyrate 25 197.467 61.6 mg In Empty Bag 1 bag @ 1 MG/HR 2 mls/hr IV .Q24H [facility] Rx#:[id number] fentaNYL (PF). 1,000 mcg 200 193.843 200 In Sodium Chloride 0.9% 80 ml @ 0.5 MCG/KG/HR 5. 775 mls/hr IV .[id number] [facility] Rx#:[id number] propofoL 1,000 mg In 400 100 200 Empty Bag 1 bag @ Titrate IV .Q0M [facility] Rx#: [id number] Tube Feeding 12 156 156 Other 60 90 Output: Urine 1265 1245 1835 Other: Voiding Method Indwelling Catheter Indwelling Catheter Indwelling Catheter ABP, PAP, CO, CI - Last Documented Arterial Blood Pressure 129/45 - Exam In general patient is intubated sedated maintained on mechanical ventilation HEENT head normocephalic and atraumatic Neck is supple no JVD no goiter no lymphadenopathy no carotid bruit Chest examination coarse crackles in both lung shah with wheezing Cardiac exam reveals regular heart sounds S1 and S2 no gallops no murmurs Abdomen is soft nontender no organomegaly with normal bowel sounds Extremity exam reveals no edema no cyanosis or clubbing - Labs CBC & Chem 7: 03/27/21 04:15 03/27/21 04:15 Labs: Abnormal Lab Results - Last 24 Hours (Table) 03/26/21 03/26/21 03/26/21 Range/Units 04:35 04:56 05:00 WBC 13.7 H (3.8-10.6) k/uL RBC 3.57 L (3.80-5.40) m/uL Hgb 10.8 L (11.4-16.0) gm/dL Hct 33.5 L (34.0-46.0) % Neutrophils # (1.3-7.7) k/uL D-Dimer 3.54 H (<0.60) mg/L FEU ABG pO2 82 L (83-108) mmHg ABG HCO3 (21-25) mmol/L ABG Total CO2 26 H (19-24) mmol/L ABG O2 Saturation (94-97) % Chloride (98-107) mmol/L BUN (7-17) mg/dL Glucose (74-99) mg/dL POC Glucose (mg/dL) (75-99) mg/dL Lactate Dehydrogenase (313-618) U/L C-Reactive Protein (<1.0) mg/dL Total Protein (6.3-8.2) g/dL Albumin (3.5-5.0) g/dL Procalcitonin (0.02-0.09) ng/mL Urine Appearance (Clear) Urine Protein (Negative) Urine Blood (Negative) Ur Leukocyte Esterase (Negative) Urine RBC (0-5) /hpf Urine WBC (0-5) /hpf Urine WBC Clumps (None) /hpf Amorphous Sediment (None) /hpf Urine Bacteria (None) /hpf Hyaline Casts (0-2) /lpf Urine Mucus (None) /hpf 03/26/21 03/26/21 03/26/21 Range/Units 05:00 06:00 06:00 WBC (3.8-10.6) k/uL RBC (3.80-5.40) m/uL Hgb (11.4-16.0) gm/dL Hct (34.0-46.0) % Neutrophils # (1.3-7.7) k/uL D-Dimer (<0.60) mg/L FEU ABG pO2 (83-108) mmHg ABG HCO3 (21-25) mmol/L ABG Total CO2 (19-24) mmol/L ABG O2 Saturation (94-97) % Chloride 109 H (98-107) mmol/L BUN 53 H (7-17) mg/dL Glucose 166 H (74-99) mg/dL POC Glucose (mg/dL) (75-99) mg/dL Lactate Dehydrogenase 859 H (313-618) U/L C-Reactive Protein 3.2 H (<1.0) mg/dL Total Protein (6.3-8.2) g/dL Albumin (3.5-5.0) g/dL Procalcitonin 0.17 H (0.02-0.09) ng/mL Urine Appearance (Clear) Urine Protein (Negative) Urine Blood (Negative) Ur Leukocyte Esterase (Negative) Urine RBC (0-5) /hpf Urine WBC (0-5) /hpf Urine WBC Clumps (None) /hpf Amorphous Sediment (None) /hpf Urine Bacteria (None) /hpf Hyaline Casts (0-2) /lpf Urine Mucus (None) /hpf 03/26/21 03/26/21 03/26/21 Range/Units 06:15 13:25 17:37 WBC (3.8-10.6) k/uL RBC (3.80-5.40) m/uL Hgb (11.4-16.0) gm/dL Hct (34.0-46.0) % Neutrophils # (1.3-7.7) k/uL D-Dimer (<0.60) mg/L FEU ABG pO2 (83-108) mmHg ABG HCO3 (21-25) mmol/L ABG Total CO2 (19-24) mmol/L ABG O2 Saturation (94-97) % Chloride (98-107) mmol/L BUN (7-17) mg/dL Glucose (74-99) mg/dL POC Glucose (mg/dL) 168 H 169 H (75-99) mg/dL Lactate Dehydrogenase (313-618) U/L C-Reactive Protein (<1.0) mg/dL Total Protein (6.3-8.2) g/dL Albumin (3.5-5.0) g/dL Procalcitonin (0.02-0.09) ng/mL Urine Appearance Cloudy H (Clear) Urine Protein Trace H (Negative) Urine Blood Small H (Negative) Ur Leukocyte Esterase Small H (Negative) Urine RBC 70 H (0-5) /hpf Urine WBC 46 H (0-5) /hpf Urine WBC Clumps Occasional H (None) /hpf Amorphous Sediment Moderate H (None) /hpf Urine Bacteria Occasional H (None) /hpf Hyaline Casts 3 H (0-2) /lpf Urine Mucus Occasional H (None) /hpf 03/26/21 03/26/21 03/27/21 Range/Units 20:21 23:25 04:15 WBC (3.8-10.6) k/uL RBC (3.80-5.40) m/uL Hgb (11.4-16.0) gm/dL Hct (34.0-46.0) % Neutrophils # (1.3-7.7) k/uL D-Dimer 3.02 H (<0.60) mg/L FEU ABG pO2 (83-108) mmHg ABG HCO3 (21-25) mmol/L ABG Total CO2 (19-24) mmol/L ABG O2 Saturation (94-97) % Chloride (98-107) mmol/L BUN (7-17) mg/dL Glucose (74-99) mg/dL POC Glucose (mg/dL) 153 H 133 H (75-99) mg/dL Lactate Dehydrogenase (313-618) U/L C-Reactive Protein (<1.0) mg/dL Total Protein (6.3-8.2) g/dL Albumin (3.5-5.0) g/dL Procalcitonin (0.02-0.09) ng/mL Urine Appearance (Clear) Urine Protein (Negative) Urine Blood (Negative) Ur Leukocyte Esterase (Negative) Urine RBC (0-5) /hpf Urine WBC (0-5) /hpf Urine WBC Clumps (None) /hpf Amorphous Sediment (None) /hpf Urine Bacteria (None) /hpf Hyaline Casts (0-2) /lpf Urine Mucus (None) /hpf 03/27/21 03/27/21 03/27/21 Range/Units 04:15 04:15 05:36 WBC 12.1 H (3.8-10.6) k/uL RBC 3.67 L (3.80-5.40) m/uL Hgb 11.0 L (11.4-16.0) gm/dL Hct (34.0-46.0) % Neutrophils # 9.0 H (1.3-7.7) k/uL D-Dimer (<0.60) mg/L FEU ABG pO2 (83-108) mmHg ABG HCO3 (21-25) mmol/L ABG Total CO2 (19-24) mmol/L ABG O2 Saturation (94-97) % Chloride 109 H (98-107) mmol/L BUN 54 H (7-17) mg/dL Glucose 122 H (74-99) mg/dL POC Glucose (mg/dL) 120 H (75-99) mg/dL Lactate Dehydrogenase 746 H (313-618) U/L C-Reactive Protein 2.3 H (<1.0) mg/dL Total Protein 6.1 L (6.3-8.2) g/dL Albumin 2.8 L (3.5-5.0) g/dL Procalcitonin (0.02-0.09) ng/mL Urine Appearance (Clear) Urine Protein (Negative) Urine Blood (Negative) Ur Leukocyte Esterase (Negative) Urine RBC (0-5) /hpf Urine WBC (0-5) /hpf Urine WBC Clumps (None) /hpf Amorphous Sediment (None) /hpf Urine Bacteria (None) /hpf Hyaline Casts (0-2) /lpf Urine Mucus (None) /hpf 03/27/21 Range/Units 05:43 WBC (3.8-10.6) k/uL RBC (3.80-5.40) m/uL Hgb (11.4-16.0) gm/dL Hct (34.0-46.0) % Neutrophils # (1.3-7.7) k/uL D-Dimer (<0.60) mg/L FEU ABG pO2 64 L (83-108) mmHg ABG HCO3 26 H (21-25) mmol/L ABG Total CO2 27 H (19-24) mmol/L ABG O2 Saturation 92.9 L (94-97) % Chloride (98-107) mmol/L BUN (7-17) mg/dL Glucose (74-99) mg/dL POC Glucose (mg/dL) (75-99) mg/dL Lactate Dehydrogenase (313-618) U/L C-Reactive Protein (<1.0) mg/dL Total Protein (6.3-8.2) g/dL Albumin (3.5-5.0) g/dL Procalcitonin (0.02-0.09) ng/mL Urine Appearance (Clear) Urine Protein (Negative) Urine Blood (Negative) Ur Leukocyte Esterase (Negative) Urine RBC (0-5) /hpf Urine WBC (0-5) /hpf Urine WBC Clumps (None) /hpf Amorphous Sediment (None) /hpf Urine Bacteria (None) /hpf Hyaline Casts (0-2) /lpf Urine Mucus (None) /hpf Microbiology - Last 24 Hours (Table) 03/26/21 01:15 Sputum Culture - Preliminary Sputum 03/26/21 06:15 Urine Culture - Preliminary Urine,Clean Catch Assessment and Plan Plan: Acute COVID-19 infection Acute hypoxic respiratory failure secondary to COVID-19 pneumonia requiring intubation and mechanical ventilation on 03/19/2021 Bilateral Pneumonia related to COVID-19 Underlying history of insulin-dependent diabetes mellitus Underlying history of morbid obesity Previous history of smoking patient denies being diagnosed with COPD in the past Hyperkalemia. Resolved Maintained on subcu Lovenox, IV Decadron, vitamin C vitamin D and zinc suppl ements Pulmonary and infectious disease consultation were requested, case was discussed with Dr. Huynh over the phone Patient remains intubated and sedated on mechanical ventilation in the intensive care unit Prognosis is guarded, will follow closely Repeat labs and x-ray ordered for a.m.
--- NOTE | 2021-03-29 12:01 | P.PN ---
Subjective Progress Note Date: 03/29/21 Sergio Villatoro, is a 60-year-old female who presented to [facility] emergency room with a chief complaint of cough and shortness of breath, patient stated that she started getting sick on 03/06/2021, she was checked for Covid at that time but the test was negative, she continued to get worse, she had a second test on 03/16/2021 that was positive, patient started getting worsening shortness of breath and she decided to come to emergency room on 03/18/2021. Patient stated that she did not get vaccinated for Covid, her risk factors include diabetes and morbid obesity, she denies any cardiac history. She was evaluated in the emergency room vital examination reveals a temperature of 100.6 pulse 102 respiration 21 blood pressure 139/72 pulse ox 75% on room air and 90% on 6 L nasal cannula, white blood count was 8.4 hemoglobin 14.2 platelet count 204 sodium 134 potassium 4.2 chloride 99 CO2 22 BUN 29 creatinine 0.83 plasma lactic acid was 2.1 AST 54 ALT 38 troponin less than 0.012 EKG was normal, chest x-ray revealed diffuse near complete opacification of bilateral lungs suggestive of diffuse pneumonia or ARDS. Patient was started on IV dexamethasone, subcu Lovenox, vitamin C, vitamin D, and zinc supplements, pulmonary consultation and infectious disease consultation were requested. Patient is a former smoker, she denies ever being diagnosed with asthma or emphysema. On 03/19/2021 patient was urgently intubated this a.m. per critical care services due to decreasing respiratory status. Patient has been started on sedation. Patient remains on Decadron, vitamin C, vitamin D and zinc. Critical care and infectious disease services are following. Patient remains on Lovenox for DVT prophylaxis. PH 7.29, pCO2 57, pO2 76 HCO3 28. On 03/20/2021 patient was seen and examined in the ICU she is intubated sedated maintained on mechanical ventilation, she is maintained on IV Decadron subcu Lovenox, and vitamin supplements bilateral lower extremity Doppler was negative for DVT, pulmonary and infectious disease are following, prognosis is guarded On 03/21/2021 patient is intubated and remains on sedation. Per nursing staff patient is no longer on Levophed. Patient currently on an FiO2 of 55%. PH of 7.38, pCO2 47 pO2 HCO3 28. Pulmonary and infectious disease service is following On 03/22/2021 patient was seen and examined in the ICU she is intubated sedated maintained on mechanical ventilation, she is maintained on IV Decadron subcu Lovenox, and vitamin supplements bilateral lower extremity Doppler was negative for DVT, temperature is 98.3 pulse 48 respiration 30 blood pressure 130/58 pulse ox 97% on FiO2 of 50% white blood count 7.4 hemoglobin 11.9 platelet count 286 d-dimer elevated at 6.36 ABG reveals a pH of 7.4 pCO2 42 PO2 110 pulmonary and infectious disease are following, prognosis is guarded On 03/23/2021 patient remains in the intensive care unit intubated sedated and on mechanical ventilation. Patient remains on fentanyl and propofol drips. Critical care and infectious disease services are following today's ABG showing pH of 7.35 pCO2 45 pO2 83 and HCO3 levels 25 On 03/24/2021 patient was seen and examined in the ICU she is intubated sedated maintained on mechanical ventilation, vital examination reveals a temperature of 100.3 pulse 82 respiration 30 blood pressure 170/53 pulse ox 93% on 50% FiO2 laboratory data reveals white blood count 11.5 hemoglobin 11.7 platelet count 327 sodium 138 potassium 4.7 chloride 110 CO2 22 BUN 46 creatinine 0.83 chest x- ray reveals diffuse interstitial opacities with worsening airspace disease in the left base and left perihilar region. Arterial blood gas reveals a pH of 7.36 pCO2 43 PO2 70 On 03/25/2021 patient was seen and examined in ICU she is intubated sedated maintained on mechanical ventilation, she is on assist control tidal volume 400 FiO2 50% and PEEP of 18 she is maintained on IV Decadron and subcu Lovenox she is also maintained on insulin patient had episode of hypoglycemia and her NovoLog 70/30 was decreased to 30 units twice daily On 03/26/2021 patient remains in the intensive care unit intubated and sedated on mechanical ventilation. Patient's FiO2 has been increased to 65% due to increased oxygen demands. Patient remains on IV Lasix. PH 7.42, pCO2 38, pO2 82 and HCO3 level 25. Infectious disease and critical care services are following On 03/27/2021 patient was seen and examined in the intensive care unit she is intubated sedated maintained on mechanical ventilation, patient is maintained on FiO2 55% and PEEP of 15 vital examination reveals a temperature of 98.1 pulse 70 respiration 30 blood pressure 173/58 pulse ox 95% ABG reveals a pH of 7.44 pCO2 39 PO2 64 white blood count 12.1 hemoglobin 11.0 platelet count 348 BUN 54 creatinine 0.78 glucose level 122 she is maintained on IV Decadron, IV cefepime, subcu Lovenox, IV Lasix, insulin per sliding scale and vitamin supplements. On 03/28/2021 she remains in the intensive care unit intubated on mechanical ventilation. FiO2 has been decreased to 50%. PH 7.4 a pCO2 36 pO2 69 and HCO3 28. Critical care and infectious disease services following patient remains on sedation and IV Lasix On 03/29/2021 patient was seen and examined in the ICU she is intubated sedated maintained on mechanical ventilation assist control rate of 30 FiO2 50% and PEEP of 14 arterial blood gas reveals a pH of 7.50 pCO2 35 and PaO2 of 77 white blood count is 11.5 hemoglobin 10.6 and platelet count 364 BUN 35 creatinine 0.67 chest x-ray done today reveals slight improvement in the patchy bibasilar in terstitial opacities no pneumothorax or large effusion. Patient is improving gradually Objective - Vital Signs Vital signs: Vital Signs Temp 97.3 F L 03/29/21 09:00 Pulse 40 L 03/29/21 11:00 Resp 30 H 03/29/21 11:00 BP 121/48 03/28/21 04:00 Pulse Ox 92 L 03/29/21 11:00 Intake & Output 03/28/21 03/29/21 03/29/21 18:59 06:59 18:59 Intake Total 1081.997 987.28 265 Output Total 1335 1310 670 Balance -253.003 -322.72 -405 Weight 128 kg 128.4 kg Intake: IV 276 276 115 Sodium Chloride 0.9% 1, 240 240 100 000 ml @ 20 mls/hr IV . Q24H [facility] Rx#:[id number] pressure bag 36 36 15 Intake, IV Titration 535.997 381.28 Amount Cefepime 2 gm In Sodium 100 Chloride 0.9% 100 ml @ 25 mls/hr IVPB Q8HR [facility] Rx# :[id number] Cisatracurium 200 mg In 139.421 200 Sodium Chloride 0.9% 180 ml @ 2 MCG/KG/MIN 15.241 mls/hr IV .Q13H8M [facility] Rx# :[id number] Potassium Chloride 20 meq 100 In Water For Injection 1 100ml.bag @ 50 mls/hr IVPB ONCE ONE Rx#: [id number] propofoL 1,000 mg In 196.576 181.28 Empty Bag 1 bag @ Titrate IV .Q0M [facility] Rx#: [id number] Tube Feeding 180 330 120 Other 90 30 Output: Urine 1335 1310 670 Other: Voiding Method Indwelling Catheter Indwelling Catheter Indwelling Catheter ABP, PAP, CO, CI - Last Documented Arterial Blood Pressure 143/45 - Exam In general patient is intubated sedated maintained on mechanical ventilation HEENT head normocephalic and atraumatic Neck is supple no JVD no goiter no lymphadenopathy no carotid bruit Chest examination coarse crackles in both lung shah with wheezing Cardiac exam reveals regular heart sounds S1 and S2 no gallops no murmurs Abdomen is soft nontender no organomegaly with normal bowel sounds Extremity exam reveals no edema no cyanosis or clubbing - Labs CBC & Chem 7: 03/29/21 03:34 03/29/21 03:34 Labs: Abnormal Lab Results - Last 24 Hours (Table) 03/28/21 03/28/21 03/29/21 Range/Units 17:39 20:15 00:22 WBC (3.8-10.6) k/uL RBC (3.80-5.40) m/uL Hgb (11.4-16.0) gm/dL Hct (34.0-46.0) % Neutrophils # (1.3-7.7) k/uL D-Dimer (<0.60) mg/L FEU ABG pH (7.35-7.45) ABG pO2 (83-108) mmHg ABG HCO3 (21-25) mmol/L ABG Total CO2 (19-24) mmol/L Chloride (98-107) mmol/L BUN (7-17) mg/dL Glucose (74-99) mg/dL POC Glucose (mg/dL) 173 H 170 H 173 H (75-99) mg/dL Lactate Dehydrogenase (313-618) U/L C-Reactive Protein (<1.0) mg/dL Total Protein (6.3-8.2) g/dL Albumin (3.5-5.0) g/dL 03/29/21 03/29/21 03/29/21 Range/Units 01:04 03:34 03:34 WBC (3.8-10.6) k/uL RBC (3.80-5.40) m/uL Hgb (11.4-16.0) gm/dL Hct (34.0-46.0) % Neutrophils # (1.3-7.7) k/uL D-Dimer 1.97 H (<0.60) mg/L FEU ABG pH 7.50 H (7.35-7.45) ABG pO2 77 L (83-108) mmHg ABG HCO3 27 H (21-25) mmol/L ABG Total CO2 28 H (19-24) mmol/L Chloride 110 H (98-107) mmol/L BUN 35 H (7-17) mg/dL Glucose 154 H (74-99) mg/dL POC Glucose (mg/dL) (75-99) mg/dL Lactate Dehydrogenase 643 H (313-618) U/L C-Reactive Protein 2.7 H (<1.0) mg/dL Total Protein 5.9 L (6.3-8.2) g/dL Albumin 2.7 L (3.5-5.0) g/dL 03/29/21 03/29/21 Range/Units 03:34 06:07 WBC 11.5 H (3.8-10.6) k/uL RBC 3.57 L (3.80-5.40) m/uL Hgb 10.6 L (11.4-16.0) gm/dL Hct 33.4 L (34.0-46.0) % Neutrophils # 8.7 H (1.3-7.7) k/uL D-Dimer (<0.60) mg/L FEU ABG pH (7.35-7.45) ABG pO2 (83-108) mmHg ABG HCO3 (21-25) mmol/L ABG Total CO2 (19-24) mmol/L Chloride (98-107) mmol/L BUN (7-17) mg/dL Glucose (74-99) mg/dL POC Glucose (mg/dL) 147 H (75-99) mg/dL Lactate Dehydrogenase (313-618) U/L C-Reactive Protein (<1.0) mg/dL Total Protein (6.3-8.2) g/dL Albumin (3.5-5.0) g/dL Microbiology - Last 24 Hours (Table) 03/26/21 04:30 Blood Culture - Preliminary Blood No Growth after 72 hours 03/26/21 06:15 Urine Culture - Final Urine,Clean Catch Escherichia coli 03/26/21 01:15 Gram Stain - Final Sputum Sputum Culture - Final Assessment and Plan Plan: Acute COVID-19 infection Acute hypoxic respiratory failure secondary to COVID-19 pneumonia requiring intubation and mechanical ventilation on 03/19/2021 Bilateral Pneumonia related to COVID-19 Underlying history of insulin-dependent diabetes mellitus Underlying history of morbid obesity Previous history of smoking patient denies being diagnosed with COPD in the past Hyperkalemia. Resolved Maintained on subcu Lovenox, IV Decadron, vitamin C vitamin D and zinc supplements Pulmonary and infectious disease consultation were requested, case was discussed with Dr. Huynh over the phone Patient remains intubated and sedated on mechanical ventilation in the intensive care unit Prognosis is guarded, will follow closely Repeat labs and x-ray ordered for a.m.
[2021-03-29 13:02] LABS: Glucose,Whole Blood 192 mg/dL (75-99)
[2021-03-29] MEDS: ENOXAPARIN 40 MG/0.4 ML SYRINGE SQ SCH (16:52)
[2021-03-29 17:41] LABS: Glucose,Whole Blood 247 mg/dL (75-99)
--- NOTE | 2021-03-29 20:00 | PN ---
PROGRESS NOTE DATE OF SERVICE: 03/29/2021 REASON FOR FOLLOWUP: 1. COVID-19 pneumonia. 2. E coli urinary tract infection. INTERVAL HISTORY: The patient is afebrile. The patient is hemodynamically stable. FiO2 is currently stable, down at 45%. No significant purulent secretions through the ET, diarrhea or any other changes reported by the nursing staff. PHYSICAL EXAMINATION: Blood pressure 121/45, pulse , temperature 98. She is 90% on 40% FiO2. General description is a middle-aged female intubated on the vent. Respiratory system: Unlabored breathing, decreased intensity of breath sounds. No wheeze. Heart S1, S2. Regular rate and rhythm. Abdomen soft, no tenderness. LABS: Hemoglobin is 10.3, white count 11.5, creatinine 0.67. DIAGNOSTIC IMPRESSION AND PLAN: 1. Patient with acute respiratory failure secondary to COVID-19 pneumonia, for which the patient is currently on dexamethasone, Lovenox, zinc and ascorbic acid along with respiratory support. 2. Patient with a new fever. Source is likely UTI. Urine with an E coli sensitive pathogen. Antibiotic will be switched over to Rocephin 2 grams daily and we will monitor clinical course closely. MMODL / IJN: [id number] /
[2021-03-29 23:10] LABS: Glucose,Whole Blood 175 mg/dL (75-99)
[2021-03-30] MEDS: INSULIN ASPART (NovoLOG) 100 UNIT/ML VIAL SQ SCH ×4 (00:11→17:20)
[2021-03-30] MEDS: METOCLOPRAMIDE 5 MG/ML 2 ML VIAL IVP SCH ×4 (00:13→17:18)
[2021-03-30] MEDS: ARTIFICIAL TEARS-HYPROMELLOSE DROPS 15 ML BTL BOTH EYES SCH ×6 (00:14→22:46)
[2021-03-30] MEDS: SODIUM CHLORIDE 0.9% 1,000 ML IV SCH ×2 (00:16→22:48)
[2021-03-30] MEDS: CEFEPIME 2 GM in SODIUM CHLORIDE 0.9% 100 ML IVPB SCH ×3 (00:27→15:33)
[2021-03-30] MEDS: fentaNYL (PF). 1,000 MCG in SODIUM CHLORIDE 0.9% 80 ML IV SCH ×3 (01:08→21:55)
[2021-03-30 04:08] LABS: Basophils # (A) 0.1 k/uL (0-0.2); Basophils % (A) 1 %; Eosinophils # (A) 0.1 k/uL (0-0.7); Eosinophils % (A) 1 %; HCT 33.6 % (34.0-46.0); HGB 11.1 gm/dL (11.4-16.0); Lymphocytes # (A) 1.8 k/uL (1.0-4.8); Lymphocytes % (A) 15 %; MCH 31.1 pg (25.0-35.0); MCHC 32.9 g/dL (31.0-37.0); MCV 94.5 fL (80.0-100.0); Mean Platelet Volume 8.5; Monocytes # (A) 0.7 k/uL (0-1.0); Monocytes % (A) 6 %; Neutrophils # (A) 8.8 k/uL (1.3-7.7); Neutrophils % (A) 75 %; Platelet Count 373 k/uL (150-450); RBC 3.56 m/uL (3.80-5.40); RDW 13.9 % (11.5-15.5); WBC 11.8 k/uL (3.8-10.6)
[2021-03-30 04:20] LABS: ALT 32 U/L (4-34); AST 21 U/L (14-36); African American GFR (CKD) >90 (>60 ml/min/1.73 sqM); Albumin 2.7 g/dL (3.5-5.0); Alkaline Phosphatase 71 U/L (38-126); Anion Gap 7 mmol/L; Blood Urea Nitrogen 36 mg/dL (7-17); Carbon Dioxide 25 mmol/L (22-30); Chloride 107 mmol/L (98-107); Glucose 164 mg/dL (74-99); Non-African American GFR(CKD) >90 (>60 ml/min/1.73 sqM); Potassium 3.6 mmol/L (3.5-5.1); Sodium 139 mmol/L (137-145); Total Bilirubin 0.5 mg/dL (0.2-1.3); Total Protein 5.8 g/dL (6.3-8.2)
[2021-03-30] MEDS: CISATRACURIUM 200 MG in SODIUM CHLORIDE 0.9% 180 ML IV SCH ×2 (04:27→15:42)
[2021-03-30 05:22] LABS: Glucose,Whole Blood 152 mg/dL (75-99)
[2021-03-30] MEDS ORDERED: POTASSIUM CHLORIDE 20 MEQ in WATER FOR INJECTION 1 100ML.BAG IVPB ONE (06:00)
[2021-03-30 06:14] LABS: ABG Base Excess 5.5 mmol/L; ABG HCO3 28 mmol/L (21-25); ABG Oxygen Saturation 92.7 % (94-97); ABG PCO2 35 mmHg (35-45); ABG PH 7.52 (7.35-7.45); ABG PO2 60 mmHg (83-108); ABG TCO2 29 mmol/L (19-24); Allen Test Performed? Yes
[2021-03-30] MEDS: ALBUTEROL HFA INHALER INHALATION SCH ×4 (07:45→19:13)
[2021-03-30] MEDS: LACTULOSE 20 GM/30 ML CUP PO SCH ×2 (09:38→22:47)
[2021-03-30] MEDS: ZINC SULFATE 220 MG CAP PO SCH (09:39)
[2021-03-30] MEDS: ASCORBIC ACID 500 MG TAB PO SCH ×2 (09:39→22:47)
[2021-03-30] MEDS: CHOLECALCIFEROL 25 MCG (1000 IU) TABLET PO SCH (09:39)
[2021-03-30] MEDS: amLODIPine 5 MG TAB PO SCH ×2 (09:39→22:47)
[2021-03-30] MEDS: ACETYLCYSTEINE 800 MG/4 ML VIAL PO SCH ×2 (09:40→22:46)
[2021-03-30] MEDS: DEXAMETHASONE SOD PHOSPHATE 10 MG/ML 1 ML VIAL IVP SCH (09:40)
[2021-03-30] MEDS: FUROSEMIDE 10 MG/ML 4 ML VIAL IV SCH ×2 (09:40→22:47)
[2021-03-30] MEDS: INSULN ASP PRT/INSULIN ASPART 100 UNIT/ML 10 ML VIAL SQ SCH ×2 (09:42→22:47)
[2021-03-30] MEDS: CHLORHEXIDINE GLUCONATE 15 ML CUP MUCOUS MEM SCH ×2 (09:42→22:47)
[2021-03-30] MEDS: DOCUSATE ORAL SOLN 100 MG/10 ML CUP PO SCH ×2 (09:42→22:47)
[2021-03-30 09:46] LABS: Glucose,Whole Blood 184 mg/dL (75-99)
--- NOTE | 2021-03-30 11:08 | XR ---
EXAMINATION TYPE: XR chest 1V portable DATE OF EXAM: 03/30/2021 COMPARISON: 03/29/2021 HISTORY: 60 years Female. STUDY INDICATION GIVEN: SOB . TECHNIQUE: AP chest radiograph IMPRESSION: Stable bilateral moderate severe interstitial opacities and mild bibasilar left greater than right ai rspace opacities and left lower lobe subsegmental atelectasis. No pneumothorax or large effusion. Cardiomediastinal silhouette and osseous structures are stable. The endotracheal tube tip 3.4 cm above jennifer. Enteric tube courses into the stomach. Left central ve nous catheter tip at the superior cavoatrial junction.
[2021-03-30] MEDS: CLEVIDIPINE BUTYRATE 25 MG in EMPTY BAG 1 BAG IV SCH ×3 (11:10→18:03)
--- NOTE | 2021-03-30 11:30 | P.PN ---
Subjective Progress Note Date: 03/30/21 Principal diagnosis: Acute hypoxic respiratory failure secondary to COVID-19 pneumonia On , the patient remains intubated on a mechanical ventilator the patient is being seen for a follow-up. On today's evaluation, the patient is sedated and she remains on propofol running at 50 mcg/kg per minute and the patient is also on Nimbex running at 1 mcg/kg per minute. As such, the level of sedation and paralytics is unchanged compared to yesterday. She remains on a mechanical ventilator and she remained on assist control mode at the rate of 30 with a tidal volume of 100 and FiO2 of 65% with a PEEP of 18. Chest x-ray from today is in progress. Note that the chest x-ray from yesterday is improved. The peak air pressure today to 36, static pressures 34 and we are still awaiting for the blood gases from today. Meanwhile, the patient's current pulse ox is around 96% on above-mentioned ventilator setting. The patient continues to get diuresed with Lasix and the patient is on Lasix 40 mg IV every 12 hours. Overall fluid balance over the past 24 hours has been -157 mL and the patient seems to be headed towards a negative fluid balance. The patient's blood sugars under better control. No further episodes of hypoglycemia. She remains on Decadron 6 mg IV every 24 hours. She is also on Lovenox 40 mg subcu every 24 hours. D-dimer level is at 3.54. In terms of her blood pressure control, the patient is on Cleviprex which is still running at 2 mg an hour. Suggestive starting the patient on Norvasc 5 mg by mouth twice a day and gradually wean off the Cleviprex and discontinue. IV fluids are currently at KVO. She is receiving enteral feeding for nutritional support and the patient is on vital high protein at the rate of 12 mL an hour. Otherwise, no other significant changes over the past 24 hours. Reevaluated today on 03/27/21, patient remains in the ICU, intubated and mechanically ventilated. She is on assist control rate of 30 tidal volume 400 FiO2 55% PEEP is 15. ABG is marginal pO2 is 64 pCO2 is 39 pH of 7.44. Hence no changes were made in the present vent settings. Chest x-ray continues show bilateral infiltrates consistent with COVID-19 pneumonia. Patient is on enteral feeding. She is also on propofol at 50, fentanyl at 1.5. And she is also on Nimbex. 1 mcg/kg/m. Rest x-ray showed endotracheal tube in the proper pos ition. Left supraclavicular central venous line is in appropriate position. WBC count today is 12.1 hemoglobin 11.0 d-dimer is 3 basic metabolic profile is normal, BUN is 54 creatinine 0.78 LDH is 746 C-reactive protein is 2.3 patient remains on Mucomyst, albuterol, ascorbic acid, cefepime, Peridex, Decadron 6 mg IV push daily, Lovenox 40 mg subcu daily Lasix 40 mg IV push every 12 hours zinc, lactulose 10 mg by mouth twice a day and she is also on insulin as per scale. Reevaluated today on 03/28/21, patient remains in the ICU intubated and mechanically ventilated. She is on assist control rate of 30 tidal volume 400 FiO2 50% PEEP is 15 and I cut it down to 14. She is on Nimbex at 2 propofol at 40 she is on vital AF at 10 mL per hour. Her ABG today showed a pO2 of 69 pCO2 of 36 pH of 7.48. Chest x-ray continues to show bilateral multifocal increased opacities consistent with COVID-19 pneumonia, not much global director air and climate change the last few days. Regency count today is 12.6 hemoglobin is 11.1. Electrolytes are normal and renal profile is normal d-dimer is 3.01. LDH is 717 slightly lower compared to the last few days. And C-reactive protein is 2.5, not significantly elevated patient remains on the him empirically, she is also on albuterol, Decadron 6 mg IV push daily, Lovenox 40 mg subcu daily Lasix 40 mg IV push every 12 hours, and lactulose as well as Reglan. Reevaluated today on 03/29/2021, remains in the ICU intubated and mechanically ventilated. Remains on assist control rate of 30 tidal volume 400 FiO2 50% PEEP 14. Her O2 saturations 94%, and her ABG showed a pO2 of 77 pCO2 of 35 pH of 7.50 hence I recommended cutting down her FiO2 to 45%. And keep PEEP at 14 for now. Chest x-ray is showing slight improvement in her bilateral infiltrates, d- dimer today is 1.97, seems to be trending down compared to a few days ago was as high as 10.94.. WBC count is 11.5 hemoglobin is 10.6. Asymmetric metabolic profile is normal renal profile is normal LDH is 643 and that is encouraging seems to be trending down steadily since admission from 2532 on March 19. Patient remains on Nimbex at 2 mcg/kg/m, propofol 50 mcg/kg/m. And she is on Dilaudid when necessary. Reevaluated today on 03/30/21, patient remains in the ICU intubated mechanically ventilated. She is on assist control rate of 30 tidal volume 400 FiO2 45% PEEP of 14. Patient is on Nimbex at 2.5 mcg/kg/m she is also on propofol at 50 mcg/kg/m. Receiving Dilaudid when necessary. ABG today showed a pO2 of 60 pCO2 of 35 pH of 7.5 to hence no changes were made and her ventilator settings I did however recommend stopping Nimbex and keep the patient on propofol and Dilaudid if possible. Chest x-ray is showing slight improvement in her bilateral infiltrates. WBC count is 11.8 hemoglobin is 11.1. He looks lites are normal renal profile is normal. Remains on the COVID-19 cocktail. Remains on cefepime as per infectious disease on the case. Remains on Decadron 6 mg IV push daily, remains on Lovenox 40 mg subcu daily. Lasix 40 mg IV push twice a day. And she remains on zinc. Objective - Vital Signs Vital signs: Vital Signs Temp 98.6 F 03/30/21 04:00 Pulse 42 L 03/30/21 07:00 Resp 30 H 03/30/21 07:00 BP 121/48 03/28/21 04:00 Pulse Ox 94 L 03/30/21 07:00 Intake & Output 03/29/21 03/30/21 03/30/21 18:59 06:59 18:59 Intake Total 839.614 7655.040 427.076 Output Total 1120 1450 Balance -161.683 -136.960 427.076 Intake: IV 276 276 23 Sodium Chloride 0.9% 1, 240 240 20 000 ml @ 20 mls/hr IV . Q24H [facility] Rx#:[id number] pressure bag 36 36 3 Intake, IV Titration 262.317 587.040 374.076 Amount Cisatracurium 200 mg In 162.317 200.000 123.324 Sodium Chloride 0.9% 180 ml @ 2 MCG/KG/MIN 15.241 mls/hr IV .Q13H8M [facility] Rx# :[id number] Potassium Chloride 20 meq 100 In Water For Injection 1 100ml.bag @ 50 mls/hr IVPB ONCE ONE Rx#: [id number] fentaNYL (PF). 1,000 mcg 12.512 In Sodium Chloride 0.9% 80 ml @ 0.5 MCG/KG/HR 5. 775 mls/hr IV .[id number] [facility] Rx#:[id number] propofoL 1,000 mg In 100 287.04 238.24 Empty Bag 1 bag @ Titrate IV .Q0M [facility] Rx#: [id number] Tube Feeding 330 360 30 Other 90 90 Output: Urine 1120 1450 Other: Voiding Method Indwelling Catheter Indwelling Catheter ABP, PAP, CO, CI - Last Documented Arterial Blood Pressure 156/68 - Exam Physical Exam revealed a 60-year-old female intubated, mechanically ventilated, sedated, and paralyzed. Head: Atraumatic, normocephalic. Dry mucous membranes HEENT:[Neck is supple.] [No neck masses.] [No thyromegaly.] [No JVD.] Chest: Crackles at the bases no rhonchi and no wheezes Cardiac Exam: [Normal S1 and S2, no S3 gallop, no murmur.] Abdomen: [Soft, nontender, no megaly, no rebound, no guarding, normal bowel sounds.] Extremities: [No clubbing, no edema, no cyanosis.] Neurological Exam: Not assessed patient is sedated and paralyzed. Psychiatric: Could not assess sedated and paralyzed. - Labs CBC & Chem 7: 03/30/21 03:50 03/30/21 03:50 Labs: Abnormal Lab Results - Last 24 Hours (Table) 03/29/21 03/29/21 03/29/21 Range/Units 13:01 17:39 23:09 WBC (3.8-10.6) k/uL RBC (3.80-5.40) m/uL Hgb (11.4-16.0) gm/dL Hct (34.0-46.0) % Neutrophils # (1.3-7.7) k/uL ABG pH (7.35-7.45) ABG pO2 (83-108) mmHg ABG HCO3 (21-25) mmol/L ABG Total CO2 (19-24) mmol/L ABG O2 Saturation (94-97) % BUN (7-17) mg/dL Glucose (74-99) mg/dL POC Glucose (mg/dL) 192 H 247 H 175 H (75-99) mg/dL Total Protein (6.3-8.2) g/dL Albumin (3.5-5.0) g/dL 03/30/21 03/30/21 03/30/21 Range/Units 03:50 03:50 05:22 WBC 11.8 H (3.8-10.6) k/uL RBC 3.56 L (3.80-5.40) m/uL Hgb 11.1 L (11.4-16.0) gm/dL Hct 33.6 L (34.0-46.0) % Neutrophils # 8.8 H (1.3-7.7) k/uL ABG pH (7.35-7.45) ABG pO2 (83-108) mmHg ABG HCO3 (21-25) mmol/L ABG Total CO2 (19-24) mmol/L ABG O2 Saturation (94-97) % BUN 36 H (7-17) mg/dL Glucose 164 H (74-99) mg/dL POC Glucose (mg/dL) 152 H (75-99) mg/dL Total Protein 5.8 L (6.3-8.2) g/dL Albumin 2.7 L (3.5-5.0) g/dL 03/30/21 03/30/21 Range/Units 06:05 09:44 WBC (3.8-10.6) k/uL RBC (3.80-5.40) m/uL Hgb (11.4-16.0) gm/dL Hct (34.0-46.0) % Neutrophils # (1.3-7.7) k/uL ABG pH 7.52 H (7.35-7.45) ABG pO2 60 L (83-108) mmHg ABG HCO3 28 H (21-25) mmol/L ABG Total CO2 29 H (19-24) mmol/L ABG O2 Saturation 92.7 L (94-97) % BUN (7-17) mg/dL Glucose (74-99) mg/dL POC Glucose (mg/dL) 184 H (75-99) mg/dL Total Protein (6.3-8.2) g/dL Albumin (3.5-5.0) g/dL Microbiology - Last 24 Hours (Table) 03/26/21 04:30 Blood Culture - Preliminary Blood No Growth after 96 hours 03/26/21 06:15 Urine Culture - Final Urine,Clean Catch Escherichia coli Assessment and Plan Assessment: Impression: Acute hypoxic respiratory failure secondary COVID-19 pneumonia intubated on 03/19, remains intubated sedated and paralyzed. Patient had no evidence of pulmonary embolism based on CT angios the chest. Remains on the COVID-19 cocktail. Continues to have a relatively high peak airway pressure and static pressure consistent with ARDS. Still on a PEEP of 14 and FiO2 at 45% with marginal ABG. Elevated inflammatory markers secondary to COVID-19 infection Morbid obesity BMI 46 Type 2 diabetes Recommendation: Continue ventilatory support, assist control rate of 30 tidal volume 400 FiO2 45% and PEEP down to 14. Discontinue Nimbex and maintain patient on sedatives and narcotics for now. Continue Lasix 40 mg IV push twice a day. Continue COVID-19 cocktail including Decadron and Lovenox. Nutritional support/enteral feeding Continue lactulose, and Reglan. Continue insulin and treat as per protocol. Continue cefepime empirically. Continue Lovenox 40 mg subcu daily. No plans to do any weaning Patient remains critically ill. We'll continue to follow. We will continue to monitor in the ICU. Critical care time is over 30 minutes Time with Patient: Greater than 30
--- NOTE | 2021-03-30 11:40 | P.PN ---
Subjective Progress Note Date: 03/30/21 Sergio Villatoro, is a 60-year-old female who presented to [facility] emergency room with a chief complaint of cough and shortness of breath, patient stated that she started getting sick on 03/06/2021, she was checked for Covid at that time but the test was negative, she continued to get worse, she had a second test on 03/16/2021 that was positive, patient started getting worsening shortness of breath and she decided to come to emergency room on 03/18/2021. Patient stated that she did not get vaccinated for Covid, her risk factors include diabetes and morbid obesity, she denies any cardiac history. She was evaluated in the emergency room vital examination reveals a temperature of 100.6 pulse 102 respiration 21 blood pressure 139/72 pulse ox 75% on room air and 90% on 6 L nasal cannula, white blood count was 8.4 hemoglobin 14.2 platelet count 204 sodium 134 potassium 4.2 chloride 99 CO2 22 BUN 29 creatinine 0.83 plasma lactic acid was 2.1 AST 54 ALT 38 troponin less than 0.012 EKG was normal, chest x-ray revealed diffuse near complete opacification of bilateral lungs suggestive of diffuse pneumonia or ARDS. Patient was started on IV dexamethasone, subcu Lovenox, vitamin C, vitamin D, and zinc supplements, pulmonary consultation and infectious disease consultation were requested. Patient is a former smoker, she denies ever being diagnosed with asthma or emphysema. On 03/19/2021 patient was urgently intubated this a.m. per critical care services due to decreasing respiratory status. Patient has been started on sedation. Patient remains on Decadron, vitamin C, vitamin D and zinc. Critical care and infectious disease services are following. Patient remains on Lovenox for DVT prophylaxis. PH 7.29, pCO2 57, pO2 76 HCO3 28. On 03/20/2021 patient was seen and examined in the ICU she is intubated sedated maintained on mechanical ventilation, she is maintained on IV Decadron subcu Lovenox, and vitamin supplements bilateral lower extremity Doppler was negative for DVT, pulmonary and infectious disease are following, prognosis is guarded On 03/21/2021 patient is intubated and remains on sedation. Per nursing staff patient is no longer on Levophed. Patient currently on an FiO2 of 55%. PH of 7.38, pCO2 47 pO2 HCO3 28. Pulmonary and infectious disease service is following On 03/22/2021 patient was seen and examined in the ICU she is intubated sedated maintained on mechanical ventilation, she is maintained on IV Decadron subcu Lovenox, and vitamin supplements bilateral lower extremity Doppler was negative for DVT, temperature is 98.3 pulse 48 respiration 30 blood pressure 130/58 pulse ox 97% on FiO2 of 50% white blood count 7.4 hemoglobin 11.9 platelet count 286 d-dimer elevated at 6.36 ABG reveals a pH of 7.4 pCO2 42 PO2 110 pulmonary and infectious disease are following, prognosis is guarded On 03/23/2021 patient remains in the intensive care unit intubated sedated and on mechanical ventilation. Patient remains on fentanyl and propofol drips. Critical care and infectious disease services are following today's ABG showing pH of 7.35 pCO2 45 pO2 83 and HCO3 levels 25 On 03/24/2021 patient was seen and examined in the ICU she is intubated sedated maintained on mechanical ventilation, vital examination reveals a temperature of 100.3 pulse 82 respiration 30 blood pressure 170/53 pulse ox 93% on 50% FiO2 laboratory data reveals white blood count 11.5 hemoglobin 11.7 platelet count 327 sodium 138 potassium 4.7 chloride 110 CO2 22 BUN 46 creatinine 0.83 chest x- ray reveals diffuse interstitial opacities with worsening airspace disease in the left base and left perihilar region. Arterial blood gas reveals a pH of 7.36 pCO2 43 PO2 70 On 03/25/2021 patient was seen and examined in ICU she is intubated sedated maintained on mechanical ventilation, she is on assist control tidal volume 400 FiO2 50% and PEEP of 18 she is maintained on IV Decadron and subcu Lovenox she is also maintained on insulin patient had episode of hypoglycemia and her NovoLog 70/30 was decreased to 30 units twice daily On 03/26/2021 patient remains in the intensive care unit intubated and sedated on mechanical ventilation. Patient's FiO2 has been increased to 65% due to increased oxygen demands. Patient remains on IV Lasix. PH 7.42, pCO2 38, pO2 82 and HCO3 level 25. Infectious disease and critical care services are following On 03/27/2021 patient was seen and examined in the intensive care unit she is intubated sedated maintained on mechanical ventilation, patient is maintained on FiO2 55% and PEEP of 15 vital examination reveals a temperature of 98.1 pulse 70 respiration 30 blood pressure 173/58 pulse ox 95% ABG reveals a pH of 7.44 pCO2 39 PO2 64 white blood count 12.1 hemoglobin 11.0 platelet count 348 BUN 54 creatinine 0.78 glucose level 122 she is maintained on IV Decadron, IV cefepime, subcu Lovenox, IV Lasix, insulin per sliding scale and vitamin supplements. On 03/28/2021 she remains in the intensive care unit intubated on mechanical ventilation. FiO2 has been decreased to 50%. PH 7.4 a pCO2 36 pO2 69 and HCO3 28. Critical care and infectious disease services following patient remains on sedation and IV Lasix On 03/29/2021 patient was seen and examined in the ICU she is intubated sedated maintained on mechanical ventilation assist control rate of 30 FiO2 50% and PEEP of 14 arterial blood gas reveals a pH of 7.50 pCO2 35 and PaO2 of 77 white blood count is 11.5 hemoglobin 10.6 and platelet count 364 BUN 35 creatinine 0.67 chest x-ray done today reveals slight improvement in the patchy bibasilar in terstitial opacities no pneumothorax or large effusion. Patient is improving gradually On 03/30/2021 patient remains in the intensive care unit intubated and on mechanical ventilation. FiO2 has been decreased to 45%. PH is 7.52, pCO2 35 pO2 of 60 HCO3 28. Critical care and infectious disease services are following. Patient is improving gradually. [facility] will be covering for me starting Wednesday03/31/2021 Objective - Vital Signs Vital signs: Vital Signs Temp 98.6 F 03/30/21 04:00 Pulse 42 L 03/30/21 07:00 Resp 30 H 03/30/21 07:00 BP 121/48 03/28/21 04:00 Pulse Ox 94 L 03/30/21 07:00 Intake & Output 03/29/21 03/30/21 03/30/21 18:59 06:59 18:59 Intake Total 550.389 0329.040 361.748 Output Total 1120 1450 Balance -161.683 -136.960 361.748 Intake: IV 276 276 23 Sodium Chloride 0.9% 1, 240 240 20 000 ml @ 20 mls/hr IV . Q24H [facility] Rx#:[id number] pressure bag 36 36 3 Intake, IV Titration 262.317 587.040 308.748 Amount Cisatracurium 200 mg In 162.317 200.000 108.908 Sodium Chloride 0.9% 180 ml @ 2 MCG/KG/MIN 15.241 mls/hr IV .[id number] [facility] Rx# :[id number] Potassium Chloride 20 meq 100 In Water For Injection 1 100ml.bag @ 50 mls/hr IVPB ONCE ONE Rx#: [id number] fentaNYL (PF). 1,000 mcg 0 In Sodium Chloride 0.9% 80 ml @ 0.5 MCG/KG/HR 5. 775 mls/hr IV .[id number] [facility] Rx#:[id number] propofoL 1,000 mg In 100 287.04 199.84 Empty Bag 1 bag @ Titrate IV .Q0M [facility] Rx#: [id number] Tube Feeding 330 360 30 Other 90 90 Output: Urine 1120 1450 Other: Voiding Method Indwelling Catheter Indwelling Catheter ABP, PAP, CO, CI - Last Documented Arterial Blood Pressure 156/68 - Exam In general patient is intubated sedated maintained on mechanical ventilation HEENT head normocephalic and atraumatic Neck is supple no JVD no goiter no lymphadenopathy no carotid bruit Chest examination coarse crackles in both lung shah with wheezing Cardiac exam reveals regular heart sounds S1 and S2 no gallops no murmurs Abdomen is soft nontender no organomegaly with normal bowel sounds Extremity exam reveals no edema no cyanosis or clubbing - Labs CBC & Chem 7: 03/30/21 03:50 03/30/21 03:50 Labs: Abnormal Lab Results - Last 24 Hours (Table) 03/29/21 03/29/21 03/29/21 Range/Units 13:01 17:39 23:09 WBC (3.8-10.6) k/uL RBC (3.80-5.40) m/uL Hgb (11.4-16.0) gm/dL Hct (34.0-46.0) % Neutrophils # (1.3-7.7) k/uL ABG pH (7.35-7.45) ABG pO2 (83-108) mmHg ABG HCO3 (21-25) mmol/L ABG Total CO2 (19-24) mmol/L ABG O2 Saturation (94-97) % BUN (7-17) mg/dL Glucose (74-99) mg/dL POC Glucose (mg/dL) 192 H 247 H 175 H (75-99) mg/dL Total Protein (6.3-8.2) g/dL Albumin (3.5-5.0) g/dL 03/30/21 03/30/21 03/30/21 Range/Units 03:50 03:50 05:22 WBC 11.8 H (3.8-10.6) k/uL RBC 3.56 L (3.80-5.40) m/uL Hgb 11.1 L (11.4-16.0) gm/dL Hct 33.6 L (34.0-46.0) % Neutrophils # 8.8 H (1.3-7.7) k/uL ABG pH (7.35-7.45) ABG pO2 (83-108) mmHg ABG HCO3 (21-25) mmol/L ABG Total CO2 (19-24) mmol/L ABG O2 Saturation (94-97) % BUN 36 H (7-17) mg/dL Glucose 164 H (74-99) mg/dL POC Glucose (mg/dL) 152 H (75-99) mg/dL Total Protein 5.8 L (6.3-8.2) g/dL Albumin 2.7 L (3.5-5.0) g/dL 03/30/21 03/30/21 Range/Units 06:05 09:44 WBC (3.8-10.6) k/uL RBC (3.80-5.40) m/uL Hgb (11.4-16.0) gm/dL Hct (34.0-46.0) % Neutrophils # (1.3-7.7) k/uL ABG pH 7.52 H (7.35-7.45) ABG pO2 60 L (83-108) mmHg ABG HCO3 28 H (21-25) mmol/L ABG Total CO2 29 H (19-24) mmol/L ABG O2 Saturation 92.7 L (94-97) % BUN (7-17) mg/dL Glucose (74-99) mg/dL POC Glucose (mg/dL) 184 H (75-99) mg/dL Total Protein (6.3-8.2) g/dL Albumin (3.5-5.0) g/dL Microbiology - Last 24 Hours (Table) 03/26/21 04:30 Blood Culture - Preliminary Blood No Growth after 96 hours 03/26/21 06:15 Urine Culture - Final Urine,Clean Catch Escherichia coli Assessment and Plan Plan: Acute COVID-19 infection Acute hypoxic respiratory failure secondary to COVID-19 pneumonia requiring intubation and mechanical ventilation on 03/19/2021 Bilateral Pneumonia related to COVID-19 Underlying history of insulin-dependent diabetes mellitus Underlying history of morbid obesity Previous history of smoking patient denies being diagnosed with COPD in the past Hyperkalemia. Resolved Maintained on subcu Lovenox, IV Decadron, vitamin C vitamin D and zinc supplements Pulmonary and infectious disease consultation were requested, case was discussed with Dr. Huynh over the phone Patient remains intubated and sedated on mechanical ventilation in the intensive care unit Prognosis is guarded, will follow closely Repeat labs and x-ray ordered for a.m.
[2021-03-30 12:09] LABS: Glucose,Whole Blood 200 mg/dL (75-99)
[2021-03-30] MEDS: ENOXAPARIN 40 MG/0.4 ML SYRINGE SQ SCH (17:19)
[2021-03-30 17:24] LABS: Glucose,Whole Blood 242 mg/dL (75-99)
--- NOTE | 2021-03-30 23:52 | PN ---
PROGRESS NOTE DATE OF SERVICE: 03/30/2021 REASON FOR FOLLOWUP: 1. COVID-19 pneumonia. 2. UTI. INTERVAL HISTORY: Patient is afebrile. The patient is hemodynamically stable. The patient's FiO2 is currently down to 45%. No significant purulent secretions through the ET or any other changes reported by the nursing staff. PHYSICAL EXAMINATION: Blood pressure 157/73 with a pulse of 55, temperature of 98.1. She is 94% on 45% FIOI2. General description is a middle-aged female intubated on the vent. Respiratory system: Unlabored breathing, decreased intensity of breath sounds. No wheeze. Heart S1, S2. Regular rate and rhythm. Abdomen soft, no tenderness. Extremities: No edema of the feet. LAB: Hemoglobin 11.1, white count of 11.8, creatinine 0.66. DIAGNOSTIC IMPRESSION AND PLAN: 1. Patient with acute respiratory failure secondary to Covid 19 pneumonia. Chest x-ray with no significant change. Patient to continue with current treatment of dexamethasone, Lovenox, zinc and ascorbic acid. 2. Patient with E coli urinary tract infection. Continue with . MMODL / IJN: [id number] /
[2021-03-31 00:10] LABS: Glucose,Whole Blood 182 mg/dL (75-99)
[2021-03-31] MEDS: INSULIN ASPART (NovoLOG) 100 UNIT/ML VIAL SQ SCH ×4 (01:59→17:24)
[2021-03-31] MEDS: METOCLOPRAMIDE 5 MG/ML 2 ML VIAL IVP SCH ×4 (01:59→17:35)
[2021-03-31] MEDS: ARTIFICIAL TEARS-HYPROMELLOSE DROPS 15 ML BTL BOTH EYES SCH ×6 (02:00→21:02)
[2021-03-31 05:58] LABS: Glucose,Whole Blood 148 mg/dL (75-99)
[2021-03-31 06:10] LABS: ABG Base Excess 5.6 mmol/L; ABG HCO3 29 mmol/L (21-25); ABG Oxygen Saturation 96.7 % (94-97); ABG PCO2 36 mmHg (35-45); ABG PH 7.51 (7.35-7.45); ABG PO2 81 mmHg (83-108); ABG TCO2 30 mmol/L (19-24); Allen Test Performed? Yes
[2021-03-31] MEDS: CISATRACURIUM 200 MG in SODIUM CHLORIDE 0.9% 180 ML IV SCH ×2 (06:31→18:05)
--- NOTE | 2021-03-31 07:29 | XR ---
EXAMINATION TYPE: XR chest 1V portable DATE OF EXAM: 03/31/2021 COMPARISON: 03/30/2021 HISTORY: SOB, Follow Up FINDINGS: Indwelling tubes and catheters are unchanged. Scattered bilateral infiltrates persist unchanged. Stable appearance of the cardio-mediastinal structures at this time. Pleural effusion unchanged. IMPRESSION: 1. Stable portable chest. Clinical correlation and follow up until resolution is recommended.
[2021-03-31] MEDS: ALBUTEROL HFA INHALER INHALATION SCH ×4 (08:44→19:21)
[2021-03-31] MEDS: CHLORHEXIDINE GLUCONATE 15 ML CUP MUCOUS MEM SCH ×2 (09:23→21:03)
[2021-03-31] MEDS: ASCORBIC ACID 500 MG TAB PO SCH ×2 (09:23→21:03)
[2021-03-31] MEDS: DEXAMETHASONE SOD PHOSPHATE 10 MG/ML 1 ML VIAL IVP SCH (09:23)
[2021-03-31] MEDS: CHOLECALCIFEROL 25 MCG (1000 IU) TABLET PO SCH (09:23)
[2021-03-31] MEDS: amLODIPine 5 MG TAB PO SCH ×2 (09:23→21:03)
[2021-03-31] MEDS: ZINC SULFATE 220 MG CAP PO SCH (09:23)
[2021-03-31] MEDS: ACETYLCYSTEINE 800 MG/4 ML VIAL PO SCH ×2 (09:24→21:03)
[2021-03-31] MEDS: LACTULOSE 20 GM/30 ML CUP PO SCH ×2 (09:24→21:03)
[2021-03-31] MEDS: INSULN ASP PRT/INSULIN ASPART 100 UNIT/ML 10 ML VIAL SQ SCH ×2 (09:24→21:03)
[2021-03-31] MEDS: DOCUSATE ORAL SOLN 100 MG/10 ML CUP PO SCH ×2 (09:25→21:03)
[2021-03-31 09:30] LABS: Basophils # (A) 0.1 k/uL (0-0.2); Basophils % (A) 1 %; Eosinophils # (A) 0.1 k/uL (0-0.7); Eosinophils % (A) 1 %; HGB 10.7 gm/dL (11.4-16.0); Lymphocytes # (A) 2.1 k/uL (1.0-4.8); Lymphocytes % (A) 19 %; MCHC 31.5 g/dL (31.0-37.0); MCV 95.4 fL (80.0-100.0); Mean Platelet Volume 8.7; Monocytes # (A) 0.8 k/uL (0-1.0); Monocytes % (A) 7 %; Neutrophils # (A) 7.7 k/uL (1.3-7.7); Neutrophils % (A) 69 %; Platelet Count 369 k/uL (150-450); RBC 3.56 m/uL (3.80-5.40); RDW 13.9 % (11.5-15.5); WBC 11.1 k/uL (3.8-10.6)
[2021-03-31 09:48] LABS: ALT 30 U/L (4-34); AST 22 U/L (14-36); African American GFR (CKD) >90 (>60 ml/min/1.73 sqM); Albumin 2.6 g/dL (3.5-5.0); Alkaline Phosphatase 65 U/L (38-126); Anion Gap 6 mmol/L; Blood Urea Nitrogen 35 mg/dL (7-17); Calcium 8.9 mg/dL (8.4-10.2); Carbon Dioxide 25 mmol/L (22-30); Chloride 107 mmol/L (98-107); Glucose 183 mg/dL (74-99); Non-African American GFR(CKD) >90 (>60 ml/min/1.73 sqM); Potassium 3.5 mmol/L (3.5-5.1); Sodium 138 mmol/L (137-145); Total Bilirubin 0.5 mg/dL (0.2-1.3); Total Protein 5.8 g/dL (6.3-8.2)
[2021-03-31] MEDS: DEXMEDETOMIDINE/0.9% NACL(PMX) 400 MCG in EMPTY BAG 1 BAG IV SCH (10:18)
[2021-03-31] MEDS: POTASSIUM BICARB-CITRIC ACID 25 MEQ TABLET.EFF PO SCH ×2 (10:38→12:15)
[2021-03-31] MEDS: FUROSEMIDE 10 MG/ML 4 ML VIAL IV SCH ×2 (10:38→21:03)
[2021-03-31 11:26] LABS: Glucose,Whole Blood 157 mg/dL (75-99)
[2021-03-31] MEDS: CLEVIDIPINE BUTYRATE 25 MG in EMPTY BAG 1 BAG IV SCH ×3 (12:13→18:51)
[2021-03-31] MEDS: SODIUM CHLORIDE 0.9% 1,000 ML IV SCH (12:35)
--- NOTE | 2021-03-31 12:52 | P.PN ---
Subjective Progress Note Date: 03/31/21 Principal diagnosis: Acute hypoxic respiratory failure secondary to COVID-19 pneumonia On , the patient remains intubated on a mechanical ventilator the patient is being seen for a follow-up. On today's evaluation, the patient is sedated and she remains on propofol running at 50 mcg/kg per minute and the patient is also on Nimbex running at 1 mcg/kg per minute. As such, the level of sedation and paralytics is unchanged compared to yesterday. She remains on a mechanical ventilator and she remained on assist control mode at the rate of 30 with a tidal volume of 100 and FiO2 of 65% with a PEEP of 18. Chest x-ray from today is in progress. Note that the chest x-ray from yesterday is improved. The peak air pressure today to 36, static pressures 34 and we are still awaiting for the blood gases from today. Meanwhile, the patient's current pulse ox is around 96% on above-mentioned ventilator setting. The patient continues to get diuresed with Lasix and the patient is on Lasix 40 mg IV every 12 hours. Overall fluid balance over the past 24 hours has been -157 mL and the patient seems to be headed towards a negative fluid balance. The patient's blood sugars under better control. No further episodes of hypoglycemia. She remains on Decadron 6 mg IV every 24 hours. She is also on Lovenox 40 mg subcu every 24 hours. D-dimer level is at 3.54. In terms of her blood pressure control, the patient is on Cleviprex which is still running at 2 mg an hour. Suggestive starting the patient on Norvasc 5 mg by mouth twice a day and gradually wean off the Cleviprex and discontinue. IV fluids are currently at KVO. She is receiving enteral feeding for nutritional support and the patient is on vital high protein at the rate of 12 mL an hour. Otherwise, no other significant changes over the past 24 hours. Reevaluated today on 03/27/21, patient remains in the ICU, intubated and mechanically ventilated. She is on assist control rate of 30 tidal volume 400 FiO2 55% PEEP is 15. ABG is marginal pO2 is 64 pCO2 is 39 pH of 7.44. Hence no changes were made in the present vent settings. Chest x-ray continues show bilateral infiltrates consistent with COVID-19 pneumonia. Patient is on enteral feeding. She is also on propofol at 50, fentanyl at 1.5. And she is also on Nimbex. 1 mcg/kg/m. Rest x-ray showed endotracheal tube in the proper pos ition. Left supraclavicular central venous line is in appropriate position. WBC count today is 12.1 hemoglobin 11.0 d-dimer is 3 basic metabolic profile is normal, BUN is 54 creatinine 0.78 LDH is 746 C-reactive protein is 2.3 patient remains on Mucomyst, albuterol, ascorbic acid, cefepime, Peridex, Decadron 6 mg IV push daily, Lovenox 40 mg subcu daily Lasix 40 mg IV push every 12 hours zinc, lactulose 10 mg by mouth twice a day and she is also on insulin as per scale. Reevaluated today on 03/28/21, patient remains in the ICU intubated and mechanically ventilated. She is on assist control rate of 30 tidal volume 400 FiO2 50% PEEP is 15 and I cut it down to 14. She is on Nimbex at 2 propofol at 40 she is on vital AF at 10 mL per hour. Her ABG today showed a pO2 of 69 pCO2 of 36 pH of 7.48. Chest x-ray continues to show bilateral multifocal increased opacities consistent with COVID-19 pneumonia, not much policy change clerk the last few days. [place] count today is 12.6 hemoglobin is 11.1. Electrolytes are normal and renal profile is normal d-dimer is 3.01. LDH is 717 slightly lower compared to the last few days. And C-reactive protein is 2.5, not significantly elevated patient remains on the him empirically, she is also on albuterol, Decadron 6 mg IV push daily, Lovenox 40 mg subcu daily Lasix 40 mg IV push every 12 hours, and lactulose as well as Reglan. Reevaluated today on 03/29/2021, remains in the ICU intubated and mechanically ventilated. Remains on assist control rate of 30 tidal volume 400 FiO2 50% PEEP 14. Her O2 saturations 94%, and her ABG showed a pO2 of 77 pCO2 of 35 pH of 7.50 hence I recommended cutting down her FiO2 to 45%. And keep PEEP at 14 for now. Chest x-ray is showing slight improvement in her bilateral infiltrates, d- dimer today is 1.97, seems to be trending down compared to a few days ago was as high as 10.94.. WBC count is 11.5 hemoglobin is 10.6. Asymmetric metabolic profile is normal renal profile is normal LDH is 643 and that is encouraging seems to be trending down steadily since admission from 2532 on March 19. Patient remains on Nimbex at 2 mcg/kg/m, propofol 50 mcg/kg/m. And she is on Dilaudid when necessary. Reevaluated today on 03/30/21, patient remains in the ICU intubated mechanically ventilated. She is on assist control rate of 30 tidal volume 400 FiO2 45% PEEP of 14. Patient is on Nimbex at 2.5 mcg/kg/m she is also on propofol at 50 mcg/kg/m. Receiving Dilaudid when necessary. ABG today showed a pO2 of 60 pCO2 of 35 pH of 7.5 to hence no changes were made and her ventilator settings I did however recommend stopping Nimbex and keep the patient on propofol and Dilaudid if possible. Chest x-ray is showing slight improvement in her bilateral infiltrates. WBC count is 11.8 hemoglobin is 11.1. He looks lites are normal renal profile is normal. Remains on the COVID-19 cocktail. Remains on cefepime as per infectious disease on the case. Remains on Decadron 6 mg IV push daily, remains on Lovenox 40 mg subcu daily. Lasix 40 mg IV push twice a day. And she remains on zinc. Reevaluated today on 03/31/21, patient remains in the ICU intubated and mechanically ventilated. She is on assist control rate of 30 tidal volume 400 FiO2 45% PEEP was at 14 and I cut it down to 10. ABG on a PEEP of 14 showed a pO2 of 81 pCO2 36 pH of 7.51. Chest x-ray is showing improvement in her bilateral multifocal infiltrates. WBC count is 11.1 hemoglobin is 10.7 and electrolytes are normal potassium is borderline low at 3.5. Renal profile is normal. Patient is sedated, however she is not requiring Nimbex, she is maintained on propofol and fentanyl, patient was on Nimbex which I have discontinued, and the plan is to awaken the patient today, and at least give the patient trials of weaning if possible. May even have to use Precedex although the patient seems to be bradycardic, and I'm not certain that she couldn't tolerate Precedex with her heart rate in the 40s. Patient has always had this sinus bradycardia, but she is maintaining a great blood pressure, and we'll may have to use clevidipine elevated blood pressure. Objective - Vital Signs Vital signs: Vital Signs Temp 98.5 F 03/31/21 12:00 Pulse 106 H 03/31/21 12:00 Resp 30 H 03/31/21 12:00 BP 133/53 03/31/21 12:00 Pulse Ox 92 L 03/31/21 12:00 Intake & Output 03/30/21 03/31/21 03/31/21 18:59 06:59 18:59 Intake Total 1467.007 976.184 545.888 Output Total 1475 1310 1060 Balance -7.993 -333.816 -514.112 Intake: IV 453 507 168 Cefepime 2 gm In Sodium 200 Chloride 0.9% 100 ml @ 25 mls/hr IVPB Q8HR [facility] Rx# :[id number] Sodium Chloride 0.9% 1, 220 480 100 000 ml @ 20 mls/hr IV . Q24H [facility] Rx#:[id number] cefTRIAXone 1 gm In 50 Sodium Chloride 0.9% 50 ml @ 100 mls/hr IVPB Q24HR [facility] Rx#:[id number] pressure bag 33 27 18 Intake, IV Titration 594.007 49.184 257.888 Amount Cisatracurium 200 mg In 136.151 Sodium Chloride 0.9% 180 ml @ 2 MCG/KG/MIN 15.241 mls/hr IV .Q13H8M [facility] Rx# :[id number] Clevidipine Butyrate 25 29.334 58.067 mg In Empty Bag 1 bag @ 1 MG/HR 2 mls/hr IV .Q24H [facility] Rx#:[id number] Dexmedetomidine/0.9% NaCl 6.474 (Pmx) 400 mcg In Empty Bag 1 bag @ 0.2 MCG/KG/HR 6.42 mls/hr IV .[id number] [facility] Rx#:[id number] fentaNYL (PF). 1,000 mcg 28.682 49.184 61.504 In Sodium Chloride 0.9% 80 ml @ 0.5 MCG/KG/HR 5. 775 mls/hr IV .[id number] [facility] Rx#:[id number] propofoL 1,000 mg In 399.84 131.843 Empty Bag 1 bag @ Titrate IV .Q0M [facility] Rx#: [id number] Tube Feeding 330 330 90 Other 90 90 30 Output: Urine 1475 1310 1060 Other: Voiding Method Indwelling Catheter Indwelling Catheter ABP, PAP, CO, CI - Last Documented Arterial Blood Pressure 144/47 - Exam Physical Exam revealed a 60-year-old female intubated, mechanically ventilated, sedated, and paralyzed. Head: Atraumatic, normocephalic. Dry mucous membranes HEENT:[Neck is supple.] [No neck masses.] [No thyromegaly.] [No JVD.] Chest: Crackles at the bases no rhonchi and no wheezes Cardiac Exam: [Normal S1 and S2, no S3 gallop, no murmur.] Abdomen: [Soft, nontender, no megaly, no rebound, no guarding, normal bowel sounds.] Extremities: [No clubbing, no edema, no cyanosis.] Neurological Exam: Not assessed patient is sedated and paralyzed. Psychiatric: Could not assess sedated and paralyzed. - Labs CBC & Chem 7: 03/31/21 09:15 03/31/21 09:15 Labs: Abnormal Lab Results - Last 24 Hours (Table) 03/30/21 03/31/21 03/31/21 Range/Units 17:13 00:08 05:57 WBC (3.8-10.6) k/uL RBC (3.80-5.40) m/uL Hgb (11.4-16.0) gm/dL ABG pH (7.35-7.45) ABG pO2 (83-108) mmHg ABG HCO3 (21-25) mmol/L ABG Total CO2 (19-24) mmol/L BUN (7-17) mg/dL Glucose (74-99) mg/dL POC Glucose (mg/dL) 242 H 182 H 148 H (75-99) mg/dL Total Protein (6.3-8.2) g/dL Albumin (3.5-5.0) g/dL 03/31/21 03/31/21 03/31/21 Range/Units 06:00 09:15 09:15 WBC 11.1 H (3.8-10.6) k/uL RBC 3.56 L (3.80-5.40) m/uL Hgb 10.7 L (11.4-16.0) gm/dL ABG pH 7.51 H (7.35-7.45) ABG pO2 81 L (83-108) mmHg ABG HCO3 29 H (21-25) mmol/L ABG Total CO2 30 H (19-24) mmol/L BUN 35 H (7-17) mg/dL Glucose 183 H (74-99) mg/dL POC Glucose (mg/dL) (75-99) mg/dL Total Protein 5.8 L (6.3-8.2) g/dL Albumin 2.6 L (3.5-5.0) g/dL 03/31/21 Range/Units 11:25 WBC (3.8-10.6) k/uL RBC (3.80-5.40) m/uL Hgb (11.4-16.0) gm/dL ABG pH (7.35-7.45) ABG pO2 (83-108) mmHg ABG HCO3 (21-25) mmol/L ABG Total CO2 (19-24) mmol/L BUN (7-17) mg/dL Glucose (74-99) mg/dL POC Glucose (mg/dL) 157 H (75-99) mg/dL Total Protein (6.3-8.2) g/dL Albumin (3.5-5.0) g/dL Microbiology - Last 24 Hours (Table) 03/26/21 04:30 Blood Culture - Preliminary Blood No Growth after 120 hours Assessment and Plan Assessment: Impression: Acute hypoxic respiratory failure secondary COVID-19 pneumonia intubated on 03/19, remains intubated sedated and paralyzed. Patient had no evidence of pulmonary embolism based on CT angios the chest. Remains on the COVID-19 cocktail. Continues to have a relatively high peak airway pressure and static pressure consistent with ARDS. PEEP was decreased today to 10 FiO2 remained at 45%, and the patient will be taken off paralytics and eventually assess if we could take her off sedation and assess for possible weaning. Elevated inflammatory markers secondary to COVID-19 infection Morbid obesity BMI 46 Type 2 diabetes Recommendation: Continue ventilatory support, assist control rate of 30 tidal volume 400 FiO2 45% and PEEP down to 10 Discontinue Nimbex , hold sedatives and assess patient's mental status and assess for weaning. Continue Lasix 40 mg IV push twice a day. Continue COVID-19 cocktail including Decadron and Lovenox. Nutritional support/enteral feeding Continue lactulose, and Reglan. Continue insulin and treat as per protocol. Continue cefepime empirically. Continue Lovenox 40 mg subcu daily. Trial of weaning possibly today. Off sedation and off Nimbex. We'll continue to follow. We will continue to monitor in the ICU. Critical care time is over 30 minutes Time with Patient: Greater than 30
[2021-03-31] MEDS: ENOXAPARIN 40 MG/0.4 ML SYRINGE SQ SCH (16:00)
[2021-03-31 17:18] LABS: Glucose,Whole Blood 126 mg/dL (75-99)
--- NOTE | 2021-03-31 17:20 | PN ---
PROGRESS NOTE DATE OF SERVICE: 03/31/2021 REASON FOR FOLLOWUP: 1. COVID-19 pneumonia. 2. UTI. INTERVAL HISTORY: The patient is afebrile. The patient is hemodynamically stable. FiO2 is currently 45%. No significant purulent secretions through the ET, diarrhea or any other changes reported by the nursing staff. PHYSICAL EXAMINATION: Blood pressure 139/56, pulse of 53, temperature of 98. She is 94% on 45% FiO2. General description is a middle-aged female lying in bed in no distress. Respiratory system: Unlabored breathing, decreased intensity of breath sounds. No wheeze. Heart S1, S2. Regular rate and rhythm. Abdomen soft, no tenderness. LABS: Hemoglobin is 10.6, white count 11.1, creatinine 0.72. Urine with an Escherichia coli. DIAGNOSTIC IMPRESSION AND PLAN: 1. Patient with acute respiratory failure secondary to COVID-19 pneumonia in this patient whose chest x-ray has been stable. FiO2 is stable. Patient to continue with dexamethasone, Lovenox, zinc and ascorbic acid. 2. Escherichia coli urinary tract infection, covered with Rocephin. Continue supportive care. MMODL / IJN: [id number] /
[2021-03-31] MEDS ORDERED: POTASSIUM CHLORIDE 20 MEQ in WATER FOR INJECTION 1 100ML.BAG IVPB SCH (17:30)
[2021-03-31] MEDS: POTASSIUM CHLORIDE 10 MEQ in WATER FOR INJECTION 1 100ML.BAG IVPB SCH ×3 (18:03→21:02)
[2021-04-01 00:24] LABS: Glucose,Whole Blood 85 mg/dL (75-99)
[2021-04-01] MEDS: POTASSIUM CHLORIDE 10 MEQ in WATER FOR INJECTION 1 100ML.BAG IVPB SCH ×5 (00:24→13:15)
[2021-04-01] MEDS: ARTIFICIAL TEARS-HYPROMELLOSE DROPS 15 ML BTL BOTH EYES SCH ×4 (00:25→13:15)
[2021-04-01] MEDS: INSULIN ASPART (NovoLOG) 100 UNIT/ML VIAL SQ SCH ×4 (00:25→19:15)
[2021-04-01] MEDS: METOCLOPRAMIDE 5 MG/ML 2 ML VIAL IVP SCH ×4 (00:29→19:16)
[2021-04-01 04:32] LABS: HCT 32.9 % (34.0-46.0); HGB 10.9 gm/dL (11.4-16.0); MCH 30.5 pg (25.0-35.0); MCHC 33.1 g/dL (31.0-37.0); MCV 92.1 fL (80.0-100.0); Mean Platelet Volume 8.5; Platelet Count 373 k/uL (150-450); RBC 3.57 m/uL (3.80-5.40); RDW 13.8 % (11.5-15.5); WBC 13.5 k/uL (3.8-10.6)
[2021-04-01 04:48] LABS: African American GFR (CKD) >90 (>60 ml/min/1.73 sqM); Blood Urea Nitrogen 32 mg/dL (7-17); Calcium 9.2 mg/dL (8.4-10.2); Carbon Dioxide 27 mmol/L (22-30); Chloride 103 mmol/L (98-107); Glucose 97 mg/dL (74-99); Non-African American GFR(CKD) >90 (>60 ml/min/1.73 sqM)
[2021-04-01 04:49] LABS: Anion Gap 8 mmol/L; Potassium 3.5 mmol/L (3.5-5.1); Sodium 138 mmol/L (137-145)
[2021-04-01] MEDS: DEXMEDETOMIDINE/0.9% NACL(PMX) 400 MCG in EMPTY BAG 1 BAG IV SCH ×2 (05:20→19:16)
[2021-04-01 06:00] LABS: ABG Base Excess 9.1 mmol/L; ABG HCO3 31 mmol/L (21-25); ABG Oxygen Saturation 96.5 % (94-97); ABG PCO2 33 mmHg (35-45); ABG PO2 70 mmHg (83-108); ABG TCO2 32 mmol/L (19-24)
[2021-04-01 06:02] LABS: ABG PH 7.58 (7.35-7.45); Allen Test Performed? No
[2021-04-01] MEDS: fentaNYL (PF). 1,000 MCG in SODIUM CHLORIDE 0.9% 80 ML IV SCH (06:52)
[2021-04-01] MEDS: CLEVIDIPINE BUTYRATE 25 MG in EMPTY BAG 1 BAG IV SCH ×4 (06:55→21:01)
[2021-04-01] MEDS: ALBUTEROL HFA INHALER INHALATION SCH ×4 (07:48→19:26)
--- NOTE | 2021-04-01 08:00 | XR ---
EXAMINATION TYPE: XR chest 1V portable DATE OF EXAM: 04/01/2021 COMPARISON: 03/31/2021 HISTORY: SOB, Follow Up FINDINGS: Indwelling tubes and catheters are unchanged. Scattered reticulonodular infiltrates persist bilaterally. Stable appearance of the cardio-mediastinal structures at this time. Pleural effusion unchanged. IMPRESSION: 1. Stable portable chest. Clinical correlation and follow up until resolution is recommended.
[2021-04-01] MEDS: CISATRACURIUM 200 MG in SODIUM CHLORIDE 0.9% 180 ML IV SCH (08:27)
[2021-04-01] MEDS: ACETYLCYSTEINE 800 MG/4 ML VIAL PO SCH ×2 (08:29→20:52)
[2021-04-01] MEDS: amLODIPine 5 MG TAB PO SCH ×2 (08:31→20:52)
[2021-04-01] MEDS: ASCORBIC ACID 500 MG TAB PO SCH ×2 (08:32→20:52)
[2021-04-01] MEDS: CHLORHEXIDINE GLUCONATE 15 ML CUP MUCOUS MEM SCH ×2 (08:33→20:52)
[2021-04-01] MEDS: CHOLECALCIFEROL 25 MCG (1000 IU) TABLET PO SCH (08:34)
[2021-04-01] MEDS: FUROSEMIDE 10 MG/ML 4 ML VIAL IV SCH ×2 (08:34→20:52)
[2021-04-01] MEDS: LACTULOSE 20 GM/30 ML CUP PO SCH ×2 (08:35→20:52)
[2021-04-01] MEDS: ZINC SULFATE 220 MG CAP PO SCH (08:36)
[2021-04-01] MEDS: DOCUSATE ORAL SOLN 100 MG/10 ML CUP PO SCH ×2 (08:37→20:52)
[2021-04-01] MEDS: DEXAMETHASONE SOD PHOSPHATE 10 MG/ML 1 ML VIAL IVP SCH (08:37)
[2021-04-01] MEDS: INSULN ASP PRT/INSULIN ASPART 100 UNIT/ML 10 ML VIAL SQ SCH ×2 (08:40→20:52)
[2021-04-01 12:15] LABS: Glucose,Whole Blood 169 mg/dL (75-99)
--- NOTE | 2021-04-01 13:39 | P.PN ---
Subjective Progress Note Date: 04/01/21 Principal diagnosis: Acute hypoxic respiratory failure secondary to COVID-19 pneumonia On , the patient remains intubated on a mechanical ventilator the patient is being seen for a follow-up. On today's evaluation, the patient is sedated and she remains on propofol running at 50 mcg/kg per minute and the patient is also on Nimbex running at 1 mcg/kg per minute. As such, the level of sedation and paralytics is unchanged compared to yesterday. She remains on a mechanical ventilator and she remained on assist control mode at the rate of 30 with a tidal volume of 100 and FiO2 of 65% with a PEEP of 18. Chest x-ray from today is in progress. Note that the chest x-ray from yesterday is improved. The peak air pressure today to 36, static pressures 34 and we are still awaiting for the blood gases from today. Meanwhile, the patient's current pulse ox is around 96% on above-mentioned ventilator setting. The patient continues to get diuresed with Lasix and the patient is on Lasix 40 mg IV every 12 hours. Overall fluid balance over the past 24 hours has been -157 mL and the patient seems to be headed towards a negative fluid balance. The patient's blood sugars under better control. No further episodes of hypoglycemia. She remains on Decadron 6 mg IV every 24 hours. She is also on Lovenox 40 mg subcu every 24 hours. D-dimer level is at 3.54. In terms of her blood pressure control, the patient is on Cleviprex which is still running at 2 mg an hour. Suggestive starting the patient on Norvasc 5 mg by mouth twice a day and gradually wean off the Cleviprex and discontinue. IV fluids are currently at KVO. She is receiving enteral feeding for nutritional support and the patient is on vital high protein at the rate of 12 mL an hour. Otherwise, no other significant changes over the past 24 hours. Reevaluated today on 03/27/21, patient remains in the ICU, intubated and mechanically ventilated. She is on assist control rate of 30 tidal volume 400 FiO2 55% PEEP is 15. ABG is marginal pO2 is 64 pCO2 is 39 pH of 7.44. Hence no changes were made in the present vent settings. Chest x-ray continues show bilateral infiltrates consistent with COVID-19 pneumonia. Patient is on enteral feeding. She is also on propofol at 50, fentanyl at 1.5. And she is also on Nimbex. 1 mcg/kg/m. Rest x-ray showed endotracheal tube in the proper pos ition. Left supraclavicular central venous line is in appropriate position. WBC count today is 12.1 hemoglobin 11.0 d-dimer is 3 basic metabolic profile is normal, BUN is 54 creatinine 0.78 LDH is 746 C-reactive protein is 2.3 patient remains on Mucomyst, albuterol, ascorbic acid, cefepime, Peridex, Decadron 6 mg IV push daily, Lovenox 40 mg subcu daily Lasix 40 mg IV push every 12 hours zinc, lactulose 10 mg by mouth twice a day and she is also on insulin as per scale. Reevaluated today on 03/28/21, patient remains in the ICU intubated and mechanically ventilated. She is on assist control rate of 30 tidal volume 400 FiO2 50% PEEP is 15 and I cut it down to 14. She is on Nimbex at 2 propofol at 40 she is on vital AF at 10 mL per hour. Her ABG today showed a pO2 of 69 pCO2 of 36 pH of 7.48. Chest x-ray continues to show bilateral multifocal increased opacities consistent with COVID-19 pneumonia, not much change management analyst the last few days. Regency count today is 12.6 hemoglobin is 11.1. Electrolytes are normal and renal profile is normal d-dimer is 3.01. LDH is 717 slightly lower compared to the last few days. And C-reactive protein is 2.5, not significantly elevated patient remains on the him empirically, she is also on albuterol, Decadron 6 mg IV push daily, Lovenox 40 mg subcu daily Lasix 40 mg IV push every 12 hours, and lactulose as well as Reglan. Reevaluated today on 03/29/2021, remains in the ICU intubated and mechanically ventilated. Remains on assist control rate of 30 tidal volume 400 FiO2 50% PEEP 14. Her O2 saturations 94%, and her ABG showed a pO2 of 77 pCO2 of 35 pH of 7.50 hence I recommended cutting down her FiO2 to 45%. And keep PEEP at 14 for now. Chest x-ray is showing slight improvement in her bilateral infiltrates, d- dimer today is 1.97, seems to be trending down compared to a few days ago was as high as 10.94.. WBC count is 11.5 hemoglobin is 10.6. Asymmetric metabolic profile is normal renal profile is normal LDH is 643 and that is encouraging seems to be trending down steadily since admission from 2532 on March 19. Patient remains on Nimbex at 2 mcg/kg/m, propofol 50 mcg/kg/m. And she is on Dilaudid when necessary. Reevaluated today on 03/30/21, patient remains in the ICU intubated mechanically ventilated. She is on assist control rate of 30 tidal volume 400 FiO2 45% PEEP of 14. Patient is on Nimbex at 2.5 mcg/kg/m she is also on propofol at 50 mcg/kg/m. Receiving Dilaudid when necessary. ABG today showed a pO2 of 60 pCO2 of 35 pH of 7.5 to hence no changes were made and her ventilator settings I did however recommend stopping Nimbex and keep the patient on propofol and Dilaudid if possible. Chest x-ray is showing slight improvement in her bilateral infiltrates. WBC count is 11.8 hemoglobin is 11.1. He looks lites are normal renal profile is normal. Remains on the COVID-19 cocktail. Remains on cefepime as per infectious disease on the case. Remains on Decadron 6 mg IV push daily, remains on Lovenox 40 mg subcu daily. Lasix 40 mg IV push twice a day. And she remains on zinc. Reevaluated today on 03/31/21, patient remains in the ICU intubated and mechanically ventilated. She is on assist control rate of 30 tidal volume 400 FiO2 45% PEEP was at 14 and I cut it down to 10. ABG on a PEEP of 14 showed a pO2 of 81 pCO2 36 pH of 7.51. Chest x-ray is showing improvement in her bilateral multifocal infiltrates. WBC count is 11.1 hemoglobin is 10.7 and electrolytes are normal potassium is borderline low at 3.5. Renal profile is normal. Patient is sedated, however she is not requiring Nimbex, she is maintained on propofol and fentanyl, patient was on Nimbex which I have discontinued, and the plan is to awaken the patient today, and at least give the patient trials of weaning if possible. May even have to use Precedex although the patient seems to be bradycardic, and I'm not certain that she couldn't tolerate Precedex with her heart rate in the 40s. Patient has always had this sinus bradycardia, but she is maintaining a great blood pressure, and we'll may have to use clevidipine elevated blood pressure. Reevaluated today on 04/01/21, patient remains in the ICU, intubated and mechanically ventilated. Patient is on assist control rate of 30 FiO2 of 40% tidal volume is 400 and PEEP is 8 patient remains off all sedation since yesterday, she is requiring intermittently small dose of clevidipine for hypertension. Has not had a bowel movement since admission, in spite of treatment with lactulose and Reglan and today I recommended an enema to be given to the patient. ABG today showed a pO2 of 70 pCO2 33 pH of 7.58 WBC count is 15.5 hemoglobin 10.9 index was are normal renal profile is normal chest x-ray continues to show scattered reticulonodular infiltrates not much change since yesterday but overall there has been improvement Objective - Vital Signs Vital signs: Vital Signs Temp 99.1 F 04/01/21 09:00 Pulse 55 L 04/01/21 10:00 Resp 30 H 04/01/21 10:00 BP 127/52 04/01/21 09:00 Pulse Ox 96 04/01/21 10:00 Intake & Output 03/31/21 04/01/21 04/01/21 18:59 06:59 18:59 Intake Total 835.076 286 53.905 Output Total 1385 1095 50 Balance -549.924 -809 3.905 Weight 128.4 kg Intake: IV 286 136 3 Potassium Chloride 10 meq 100 In Water For Injection 1 100ml.bag @ 100 mls/hr IVPB Q1HR [facility] Rx#: [id number] Sodium Chloride 0.9% 1, 200 000 ml @ 20 mls/hr IV . Q24H [facility] Rx#:[id number] cefTRIAXone 1 gm In 50 Sodium Chloride 0.9% 50 ml @ 100 mls/hr IVPB Q24HR [facility] Rx#:[id number] pressure bag 36 36 3 Intake, IV Titration 429.076 150 50.905 Amount Clevidipine Butyrate 25 124.600 50 47.833 mg In Empty Bag 1 bag @ 1 MG/HR 2 mls/hr IV .Q24H [facility] Rx#:[id number] Dexmedetomidine/0.9% NaCl 11.129 3.072 (Pmx) 400 mcg In Empty Bag 1 bag @ 0.2 MCG/KG/HR 6.42 mls/hr IV .[id number] [facility] Rx#:[id number] Potassium Chloride 10 meq 100 100 In Water For Injection 1 100ml.bag @ 100 mls/hr IVPB Q1HR [facility] Rx#: [id number] fentaNYL (PF). 1,000 mcg 61.504 In Sodium Chloride 0.9% 80 ml @ 0.5 MCG/KG/HR 5. 775 mls/hr IV .[id number] [facility] Rx#:[id number] propofoL 1,000 mg In 131.843 Empty Bag 1 bag @ Titrate IV .Q0M [facility] Rx#: [id number] Tube Feeding 90 Other 30 Output: Urine 1385 1095 50 Other: Voiding Method Indwelling Catheter Indwelling Catheter ABP, PAP, CO, CI - Last Documented Arterial Blood Pressure 139/45 - Exam Physical Exam revealed a 60-year-old female intubated, mechanically ventilated, off all sedatives and paralytics. Awake but encephalopathic. Head: Atraumatic, normocephalic. Moist mucous membranes. Orogastric tube and endotracheal tube is intact. HEENT:[Neck is supple.] [No neck masses.] [No thyromegaly.] [No JVD.] Chest: Minimal fine crackles at the bases Cardiac Exam: [Normal S1 and S2, no S3 gallop, no murmur.] Abdomen: [Soft, nontender, no megaly, no rebound, no guarding, normal bowel sounds.] Extremities: [No clubbing, no edema, no cyanosis.] Neurological Exam: Awake, but does not follow any instructions and no purposeful movement Psychiatric: Could not assess patient seems encephalopathic. - Labs CBC & Chem 7: 04/01/21 04:15 04/01/21 04:15 Labs: Abnormal Lab Results - Last 24 Hours (Table) 03/31/21 04/01/21 04/01/21 Range/Units 17:16 04:15 04:15 WBC 13.5 H (3.8-10.6) k/uL RBC 3.57 L (3.80-5.40) m/uL Hgb 10.9 L (11.4-16.0) gm/dL Hct 32.9 L (34.0-46.0) % ABG pH (7.35-7.45) ABG pCO2 (35-45) mmHg ABG pO2 (83-108) mmHg ABG HCO3 (21-25) mmol/L ABG Total CO2 (19-24) mmol/L BUN 32 H (7-17) mg/dL POC Glucose (mg/dL) 126 H (75-99) mg/dL 04/01/21 04/01/21 Range/Units 05:28 12:14 WBC (3.8-10.6) k/uL RBC (3.80-5.40) m/uL Hgb (11.4-16.0) gm/dL Hct (34.0-46.0) % ABG pH 7.58 H* (7.35-7.45) ABG pCO2 33 L (35-45) mmHg ABG pO2 70 L (83-108) mmHg ABG HCO3 31 H (21-25) mmol/L ABG Total CO2 32 H (19-24) mmol/L BUN (7-17) mg/dL POC Glucose (mg/dL) 169 H (75-99) mg/dL Microbiology - Last 24 Hours (Table) 03/26/21 04:30 Blood Culture - Final Blood No Growth after 144 hours Assessment and Plan Assessment: Impression: Acute hypoxic respiratory failure secondary COVID-19 pneumonia intubated on 03/19, was sedated and paralyzed until 03/31, she is now completely off sedatives and paralytics.. Plan to wean the patient off mechanical ventilation if her mental status clears or starts improving in the meantime Remains on the COVID-19 cocktail. Elevated inflammatory markers secondary to COVID-19 infection Morbid obesity BMI 46 Type 2 diabetes Constipation most likely related to narcotics. Suspect COVID-19 encephalopathy Recommendation: Continue to hold narcotics and sedatives today. Continue ventilatory support, not quite ready for weaning considering her mental status. Continue Lasix 40 mg IV push twice a day. Continue COVID-19 cocktail including Decadron and Lovenox. Nutritional support/enteral feeding Continue lactulose, and Reglan. And will try enema today. Continue insulin and treat as per protocol. Continue cefepime empirically. Continue Lovenox 40 mg subcu daily. We'll continue to follow. We will continue to monitor in the ICU. Critical care time is over 30 minutes Time with Patient: Greater than 30
[2021-04-01] MEDS: ENOXAPARIN 40 MG/0.4 ML SYRINGE SQ SCH (15:44)
--- NOTE | 2021-04-01 18:21 | PN ---
PROGRESS NOTE DATE OF SERVICE: 04/01/2021 This 60-year-old woman was admitted with acute Covid 19 pneumonia and acute Covid 19 interstitial pneumonia and acute hypoxic respiratory failure. Patient mechanically intubated. Patient being closely monitored in ICU. The patient also had underlying diabetes type 2. The blood sugars have been monitored at this time. The sugar 169. The patient was in respiratory alkalosis at this time. The most recent chest x-ray which was reviewed personally by me showed acute bilateral interstitial pneumonia, right more the left and Dr. Andersen is following the patient closely from pulmonary standpoint of view as well as Infectious Disease is following the patient as well. Patient is also receiving clevidipine for hypertension. Urine culture showed E coli. Past medical history reviewed. REVIEW OF SYSTEMS: Could not be taken, the patient is mechanically sedated. CURRENT MEDICATIONS: Reviewed and include: Mucomyst, Ventolin, Norvasc, vitamin C, Rocephin, Peridex,. Doses reviewed. PHYSICAL EXAMINATION: Patient is mechanically sedated. Pulse 58, blood pressure 134/60, respiration 30, temperature normal, pulse ox 91% on mechanical ventilation. HEENT: Conjunctivae normal. Neck: No JVD. Cardiovascular: S1, S2 muffled. Respiration: Breath sounds diminished in the bases. A few scattered rhonchi. Abdomen: Soft. Nervous system: The patient mechanically sedated. LAB STUDIES: WBC 13.5, hemoglobin 10.9. ABGs noted. ASSESSMENT: 1. Acute COVID-19 infection with bilateral interstitial pneumonia with acute hypoxic respiratory failure. 2. Change in mental status, metabolic encephalopathy. 3. Elevated inflammatory markers of Covid 19. 4. Diabetes mellitus, type 2. 5. History of breast surgery. 6. History of tonsillectomy. 7. History of nicotine dependence. 8. History of hyperkalemia, improved. 9. Obesity with body mass of 51.8. 10.FULL CODE. RECOMMENDATIONS AND DISCUSSION: This 60-year-old woman presented with multiple complex medical issues, we will monitor the patient closely. Continue the current management. Continue the mechanical ventilation. Continue with empiric antibiotics. Infectious Disease following the patient closely. Patient is on IV Rocephin at this time. Otherwise, the patient is also receiving steroids, blood sugar monitoring, insulin 70/30 30 units subcu b.i.d. Prognosis guarded because of multiple complex medical issues. Further recommendations to follow. MMODL / IJN: [id number] / ARIEL
[2021-04-01 18:23] LABS: Glucose,Whole Blood 174 mg/dL (75-99)
[2021-04-01] MEDS: SODIUM CHLORIDE 0.9% 1,000 ML IV SCH (20:53)
--- NOTE | 2021-04-01 22:48 | PN ---
PROGRESS NOTE DATE OF SERVICE: 04/01/2021 REASON FOR FOLLOWUP: 1. COVID-19 pneumonia. 2. UTI. INTERVAL HISTORY: The patient is afebrile. The patient is hemodynamically stable. The patient's FiO2 is currently at 50%. Minimal response was noticed at the time of evaluation to the verbal commands. No significant purulent secretions through the ET, diarrhea or any other changes reported by the nursing staff. PHYSICAL EXAMINATION: Blood pressure is 149/45, pulse of 51, temperature 99.1. She is 92% on 50% FiO2. General description is a middle-aged female lying in bed in no distress. Respiratory system: Unlabored breathing, decreased intensity of breath sounds. No wheeze. Heart S1, S2. Regular rate and rhythm. Abdomen soft, no tenderness. LABS: Hemoglobin is 10.9, white count 13.5, creatinine 0.61. DIAGNOSTIC IMPRESSION AND PLAN: 1. Patient with acute respiratory failure secondary to COVID-19 pneumonia in this patient currently covered with dexamethasone, Lovenox, zinc and ascorbic acid. To continue. 2. Patient with Escherichia coli urinary tract infection. Continue with Rocephin. Prognosis remains guarded. MMODL / IJN: [id number] /
[2021-04-01 23:46] LABS: Glucose,Whole Blood 153 mg/dL (75-99)
[2021-04-02] MEDS: METOCLOPRAMIDE 5 MG/ML 2 ML VIAL IVP SCH ×4 (00:07→16:27)
[2021-04-02] MEDS: CISATRACURIUM 200 MG in SODIUM CHLORIDE 0.9% 180 ML IV SCH ×2 (00:07→12:05)
[2021-04-02] MEDS: fentaNYL (PF). 1,000 MCG in SODIUM CHLORIDE 0.9% 80 ML IV SCH ×2 (00:07→19:23)
[2021-04-02] MEDS: INSULIN ASPART (NovoLOG) 100 UNIT/ML VIAL SQ SCH ×5 (00:08→23:56)
--- NOTE | 2021-04-02 01:25 | P.PN ---
Subjective Sergio Villatoro, is a 60-year-old female with multiple medical problems like diabetes mellitus who presented to [facility] emergency room with a chief complaint of cough and shortness of breath, patient was found to have bilateral Covid pneumonia and hypoxic. Patient currently on mechanical ventilation secondary to her significant and severe hypoxia. Currently her FiO2 is 45% and she still to Around 30 g/m. Pulmonary/critical care team following her closely. Patient has been treated with dexamethasone, vitamin C, vitamin D and zinc. Also patient is on Lovenox and Pepcid Also testing showed E. coli urinary tract infection and she was placed on ceftriaxone currently. Other than that labs were reviewed showing WBC of 11.1, creatinine normal at 0.7. Totalcalcitonin was elevated 0.17 on 03/26. Urine analysis is showing E coli Chest x-ray showing bilateral infiltrates Objective - Vital Signs Vital signs: Vital Signs Temp 98.4 F 03/31/21 08:00 Pulse 66 03/31/21 11:00 Resp 16 03/31/21 11:00 BP 133/53 03/31/21 11:00 Pulse Ox 95 03/31/21 11:00 Intake & Output 03/30/21 03/31/21 03/31/21 18:59 06:59 18:59 Intake Total 1467.007 976.184 514.821 Output Total 1475 1310 310 Balance -7.993 -333.816 204.821 Intake: IV 453 507 145 Cefepime 2 gm In Sodium 200 Chloride 0.9% 100 ml @ 25 mls/hr IVPB Q8HR [facility] Rx# :[id number] Sodium Chloride 0.9% 1, 220 480 80 000 ml @ 20 mls/hr IV . Q24H [facility] Rx#:[id number] cefTRIAXone 1 gm In 50 Sodium Chloride 0.9% 50 ml @ 100 mls/hr IVPB Q24HR [facility] Rx#:[id number] pressure bag 33 27 15 Intake, IV Titration 594.007 49.184 249.821 Amount Cisatracurium 200 mg In 136.151 Sodium Chloride 0.9% 180 ml @ 2 MCG/KG/MIN 15.241 mls/hr IV .[id number] [facility] Rx# :[id number] Clevidipine Butyrate 25 29.334 50 mg In Empty Bag 1 bag @ 1 MG/HR 2 mls/hr IV .Q24H [facility] Rx#:[id number] Dexmedetomidine/0.9% NaCl 6.474 (Pmx) 400 mcg In Empty Bag 1 bag @ 0.2 MCG/KG/HR 6.42 mls/hr IV .[id number] [facility] Rx#:[id number] fentaNYL (PF). 1,000 mcg 28.682 49.184 61.504 In Sodium Chloride 0.9% 80 ml @ 0.5 MCG/KG/HR 5. 775 mls/hr IV .[id number] [facility] Rx#:[id number] propofoL 1,000 mg In 399.84 131.843 Empty Bag 1 bag @ Titrate IV .Q0M [facility] Rx#: [id number] Tube Feeding 330 330 90 Other 90 90 30 Output: Urine 1475 1310 310 Other: Voiding Method Indwelling Catheter Indwelling Catheter ABP, PAP, CO, CI - Last Documented Arterial Blood Pressure 142/49 - Exam -GENERAL: The patient is sedated and intubated HEENT: Pupils are round and equally reacting to light. EOMI. No scleral icterus. No conjunctival pallor. Normocephalic, atraumatic. No pharyngeal erythema. No thyromegaly. CARDIOVASCULAR: S1 and S2 present. No murmurs, rubs, or gallops. PULMONARY: Chest is clear to auscultation, no wheezing or crackles. ABDOMEN: Soft, nontender, nondistended, normoactive bowel sounds. No palpable organomegaly. MUSCULOSKELETAL: No joint swelling or deformity. EXTREMITIES: No cyanosis, clubbing, or pedal edema. NEUROLOGICAL: Gross neurological examination did not reveal any focal deficits. SKIN: No rashes. no petechiae. - Labs CBC & Chem 7: 04/01/21 04:15 04/01/21 04:15 Labs: Abnormal Lab Results - Last 24 Hours (Table) 03/30/21 03/31/21 03/31/21 Range/Units 17:13 00:08 05:57 WBC (3.8-10.6) k/uL RBC (3.80-5.40) m/uL Hgb (11.4-16.0) gm/dL ABG pH (7.35-7.45) ABG pO2 (83-108) mmHg ABG HCO3 (21-25) mmol/L ABG Total CO2 (19-24) mmol/L BUN (7-17) mg/dL Glucose (74-99) mg/dL POC Glucose (mg/dL) 242 H 182 H 148 H (75-99) mg/dL Total Protein (6.3-8.2) g/dL Albumin (3.5-5.0) g/dL 03/31/21 03/31/21 03/31/21 Range/Units 06:00 09:15 09:15 WBC 11.1 H (3.8-10.6) k/uL RBC 3.56 L (3.80-5.40) m/uL Hgb 10.7 L (11.4-16.0) gm/dL ABG pH 7.51 H (7.35-7.45) ABG pO2 81 L (83-108) mmHg ABG HCO3 29 H (21-25) mmol/L ABG Total CO2 30 H (19-24) mmol/L BUN 35 H (7-17) mg/dL Glucose 183 H (74-99) mg/dL POC Glucose (mg/dL) (75-99) mg/dL Total Protein 5.8 L (6.3-8.2) g/dL Albumin 2.6 L (3.5-5.0) g/dL 03/31/21 Range/Units 11:25 WBC (3.8-10.6) k/uL RBC (3.80-5.40) m/uL Hgb (11.4-16.0) gm/dL ABG pH (7.35-7.45) ABG pO2 (83-108) mmHg ABG HCO3 (21-25) mmol/L ABG Total CO2 (19-24) mmol/L BUN (7-17) mg/dL Glucose (74-99) mg/dL POC Glucose (mg/dL) 157 H (75-99) mg/dL Total Protein (6.3-8.2) g/dL Albumin (3.5-5.0) g/dL Microbiology - Last 24 Hours (Table) 03/26/21 04:30 Blood Culture - Preliminary Blood No Growth after 120 hours Assessment and Plan Assessment: Bilateral Covid pneumonia Acute hypoxic respiratory failure, requiring intubation and mechanical ventilation Increased inflammatory markers E. coli UTI Diabetes mellitus Previous history of smoking Plan: This is a pleasant 60 years old female who presents with Bilateral Covid pneumonia and hypoxia Continue with vitamin C, vitamin D, and zinc. Continue with dexamethasone Pulmonary team consult Continue with mechanical ventilation per pulmonary/critical care team Continue with ceftriaxone for UTI Infectious disease team of the case Labs and medication were reviewed.. Continue same treatment. Continue with sy mptomatic treatment. Resume home medication. Monitor lytes and vitals. DVT and GI prophylaxis. Further recommendations as per clinical course of the patient DVT prophylaxis: Subcutaneous Lovenox GI Prophylaxis: Pepcid Prognosis is guarded
[2021-04-02] MEDS: CLEVIDIPINE BUTYRATE 25 MG in EMPTY BAG 1 BAG IV SCH (02:51)
[2021-04-02 06:18] LABS: Glucose,Whole Blood 151 mg/dL (75-99)
[2021-04-02 06:27] LABS: ABG Base Excess 8.9 mmol/L; ABG HCO3 31 mmol/L (21-25); ABG Oxygen Saturation 96.9 % (94-97); ABG PCO2 34 mmHg (35-45); ABG PO2 76 mmHg (83-108); ABG TCO2 32 mmol/L (19-24)
[2021-04-02 06:37] LABS: ABG PH 7.56 (7.35-7.45); Allen Test Performed? no
[2021-04-02] MEDS: ALBUTEROL HFA INHALER INHALATION SCH ×5 (08:04→20:52)
[2021-04-02] MEDS: ACETYLCYSTEINE 800 MG/4 ML VIAL PO SCH ×3 (08:20→21:17)
[2021-04-02] MEDS: ASCORBIC ACID 500 MG TAB PO SCH ×2 (08:20→21:17)
[2021-04-02] MEDS: amLODIPine 5 MG TAB PO SCH ×2 (08:20→21:17)
[2021-04-02] MEDS: CHOLECALCIFEROL 25 MCG (1000 IU) TABLET PO SCH (08:21)
[2021-04-02] MEDS: DEXAMETHASONE SOD PHOSPHATE 10 MG/ML 1 ML VIAL IVP SCH (08:21)
[2021-04-02] MEDS: CHLORHEXIDINE GLUCONATE 15 ML CUP MUCOUS MEM SCH (08:21)
[2021-04-02] MEDS: FAMOTIDINE 20 MG/2 ML VIAL IV SCH ×2 (08:23→21:25)
[2021-04-02] MEDS: DOCUSATE ORAL SOLN 100 MG/10 ML CUP PO SCH ×2 (08:23→21:18)
[2021-04-02] MEDS: FUROSEMIDE 10 MG/ML 4 ML VIAL IV SCH (08:25)
[2021-04-02] MEDS: INSULN ASP PRT/INSULIN ASPART 100 UNIT/ML 10 ML VIAL SQ SCH ×2 (08:26→21:24)
[2021-04-02] MEDS: LACTULOSE 20 GM/30 ML CUP PO SCH ×2 (08:27→21:18)
[2021-04-02] MEDS: ZINC SULFATE 220 MG CAP PO SCH (08:27)
[2021-04-02] MEDS: DEXMEDETOMIDINE/0.9% NACL(PMX) 400 MCG in EMPTY BAG 1 BAG IV SCH (09:28)
--- NOTE | 2021-04-02 11:25 | CDI ---
Documentation Clarification Form Date: 04/02/2021 11:14:36 AM From: Isaura MonkASAD castañeda, CCDS Admit Date: 03/18/2021 12:01:00 PM Patient Name: Sergio Villatoro Visit Number: [id number] Discharge Date: ATTENTION: The Clinical Documentation Specialists (CDI) and [facility] Coding Staff appreciate your assistance in clarifying documentation. Please respond to the clarification below the line at the bottom and electronically sign. The CDI & [facility] Coding staff will review the response and follow-up if needed. Please note: Queries are made part of the Legal Health Record. If you have any questions, please contact the author of this message via ITS. Dr. Latricia Huynh: Per the 03/29 ID Progress Note: Patient with a new fever. Source is likely UTI. Urine with an e coli sensitive pathogen. Antibiotic will be switched over to Rocephin. Per the Nursing Assessment, the patient had a Smith Catheter placed on 03/19. Additional clarification regarding the etiology of the UTI is requested. History/Risk Factors per the 03/18 H/P: Former smoker, DM. Clinical Indicators: Presented to the ED on 03/18 with SOB, COVID +, low Oxygen. Symptoms started on Mar.06, had a positive test two days ago, Pulse ox at home in 70-80s. Cough, congestion, body aches. Admit with Pneumonia due to COVID-19 virus, Hypoxia 03/18 VS: T 100.6, P 102, R 21 (sob, labored), BP 139/72, PO 75 RA - 90 6Lnc - 85 7L nc - 9L High flow, BMI: 51.8. 03/18 LAB: Lymph 0.7, D Dimer 1.23, Na 134, BUN 29, Glucose 200, Lactic Acid 2.1, AST 54, ALT 38 03/18 UA: Cloudy, 1+ protein, 3+ glucose, Moderate Blood, Negative Nitrite, Trace Esterase, RBC 8, WBC 5. 03/18 Blood culture: Final: Negative @ 144 hrs. 03/26 Urine culture: Final: E Coli Treatment 03/18: IV Decadron, IV Na Cl 1,000 mls @ 20 mls/hr q24H, po Vit D3, Lovenox sq, po Orazinc, INH Ventolin, po vit C, Insulin sq, IV Ativan q6/prn, O2 6L nc - 7L nc - 9L high flow - 60% BiPAP. 03/19: Patient was intubated, Smith Catheter placed in ICU. Please clarify the etiology of the UTI, if known: [ x] UTI related to Smith catheter [ ] UTI not related to Smith catheter [ ] Other condition, please specify [ ] Unable to determine (Template Last Revised: June 2020) MTDD
[2021-04-02] MEDS: cloNIDine 0.3 MG/24HR PATCH TRANSDERM SCH (12:06)
[2021-04-02] MEDS: hydrALAZINE HCL 25 MG TAB PO SCH ×2 (12:10→21:18)
[2021-04-02] MEDS: LOSARTAN 50 MG TAB PO SCH (12:10)
[2021-04-02 13:28] LABS: Glucose,Whole Blood 178 mg/dL (75-99)
--- NOTE | 2021-04-02 14:41 | P.PN ---
Subjective Progress Note Date: 04/02/21 Principal diagnosis: Acute hypoxic respiratory failure secondary to COVID-19 pneumonia On , the patient remains intubated on a mechanical ventilator the patient is being seen for a follow-up. On today's evaluation, the patient is sedated and she remains on propofol running at 50 mcg/kg per minute and the patient is also on Nimbex running at 1 mcg/kg per minute. As such, the level of sedation and paralytics is unchanged compared to yesterday. She remains on a mechanical ventilator and she remained on assist control mode at the rate of 30 with a tidal volume of 100 and FiO2 of 65% with a PEEP of 18. Chest x-ray from today is in progress. Note that the chest x-ray from yesterday is improved. The peak air pressure today to 36, static pressures 34 and we are still awaiting for the blood gases from today. Meanwhile, the patient's current pulse ox is around 96% on above-mentioned ventilator setting. The patient continues to get diuresed with Lasix and the patient is on Lasix 40 mg IV every 12 hours. Overall fluid balance over the past 24 hours has been -157 mL and the patient seems to be headed towards a negative fluid balance. The patient's blood sugars under better control. No further episodes of hypoglycemia. She remains on Decadron 6 mg IV every 24 hours. She is also on Lovenox 40 mg subcu every 24 hours. D-dimer level is at 3.54. In terms of her blood pressure control, the patient is on Cleviprex which is still running at 2 mg an hour. Suggestive starting the patient on Norvasc 5 mg by mouth twice a day and gradually wean off the Cleviprex and discontinue. IV fluids are currently at KVO. She is receiving enteral feeding for nutritional support and the patient is on vital high protein at the rate of 12 mL an hour. Otherwise, no other significant changes over the past 24 hours. Reevaluated today on 03/27/21, patient remains in the ICU, intubated and mechanically ventilated. She is on assist control rate of 30 tidal volume 400 FiO2 55% PEEP is 15. ABG is marginal pO2 is 64 pCO2 is 39 pH of 7.44. Hence no changes were made in the present vent settings. Chest x-ray continues show bilateral infiltrates consistent with COVID-19 pneumonia. Patient is on enteral feeding. She is also on propofol at 50, fentanyl at 1.5. And she is also on Nimbex. 1 mcg/kg/m. Rest x-ray showed endotracheal tube in the proper pos ition. Left supraclavicular central venous line is in appropriate position. WBC count today is 12.1 hemoglobin 11.0 d-dimer is 3 basic metabolic profile is normal, BUN is 54 creatinine 0.78 LDH is 746 C-reactive protein is 2.3 patient remains on Mucomyst, albuterol, ascorbic acid, cefepime, Peridex, Decadron 6 mg IV push daily, Lovenox 40 mg subcu daily Lasix 40 mg IV push every 12 hours zinc, lactulose 10 mg by mouth twice a day and she is also on insulin as per scale. Reevaluated today on 03/28/21, patient remains in the ICU intubated and mechanically ventilated. She is on assist control rate of 30 tidal volume 400 FiO2 50% PEEP is 15 and I cut it down to 14. She is on Nimbex at 2 propofol at 40 she is on vital AF at 10 mL per hour. Her ABG today showed a pO2 of 69 pCO2 of 36 pH of 7.48. Chest x-ray continues to show bilateral multifocal increased opacities consistent with COVID-19 pneumonia, not much casino change attendant the last few days. Regency count today is 12.6 hemoglobin is 11.1. Electrolytes are normal and renal profile is normal d-dimer is 3.01. LDH is 717 slightly lower compared to the last few days. And C-reactive protein is 2.5, not significantly elevated patient remains on the him empirically, she is also on albuterol, Decadron 6 mg IV push daily, Lovenox 40 mg subcu daily Lasix 40 mg IV push every 12 hours, and lactulose as well as Reglan. Reevaluated today on 03/29/2021, remains in the ICU intubated and mechanically ventilated. Remains on assist control rate of 30 tidal volume 400 FiO2 50% PEEP 14. Her O2 saturations 94%, and her ABG showed a pO2 of 77 pCO2 of 35 pH of 7.50 hence I recommended cutting down her FiO2 to 45%. And keep PEEP at 14 for now. Chest x-ray is showing slight improvement in her bilateral infiltrates, d- dimer today is 1.97, seems to be trending down compared to a few days ago was as high as 10.94.. WBC count is 11.5 hemoglobin is 10.6. Asymmetric metabolic profile is normal renal profile is normal LDH is 643 and that is encouraging seems to be trending down steadily since admission from 2532 on March 19. Patient remains on Nimbex at 2 mcg/kg/m, propofol 50 mcg/kg/m. And she is on Dilaudid when necessary. Reevaluated today on 03/30/21, patient remains in the ICU intubated mechanically ventilated. She is on assist control rate of 30 tidal volume 400 FiO2 45% PEEP of 14. Patient is on Nimbex at 2.5 mcg/kg/m she is also on propofol at 50 mcg/kg/m. Receiving Dilaudid when necessary. ABG today showed a pO2 of 60 pCO2 of 35 pH of 7.5 to hence no changes were made and her ventilator settings I did however recommend stopping Nimbex and keep the patient on propofol and Dilaudid if possible. Chest x-ray is showing slight improvement in her bilateral infiltrates. WBC count is 11.8 hemoglobin is 11.1. He looks lites are normal renal profile is normal. Remains on the COVID-19 cocktail. Remains on cefepime as per infectious disease on the case. Remains on Decadron 6 mg IV push daily, remains on Lovenox 40 mg subcu daily. Lasix 40 mg IV push twice a day. And she remains on zinc. Reevaluated today on 03/31/21, patient remains in the ICU intubated and mechanically ventilated. She is on assist control rate of 30 tidal volume 400 FiO2 45% PEEP was at 14 and I cut it down to 10. ABG on a PEEP of 14 showed a pO2 of 81 pCO2 36 pH of 7.51. Chest x-ray is showing improvement in her bilateral multifocal infiltrates. WBC count is 11.1 hemoglobin is 10.7 and electrolytes are normal potassium is borderline low at 3.5. Renal profile is normal. Patient is sedated, however she is not requiring Nimbex, she is maintained on propofol and fentanyl, patient was on Nimbex which I have discontinued, and the plan is to awaken the patient today, and at least give the patient trials of weaning if possible. May even have to use Precedex although the patient seems to be bradycardic, and I'm not certain that she couldn't tolerate Precedex with her heart rate in the 40s. Patient has always had this sinus bradycardia, but she is maintaining a great blood pressure, and we'll may have to use clevidipine elevated blood pressure. Reevaluated today on 04/01/21, patient remains in the ICU, intubated and mechanically ventilated. Patient is on assist control rate of 30 FiO2 of 40% tidal volume is 400 and PEEP is 8 patient remains off all sedation since yesterday, she is requiring intermittently small dose of clevidipine for hypertension. Has not had a bowel movement since admission, in spite of treatment with lactulose and Reglan and today I recommended an enema to be given to the patient. ABG today showed a pO2 of 70 pCO2 33 pH of 7.58 WBC count is 15.5 hemoglobin 10.9 index was are normal renal profile is normal chest x-ray continues to show scattered reticulonodular infiltrates not much change since yesterday but overall there has been improvement Reevaluated today on 04/02/21, patient remains in the ICU, intubated and mechanically ventilated. She is off sedation completely for the last 2 days, patient is requiring clevidipine for her significantly elevated blood pressure, and today I added multiple meds to control her blood pressure, however patient may not need that many blood pressure medications if extubated and kept off mechanical ventilation. Her assist control rate today is 30 tidal volume 400 FiO2 40% and PEEP of 8. Chest x-ray yesterday showed significant improvement in her bilateral infiltrates. Her ABG on the same vent settings as noted showed a pO2 of 76 pCO2 of 34 pH of 7.56. Patient is on assist control mode of mechanical ventilation, she seems to be very comfortable, hence I will try to give the patient a trial of pressure support and CPAP, and if tolerated may even extubated the patient. My only concern is the patient seems to be a bit enceph alopathic, she opens her eyes, follows simple instructions, and she seems to be generally weak, she may have also some component of critical illness polyneuropathy because of prolonged course in the ICU on multiple meds and on paralytics. Objective - Vital Signs Vital signs: Vital Signs Temp 99.1 F 04/01/21 16:00 Pulse 60 04/02/21 07:00 Resp 30 H 04/01/21 19:00 BP 142/53 04/02/21 07:00 Pulse Ox 94 L 04/02/21 07:00 Intake & Output 04/01/21 04/02/21 04/02/21 18:59 06:59 18:59 Intake Total 837.172 352.400 23 Output Total 830 1235 50 Balance 7.172 -882.600 -27 Weight 128.4 kg Intake: IV 656 276 23 Potassium Chloride 10 meq 300 In Water For Injection 1 100ml.bag @ 100 mls/hr IVPB Q1HR [facility] Rx#: [id number] Sodium Chloride 0.9% 1, 220 240 20 000 ml @ 20 mls/hr IV . Q24H [facility] Rx#:[id number] cefTRIAXone 1 gm In 100 Sodium Chloride 0.9% 50 ml @ 100 mls/hr IVPB Q24HR [facility] Rx#:[id number] pressure bag 36 36 3 Intake, IV Titration 121.172 76.400 Amount Clevidipine Butyrate 25 118.100 76.400 mg In Empty Bag 1 bag @ 1 MG/HR 2 mls/hr IV .Q24H [facility] Rx#:[id number] Dexmedetomidine/0.9% NaCl 3.072 (Pmx) 400 mcg In Empty Bag 1 bag @ 0.2 MCG/KG/HR 6.42 mls/hr IV .[id number] [facility] Rx#:[id number] Other 60 Output: Urine 830 1235 50 Other: Voiding Method Indwelling Catheter Indwelling Catheter ABP, PAP, CO, CI - Last Documented Arterial Blood Pressure 120/48 - Exam Physical Exam revealed a 60-year-old female intubated, mechanically ventilated, off all sedatives and paralytics. Awake but encephalopathic. Head: Atraumatic, normocephalic. Moist mucous membranes. Orogastric tube and endotracheal tube is intact. HEENT:[Neck is supple.] [No neck masses.] [No thyromegaly.] [No JVD.] Chest: Minimal fine crackles at the bases Cardiac Exam: [Normal S1 and S2, no S3 gallop, no murmur.] Abdomen: [Soft, nontender, no megaly, no rebound, no guarding, normal bowel sounds.] Extremities: [No clubbing, no edema, no cyanosis.] Neurological Exam: Awake, simple instructions like squeezing hands, opening and closing eyes. But seems to be a bit slow. And weak. Psychiatric: Depressed mood blunt affect and mental status as above. - Labs CBC & Chem 7: 04/01/21 04:15 04/01/21 04:15 Labs: Abnormal Lab Results - Last 24 Hours (Table) 04/01/21 04/01/21 04/02/21 Range/Units 18:21 23:44 05:40 ABG pH 7.56 H* (7.35-7.45) ABG pCO2 34 L (35-45) mmHg ABG pO2 76 L (83-108) mmHg ABG HCO3 31 H (21-25) mmol/L ABG Total CO2 32 H (19-24) mmol/L POC Glucose (mg/dL) 174 H 153 H (75-99) mg/dL 04/02/21 04/02/21 Range/Units 06:16 13:26 ABG pH (7.35-7.45) ABG pCO2 (35-45) mmHg ABG pO2 (83-108) mmHg ABG HCO3 (21-25) mmol/L ABG Total CO2 (19-24) mmol/L POC Glucose (mg/dL) 151 H 178 H (75-99) mg/dL Microbiology - Last 24 Hours (Table) 03/26/21 04:30 Blood Culture - Final Blood No Growth after 144 hours Assessment and Plan Assessment: Impression: Acute hypoxic respiratory failure secondary COVID-19 pneumonia intubated on 03/19, was sedated and paralyzed until 03/31, she is now completely off sedatives and paralytics.. Suspect critical illness polyneuropathy Elevated inflammatory markers secondary to COVID-19 infection Morbid obesity BMI 46 Type 2 diabetes Constipation Suspect COVID-19 encephalopathy Recommendation: Patient will be given a trial of pressure support and CPAP, and if tolerated may extubated the patient today. Continue Lasix 40 mg IV push twice a day. Continue COVID-19 cocktail including Decadron and Lovenox. Nutritional support/enteral feeding, unless the patient is extubated today. Continue lactulose, and Reglan. And continue enemas as needed. Continue insulin and treat as per protocol. Continue cefepime empirically. Continue Lovenox 40 mg subcu daily. Continue to monitor in ICU. Critical care time is over 30 minutes Time with Patient: Greater than 30
--- NOTE | 2021-04-02 15:19 | PN ---
PROGRESS NOTE DATE OF SERVICE: 04/02/2021 REASON FOR FOLLOWUP: 1. Acute Covid 19 pneumonia. 2. UTI. INTERVAL HISTORY: The patient has been extubated. The patient is slightly sleepy and disoriented but breathing comfortably on nasal cannula oxygen. She is hemodynamically stable, not on pressor support. No vomiting, diarrhea or any other changes reported by nursing staff. PHYSICAL EXAMINATION: Blood pressure 137/55, pulse of 54, temperature is 99. She is 94% on FiO2. General description is a middle-aged female lying in bed in no distress. Respiratory system: Unlabored breathing, decreased intensity of breath sounds. No wheeze. Heart S1, S2. Regular rate and rhythm. Abdomen soft, no tenderness. LABS: No new labs have been obtained today. DIAGNOSTIC IMPRESSION AND PLAN: 1. Patient with acute respiratory failure secondary to COVID-19 pneumonia in this patient who seems to have shown overall clinical improvement. Patient to continue with dexamethasone, Lovenox, zinc and ascorbic acid. 2. Patient with an E coli urinary tract infection for which the patient is covered with Rocephin. Continue supportive care. MMODL / IJN: [id number] /
[2021-04-02] MEDS: ACETAMINOPHEN IV (For NPO) 1,000 MG in EMPTY BAG 1 BAG IVPB PRN (16:17)
[2021-04-02] MEDS: ENOXAPARIN 40 MG/0.4 ML SYRINGE SQ SCH (16:26)
--- NOTE | 2021-04-02 16:30 | PN ---
PROGRESS NOTE DATE OF SERVICE: 04/02/2021. This 60-year-old woman who was admitted with acute Covid 19 infection, bilateral interstitial pneumonia, continue on mechanical ventilation. The patient also had some change in mental status. Inflammatory markers of Covid 19 is elevated. Multiple consultants are following the patient closely, including Infectious Disease and also Pulmonary. Dr. Andersen has recommended further weaning and the patient has been on assist-control and on CPAP also. The patient closely monitored at this time. Past medical history reviewed. REVIEW OF SYMPTOMS: Review of systems could not be taken, the patient on mechanical ventilation. CURRENT MEDICATIONS: Reviewed and include: Tylenol, Ventolin, Norvasc, vitamin C, Rocephin. Doses and rest of medication noted. PHYSICAL EXAMINATION: Patient is sedated. Pulse 60, blood pressure is 142/83, respiration 20, temperature normal, pulse ox 94 percent. HEENT: Conjunctivae normal. Neck: No JVD. Cardiovascular: S1. S2. Respiration: Breath sounds diminished in the bases. A few scattered rhonchi. Abdomen: Soft, nontender. Legs are no edema. No swelling. LABS: ABGs are 7.56 and WBC 13.5. Other labs are noted. ASSESSMENT: 1. Acute Covid 19 infection with acute bilateral interstitial pneumonia with acute hypoxic respiratory failure. 2. Change in mental status, acute metabolic encephalopathy, multifactorial. 3. E-coli urinary tract infection. 4. Elevated inflammatory markers of Covid 19. 5. Diabetes mellitus type 2. 6. History of breast surgery. 7. History of tonsillectomy. 8. History of nicotine dependence. 9. History of hyperkalemia, improved. 10.Obesity with body mass index of 51.8. 11.FULL CODE. RECOMMENDATIONS AND DISCUSSION: Recommend to continue current medication, continue symptomatic treatment. Otherwise, the patient is also on Rocephin. We will continue to monitor. The prognosis guarded because of multiple complex medical issues and further recommendations to follow. ABGs noted. Further weaning to CPAP and per Dr. Andersen. MMODL / IJN: [id number] /
[2021-04-02 18:01] LABS: Glucose,Whole Blood 128 mg/dL (75-99)
[2021-04-02] MEDS: hydrALAZINE HCL 20 MG/ML 1 ML VIAL IVP PRN (21:25)
[2021-04-02 23:37] LABS: Glucose,Whole Blood 121 mg/dL (75-99)
[2021-04-02] MEDS: SODIUM CHLORIDE 0.9% 1,000 ML IV SCH (23:56)
[2021-04-03] MEDS: METOCLOPRAMIDE 5 MG/ML 2 ML VIAL IVP SCH ×4 (00:45→17:51)
[2021-04-03] MEDS: hydrALAZINE HCL 20 MG/ML 1 ML VIAL IVP PRN ×3 (01:07→22:03)
[2021-04-03 05:14] LABS: HCT 36.8 % (34.0-46.0); HGB 11.9 gm/dL (11.4-16.0); MCH 30.1 pg (25.0-35.0); MCHC 32.3 g/dL (31.0-37.0); MCV 93.2 fL (80.0-100.0); Mean Platelet Volume 8.7; Platelet Count 375 k/uL (150-450); RBC 3.94 m/uL (3.80-5.40); RDW 13.7 % (11.5-15.5); WBC 14.7 k/uL (3.8-10.6)
[2021-04-03 05:16] LABS: African American GFR (CKD) >90 (>60 ml/min/1.73 sqM); Anion Gap 7 mmol/L; Blood Urea Nitrogen 21 mg/dL (7-17); Calcium 9.3 mg/dL (8.4-10.2); Carbon Dioxide 29 mmol/L (22-30); Chloride 103 mmol/L (98-107); Glucose 118 mg/dL (74-99); Non-African American GFR(CKD) >90 (>60 ml/min/1.73 sqM); Potassium 2.9 mmol/L (3.5-5.1); Sodium 139 mmol/L (137-145)
[2021-04-03] MEDS ORDERED: POTASSIUM CHLORIDE 20 MEQ in WATER FOR INJECTION 1 100ML.BAG IVPB SCH (05:30)
[2021-04-03] MEDS ORDERED: POTASSIUM CHLORIDE 20 MEQ in SODIUM CHLORIDE 0.9% 100 ML IVPB SCH (05:30)
[2021-04-03] MEDS: INSULIN ASPART (NovoLOG) 100 UNIT/ML VIAL SQ SCH ×3 (05:57→17:50)
[2021-04-03] MEDS: POTASSIUM CHLORIDE 20 MEQ in SODIUM CHLORIDE 0.9% 100 ML IVPB SCH ×3 (05:59→13:42)
[2021-04-03] MEDS ORDERED: POTASSIUM CHLORIDE 10 MEQ in WATER FOR INJECTION 1 100ML.BAG IVPB SCH (06:00)
[2021-04-03] MEDS: DEXAMETHASONE SOD PHOSPHATE 10 MG/ML 1 ML VIAL IVP SCH (07:54)
--- NOTE | 2021-04-03 07:55 | XR ---
EXAMINATION TYPE: XR chest 1V portable DATE OF EXAM: 04/03/2021 HISTORY: Shortness of breath. COMPARISON: 04/01/2021 TECHNIQUE: Single view of the chest is submitted. FINDINGS: Endotracheal tube and NG tube have been removed. Left subclavian central venous line remains in place . Nodular airspace infiltrates persist throughout both lung shah without significant change. The heart is stable. Hilar and mediastinal structures are within normal limits. Degenerative changes are seen of the dorsal spine. IMPRESSION: 1. Endotracheal tube and NG tube have been removed. Left subclavian central venous line remains in p lace. 2. Nodular airspace infiltrates persist throughout both lung shah without significant change.
[2021-04-03] MEDS: FAMOTIDINE 20 MG/2 ML VIAL IV SCH ×2 (07:56→20:48)
[2021-04-03] MEDS: FUROSEMIDE 10 MG/ML 4 ML VIAL IV SCH (07:57)
[2021-04-03] MEDS: INSULN ASP PRT/INSULIN ASPART 100 UNIT/ML 10 ML VIAL SQ SCH ×2 (07:59→20:48)
--- NOTE | 2021-04-03 09:19 | P.PN ---
Subjective Progress Note Date: 04/03/21 On , the patient remains intubated on a mechanical ventilator the patient is being seen for a follow-up. On today's evaluation, the patient is sedated and she remains on propofol running at 50 mcg/kg per minute and the patient is also on Nimbex running at 1 mcg/kg per minute. As such, the level of sedation and paralytics is unchanged compared to yesterday. She remains on a mechanical ventilator and she remained on assist control mode at the rate of 30 with a tidal volume of 100 and FiO2 of 65% with a PEEP of 18. Chest x-ray from today is in progress. Note that the chest x-ray from yesterday is improved. The peak air pressure today to 36, static pressures 34 and we are still awaiting for the blood gases from today. Meanwhile, the patient's current pulse ox is around 96% on above-mentioned ventilator setting. The patient continues to get diuresed with Lasix and the patient is on Lasix 40 mg IV every 12 hours. Overall fluid balance over the past 24 hours has been -157 mL and the patient seems to be headed towards a negative fluid balance. The patient's blood sugars under better control. No further episodes of hypoglycemia. She remains on Decadron 6 mg IV every 24 hours. She is also on Lovenox 40 mg subcu every 24 hours. D-dimer level is at 3.54. In terms of her blood pressure control, the patient is on Cleviprex which is still running at 2 mg an hour. Suggestive starting the patient on Norvasc 5 mg by mouth twice a day and gradually wean off the Cleviprex and discontinue. IV fluids are currently at KVO. She is receiving enteral feeding for nutritional support and the patient is on vital high protein at the rate of 12 mL an hour. Otherwise, no other significant changes over the past 24 hours. Reevaluated today on 03/27/21, patient remains in the ICU, intubated and mechanically ventilated. She is on assist control rate of 30 tidal volume 400 FiO2 55% PEEP is 15. ABG is marginal pO2 is 64 pCO2 is 39 pH of 7.44. Hence no changes were made in the present vent settings. Chest x-ray continues show bilateral infiltrates consistent with COVID-19 pneumonia. Patient is on enteral feeding. She is also on propofol at 50, fentanyl at 1.5. And she is also on Nimbex. 1 mcg/kg/m. Rest x-ray showed endotracheal tube in the proper position. Left supraclavicular central venous line is in appropriate position. WBC count today is 12.1 hemoglobin 11.0 d-dimer is 3 basic metabolic profile is normal, BUN is 54 creatinine 0.78 LDH is 746 C-reactive protein is 2.3 patient remains on Mucomyst, albuterol, ascorbic acid, cefepime, Peridex, Decadron 6 mg IV push daily, Lovenox 40 mg subcu daily Lasix 40 mg IV push every 12 hours zinc, lactulose 10 mg by mouth twice a day and she is also on insulin as per scale. Reevaluated today on 03/28/21, patient remains in the ICU intubated and mechanically ventilated. She is on assist control rate of 30 tidal volume 400 FiO2 50% PEEP is 15 and I cut it down to 14. She is on Nimbex at 2 propofol at 40 she is on vital AF at 10 mL per hour. Her ABG today showed a pO2 of 69 pCO2 of 36 pH of 7.48. 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 Regency count today is 12.6 hemoglobin is 11.1. Electrolytes are normal and renal profile is normal d-dimer is 3.01. LDH is 717 slightly lower compared to the last few days. And C-reactive protein is 2.5, not significantly elevated patient remains on the him empirically, she is also on albuterol, Decadron 6 mg IV push daily, Lovenox 40 mg subcu daily Lasix 40 mg IV push every 12 hours, and lactulose as well as Reglan. Reevaluated today on 03/29/2021, remains in the ICU intubated and mechanically ventilated. Remains on assist control rate of 30 tidal volume 400 FiO2 50% PEEP 14. Her O2 saturations 94%, and her ABG showed a pO2 of 77 pCO2 of 35 pH of 7.50 hence I recommended cutting down her FiO2 to 45%. And keep PEEP at 14 for now. Chest x-ray is showing slight improvement in her bilateral infiltrates, d- dimer today is 1.97, seems to be trending down compared to a few days ago was as high as 10.94.. WBC count is 11.5 hemoglobin is 10.6. Asymmetric metabolic profile is normal renal profile is normal LDH is 643 and that is encouraging seems to be trending down steadily since admission from 2532 on March 19. Patient remains on Nimbex at 2 mcg/kg/m, propofol 50 mcg/kg/m. And she is on Dilaudid when necessary. Reevaluated today on 03/30/21, patient remains in the ICU intubated mechanically ventilated. She is on assist control rate of 30 tidal volume 400 FiO2 45% PEEP of 14. Patient is on Nimbex at 2.5 mcg/kg/m she is also on propofol at 50 mcg/kg/m. Receiving Dilaudid when necessary. ABG today showed a pO2 of 60 pCO2 of 35 pH of 7.5 to hence no changes were made and her ventilator settings I did however recommend stopping Nimbex and keep the patient on propofol and Dilaudid if possible. Chest x-ray is showing slight improvement in her bilateral infiltrates. WBC count is 11.8 hemoglobin is 11.1. He looks lites are normal renal profile is normal. Remains on the COVID-19 cocktail. Remains on cefepime as per infectious disease on the case. Remains on Decadron 6 mg IV push daily, remains on Lovenox 40 mg subcu daily. Lasix 40 mg IV push twice a day. And she remains on zinc. Reevaluated today on 03/31/21, patient remains in the ICU intubated and mechanically ventilated. She is on assist control rate of 30 tidal volume 400 FiO2 45% PEEP was at 14 and I cut it down to 10. ABG on a PEEP of 14 showed a pO2 of 81 pCO2 36 pH of 7.51. Chest x-ray is showing improvement in her bilateral multifocal infiltrates. WBC count is 11.1 hemoglobin is 10.7 and electrolytes are normal potassium is borderline low at 3.5. Renal profile is normal. Patient is sedated, however she is not requiring Nimbex, she is maintained on propofol and fentanyl, patient was on Nimbex which I have discontinued, and the plan is to awaken the patient today, and at least give the patient trials of weaning if possible. May even have to use Precedex although the patient seems to be bradycardic, and I'm not certain that she couldn't tolerate Precedex with her heart rate in the 40s. Patient has always had this sinus bradycardia, but she is maintaining a great blood pressure, and we'll may have to use clevidipine elevated blood pressure. Reevaluated today on 04/01/21, patient remains in the ICU, intubated and mechanically ventilated. Patient is on assist control rate of 30 FiO2 of 40% tidal volume is 400 and PEEP is 8 patient remains off all sedation since yesterday, she is requiring intermittently small dose of clevidipine for hypertension. Has not had a bowel movement since admission, in spite of treatment with lactulose and Reglan and today I recommended an enema to be given to the patient. ABG today showed a pO2 of 70 pCO2 33 pH of 7.58 WBC count is 15.5 hemoglobin 10.9 index was are normal renal profile is normal chest x-ray continues to show scattered reticulonodular infiltrates not much change since yesterday but overall there has been improvement Reevaluated today on 04/02/21, patient remains in the ICU, intubated and mechanically ventilated. She is off sedation completely for the last 2 days, patient is requiring clevidipine for her significantly elevated blood pressure, and today I added multiple meds to control her blood pressure, however patient may not need that many blood pressure medications if extubated and kept off mechanical ventilation. Her assist control rate today is 30 tidal volume 400 FiO2 40% and PEEP of 8. Chest x-ray yesterday showed significant improvement in her bilateral infiltrates. Her ABG on the same vent settings as noted showed a pO2 of 76 pCO2 of 34 pH of 7.56. Patient is on assist control mode of mechanical ventilation, she seems to be very comfortable, hence I will try to give the patient a trial of pressure support and CPAP, and if tolerated may even extubated the patient. My only concern is the patient seems to be a bit encephalopathic, she opens her eyes, follows simple instructions, and she seems to be generally weak, she may have also some component of critical illness polyneuropathy because of prolonged course in the ICU on multiple meds and on paralytics. 04/03/2021, the patient remains extubated. Noted the patient was extubated on 04/01/2021 and currently she is on oxygen at high flow at 15 L. Her current pulse ox is around 89-90%. She is awake. She'll occasionally follow simple commands. Her responses not consistent dull. She is moving all extremities. She is very weak and she is unable to raise her arms and legs against gravity. Her cough is also very weak. She blinks upon demand, she is able to respond and she is alert and she has obvious eye opening. She is not talking at. She is unable to swallow. Her chest x-ray still showing diffuse bilateral pulmonary infiltrates consistent with COVID 19 related pneumonia. The patient remains on record Abilio 6 mg IV every 24 hours. Rest of the treatment includes Lovenox 40 mg subcu every 24 hours. Based on her inability to eat, her blood pressure was noted to be elevated as the patient was unable to take her oral antihypertensive medications. The patient is receiving IV hydralazine I when necessary basis for systolic blood pressure above 160. She is not having regular bowel movements. Our efforts to give her laxatives has failed. The patient had a soapsuds enema yesterday and the same will be done today and I would also recommend obtaining a pleasant some of the abdomen. Limited edema lower extremity is bilaterally. The patient has a Smith catheter in place. Adequate urine output. Active issues for now is her diminished alertness in addition to profound motor weakness in all 4 extremities which is probably related to COVID 19 related i nfection/pneumonia/prolonged intubation mechanical ventilation. She remains on IV Rocephin for an underlying UTI and the cultures had yielded E. coli. Objective - Vital Signs Vital signs: Vital Signs Temp 98.3 F 04/02/21 20:00 Pulse 80 04/03/21 04:00 Resp 7 L 04/03/21 04:00 BP 140/82 04/03/21 04:00 Pulse Ox 91 L 04/03/21 04:00 Intake & Output 04/02/21 04/03/21 04/03/21 18:59 06:59 18:59 Intake Total 596 207 Output Total 1925 520 Balance -1329 -313 Weight 128.4 kg 120.2 kg Intake: IV 376 207 Sodium Chloride 0.9% 1, 240 180 000 ml @ 20 mls/hr IV . Q24H MENDO[facility] Rx#:[id number] cefTRIAXone 1 gm In 100 Sodium Chloride 0.9% 50 ml @ 100 mls/hr IVPB Q24HR MENDOZA Rx#:[id number] pressure bag 36 27 Intake, IV Titration 100 Amount ACETAMINOPHEN IV (For NPO 100 ) 1,000 mg In Empty Bag 1 bag @ 400 mls/hr IVPB Q6HR PRN Rx#:[id number] Other 120 Output: Urine 1925 520 Other: Voiding Method Indwelling Catheter Indwelling Catheter ABP, PAP, CO, CI - Last Documented Arterial Blood Pressure 173/48 - Exam Physical Exam revealed a 60-year-old female intubated, mechanically ventilated, off all sedatives and paralytics. Awake more responsive compared to yesterday, following simple commands, moving her extremities upon demand although she remains profoundly weak. No agitation. No restlessness. Head: Atraumatic, normocephalic. Moist mucous membranes. Orogastric tube and endotracheal tube is intact. HEENT:[Neck is supple.] [No neck masses.] [No thyromegaly.] [No JVD.] Chest: Minimal fine crackles at the bases Cardiac Exam: [Normal S1 and S2, no S3 gallop, no murmur.] Abdomen: [Soft, nontender, no megaly, no rebound, no guarding, normal bowel sounds.] Extremities: [No clubbing, no edema, no cyanosis.] Neurological Exam: Awake, simple instructions like squeezing hands, opening and closing eyes. But seems to be a bit slow and weak and she has showed some limited improvement since yesterday. Psychiatric: Depressed mood blunt affect and mental status as above. - Labs CBC & Chem 7: 04/03/21 04:55 04/03/21 04:55 Labs: Abnormal Lab Results - Last 24 Hours (Table) 04/02/21 04/02/21 04/02/21 Range/Units 13:26 18:00 23:35 WBC (3.8-10.6) k/uL Potassium (3.5-5.1) mmol/L BUN (7-17) mg/dL Glucose (74-99) mg/dL POC Glucose (mg/dL) 178 H 128 H 121 H (75-99) mg/dL 04/03/21 04/03/21 Range/Units 04:55 04:55 WBC 14.7 H (3.8-10.6) k/uL Potassium 2.9 L (3.5-5.1) mmol/L BUN 21 H (7-17) mg/dL Glucose 118 H (74-99) mg/dL POC Glucose (mg/dL) (75-99) mg/dL Assessment and Plan Plan: 1 Acute hypoxemic respiratory failure secondary to coronavirus associated pneumonia, S/P intubation and mechanical ventilation on 03/19/2021. The patient for now is sedated and paralyzed and intubated on a mechanical ventilator. The patient is on Decadron 6 mg IV every 24 hours and the patient is also on Lovenox for DVT prophylaxis. The CTA showed no evidence of any pulmonary embolism. Doppler of the lower extremities has been negative. The patient failed BiPAP therapy and subsequent the patient to be intubated and placed on mechanical ventilator. The patient has been intubated on 03/19/2021 and the patient she was extubated on 04/01/2021. Currently on 15 L about 2 by nasal cannula. Chest x-ray still showing diffuse bilateral pulmonary infiltrates. Weak cough. Unable to swallow. 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 This could be also drug effect knowing that the patient was treated with steroids and paralytics for extended time 2 acute coronary syndrome related pneumonia with secondary respiratory failure 3 elevated inflammatory markers second COVID-19 infection 4 morbid obesity with BMI 46 5 diabetes mellitus currently on insulin 70/30 in addition to sliding scale coverage , She is NPO and BS are controlled 6 retention 7 motor weakness secondary to critical illness myopathy with possibility of drug effect related to steroids and paralytics. Plan Keep the patient nothing by mouth for now and repeat a swallow evaluation morning hoping that the patient will gradually get stronger and she is able to pass a swallow evaluation. Keep the patient 15 L about 2 by nasal cannula Order a PICC line and remove the triple-lumen catheter The Decadron Dose to 4 Mg Every 24 Hours Continue Lovenox for DVT prophylaxis Obtain a flat some of the abdomen and continue the laxative medication and repeat enema Select speciality consult and ask skilled nursing case manager to initiate the process We will continue to follow. Condition remains critical.The patient remains on a mechanical ventilator for now. We'll continue to follow. Continued care evaluation
[2021-04-03] MEDS: ALBUTEROL HFA INHALER INHALATION SCH ×4 (10:03→19:30)
--- NOTE | 2021-04-03 10:14 | XR ---
EXAMINATION TYPE: XR abdomen 1V DATE OF EXAM: 04/03/2021 COMPARISON: NONE HISTORY: Pain TECHNIQUE: Single supine KUB image of the abdomen is obtained FINDINGS: Small bowel demonstrates no evidence for dilatation or air fluid levels. Gas and fecal material is seen in non-distended colon. No convincing evidence for pneumoperitoneum. No unusual calcifications. The lung bases are clear. The osseous structures are intact. IMPRESSION: 1. Overall nonobstructive bowel gas pattern. Mild fecal stasis noted.
[2021-04-03] MEDS: ASCORBIC ACID 500 MG TAB PO SCH ×2 (10:50→20:44)
[2021-04-03] MEDS: ACETYLCYSTEINE 800 MG/4 ML VIAL PO SCH ×2 (10:50→20:44)
[2021-04-03] MEDS: DOCUSATE ORAL SOLN 100 MG/10 ML CUP PO SCH ×2 (10:50→20:45)
[2021-04-03] MEDS: amLODIPine 5 MG TAB PO SCH ×2 (10:50→20:44)
[2021-04-03] MEDS: CHOLECALCIFEROL 25 MCG (1000 IU) TABLET PO SCH (10:50)
[2021-04-03] MEDS: hydrALAZINE HCL 25 MG TAB PO SCH ×2 (10:51→20:45)
[2021-04-03] MEDS: LACTULOSE 20 GM/30 ML CUP PO SCH ×2 (10:51→20:45)
[2021-04-03] MEDS: LOSARTAN 50 MG TAB PO SCH (10:51)
[2021-04-03] MEDS: ZINC SULFATE 220 MG CAP PO SCH (10:52)
[2021-04-03] MEDS: ACETAMINOPHEN IV (For NPO) 1,000 MG in EMPTY BAG 1 BAG IVPB PRN (10:53)
[2021-04-03] MEDS ORDERED: LIDOCAINE 1% INJ 10MG/ML (20 ML MDV) ONE (10:55)
[2021-04-03] MEDS ORDERED: LIDOCAINE 1% INJ 10MG/ML (20 ML MDV) SQ ONE (11:27)
--- NOTE | 2021-04-03 11:56 | XR ---
EXAMINATION TYPE: XR chest 1V confirm line plcmt DATE OF EXAM: 04/03/2021 COMPARISON: 04/03/2021 HISTORY: Central line placement TECHNIQUE: Single frontal view of the chest is obtained. FINDINGS: Diffuse bilateral infiltrates and no evidence of increased metabolic right upper lobe. Rig ht-sided PICC line appears in good position and there is a stable appearing left-sided PICC line is n o pneumothorax. Heart is mildly prominent. Hypertrophic change of the spine. IMPRESSION: 1. PICC line appears in good position. 2. Diffuse bilateral infiltrates with mild progression in the right upper lobe.
--- NOTE | 2021-04-03 12:05 | IR ---
PICC LINE PLACEMENT: HISTORY: Infection requiring long-term antibiotic therapy, TPN. PROCEDURE: Ultrasound guidance of PICC line placement. COMPLICATIONS: None ANESTHESIA: 1. 1% Lidocaine locally. FINDINGS/TECHNIQUE: The procedure was explained to the patient. The risks, complications, benefits and alternatives were discussed and any questions were answered. Informed consent was obtained. The patient was placed supine on the fluoroscopic table and prepped and draped in the usual sterile fash ion. Utilizing a 21 gauge needle and sonographic guidance, access in the right cephalic vein was ac hieved and there is placement of a 0.018 guidewire. The vein is patent. A 5-F. sheath was placed ov er the guidewire. The guidewire and dilator were removed and a 5-F. Double lumen PICC line was place d through the sheath with the chest x-ray confirming the tip at the level of the SVC. The sheath was removed, the catheter was flushed and sutured into position. The patient was stable throughout the procedure and remained stable upon discharge from the Department of Radiology. The vein puncture was patent under ultrasound. A melo scale image was obtained to document patency of the vein punctured. All elements of the maximal barrier technique were utilized. IMPRESSION: 1. Successful PICC line placement under ultrasound performed bedside within the ICU.
[2021-04-03 12:29] LABS: Glucose,Whole Blood 140 mg/dL (75-99)
[2021-04-03 17:38] LABS: Glucose,Whole Blood 150 mg/dL (75-99)
[2021-04-03] MEDS: ENOXAPARIN 40 MG/0.4 ML SYRINGE SQ SCH (17:50)
--- NOTE | 2021-04-03 18:50 | PN ---
PROGRESS NOTE DATE OF SERVICE: 04/02/2021 This 60-year-old woman who was admitted with acute Covid 19 infection, acute bilateral interstitial pneumonia, acute hypoxic respiratory failure, also had some change in mental status. The patient is extubated today. The patient is able to sit up by the bedside. The patient had significant abdominal distention, and some constipation also. The abdominal flatplate showed nonobstructive bowel gas pattern. Mild fecal stasis also noted. Past medical history reviewed. REVIEW OF SYSTEMS: Could not be taken, the patient is mildly confused. CURRENT MEDICATIONS: Reviewed and include: Mucomyst, Ventolin, Norvasc, vitamin C, Rocephin, other medication and doses reviewed. PHYSICAL EXAMINATION: Patient is alert, oriented x2. Pulse 65, blood pressure 150/73, respirations 16, temperature 98.4, pulse ox 96% on 15 L nasal cannula. HEENT: Conjunctivae normal. NECK: No JVD. CARDIOVASCULAR: S1, S2 muffled. RESPIRATORY: Breath sounds diminished in the bases. Scattered rhonchi and crackles. ABDOMEN: Soft, obese, nontender. No mass palpable. LEGS are no edema. No swelling. NERVOUS SYSTEM: No focal deficits. LAB STUDIES: Sodium 130, potassium 2.9. ASSESSMENT: 1. Acute Covid 19 infection with acute bilateral interstitial pneumonia with acute hypoxic respiratory failure, status post mechanical ventilation. 2. Change in mental status, acute metabolic encephalopathy multifactorial. 3. Constipation and some mild abdominal distention. 4. E coli UTI. 5. Elevated inflammatory markers of Covid 19. 6. Diabetes mellitus, type 2. 7. History of breast surgery. 8. History of tonsillectomy. 9. History of nicotine dependence. 10.History of hyperkalemia, improved. 11.Obesity with body mass index 51.8. 12.Hypokalemia. 13.FULL CODE. RECOMMENDATIONS AND DISCUSSION: I recommend to continue current medications, management and symptomatic treatment. Otherwise, at this time, I recommend repeat potassium. Replace potassium and magnesium. Otherwise, continue the rest of medications. Guarded prognosis. Closely follow. Further recommendations to follow. Add lactulose to the current regimen. MMODL / IJN: [id number] /
--- NOTE | 2021-04-03 19:26 | PN ---
PROGRESS NOTE DATE OF SERVICE: 04/03/2021 REASON FOR FOLLOWUP: UTI. INTERVAL HISTORY: Patient is afebrile. The patient is breathing comfortably. She is currently on nasal cannula oxygen. The patient seems to be slightly lethargic and unable to provide any history. No vomiting. No diarrhea or any other changes reported by nursing staff. PHYSICAL EXAMINATION: Her blood pressure is 156/73 with a pulse of 65, temperature 98. She is 96% on 8 L high-flow oxygen. General description is a middle-aged female lying in bed in no distress. Respiratory system: Unlabored breathing, decreased intensity of breath sounds. No wheeze. Heart S1, S2. Regular rate and rhythm. Abdomen soft, no tenderness. LABS: Hemoglobin is 11.9, white count 14.7, creatinine 0.59. DIAGNOSTIC IMPRESSION AND PLAN: 1. Patient with acute respiratory failure secondary to COVID-19 pneumonia in this patient who did have overall clinical improvement. The patient has been extubated, is currently on Dexamethasone, Lovenox, zinc and ascorbic acid to continue. 2. E coli urinary tract infection for which the patient is covered with Rocephin. Continue supportive care. MMODL / IJN: [id number] /
[2021-04-03] MEDS: SODIUM CHLORIDE 0.9% 1,000 ML IV SCH (20:49)
[2021-04-04 00:02] LABS: Glucose,Whole Blood 96 mg/dL (75-99)
[2021-04-04] MEDS: INSULIN ASPART (NovoLOG) 100 UNIT/ML VIAL SQ SCH ×4 (00:11→17:25)
[2021-04-04] MEDS: METOCLOPRAMIDE 5 MG/ML 2 ML VIAL IVP SCH ×4 (00:12→17:27)
[2021-04-04 05:48] LABS: African American GFR (CKD) >90 (>60 ml/min/1.73 sqM); Anion Gap 6 mmol/L; Blood Urea Nitrogen 23 mg/dL (7-17); Calcium 9.5 mg/dL (8.4-10.2); Carbon Dioxide 28 mmol/L (22-30); Chloride 104 mmol/L (98-107); Glucose 98 mg/dL (74-99); Non-African American GFR(CKD) >90 (>60 ml/min/1.73 sqM); Potassium 3.5 mmol/L (3.5-5.1); Sodium 138 mmol/L (137-145)
[2021-04-04 06:11] LABS: Glucose,Whole Blood 106 mg/dL (75-99)
[2021-04-04] MEDS: hydrALAZINE HCL 20 MG/ML 1 ML VIAL IVP PRN ×2 (06:23→11:32)
[2021-04-04] MEDS: ALBUTEROL HFA INHALER INHALATION SCH ×5 (07:35→21:38)
[2021-04-04] MEDS: amLODIPine 5 MG TAB PO SCH ×2 (08:21→22:35)
[2021-04-04] MEDS: ACETYLCYSTEINE 800 MG/4 ML VIAL PO SCH ×2 (08:21→22:34)
--- NOTE | 2021-04-04 08:21 | XR ---
EXAMINATION TYPE: XR chest 1V portable DATE OF EXAM: 04/04/2021 HISTORY: Shortness of breath. COMPARISON: 04/03/2021 TECHNIQUE: Single view of the chest is submitted. FINDINGS: Demonstrated are scattered senescent parenchymal change. Patchy infiltrates throughout both lung shah persist unchanged. Central venous line appears to have been removed and PICC line appears unchanged. The heart is stable. Hilar and mediastinal structures are within normal limits. Degenerative changes are seen of the dorsal spine. IMPRESSION: 1. Patchy infiltrates throughout both lung shah persist unchanged
[2021-04-04] MEDS: LOSARTAN 50 MG TAB PO SCH (08:22)
[2021-04-04] MEDS: ZINC SULFATE 220 MG CAP PO SCH (08:22)
[2021-04-04] MEDS: hydrALAZINE HCL 25 MG TAB PO SCH ×2 (08:22→22:35)
[2021-04-04] MEDS: ASCORBIC ACID 500 MG TAB PO SCH ×2 (08:22→22:35)
[2021-04-04] MEDS: CHOLECALCIFEROL 25 MCG (1000 IU) TABLET PO SCH (08:22)
[2021-04-04] MEDS: LACTULOSE 20 GM/30 ML CUP PO SCH ×2 (08:22→22:34)
[2021-04-04] MEDS: DOCUSATE ORAL SOLN 100 MG/10 ML CUP PO SCH ×2 (08:22→23:50)
[2021-04-04] MEDS: POTASSIUM CHLORIDE 20 MEQ in WATER FOR INJECTION 1 100ML.BAG IVPB SCH ×2 (09:28→11:33)
[2021-04-04] MEDS: DEXAMETHASONE SOD PHOSPHATE 4 MG/ML 1 ML VIAL IVP SCH (09:29)
[2021-04-04] MEDS: FUROSEMIDE 10 MG/ML 4 ML VIAL IV SCH (09:29)
[2021-04-04] MEDS: FAMOTIDINE 20 MG/2 ML VIAL IV SCH ×2 (09:29→22:34)
[2021-04-04 09:45] LABS: Glucose,Whole Blood 135 mg/dL (75-99)
--- NOTE | 2021-04-04 10:05 | P.PN ---
Subjective Progress Note Date: 04/04/21 On , the patient remains intubated on a mechanical ventilator the patient is being seen for a follow-up. On today's evaluation, the patient is sedated and she remains on propofol running at 50 mcg/kg per minute and the patient is also on Nimbex running at 1 mcg/kg per minute. As such, the level of sedation and paralytics is unchanged compared to yesterday. She remains on a mechanical ventilator and she remained on assist control mode at the rate of 30 with a tidal volume of 100 and FiO2 of 65% with a PEEP of 18. Chest x-ray from today is in progress. Note that the chest x-ray from yesterday is improved. The peak air pressure today to 36, static pressures 34 and we are still awaiting for the blood gases from today. Meanwhile, the patient's current pulse ox is around 96% on above-mentioned ventilator setting. The patient continues to get diuresed with Lasix and the patient is on Lasix 40 mg IV every 12 hours. Overall fluid balance over the past 24 hours has been -157 mL and the patient seems to be headed towards a negative fluid balance. The patient's blood sugars under better control. No further episodes of hypoglycemia. She remains on Decadron 6 mg IV every 24 hours. She is also on Lovenox 40 mg subcu every 24 hours. D-dimer level is at 3.54. In terms of her blood pressure control, the patient is on Cleviprex which is still running at 2 mg an hour. Suggestive starting the patient on Norvasc 5 mg by mouth twice a day and gradually wean off the Cleviprex and discontinue. IV fluids are currently at KVO. She is receiving enteral feeding for nutritional support and the patient is on vital high protein at the rate of 12 mL an hour. Otherwise, no other significant changes over the past 24 hours. Reevaluated today on 03/27/21, patient remains in the ICU, intubated and mechanically ventilated. She is on assist control rate of 30 tidal volume 400 FiO2 55% PEEP is 15. ABG is marginal pO2 is 64 pCO2 is 39 pH of 7.44. Hence no changes were made in the present vent settings. Chest x-ray continues show bilateral infiltrates consistent with COVID-19 pneumonia. Patient is on enteral feeding. She is also on propofol at 50, fentanyl at 1.5. And she is also on Nimbex. 1 mcg/kg/m. Rest x-ray showed endotracheal tube in the proper position. Left supraclavicular central venous line is in appropriate position. WBC count today is 12.1 hemoglobin 11.0 d-dimer is 3 basic metabolic profile is normal, BUN is 54 creatinine 0.78 LDH is 746 C-reactive protein is 2.3 patient remains on Mucomyst, albuterol, ascorbic acid, cefepime, Peridex, Decadron 6 mg IV push daily, Lovenox 40 mg subcu daily Lasix 40 mg IV push every 12 hours zinc, lactulose 10 mg by mouth twice a day and she is also on insulin as per scale. Reevaluated today on 03/28/21, patient remains in the ICU intubated and mechanically ventilated. She is on assist control rate of 30 tidal volume 400 FiO2 50% PEEP is 15 and I cut it down to 14. She is on Nimbex at 2 propofol at 40 she is on vital AF at 10 mL per hour. Her ABG today showed a pO2 of 69 pCO2 of 36 pH of 7.48. Chest x-ray continues to show bilateral multifocal increased opacities consistent with COVID-19 pneumonia, not much cell changer the last few days. Regency count today is 12.6 hemoglobin is 11.1. Electrolytes are normal and renal profile is normal d-dimer is 3.01. LDH is 717 slightly lower compared to the last few days. And C-reactive protein is 2.5, not significantly elevated patient remains on the him empirically, she is also on albuterol, Decadron 6 mg IV push daily, Lovenox 40 mg subcu daily Lasix 40 mg IV push every 12 hours, and lactulose as well as Reglan. Reevaluated today on 03/29/2021, remains in the ICU intubated and mechanically ventilated. Remains on assist control rate of 30 tidal volume 400 FiO2 50% PEEP 14. Her O2 saturations 94%, and her ABG showed a pO2 of 77 pCO2 of 35 pH of 7.50 hence I recommended cutting down her FiO2 to 45%. And keep PEEP at 14 for now. Chest x-ray is showing slight improvement in her bilateral infiltrates, d- dimer today is 1.97, seems to be trending down compared to a few days ago was as high as 10.94.. WBC count is 11.5 hemoglobin is 10.6. Asymmetric metabolic profile is normal renal profile is normal LDH is 643 and that is encouraging seems to be trending down steadily since admission from 2532 on March 19. Patient remains on Nimbex at 2 mcg/kg/m, propofol 50 mcg/kg/m. And she is on Dilaudid when necessary. Reevaluated today on 03/30/21, patient remains in the ICU intubated mechanically ventilated. She is on assist control rate of 30 tidal volume 400 FiO2 45% PEEP of 14. Patient is on Nimbex at 2.5 mcg/kg/m she is also on propofol at 50 mcg/kg/m. Receiving Dilaudid when necessary. ABG today showed a pO2 of 60 pCO2 of 35 pH of 7.5 to hence no changes were made and her ventilator settings I did however recommend stopping Nimbex and keep the patient on propofol and Dilaudid if possible. Chest x-ray is showing slight improvement in her bilateral infiltrates. WBC count is 11.8 hemoglobin is 11.1. He looks lites are normal renal profile is normal. Remains on the COVID-19 cocktail. Remains on cefepime as per infectious disease on the case. Remains on Decadron 6 mg IV push daily, remains on Lovenox 40 mg subcu daily. Lasix 40 mg IV push twice a day. And she remains on zinc. Reevaluated today on 03/31/21, patient remains in the ICU intubated and mechanically ventilated. She is on assist control rate of 30 tidal volume 400 FiO2 45% PEEP was at 14 and I cut it down to 10. ABG on a PEEP of 14 showed a pO2 of 81 pCO2 36 pH of 7.51. Chest x-ray is showing improvement in her bilateral multifocal infiltrates. WBC count is 11.1 hemoglobin is 10.7 and electrolytes are normal potassium is borderline low at 3.5. Renal profile is normal. Patient is sedated, however she is not requiring Nimbex, she is maintained on propofol and fentanyl, patient was on Nimbex which I have discontinued, and the plan is to awaken the patient today, and at least give the patient trials of weaning if possible. May even have to use Precedex although the patient seems to be bradycardic, and I'm not certain that she couldn't tolerate Precedex with her heart rate in the 40s. Patient has always had this sinus bradycardia, but she is maintaining a great blood pressure, and we'll may have to use clevidipine elevated blood pressure. Reevaluated today on 04/01/21, patient remains in the ICU, intubated and mechanically ventilated. Patient is on assist control rate of 30 FiO2 of 40% tidal volume is 400 and PEEP is 8 patient remains off all sedation since yesterday, she is requiring intermittently small dose of clevidipine for hypertension. Has not had a bowel movement since admission, in spite of treatment with lactulose and Reglan and today I recommended an enema to be given to the patient. ABG today showed a pO2 of 70 pCO2 33 pH of 7.58 WBC count is 15.5 hemoglobin 10.9 index was are normal renal profile is normal chest x-ray continues to show scattered reticulonodular infiltrates not much change since yesterday but overall there has been improvement Reevaluated today on 04/02/21, patient remains in the ICU, intubated and mechanically ventilated. She is off sedation completely for the last 2 days, patient is requiring clevidipine for her significantly elevated blood pressure, and today I added multiple meds to control her blood pressure, however patient may not need that many blood pressure medications if extubated and kept off mechanical ventilation. Her assist control rate today is 30 tidal volume 400 FiO2 40% and PEEP of 8. Chest x-ray yesterday showed significant improvement in her bilateral infiltrates. Her ABG on the same vent settings as noted showed a pO2 of 76 pCO2 of 34 pH of 7.56. Patient is on assist control mode of mechanical ventilation, she seems to be very comfortable, hence I will try to give the patient a trial of pressure support and CPAP, and if tolerated may even extubated the patient. My only concern is the patient seems to be a bit encephalopathic, she opens her eyes, follows simple instructions, and she seems to be generally weak, she may have also some component of critical illness polyneuropathy because of prolonged course in the ICU on multiple meds and on paralytics. 04/03/2021, the patient remains extubated. Noted the patient was extubated on 04/01/2021 and currently she is on oxygen at high flow at 15 L. Her current pulse ox is around 89-90%. She is awake. She'll occasionally follow simple commands. Her responses not consistent dull. She is moving all extremities. She is very weak and she is unable to raise her arms and legs against gravity. Her cough is also very weak. She blinks upon demand, she is able to respond and she is alert and she has obvious eye opening. She is not talking at. She is unable to swallow. Her chest x-ray still showing diffuse bilateral pulmonary infiltrates consistent with COVID 19 related pneumonia. The patient remains on record Abilio 6 mg IV every 24 hours. Rest of the treatment includes Lovenox 40 mg subcu every 24 hours. Based on her inability to eat, her blood pressure was noted to be elevated as the patient was unable to take her oral antihypertensive medications. The patient is receiving IV hydralazine I when necessary basis for systolic blood pressure above 160. She is not having regular bowel movements. Our efforts to give her laxatives has failed. The patient had a soapsuds enema yesterday and the same will be done today and I would also recommend obtaining a pleasant some of the abdomen. Limited edema lower extremity is bilaterally. The patient has a Smith catheter in place. Adequate urine output. Active issues for now is her diminished alertness in addition to profound motor weakness in all 4 extremities which is probably related to COVID 19 related i nfection/pneumonia/prolonged intubation mechanical ventilation. She remains on IV Rocephin for an underlying UTI and the cultures had yielded E. coli. 04/04/2021, the patient remains extubated on 15 L of oxygen high flow. Her current pulse ox is around 90%. She is awake and alert and interactive. She remains quite weak. No significant events overnight. The patient's blood work from today shows normal renal function, normal electrolytes, CBC still pending for now. Meanwhile, I took the opportunity to lower the Decadron dose to 4 mg IV on a daily basis and the patient is also on Lasix 40 mg IV every 24 hours and Lovenox 40 mg subcu on a daily basis. The patient is also on IV Rocephin regarding E. coli urinary tract infection. She is completing a seven-day course. No other issues for now. In terms of oral intake, she is still nothing by mouth and the patient is still unable to swallow. And the patient is going to have a reevaluation by speech. Repeat chest x-ray was done and shows stable patchy bilateral pulmonary infiltrates throughout the lung shah without any significant interval change. She continues to have a PICC line in her right upper extremity. Objective - Vital Signs Vital signs: Vital Signs Temp 98.4 F 04/04/21 08:00 Pulse 92 04/04/21 09:00 Resp 24 04/04/21 09:00 BP 138/57 04/04/21 09:00 Pulse Ox 93 L 04/04/21 09:00 Intake & Output 04/03/21 04/04/21 04/04/21 18:59 06:59 18:59 Intake Total 712 140 20 Output Total 1375 445 65 Balance -663 -305 -45 Weight 122.6 kg Intake: IV 712 140 20 Potassium Chloride 20 meq 385 In Sodium Chloride 0.9% 100 ml @ 55 mls/hr IVPB Q2H [facility] Rx#:[id number] Sodium Chloride 0.9% 1, 200 140 20 000 ml @ 20 mls/hr IV . Q24H [facility] Rx#:[id number] cefTRIAXone 1 gm In 100 Sodium Chloride 0.9% 50 ml @ 100 mls/hr IVPB Q24HR [facility] Rx#:[id number] pressure bag 27 Oral 0 Output: Urine 1375 445 65 Other: Voiding Method Indwelling Catheter Indwelling Catheter ABP, PAP, CO, CI - Last Documented Arterial Blood Pressure 177/68 - Exam Physical Exam revealed a 60-year-old female intubated, mechanically ventilated, off all sedatives and paralytics. Awake more responsive compared to yesterday, following simple commands, moving her extremities upon demand although she remains profoundly weak. No agitation. No restlessness. Head: Atraumatic, normocephalic. Moist mucous membranes. Orogastric tube and endotracheal tube is intact. HEENT:[Neck is supple.] [No neck masses.] [No thyromegaly.] [No JVD.] Chest: Minimal fine crackles at the bases Cardiac Exam: [Normal S1 and S2, no S3 gallop, no murmur.] Abdomen: [Soft, nontender, no megaly, no rebound, no guarding, normal bowel jhonatan nds.] Extremities: [No clubbing, no edema, no cyanosis.] Neurological Exam: Awake, simple instructions like squeezing hands, opening and closing eyes. But seems to be a bit slow and weak and she has showed some limited improvement since yesterday. Psychiatric: Depressed mood blunt affect and mental status as above. - Labs CBC & Chem 7: 04/03/21 04:55 04/04/21 04:31 Labs: Abnormal Lab Results - Last 24 Hours (Table) 04/03/21 04/03/21 04/04/21 Range/Units 12:27 17:37 04:31 BUN 23 H (7-17) mg/dL Creatinine 0.48 L (0.52-1.04) mg/dL POC Glucose (mg/dL) 140 H 150 H (75-99) mg/dL 04/04/21 04/04/21 Range/Units 06:09 09:43 BUN (7-17) mg/dL Creatinine (0.52-1.04) mg/dL POC Glucose (mg/dL) 106 H 135 H (75-99) mg/dL Assessment and Plan Plan: 1 Acute hypoxemic respiratory failure secondary to coronavirus associated pneumonia, S/P intubation and mechanical ventilation on 03/19/2021. The patient for now is sedated and paralyzed and intubated on a mechanical ventilator. The patient is on Decadron 6 mg IV every 24 hours and the patient is also on Lovenox for DVT prophylaxis. The CTA showed no evidence of any pulmonary embolism. Doppler of the lower extremities has been negative. The patient failed BiPAP therapy and subsequent the patient to be intubated and placed on mechanical ventilator. The patient has been intubated on 03/19/2021 and the patient she was extubated on 04/01/2021. Active issue for now. His critical illness polyneuropathy and myopathy and the patient is profoundly weak. The patient is unable to swallow. The patient remains on 15 L of oxygen by nasal cannula. Chest x-ray still showing diffuse bilateral pulmonary infiltrates, unchanged compared to earlier chest x-rays. The patient is on a lower dose of Decadron 4 mg IV every 24 hours and the patient is receiving daily Lasix and the patient is a negative fluid balance for now. She remains nothing by mouth. 2 acute coronary syndrome related pneumonia with secondary respiratory failure 3 elevated inflammatory markers second COVID-19 infection 4 morbid obesity with BMI 46 5 diabetes mellitus currently on insulin 70/30 in addition to sliding scale coverage , She is NPO and BS are controlled 6 retention 7 motor weakness secondary to critical illness myopathy with possibility of drug effect related to steroids and paralytics. Plan Keep the patient nothing by mouth for now Speech to reevaluate her swallow Keep the patient 15 L by nasal cannula PICC line inserted The Decadron Dose to 4 Mg Every 24 Hours Continue Lovenox for DVT prophylaxis Obtain a flat some of the abdomen and continue the laxative medication and repeat enema Select speciality consult initiated and the patient is [facility] to [facility] specialty by Wednesday. Meanwhile, I think the patient can be transferred out of the intensive care unit today.
[2021-04-04] MEDS: INSULN ASP PRT/INSULIN ASPART 100 UNIT/ML 10 ML VIAL SQ SCH ×2 (10:23→22:53)
[2021-04-04 10:30] LABS: HCT 39.4 % (34.0-46.0); HGB 12.6 gm/dL (11.4-16.0); MCH 30.2 pg (25.0-35.0); MCV 94.5 fL (80.0-100.0); Platelet Count 356 k/uL (150-450); RBC 4.17 m/uL (3.80-5.40); RDW 14.2 % (11.5-15.5)
[2021-04-04 11:27] LABS: Glucose,Whole Blood 172 mg/dL (75-99)
[2021-04-04 17:16] LABS: Glucose,Whole Blood 100 mg/dL (75-99)
[2021-04-04] MEDS: ENOXAPARIN 40 MG/0.4 ML SYRINGE SQ SCH (17:27)
--- NOTE | 2021-04-04 18:12 | PN ---
PROGRESS NOTE DATE OF SERVICE: 04/04/2021 This 60-year-old woman with a past medical history of multiple medical problems was admitted with COVID-19 pneumonia. The patient had extensive bilateral interstitial pneumonia. The patient is extubated. Patient is on 15 L of high-flow oxygen. The patient has significant weakness, possibly caused by critical care polyneuropathy. Past medical reviewed. Review of systems could not be taken; the patient is still mildly confused. CURRENT MEDICATIONS: Reviewed. They include Mucomyst, Ventolin, Norvasc, vitamin C, Rocephin. Doses and other medications are reviewed. PHYSICAL EXAMINATION: Patient is mildly confused. Pulse 67, blood pressure 100/50, respiration 20, temperature 98.2, pulse ox 96% on 15 L. HEENT: Conjunctivae normal. NECK: No jugular venous distention. CARDIOVASCULAR: S1, S2 muffled. RESPIRATION: Breath sounds diminished at the bases. Bilateral scattered rhonchi and crackles. ABDOMEN: Soft. NERVOUS SYSTEM: Diffusely weak. Wasting also present. LABS: WBC 12. ABGs noted. Potassium 4.2. ASSESSMENT: 1. Acute COVID-19 infection with acute bilateral interstitial pneumonia with acute hypoxic respiratory failure, status post mechanical ventilation. 2. Change in mental status, acute metabolic encephalopathy, multifactorial. 3. Escherichia coli urinary tract infection. 4. Diffuse weakness and possibly critical care polyneuropathy. 5. Constipation with some mild abdominal pain, distention and ileus. 6. Elevated inflammatory markers of COVID-19. 7. Diabetes mellitus, type 2. 8. History of breast surgery. 9. History of tonsillectomy. 10.History of nicotine dependence. 11.History of hyperkalemia, improved. 12.Obesity with body mass index 51.8. 13.Hypokalemia. 14.FULL CODE. RECOMMENDATIONS AND DISCUSSION: I recommend to continue current medications, continue with the monitoring, symptomatic treatment. Otherwise at this time I would recommend PT/OT evaluation and, once the patient is stabilized, possible ECF rehab. Otherwise, continue the rest of the medications. Continue the vitamins. Continue DVT prophylaxis. Continue with empiric antibiotics. The urine culture showed E coli. Chest x-ray reviewed. Guarded prognosis. Further recommendations to follow. MMODL / IJN: [id number] / [facility]
[2021-04-04 20:28] LABS: Glucose,Whole Blood 200 mg/dL (75-99)
[2021-04-04] MEDS: SODIUM CHLORIDE 0.9% 1,000 ML IV SCH (22:36)
[2021-04-04 23:56] LABS: Glucose,Whole Blood 182 mg/dL (75-99)
--- NOTE | 2021-04-05 00:39 | PN ---
PROGRESS NOTE DATE OF SERVICE: 04/04/2021 REASON FOR FOLLOWUP: COVID-19 pneumonia and UTI. INTERVAL HISTORY: The patient is afebrile. The patient is currently on high-flow nasal oxygen. The patient is slightly more awake, alert, and has been transferred out of the ICU. No chest pain. No worsening cough or sputum production. No abdominal pain or diarrhea. PHYSICAL EXAMINATION: Blood pressure 182/74 with a pulse of 89, temperature is 97.5. She is 95% on 15 L high- flow oxygen. General description is a middle-aged female up in the chair in no distress. Respiratory system: Unlabored breathing, decreased intensity of breath sounds, no wheeze. Heart S1, S2. Regular rate and rhythm. Abdomen soft, no tenderness. LABS: Hemoglobin is 12.8, white count 12.0, creatinine 0.48. DIAGNOSTIC IMPRESSION AND PLAN: 1. Patient with acute respiratory failure secondary to COVID-19 pneumonia in this patient with slow clinical improvement. The patient is currently on dexamethasone, Lovenox, zinc and ascorbic acid, to continue. 2. E coli urinary tract infection, covered with Rocephin, to continue and continue supportive care. MMODL / IJN: [id number] /
[2021-04-05 01:06] LABS: Glucose,Whole Blood 156 mg/dL (75-99)
[2021-04-05] MEDS: INSULIN ASPART (NovoLOG) 100 UNIT/ML VIAL SQ SCH ×4 (01:25→18:12)
[2021-04-05] MEDS: METOCLOPRAMIDE 5 MG/ML 2 ML VIAL IVP SCH ×5 (01:25→23:20)
[2021-04-05 05:50] LABS: Glucose,Whole Blood 94 mg/dL (75-99)
[2021-04-05] MEDS: CHLORHEXIDINE GLUCONATE 15 ML CUP MUCOUS MEM SCH (06:47)
--- NOTE | 2021-04-05 07:06 | XR ---
EXAMINATION TYPE: XR chest 1V portable DATE OF EXAM: 04/05/2021 6:50 AM COMPARISON:Chest radiograph from one day prior. CLINICAL INDICATION:Female, 60 years old with history of covid; TECHNIQUE: Frontal view of the chest. FINDINGS: Lungs/Pleura: Similar multifocal airspace opacities. No evidence of pneumothorax or pleural effusion. Pulmonary vascularity: Unremarkable. Heart/mediastinum: Cardiomediastinal silhouette is partially obscured due to overlying and adjacent o pacities. Musculoskeletal: No acute osseous pathology. Lines/Tubes: Right-sided PICC line with distal tip over the right atrium. IMPRESSION: 1. Similar multifocal airspace opacities. 2. Stable support line.
[2021-04-05] MEDS: LACTULOSE 20 GM/30 ML CUP PO SCH ×2 (08:00→19:59)
[2021-04-05] MEDS: LOSARTAN 50 MG TAB PO SCH (08:00)
[2021-04-05] MEDS: amLODIPine 5 MG TAB PO SCH ×2 (08:00→19:58)
[2021-04-05] MEDS: hydrALAZINE HCL 25 MG TAB PO SCH ×2 (08:00→19:58)
[2021-04-05] MEDS: ASCORBIC ACID 500 MG TAB PO SCH ×2 (08:00→19:58)
[2021-04-05] MEDS: ZINC SULFATE 220 MG CAP PO SCH (08:00)
[2021-04-05] MEDS: CHOLECALCIFEROL 25 MCG (1000 IU) TABLET PO SCH (08:00)
[2021-04-05] MEDS: DOCUSATE ORAL SOLN 100 MG/10 ML CUP PO SCH ×2 (08:00→19:58)
[2021-04-05] MEDS: ACETYLCYSTEINE 800 MG/4 ML VIAL PO SCH ×2 (08:01→19:58)
[2021-04-05] MEDS: FUROSEMIDE 10 MG/ML 4 ML VIAL IV SCH (08:01)
[2021-04-05] MEDS: DEXAMETHASONE SOD PHOSPHATE 4 MG/ML 1 ML VIAL IVP SCH (08:01)
[2021-04-05] MEDS: FAMOTIDINE 20 MG/2 ML VIAL IV SCH (08:01)
[2021-04-05] MEDS: INSULN ASP PRT/INSULIN ASPART 100 UNIT/ML 10 ML VIAL SQ SCH ×2 (08:02→23:19)
[2021-04-05] MEDS: ALBUTEROL HFA INHALER INHALATION SCH ×4 (09:20→19:59)
[2021-04-05 11:30] LABS: Glucose,Whole Blood 244 mg/dL (75-99)
--- NOTE | 2021-04-05 12:02 | P.PN ---
Subjective Progress Note Date: 04/05/21 Principal diagnosis: COVID-19 pneumonia This is a 60-year-old female patient with a history of diabetes mellitus, obesity, former smoker who presented to the emergency room yesterday with complaints of increasing shortness of breath and low oxygen that she was measuring at home. The patient started having symptoms of shortness of breath cough congestion on 03/06/2021 and reportedly tested negative for CoVID. She was treated with azithromycin and prednisone in the outpatient setting. Her symptoms progressed and she did test positive on 03/16/2021. She was admitted to the regular medical floor and placed on BiPAP over 6 and 70% FiO2 with O2 saturations 85-86% with respiratory rate of 44 and A team was called at 11:00 last night and the patient remained on the floor. Her oxygen requirements continued to progress and she was urgently intubated at 04:43 this morning and placed on mechanical ventilator. He is seen today in consultation in the intensive care unit. Current settings are assist-control mode at a rate of 26, tidal volume 500, FiO2 100% and a PEEP of 14. Blood gases revealed a PaO2 of 76, pCO2 of 47 and a pH of 7.29. She is currently sedated on to follow at 40 mcg/kg/m. She is on Nimbex at 2 mcg/kg/m. She is receiving Dilaudid IVP. 0.9 normal saline at 75 ML's per hour. Chest x-ray reveals diffuse bilateral airspace disease. The endotracheal tube was noted to be quite high and is to be repositioned urgently. White count 9.0. Hemoglobin 14.9. Lymphocytes 0.5. Sodium 134. Potassium 6.1. Chloride 104. Bicarb 15. BUN 28. Creatinine 0.72. Glucose 215. She was initiated on Decadron, Lovenox, vitamin supplements. The patient is seen today 03/20/2021 in follow-up in the intensive care unit. She remains intubated and on mechanical ventilator. Currently an assist-control mode at a rate of 30, temperature Ativan 400, FiO2 70% and a PEEP of 14. Morning blood gases revealed a PaO2 of 71, pCO2 51, pH 7.35. Continued on sedat ion of propofol at 50 mcg/kg/m, Nimbex at 1 mcg/kg/m. Normal saline at 75 ML's per hour. Norepinephrine has been off since approximately 8 PM last evening. She is being nourished with vital AF at 36 ML's per hour which is goal. Urine output has been borderline. Creatinine is up to 1.30. BUN 49. Sodium 136. Potassium 4.6. AST 5. ALT 23. LDH 2112. C-reactive protein 16.1. White count 8.0. Hemoglobin 12.1. Lymphocytes 0.6. D-dimer 1.63. She remains on Lovenox, Decadron, vitamin supplements. Chest x-ray continues show patchy bilateral infiltrates. Endotracheal tube to be repositioned. Sputum culture reveals no growth to date. Blood cultures reveal no growth to date. Had a t emperature of 100.2 yesterday afebrile today. The patient is seen today 03/21/2021 in follow-up in the intensive care unit. She remains intubated on the mechanical ventilator. Current settings are assist control mode with respiratory rate of 30, telephone 400, FiO2 55% and a PEEP of 18. Morning blood gases reveal a pO2 of 89, pCO2 47, pH 7.38. She is sedated on propofol. Nimbex at 1 g/kg/m. Normal saline at 75 ML's per hour. He is being nourished with vital AF at 36 ML's per hour which is goal. Urine output averaging 30-50 ML's per hour. Today's chest x-ray reveals bilateral multifocal reticular opacities consistent with COVID-19 pneumonia. Endotracheal tube in good position. Blood cultures reveal no growth. Sputum culture pending. White count 8.5. Hemoglobin 12.0. Lymphocytes 0.9. D-dimer 10.94. Sodium 138. Potassium 4.7. Creatinine 1.05. LDH 1559. C-reactive protein 4.4. Currently on Decadron, Lovenox, vitamin supplements. Reevaluated today on 04/02/21, patient remains in the ICU, intubated and mechanically ventilated. She is off sedation completely for the last 2 days, patient is requiring clevidipine for her significantly elevated blood pressure, and today I added multiple meds to control her blood pressure, however patient may not need that many blood pressure medications if extubated and kept off mechanical ventilation. Her assist control rate today is 30 tidal volume 400 FiO2 40% and PEEP of 8. Chest x-ray yesterday showed significant improvement in her bilateral infiltrates. Her ABG on the same vent settings as noted showed a pO2 of 76 pCO2 of 34 pH of 7.56. Patient is on assist control mode of mechanical ventilation, she seems to be very comfortable, hence I will try to give the patient a trial of pressure support and CPAP, and if tolerated may even extubated the patient. My only concern is the patient seems to be a bit enceph alopathic, she opens her eyes, follows simple instructions, and she seems to be generally weak, she may have also some component of critical illness polyneuropathy because of prolonged course in the ICU on multiple meds and on paralytics. 04/03/2021, the patient remains extubated. Noted the patient was extubated on 04/01/2021 and currently she is on oxygen at high flow at 15 L. Her current pulse ox is around 89-90%. She is awake. She'll occasionally follow simple commands. Her responses not consistent dull. She is moving all extremities. She is very weak and she is unable to raise her arms and legs against gravity. Her cough is also very weak. She blinks upon demand, she is able to respond and she is alert and she has obvious eye opening. She is not talking at. She is unable to swallow. Her chest x-ray still showing diffuse bilateral pulmonary infiltrates consistent with COVID 19 related pneumonia. The patient remains on record Abilio 6 mg IV every 24 hours. Rest of the treatment includes Lovenox 40 mg subcu every 24 hours. Based on her inability to eat, her blood pressure was noted to be elevated as the patient was unable to take her oral antihypertensive medications. The patient is receiving IV hydralazine I when necessary basis for systolic blood pressure above 160. She is not having regular bowel movements. Our efforts to give her laxatives has failed. The patient had a soapsuds enema yesterday and the same will be done today and I would also recommend obtaining a pleasant some of the abdomen. Limited edema lower extremity is bilaterally. The patient has a Smith catheter in place. Adequate urine output. Active issues for now is her diminished alertness in addition to profound motor weakness in all 4 extremities which is probably related to COVID 19 related infection/pneumonia/prolonged intubation mechanical ventilation. She remains on IV Rocephin for an underlying UTI and the cultures had yielded E. coli. 04/04/2021, the patient remains extubated on 15 L of oxygen high flow. Her current pulse ox is around 90%. She is awake and alert and interactive. She remains quite weak. No significant events overnight. The patient's blood work from today shows normal renal function, normal electrolytes, CBC still pending for now. Meanwhile, I took the opportunity to lower the Decadron dose to 4 mg IV on a daily basis and the patient is also on Lasix 40 mg IV every 24 hours and Lovenox 40 mg subcu on a daily basis. The patient is also on IV Rocephin regarding E. coli urinary tract infection. She is completing a seven-day course. No other issues for now. In terms of oral intake, she is still nothing by mouth and the patient is still unable to swallow. And the patient is going to have a reevaluation by speech. Repeat chest x-ray was done and shows stable patchy bilateral pulmonary infiltrates throughout the lung shah without any significant interval change. She continues to have a PICC line in her right upper extremity. The patient is seen today 04/05/1999 2200 follow-up on the regular medical floor. She is currently sitting up in bed. Awake. Alert. Interactive. She is currently maintaining O2 saturation in the low 90s on 13 L high flow nasal cannula. She's afebrile. Hemodynamically stable. Chest x-ray continues to reveal similar multifocal airspace opacities. Earlier urine culture was positive for E. coli. Blood and sputum cultures had revealed no growth. She is continued on Decadron, Lovenox, vitamin supplements. Remains on Lasix 40 mg IV daily. Continued on Pepcid. Continued on bronchodilators. Remains on antibiotics in the form of ceftriaxone. Objective - Vital Signs Vital signs: Vital Signs Temp 98.8 F 04/05/21 09:59 Pulse 112 H 04/05/21 09:59 Resp 27 H 04/05/21 09:59 BP 177/74 04/05/21 09:59 Pulse Ox 94 L 04/05/21 09:59 Intake & Output 04/04/21 04/05/21 04/05/21 18:59 06:59 18:59 Intake Total 320 Output Total 1315 Balance -995 Weight 122.6 kg 132.5 kg Intake: IV 320 Potassium Chloride 20 meq 100 In Water For Injection 1 100ml.bag @ 50 mls/hr IVPB Q2H [facility] Rx#: [id number] Sodium Chloride 0.9% 1, 220 000 ml @ 20 mls/hr IV . Q24H [facility] Rx#:[id number] Output: Urine 1315 Other: Voiding Method Indwelling Catheter Indwelling Catheter # Voids 350 ABP, PAP, CO, CI - Last Documented Arterial Blood Pressure 177/68 - Exam GENERAL EXAM: Alert, pleasant 60-year-old female patient, interactive. Remains quite weak and debilitated. On 13 L high flow nasal cannula, comfortable in no apparent distress. HEAD: Normocephalic. EYES: Sluggish reaction of pupils, equal size. NOSE: Clear with pink turbinates. THROAT: No erythema or exudates. NECK: No masses, no JVD. CHEST: No chest wall deformity. LUNGS: Equal air entry with bibasilar coarse crackles. CVS: S1 and S2 normal with no audible murmur, regular rhythm. ABDOMEN: No hepatosplenomegaly, normal bowel sounds, no guarding or rigidity. SPINE: No scoliosis or deformity SKIN: No rashes CENTRAL NERVOUS SYSTEM: Profound weakness, tone is normal in all 4 extremities. EXTREMITIES: There is no peripheral edema. No clubbing, no cyanosis. Peripheral pulses are intact. - Labs CBC & Chem 7: 04/04/21 04:31 04/04/21 15:00 Labs: Abnormal Lab Results - Last 24 Hours (Table) 04/04/21 04/04/21 04/04/21 Range/Units 17:14 20:26 23:55 POC Glucose (mg/dL) 100 H 200 H 182 H (75-99) mg/dL 04/05/21 04/05/21 Range/Units 01:04 11:24 POC Glucose (mg/dL) 156 H 244 H (75-99) mg/dL Assessment and Plan Assessment: 1 Acute hypoxemic respiratory failure secondary to coronavirus associated pneumonia, S/P intubation and mechanical ventilation on 03/19/2021. The patient for now extubated and out on the regular medical floor. She's on 13 L high flow nasal cannula. Profoundly weak. Remains with encephalopathy. 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 Plan: The patient was seen and evaluated Currently on 13 L high flow nasal cannula Continue to titrate down the FiO2 as tolerated Remains quite debilitated and weak Awaiting transfer to select specialty for further rehabilitation Continue the current treatment plan for now I, the cosigning physician, performed a history & physical examination of the p atient. Lungs sounds with crackles in the bilateral bases Maintaining good O2 saturations in the 90s on 13 L high flow nasal cannula. I discussed the assessment and plan of care with my nurse practitioner, Gloria Melgar. I attest to the above note as dictated by her.
[2021-04-05 16:30] LABS: Glucose,Whole Blood 193 mg/dL (75-99)
--- NOTE | 2021-04-05 17:55 | PN ---
PROGRESS NOTE DATE OF SERVICE: 04/05/2021 This 60-year-old woman was admitted with COVID-19 pneumonia, prolonged mechanical ventilation, is extubated. Patient continues to be mildly confused. Patient also has history of weakness also. Multiple consultants are following the patient closely. The most recent chest x-ray which was reviewed personally by me showed significant bilateral persistent interstitial pneumonia including the both upper and lower lobes. PAST MEDICAL HISTORY: Reviewed. REVIEW OF SYSTEMS: Could not be taken, the patient is currently confused. CURRENT MEDICATIONS: Reviewed and include Mucomyst, Ventolin, Norvasc, vitamin C. Doses and other medications noted. PHYSICAL EXAM: Patient is conscious, confused. Pulse 97, blood pressure 180/68, respirations 20, temperature 98.2, pulse ox 94% on 11 L nasal oxygen. HEENT: Conjunctivae normal. Oral mucosa moist. NECK: No jugular venous distention. No lymph node enlargement. CARDIOVASCULAR: S1, S2, muffled. No S3, no S4, RESPIRATORY: Diminished breath sounds at the bases. A few scattered rhonchi and crackles. ABDOMEN: Soft, nontender. LEGS: No edema, no swelling. NERVOUS SYSTEM: No focal deficits. LABS: Urine culture ( ). Glucose 193. Other labs are noted. ASSESSMENT: 1. Acute COVID-19 infection with acute bilateral interstitial pneumonia with acute hypoxic respiratory failure, status post mechanical ventilation. 2. Change in mental status, acute metabolic encephalopathy, multifactorial. 3. E coli UTI. 4. Diffuse weakness and possibly critical care polyneuropathy. 5. Constipation with some abdominal pain and distention, possible ileus. 6. Elevated inflammatory markers of COVID-19. 7. Diabetes mellitus, type 2. 8. History of breast surgery. 9. History of tonsillectomy. 10.History of nicotine dependence. 11.History of hyperkalemia, improved. 12.Obesity with body mass of 51.8. 13.Hypokalemia. 14.FULL CODE. RECOMMENDATIONS AND DISCUSSION: Recommend to continue current management and symptomatic treatment. Repeat labs. PT/OT evaluation, possible ECF rehab. We will try to titrate the oxygen down. Continue the steroids at this time. Guarded prognosis. Further recommendations to follow. MMODL / IJN: [id number] /
[2021-04-05] MEDS: ENOXAPARIN 40 MG/0.4 ML SYRINGE SQ SCH (18:12)
[2021-04-05] MEDS: SODIUM CHLORIDE 0.9% 1,000 ML IV SCH (20:15)
--- NOTE | 2021-04-05 21:22 | PN ---
PROGRESS NOTE DATE OF SERVICE: 04/05/2022 REASON FOR FOLLOWUP: 1. COVID-19 pneumonia. 2. UTI. INTERVAL HISTORY: The patient is afebrile. The patient has been transferred out of the ICU. The patient is afebrile, hemodynamically stable, slightly lethargic, though not a very good historian. No vomiting, diarrhea or any changes reported by the nursing staff. PHYSICAL EXAMINATION: Blood pressure is 119/68 with a pulse of 92, temperature 98.4. She is 93% on 9 L nasal cannula. General description is a middle-aged female lying in bed in no distress. Respiratory system: Unlabored breathing, decreased intensity of breath sounds. No wheeze. Heart S1, S2. Regular rate and rhythm. Abdomen soft, no tenderness. LABS: No new labs have been obtained today. DIAGNOSTIC IMPRESSION AND PLAN: 1. Patient with acute respiratory failure secondary to COVID-19 pneumonia in this patient who seems to have shown some clinical improvement. The patient is currently on dexamethasone, Lovenox, zinc and ascorbic acid. 2. Patient with E coli urinary tract infection, covered with Rocephin. Family was at the bedside at time of evaluation and questions were answered. MMODL / IJN: [id number] /
[2021-04-06 00:22] LABS: Glucose,Whole Blood 218 mg/dL (75-99)
[2021-04-06] MEDS: INSULIN ASPART (NovoLOG) 100 UNIT/ML VIAL SQ SCH ×4 (00:39→17:00)
[2021-04-06 05:40] LABS: Glucose,Whole Blood 95 mg/dL (75-99)
[2021-04-06 07:16] LABS: Glucose,Whole Blood 94 mg/dL (75-99)
[2021-04-06 08:48] LABS: African American GFR (CKD) >90 (>60 ml/min/1.73 sqM); Anion Gap 6 mmol/L; Blood Urea Nitrogen 18 mg/dL (7-17); Calcium 9.4 mg/dL (8.4-10.2); Carbon Dioxide 31 mmol/L (22-30); Chloride 104 mmol/L (98-107); Glucose 102 mg/dL (74-99); Non-African American GFR(CKD) >90 (>60 ml/min/1.73 sqM); Potassium 3.7 mmol/L (3.5-5.1); Sodium 141 mmol/L (137-145)
[2021-04-06] MEDS: METOCLOPRAMIDE 5 MG/ML 2 ML VIAL IVP SCH ×3 (08:48→17:00)
[2021-04-06] MEDS: FUROSEMIDE 10 MG/ML 4 ML VIAL IV SCH (08:48)
[2021-04-06] MEDS: ACETYLCYSTEINE 800 MG/4 ML VIAL PO SCH ×2 (08:48→22:19)
[2021-04-06] MEDS: DEXAMETHASONE SOD PHOSPHATE 4 MG/ML 1 ML VIAL IVP SCH (08:48)
[2021-04-06] MEDS: amLODIPine 5 MG TAB PO SCH ×2 (08:48→22:18)
[2021-04-06] MEDS: LOSARTAN 50 MG TAB PO SCH (08:49)
[2021-04-06] MEDS: CHOLECALCIFEROL 25 MCG (1000 IU) TABLET PO SCH (08:49)
[2021-04-06] MEDS: PANTOPRAZOLE 40 MG TABLET PO SCH (08:49)
[2021-04-06] MEDS: INSULN ASP PRT/INSULIN ASPART 100 UNIT/ML 10 ML VIAL SQ SCH ×2 (08:49→22:18)
[2021-04-06] MEDS: hydrALAZINE HCL 25 MG TAB PO SCH ×2 (08:49→22:18)
[2021-04-06] MEDS: ZINC SULFATE 220 MG CAP PO SCH (08:49)
[2021-04-06] MEDS: ASCORBIC ACID 500 MG TAB PO SCH ×2 (08:49→22:18)
[2021-04-06] MEDS: LACTULOSE 20 GM/30 ML CUP PO SCH ×2 (08:50→22:19)
[2021-04-06] MEDS: DOCUSATE ORAL SOLN 100 MG/10 ML CUP PO SCH ×2 (08:50→22:19)
[2021-04-06] MEDS: ALBUTEROL HFA INHALER INHALATION SCH ×4 (09:46→21:48)
[2021-04-06 11:18] LABS: Glucose,Whole Blood 266 mg/dL (75-99)
[2021-04-06 13:14] LABS: Basophils # (A) 0.09 X 10*3/uL (0.00-0.10); Eosinophils % (A) 2.1 %; HCT 37.7 % (37.2-46.3); HGB 11.9 g/dL (12.0-15.0); Lymphocytes # (A) 1.78 X 10*3/uL (0.90-5.00); Lymphocytes % (A) 18.8 %; MCH 29.3 pg (27.0-32.0); MCHC 31.6 g/dL (32.0-37.0); MCV 92.9 fL (80.0-97.0); Mean Platelet Volume 11.3 fL (9.5-12.2); Monocytes # (A) 0.74 X 10*3/uL (0.20-1.00); Monocytes % (A) 7.8 %; Neutrophils # (A) 6.59 X 10*3/uL (1.80-7.70); Neutrophils % (A) 69.8 %; Platelet Count 254 X 10*3/uL (140-440); RBC 4.06 X 10*6/uL (4.10-5.20); WBC 9.45 X 10*3/uL (4.50-10.00)
--- NOTE | 2021-04-06 13:29 | P.PN ---
Subjective Progress Note Date: 04/06/21 Principal diagnosis: COVID-19 pneumonia This is a 60-year-old female patient with a history of diabetes mellitus, obesity, former smoker who presented to the emergency room yesterday with complaints of increasing shortness of breath and low oxygen that she was measuring at home. The patient started having symptoms of shortness of breath cough congestion on 03/06/2021 and reportedly tested negative for CoVID. She was treated with azithromycin and prednisone in the outpatient setting. Her symptoms progressed and she did test positive on 03/16/2021. She was admitted to the regular medical floor and placed on BiPAP over 6 and 70% FiO2 with O2 saturations 85-86% with respiratory rate of 44 and A team was called at 11:00 last night and the patient remained on the floor. Her oxygen requirements continued to progress and she was urgently intubated at 04:43 this morning and placed on mechanical ventilator. He is seen today in consultation in the intensive care unit. Current settings are assist-control mode at a rate of 26, tidal volume 500, FiO2 100% and a PEEP of 14. Blood gases revealed a PaO2 of 76, pCO2 of 47 and a pH of 7.29. She is currently sedated on to follow at 40 mcg/kg/m. She is on Nimbex at 2 mcg/kg/m. She is receiving Dilaudid IVP. 0.9 normal saline at 75 ML's per hour. Chest x-ray reveals diffuse bilateral airspace disease. The endotracheal tube was noted to be quite high and is to be repositioned urgently. White count 9.0. Hemoglobin 14.9. Lymphocytes 0.5. Sodium 134. Potassium 6.1. Chloride 104. Bicarb 15. BUN 28. Creatinine 0.72. Glucose 215. She was initiated on Decadron, Lovenox, vitamin supplements. The patient is seen today 03/20/2021 in follow-up in the intensive care unit. She remains intubated and on mechanical ventilator. Currently an assist-control mode at a rate of 30, temperature Ativan 400, FiO2 70% and a PEEP of 14. Morning blood gases revealed a PaO2 of 71, pCO2 51, pH 7.35. Continued on sedat ion of propofol at 50 mcg/kg/m, Nimbex at 1 mcg/kg/m. Normal saline at 75 ML's per hour. Norepinephrine has been off since approximately 8 PM last evening. She is being nourished with vital AF at 36 ML's per hour which is goal. Urine output has been borderline. Creatinine is up to 1.30. BUN 49. Sodium 136. Potassium 4.6. AST 5. ALT 23. LDH 2112. C-reactive protein 16.1. White count 8.0. Hemoglobin 12.1. Lymphocytes 0.6. D-dimer 1.63. She remains on Lovenox, Decadron, vitamin supplements. Chest x-ray continues show patchy bilateral infiltrates. Endotracheal tube to be repositioned. Sputum culture reveals no growth to date. Blood cultures reveal no growth to date. Had a t emperature of 100.2 yesterday afebrile today. The patient is seen today 03/21/2021 in follow-up in the intensive care unit. She remains intubated on the mechanical ventilator. Current settings are assist control mode with respiratory rate of 30, telephone 400, FiO2 55% and a PEEP of 18. Morning blood gases reveal a pO2 of 89, pCO2 47, pH 7.38. She is sedated on propofol. Nimbex at 1 g/kg/m. Normal saline at 75 ML's per hour. He is being nourished with vital AF at 36 ML's per hour which is goal. Urine output averaging 30-50 ML's per hour. Today's chest x-ray reveals bilateral multifocal reticular opacities consistent with COVID-19 pneumonia. Endotracheal tube in good position. Blood cultures reveal no growth. Sputum culture pending. White count 8.5. Hemoglobin 12.0. Lymphocytes 0.9. D-dimer 10.94. Sodium 138. Potassium 4.7. Creatinine 1.05. LDH 1559. C-reactive protein 4.4. Currently on Decadron, Lovenox, vitamin supplements. Reevaluated today on 04/02/21, patient remains in the ICU, intubated and mechanically ventilated. She is off sedation completely for the last 2 days, patient is requiring clevidipine for her significantly elevated blood pressure, and today I added multiple meds to control her blood pressure, however patient may not need that many blood pressure medications if extubated and kept off mechanical ventilation. Her assist control rate today is 30 tidal volume 400 FiO2 40% and PEEP of 8. Chest x-ray yesterday showed significant improvement in her bilateral infiltrates. Her ABG on the same vent settings as noted showed a pO2 of 76 pCO2 of 34 pH of 7.56. Patient is on assist control mode of mechanical ventilation, she seems to be very comfortable, hence I will try to give the patient a trial of pressure support and CPAP, and if tolerated may even extubated the patient. My only concern is the patient seems to be a bit enceph alopathic, she opens her eyes, follows simple instructions, and she seems to be generally weak, she may have also some component of critical illness polyneuropathy because of prolonged course in the ICU on multiple meds and on paralytics. 04/03/2021, the patient remains extubated. Noted the patient was extubated on 04/01/2021 and currently she is on oxygen at high flow at 15 L. Her current pulse ox is around 89-90%. She is awake. She'll occasionally follow simple commands. Her responses not consistent dull. She is moving all extremities. She is very weak and she is unable to raise her arms and legs against gravity. Her cough is also very weak. She blinks upon demand, she is able to respond and she is alert and she has obvious eye opening. She is not talking at. She is unable to swallow. Her chest x-ray still showing diffuse bilateral pulmonary infiltrates consistent with COVID 19 related pneumonia. The patient remains on record Abilio 6 mg IV every 24 hours. Rest of the treatment includes Lovenox 40 mg subcu every 24 hours. Based on her inability to eat, her blood pressure was noted to be elevated as the patient was unable to take her oral antihypertensive medications. The patient is receiving IV hydralazine I when necessary basis for systolic blood pressure above 160. She is not having regular bowel movements. Our efforts to give her laxatives has failed. The patient had a soapsuds enema yesterday and the same will be done today and I would also recommend obtaining a pleasant some of the abdomen. Limited edema lower extremity is bilaterally. The patient has a Smith catheter in place. Adequate urine output. Active issues for now is her diminished alertness in addition to profound motor weakness in all 4 extremities which is probably related to COVID 19 related infection/pneumonia/prolonged intubation mechanical ventilation. She remains on IV Rocephin for an underlying UTI and the cultures had yielded E. coli. 04/04/2021, the patient remains extubated on 15 L of oxygen high flow. Her current pulse ox is around 90%. She is awake and alert and interactive. She remains quite weak. No significant events overnight. The patient's blood work from today shows normal renal function, normal electrolytes, CBC still pending for now. Meanwhile, I took the opportunity to lower the Decadron dose to 4 mg IV on a daily basis and the patient is also on Lasix 40 mg IV every 24 hours and Lovenox 40 mg subcu on a daily basis. The patient is also on IV Rocephin regarding E. coli urinary tract infection. She is completing a seven-day course. No other issues for now. In terms of oral intake, she is still nothing by mouth and the patient is still unable to swallow. And the patient is going to have a reevaluation by speech. Repeat chest x-ray was done and shows stable patchy bilateral pulmonary infiltrates throughout the lung shah without any significant interval change. She continues to have a PICC line in her right upper extremity. The patient is seen today 04/05/1999 2200 follow-up on the regular medical floor. She is currently sitting up in bed. Awake. Alert. Interactive. She is currently maintaining O2 saturation in the low 90s on 13 L high flow nasal cannula. She's afebrile. Hemodynamically stable. Chest x-ray continues to reveal similar multifocal airspace opacities. Earlier urine culture was positive for E. coli. Blood and sputum cultures had revealed no growth. She is continued on Decadron, Lovenox, vitamin supplements. Remains on Lasix 40 mg IV daily. Continued on Pepcid. Continued on bronchodilators. Remains on antibiotics in the form of ceftriaxone. The patient is seen today 04/06/2021 in follow-up on the regular medical floor. She is currently resting fairly comfortably in bed. Awake and alert. She is following some simple commands. She remains quite weak and debilitated. Still somewhat slow to respond. She is maintaining good O2 saturations in the 90s on 9 L high flow nasal cannula. White count 9.4. Hemoglobin 11.9. Sodium 141, potassium 3.7. Creatinine 0.42. Glucose 102. She remains on Decadron 4 mg daily, Lovenox, vitamin supplements. Continued on bronchodilators. Continued on IV diuretics. In a -2.4 L balance. She remains on ceftriaxone for an E. coli UTI. Objective - Vital Signs Vital signs: Vital Signs Temp 98.6 F 04/06/21 08:00 Pulse 90 04/06/21 08:00 Resp 20 04/06/21 08:00 BP 180/76 04/06/21 08:00 Pulse Ox 98 04/06/21 08:00 Intake & Output 04/05/21 04/06/21 04/06/21 18:59 06:59 18:59 Output Total 1900 550 Balance -1900 -550 Weight 128.5 kg Output: Urine 1900 550 Other: Voiding Method Indwelling Catheter Indwelling Catheter ABP, PAP, CO, CI - Last Documented Arterial Blood Pressure 177/68 - Exam GENERAL EXAM: Alert, pleasant 60-year-old female patient, interactive. Remains quite weak and debilitated. On 9 L high flow nasal cannula, comfortable in no apparent distress. HEAD: Normocephalic. EYES: Sluggish reaction of pupils, equal size. NOSE: Clear with pink turbinates. THROAT: No erythema or exudates. NECK: No masses, no JVD. CHEST: No chest wall deformity. LUNGS: Equal air entry with bibasilar coarse crackles. CVS: S1 and S2 normal with no audible murmur, regular rhythm. ABDOMEN: No hepatosplenomegaly, normal bowel sounds, no guarding or rigidity. SPINE: No scoliosis or deformity SKIN: No rashes CENTRAL NERVOUS SYSTEM: Profound weakness, tone is normal in all 4 extremities. EXTREMITIES: There is no peripheral edema. No clubbing, no cyanosis. Peripheral pulses are intact. - Labs CBC & Chem 7: 04/06/21 07:47 04/06/21 07:47 Labs: Abnormal Lab Results - Last 24 Hours (Table) 04/05/21 04/06/21 04/06/21 Range/Units 16:28 00:21 07:47 RBC 4.06 L (4.10-5.20) X 10*6/uL Hgb 11.9 L (12.0-15.0) g/dL MCHC 31.6 L (32.0-37.0) g/dL Immature Gran # 0.05 H (0.00-0.04) X 10*3/uL Carbon Dioxide (22-30) mmol/L BUN (7-17) mg/dL Creatinine (0.52-1.04) mg/dL Glucose (74-99) mg/dL POC Glucose (mg/dL) 193 H 218 H (75-99) mg/dL 04/06/21 04/06/21 Range/Units 07:47 11:16 RBC (4.10-5.20) X 10*6/uL Hgb (12.0-15.0) g/dL MCHC (32.0-37.0) g/dL Immature Gran # (0.00-0.04) X 10*3/uL Carbon Dioxide 31 H (22-30) mmol/L BUN 18 H (7-17) mg/dL Creatinine 0.42 L (0.52-1.04) mg/dL Glucose 102 H (74-99) mg/dL POC Glucose (mg/dL) 266 H (75-99) mg/dL Assessment and Plan Assessment: 1 Acute hypoxemic respiratory failure secondary to coronavirus associated pn eumonia, S/P intubation and mechanical ventilation on 03/19/2021. The patient for now extubated and out on the regular medical floor. She's on 9 L high flow nasal cannula. Profoundly weak. Remains with encephalopathy. 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 Plan: The patient was seen and evaluated Currently on 9 L high flow nasal cannula Continue to titrate down the FiO2 as tolerated We will continue to wean the Decadron Switch the Lasix to by mouth Remains quite debilitated and weak Awaiting transfer to select specialty for further rehabilitation Continue the current treatment plan for now I, the cosigning physician, performed a history & physical examination of the patient. Lungs sounds with crackles in the bilateral bases Maintaining good O2 saturations in the 90s on 9 L high flow nasal cannula. I discussed the as sessment and plan of care with my nurse practitioner, Gloria Melgar. I attest to the above note as dictated by her.
[2021-04-06 16:32] LABS: Glucose,Whole Blood 263 mg/dL (75-99)
[2021-04-06] MEDS: ENOXAPARIN 40 MG/0.4 ML SYRINGE SQ SCH (17:00)
--- NOTE | 2021-04-06 17:29 | PN ---
PROGRESS NOTE DATE OF SERVICE: 04/06/2021 I am covering for Dr. Tompkins This 60-year-old woman admitted with COVID-19 interstitial pneumonia had prolonged mechanical ventilation. Patient extubated. Patient is monitored in the medical floor. The patient complained of generalized weakness. Patient continues to be confused. The patient will definitely require rehab. At this time multiple consultants are following the patient closely. PAST MEDICAL HISTORY: Reviewed. REVIEW OF SYSTEMS: Could not be taken. CURRENT MEDICATIONS: Reviewed include Mucomyst, Ventolin, Norvasc, vitamin C, Rocephin. Doses are reviewed. PHYSICAL EXAMINATION: Patient is alert and oriented x1. Pulse is 87, blood pressure 118/55, respiration 18, temperature 97.1, pulse ox 94% on 8 L. HEENT: Conjunctivae normal. Oral mucosa moist. NECK: No jugular venous distention. No lymph node enlargement. CARDIOVASCULAR: S1, S2, muffled. No S3, no S4, RESPIRATORY: Diminished breath sounds at the bases. No rhonchi, no crackles. ABDOMEN: Soft, nontender. No mass palpable. LEGS: No edema, no swelling. NERVOUS SYSTEM: Higher functions mentioned earlier. Moves all four limbs. No focal motor or sensory deficits. LYMPHATICS: No lymph node in neck or axilla. SKIN: No rash. JOINTS: No active deforming arthropathy. LABS: WBC 9.5, hemoglobin 11.9, glucose 266. ASSESSMENT: 1. Acute COVID-19 infection with acute bilateral left interstitial pneumonia with acute hypoxic respiratory failure, status post mechanical ventilation. 2. Change in mental status, acute metabolic encephalopathy, multifactorial. 3. E coli UTI. 4. Diffuse weakness, possibly critical care polyneuropathy. 5. Constipation with abdominal pain and distention, possible ileus. 6. Elevated inflammatory markers of COVID-19. 7. Diabetes mellitus, type 2. 8. History of breast surgery. 9. History of tonsillectomy. 10.History of nicotine dependence. 11.History of hyperkalemia, improved. 12.Obesity with body mass index 51.8. 13.Hypokalemia. 14.FULL CODE. RECOMMENDATIONS: Recommend to continue current management and symptomatic treatment. Otherwise, continue the empiric antibiotics. PT/OT evaluation, possible ECF rehab. Closely follow with multiple consultants. I would also recommend a CT scan of the brain without contrast to complete the workup. MMODL / IJN: [id number] /
--- NOTE | 2021-04-06 18:03 | CT ---
EXAMINATION TYPE: CT brain wo con DATE OF EXAM: 04/06/2021 COMPARISON: None HISTORY: Weakness. CT DLP: 1099.4 mGycm Automated exposure control for dose reduction was used. Ventricles have normal size. There is no mass effect or midline shift. There is no sign of intracrani al hemorrhage. There is extensive mucosal thickening in the maxillary and sphenoid sinuses. Calvarium is intact. There is very little pneumatization of the mastoid sinuses. I see no focal bone destructi on. IMPRESSION: Negative unenhanced CT scan of the brain. Sinusitis. Bilateral mastoiditis.
--- NOTE | 2021-04-06 22:59 | PN ---
PROGRESS NOTE DATE OF SERVICE: 04/06/2021 REASON FOR FOLLOW UP: 1. Covid 19 pneumonia. 2. E coli UTI. INTERVAL HISTORY: Patient is afebrile. The patient is more awake and alert. She is breathing comfortably. She is down to 8 L nasal cannula. Denies any chest pain. No worsening cough. No sputum production. No abdominal pain. No diarrhea. PHYSICAL EXAMINATION: Blood pressure 119/55 with a pulse of 80, temperature 98.4. She is 95% on 8 L nasal cannula. General description is a middle-aged female lying in bed in no distress. Respiratory system: Unlabored breathing, decreased intensity of breath sounds. No wheeze. Heart S1, S2. Regular rate and rhythm. Abdomen soft, no tenderness. LABS: Hemoglobin 11.1, white count 9.45, creatinine 0.42. DIAGNOSTIC IMPRESSION AND PLAN: 1. Patient with acute COVID-19 infection in this patient slowly clinically improving. The patient is currently on dexamethasone, Lovenox, zinc and ascorbic acid to continue. 2. Patient with urinary tract infection secondary to E coli, adequately treated. Rocephin will be discontinued. We will monitor the patient closely off antibiotic. MMODL / IJN: [id number] /
[2021-04-07 00:17] LABS: Glucose,Whole Blood 208 mg/dL (75-99)
[2021-04-07] MEDS: SODIUM CHLORIDE 0.9% 1,000 ML IV SCH ×2 (00:22→21:21)
[2021-04-07] MEDS: INSULIN ASPART (NovoLOG) 100 UNIT/ML VIAL SQ SCH ×4 (00:26→17:28)
[2021-04-07] MEDS: METOCLOPRAMIDE 5 MG/ML 2 ML VIAL IVP SCH ×4 (00:27→17:28)
[2021-04-07 05:44] LABS: Glucose,Whole Blood 96 mg/dL (75-99)
[2021-04-07] MEDS: INSULN ASP PRT/INSULIN ASPART 100 UNIT/ML 10 ML VIAL SQ SCH ×2 (07:54→21:21)
[2021-04-07] MEDS: LACTULOSE 20 GM/30 ML CUP PO SCH ×2 (08:00→21:21)
[2021-04-07] MEDS: DEXAMETHASONE SOD PHOSPHATE 4 MG/ML 1 ML VIAL IVP SCH ×2 (08:02→11:19)
[2021-04-07] MEDS: hydrALAZINE HCL 25 MG TAB PO SCH ×2 (08:02→21:20)
[2021-04-07] MEDS: amLODIPine 5 MG TAB PO SCH ×2 (08:03→21:20)
[2021-04-07] MEDS: CHOLECALCIFEROL 25 MCG (1000 IU) TABLET PO SCH (08:03)
[2021-04-07] MEDS: DOCUSATE ORAL SOLN 100 MG/10 ML CUP PO SCH ×2 (08:03→21:21)
[2021-04-07] MEDS: LOSARTAN 50 MG TAB PO SCH (08:04)
[2021-04-07] MEDS: ZINC SULFATE 220 MG CAP PO SCH (08:04)
[2021-04-07] MEDS: ACETYLCYSTEINE 800 MG/4 ML VIAL PO SCH (08:04)
[2021-04-07] MEDS: FUROSEMIDE 40 MG TAB PO SCH (08:04)
[2021-04-07] MEDS: PANTOPRAZOLE 40 MG TABLET PO SCH (08:04)
[2021-04-07] MEDS: ASCORBIC ACID 500 MG TAB PO SCH ×2 (08:04→21:20)
[2021-04-07] MEDS: ALBUTEROL HFA INHALER INHALATION SCH ×4 (09:26→19:26)
[2021-04-07] MEDS: ARTIFICIAL TEARS-HYPROMELLOSE DROPS 15 ML BTL BOTH EYES SCH (10:44)
[2021-04-07 11:08] LABS: Glucose,Whole Blood 291 mg/dL (75-99)
[2021-04-07] MEDS: FUROSEMIDE 10 MG/ML 4 ML VIAL IV SCH ×2 (11:16→11:18)
[2021-04-07] MEDS: CHLORHEXIDINE GLUCONATE 15 ML CUP MUCOUS MEM SCH ×2 (11:16→13:47)
[2021-04-07] MEDS ORDERED: INSULIN ASPART (NovoLOG) 100 UNIT/ML VIAL SQ ONE (13:28)
[2021-04-07] MEDS: CISATRACURIUM 200 MG in SODIUM CHLORIDE 0.9% 180 ML IV SCH (13:43)
[2021-04-07] MEDS: CEFEPIME 2 GM in SODIUM CHLORIDE 0.9% 100 ML IVPB SCH (13:44)
[2021-04-07] MEDS: DEXMEDETOMIDINE/0.9% NACL(PMX) 400 MCG in EMPTY BAG 1 BAG IV SCH (13:47)
[2021-04-07] MEDS: CLEVIDIPINE BUTYRATE 25 MG in EMPTY BAG 1 BAG IV SCH (13:50)
[2021-04-07] MEDS: DEXAMETHASONE SOD PHOSPHATE 10 MG/ML 1 ML VIAL IVP SCH (13:50)
[2021-04-07 16:45] LABS: Glucose,Whole Blood 249 mg/dL (75-99)
[2021-04-07] MEDS: ENOXAPARIN 40 MG/0.4 ML SYRINGE SQ SCH (17:28)
--- NOTE | 2021-04-07 18:42 | P.PN ---
Subjective Progress Note Date: 04/07/21 Principal diagnosis: COVID-19 related pneumonia On 04/07/2021 patient seen in follow-up on medical surgical floor. She is awake and alert, she sits up in the recliner, her daughter is at the bedside, she is a very weak, but she is able to nod and shake her head appropriately to verbal questions, occasionally she gives 1 or 2 word responses, denies any acute distress, currently on 8 L of oxygen pulse ox is 99%, FiO2 has been dropped down to 7 L/m. Lung sounds are diminished, the daughter is requesting incentive spirometry, she needs aggressive pulmonary toileting, she was successfully weaned and extubated from mechanical ventilator on 04/02/2021. Tolerating extubation quite well so far. FiO2 is being weaned down. Last chest x-ray from 04/05/2021 showing similar multifocal airspace opacities. Family reports significant improvement in patient's mentation patient being more awake and alert, and following command. Brain CT yesterday showed no acute findings. Her last blood work from yesterday showed normal white count which was down to 9.45, hemoglobin was 11.9, sodium was 141, potassium 3.7, chloride is 104, CO2 31, B1 is 18, creatinine 0.42. Generally patient appears to be swollen, she remains on oral dose of Lasix 40 mg daily, she is maintaining negative fluid balance. Patient remains on Decadron and the dose is being weaned down and is currently d own to 2 mg daily, she is on once daily dose of Lovenox 40 mg, her IV fluids have been switched to KVO, she is on dysphagia diet and she requires assist and supervision with her meals. Objective - Vital Signs Vital signs: Vital Signs Temp 98.5 F 04/07/21 14:20 Pulse 66 04/07/21 14:20 Resp 18 04/07/21 14:20 BP 157/55 04/07/21 14:20 Pulse Ox 99 04/07/21 14:20 Intake & Output 04/06/21 04/07/21 04/07/21 18:59 06:59 18:59 Intake Total 500 Balance 500 Weight 130.5 kg Intake: IV 500 Sodium Chloride 0.9% 1, 500 000 ml @ 20 mls/hr IV . Q[facility]H [facility] Rx#:[id number] Other: Voiding Method Indwelling Catheter Indwelling Catheter ABP, PAP, CO, CI - Last Documented Arterial Blood Pressure 177/68 - Exam GENERAL EXAM: Alert, very pleasant, 60-year-old white female, on 8 L of oxygen and the pulse ox of 99%, breathing comfortably, but overall appears weak, sitting up in the recliner, comfortable in no apparent distress. HEAD: Normocephalic/atraumatic. EYES: Normal reaction of pupils, equal size. Conjunctiva pink, sclera white. NOSE: Clear with pink turbinates. THROAT: No erythema or exudates. NECK: No masses, no JVD, no thyroid enlargement, no adenopathy. CHEST: No chest wall deformity. Symmetrical expansion. LUNGS: Equal air entry with measurement sounds bilaterally, with bilateral crackles CVS: Regular rate and rhythm, normal S1 and S2, no gallops, no murmurs, no rubs ABDOMEN: Soft, nontender. No hepatosplenomegaly, normal bowel sounds, no guarding or rigidity. EXTREMITIES: No clubbing, mild generalized edema, no cyanosis, 2+ pulses and upper and lower extremities. MUSCULOSKELETAL: Muscle strength and tone normal. SPINE: No scoliosis or deformity SKIN: No rashes CENTRAL NERVOUS SYSTEM: Alert and oriented -3. No focal deficits, tone is normal in all 4 extremities. PSYCHIATRIC: Alert and oriented -3. Appropriate affect. Intact judgment and insight. - Labs CBC & Chem 7: 04/06/21 07:47 04/06/21 07:47 Labs: Abnormal Lab Results - Last 24 Hours (Table) 04/07/21 04/07/21 04/07/21 Range/Units 00:11 11:07 16:43 POC Glucose (mg/dL) 208 H 291 H 249 H (75-99) mg/dL Assessment and Plan Plan: Assessment: #1. Acute hypoxic respiratory failure suspected to acute COVID-19 related pn eumonia, status post intubation and mechanical ventilation on 03/19/2021. Patient was successfully weaned and extubated on 04/02/2021. Tolerating extubation quite well so far, currently down to 8 L of oxygen. Patient has profound generalized weakness. #2. Acute hypoxic and possibly metabolic encephalopathy, improving, brain CT on 04/06/2021 was negative #3. Morbid obesity with current BMI 52.6 kg/m #4. Diabetes mellitus type 2 #5. Increased inflammatory markers, improving #6. 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 Acute urinary tract infection related to E. coli, patient has completed a course of Rocephin, ID service is following Plan: Continue weaning FiO2 to keep O2 sats ration is at above 90% Currently down to 8 L, breathing comfortably, overall she is profoundly generally weak Consult physical therapy to help mobilize the patient, and recommendation for possible rehab placement. In view of her improving oxygenation she will probably no longer qualify for LTAC facility placement She will likely need ECF placement for rehab Continue with current dose Decadron which is currently down to 2 mg Continue with Lovenox Continue same dose Lasix Patient still has generalized edema but overall maintaining negative fluid balance Asst. and supervision with meals We'll continue to follow her clinical course I performed a history & physical examination of the patient and discussed their management with my nurse practitioner, Caitlyn Manning. I reviewed the nurse practitioner's note and agree with the documented findings and plan of care. Lung sounds are positive for bibasilar crackles throughout the lung shah. The findings and the impression was discussed with the patient. I attest to the documentation by the nurse practitioner. Time with Patient: Less than 30
[2021-04-07 20:27] LABS: Glucose,Whole Blood 157 mg/dL (75-99)
--- NOTE | 2021-04-07 22:39 | PN ---
PROGRESS NOTE DATE OF SERVICE: 04/07/2021 REASON FOR FOLLOWUP VISIT: UTI. INTERVAL HISTORY: Patient is afebrile. The patient is breathing more comfortably. FIO2 is currently down to 6 L. The patient is more awake and alert, was fed by the nurse aide. At the time of my evaluation, no chest pain, . No vomiting, diarrhea, or any other changes reported. PHYSICAL EXAMINATION: Blood pressure 157/55, pulse of 66, temperature 98.5. She is 94% on 6 L nasal cannula. General description is a middle-aged female lying in bed in no distress. Respiratory system: Unlabored breathing, decreased intensity of breath sounds, no wheeze. Heart S1, S2. Regular rate and rhythm. Abdomen soft, no tenderness. LABS: White count normalized to 9.45. DIAGNOSTIC IMPRESSION/PLAN: 1. Patient with acute COVID-19 pneumonia with slow clinical improvement. Continue with dexamethasone, Lovenox, zinc and ascorbic acid. 2. E coli urinary tract infection, adequately treated. Currently off antibiotic therapy. 3. Continue supportive care. MMODL / IJN: [id number] /
[2021-04-08 00:23] LABS: Glucose,Whole Blood 97 mg/dL (75-99)
[2021-04-08] MEDS: ACETYLCYSTEINE 800 MG/4 ML VIAL PO SCH ×2 (00:42→08:06)
[2021-04-08] MEDS: METOCLOPRAMIDE 5 MG/ML 2 ML VIAL IVP SCH ×4 (00:42→17:38)
[2021-04-08] MEDS: INSULIN ASPART (NovoLOG) 100 UNIT/ML VIAL SQ SCH ×4 (00:43→17:38)
[2021-04-08 05:28] LABS: Glucose,Whole Blood 103 mg/dL (75-99)
[2021-04-08] MEDS: INSULN ASP PRT/INSULIN ASPART 100 UNIT/ML 10 ML VIAL SQ SCH ×2 (07:30→21:50)
[2021-04-08] MEDS: ALBUTEROL HFA INHALER INHALATION SCH ×4 (07:57→20:59)
[2021-04-08] MEDS: FUROSEMIDE 40 MG TAB PO SCH (08:06)
[2021-04-08] MEDS: ZINC SULFATE 220 MG CAP PO SCH (08:06)
[2021-04-08] MEDS: DOCUSATE ORAL SOLN 100 MG/10 ML CUP PO SCH (08:06)
[2021-04-08] MEDS: amLODIPine 5 MG TAB PO SCH (08:06)
[2021-04-08] MEDS: LOSARTAN 50 MG TAB PO SCH (08:06)
[2021-04-08] MEDS: hydrALAZINE HCL 25 MG TAB PO SCH ×2 (08:06→20:49)
[2021-04-08] MEDS: CHOLECALCIFEROL 25 MCG (1000 IU) TABLET PO SCH (08:06)
[2021-04-08] MEDS: DEXAMETHASONE SOD PHOSPHATE 4 MG/ML 1 ML VIAL IVP SCH (08:06)
[2021-04-08] MEDS: PANTOPRAZOLE 40 MG TABLET PO SCH (08:06)
[2021-04-08] MEDS: LACTULOSE 20 GM/30 ML CUP PO SCH (08:07)
[2021-04-08] MEDS: ASCORBIC ACID 500 MG TAB PO SCH (08:07)
[2021-04-08 09:10] LABS: African American GFR (CKD) 124.5 (60.0-200.0); Albumin 3.3 g/dL (3.8-4.9); Albumin/Globulin Ratio 1.16 (1.60-3.17); Anion Gap 11.4 mmol/L (10.00-18.00); BUN/Creat Ratio 41.11 Ratio (12.00-20.00); Blood Urea Nitrogen 18.5 mg/dL (9.0-27.0); Calcium 9.4 mg/dL (8.7-10.3); Carbon Dioxide 30.2 mmol/L (20.0-27.5); Globulin 2.8 g/dL (1.6-3.3); Non-African American GFR(CKD) 107.4 (60.0-200.0); Potassium 3.5 mmol/L (3.5-5.5); Total Bilirubin 0.6 mg/dL (0.30-1.20); Total Protein 6.1 g/dL (6.2-8.2)
[2021-04-08 10:16] LABS: Basophils # (A) 0.12 X 10*3/uL (0.00-0.10); Basophils % (A) 1.3 %; Eosinophils # (A) 0.35 X 10*3/uL (0.04-0.35); Eosinophils % (A) 3.9 %; HCT 36.3 % (37.2-46.3); Lymphocytes # (A) 1.89 X 10*3/uL (0.90-5.00); Lymphocytes % (A) 21.3 %; MCH 29.6 pg (27.0-32.0); MCHC 30.3 g/dL (32.0-37.0); MCV 97.8 fL (80.0-97.0); Mean Platelet Volume 10.8 fL (9.5-12.2); Monocytes # (A) 0.74 X 10*3/uL (0.20-1.00); Monocytes % (A) 8.3 %; Neutrophils # (A) 5.75 X 10*3/uL (1.80-7.70); Neutrophils % (A) 64.8 %; Platelet Count 215 X 10*3/uL (140-440); RBC 3.71 X 10*6/uL (4.10-5.20); RDW 14.4 % (11.5-14.5); WBC 8.89 X 10*3/uL (4.50-10.00)
--- NOTE | 2021-04-08 11:21 | FL ---
EXAMINATION TYPE: FL barium swallow w video DATE OF EXAM: 04/08/2021 COMPARISON: NONE HISTORY: Abnormal bedside exam TECHNIQUE: Fluoroscopy. FINDINGS: Fluoroscopic guidance was provided for the procedure performed in conjunction with the [facility] pathology department. Please see complete report forthcoming from the Speech Pathology departmen t. Various consistencies from thin liquid to solids were administered. Fluoroscopy time 2 minutes 51 seconds. Number of images: 0. No aspiration or penetration was evident. Some minimal pooling within the vallecula may be present. Note is made of posterior wall contrast dur ing portions of the exam. There was delayed propulsion of the bolus. IMPRESSION: 1. No aspiration or penetration. 2. Some minimal pooling may be within the vallecula.
[2021-04-08 11:41] LABS: Glucose,Whole Blood 261 mg/dL (75-99)
[2021-04-08 16:54] LABS: Glucose,Whole Blood 194 mg/dL (75-99)
[2021-04-08] MEDS: ENOXAPARIN 40 MG/0.4 ML SYRINGE SQ SCH (17:38)
--- NOTE | 2021-04-08 17:55 | P.PN ---
Subjective Progress Note Date: 04/08/21 Principal diagnosis: COVID-19 related pneumonia On 04/07/2021 patient seen in follow-up on medical surgical floor. She is awake and alert, she sits up in the recliner, her daughter is at the bedside, she is a very weak, but she is able to nod and shake her head appropriately to verbal questions, occasionally she gives 1 or 2 word responses, denies any acute distress, currently on 8 L of oxygen pulse ox is 99%, FiO2 has been dropped down to 7 L/m. Lung sounds are diminished, the daughter is requesting incentive spirometry, she needs aggressive pulmonary toileting, she was successfully weaned and extubated from mechanical ventilator on 04/02/2021. Tolerating extubation quite well so far. FiO2 is being weaned down. Last chest x-ray from 04/05/2021 showing similar multifocal airspace opacities. Family reports significant improvement in patient's mentation patient being more awake and alert, and following command. Brain CT yesterday showed no acute findings. Her last blood work from yesterday showed normal white count which was down to 9.45, hemoglobin was 11.9, sodium was 141, potassium 3.7, chloride is 104, CO2 31, B1 is 18, creatinine 0.42. Generally patient appears to be swollen, she remains on oral dose of Lasix 40 mg daily, she is maintaining negative fluid balance. Patient remains on Decadron and the dose is being weaned down and is currently d own to 2 mg daily, she is on once daily dose of Lovenox 40 mg, her IV fluids have been switched to KVO, she is on dysphagia diet and she requires assist and supervision with her meals. On 04/08/2021 patient is seen in follow-up on medical surgical floor. she is currently down to 5 L of oxygen, pulse ox is 96%, she is breathing much more comfortably, she is much more awake and alert, confusion has significantly improved, she is interacting more, denies any acute distress, no dyspnea, no chest pain, no fever or chills. she is in -1.5 L over the last 24 hours. she remains on Decadron 2 mg daily, remains on Lovenox 40 mg, she is on oral Lasix 40 mg daily. she has passed her swallow evaluation today however her appetite is poor. She remains generally weak however she is starting to move her e xtremities more, still can't lift up her extremities against gravity, but able to flex her feet more, and select banker with her wrists. She required Ximena lift to get her up in the chair. today's labs have been reviewed her white blood cell count is 8.8, hemoglobin is 11, sodium is 143, potassium 3.5, chloride is 101, CO2 is 30, BUN is 18, creatinine 0.5. Objective - Vital Signs Vital signs: Vital Signs Temp 97.9 F 04/08/21 15:18 Pulse 62 04/08/21 15:18 Resp 18 04/08/21 15:18 BP 132/62 04/08/21 15:18 Pulse Ox 96 04/08/21 15:18 Intake & Output 04/07/21 04/08/21 04/08/21 18:59 06:59 18:59 Output Total 1000 500 Balance -1000 -500 Weight 129 kg Output: Urine 1000 500 Other: Voiding Method Indwelling Catheter ABP, PAP, CO, CI - Last Documented Arterial Blood Pressure 177/68 - Exam GENERAL EXAM: Alert, very pleasant, 60-year-old white female, on 5 L of oxygen and the pulse ox of 99%, breathing comfortably, but overall appears weak, sitting up in the recliner, comfortable in no apparent distress. HEAD: Normocephalic/atraumatic. EYES: Normal reaction of pupils, equal size. Conjunctiva pink, sclera white. NOSE: Clear with pink turbinates. THROAT: No erythema or exudates. NECK: No masses, no JVD, no thyroid enlargement, no adenopathy. CHEST: No chest wall deformity. Symmetrical expansion. LUNGS: Equal air entry with measurement sounds bilaterally, with bilateral crackles CVS: Regular rate and rhythm, normal S1 and S2, no gallops, no murmurs, no rubs ABDOMEN: Soft, nontender. No hepatosplenomegaly, normal bowel sounds, no guarding or rigidity. EXTREMITIES: No clubbing, mild generalized edema, no cyanosis, 2+ pulses and upper and lower extremities. MUSCULOSKELETAL: Muscle strength and tone normal. SPINE: No scoliosis or deformity SKIN: No rashes CENTRAL NERVOUS SYSTEM: Alert and oriented -3. No focal deficits, tone is normal in all 4 extremities. PSYCHIATRIC: Alert and oriented -3. Appropriate affect. Intact judgment and insight. - Labs CBC & Chem 7: 04/08/21 06:00 04/08/21 06:00 Labs: Abnormal Lab Results - Last 24 Hours (Table) 04/07/21 04/08/21 04/08/21 Range/Units 20:24 05:27 06:00 RBC 3.71 L (4.10-5.20) X 10*6/uL Hgb 11.0 L (12.0-15.0) g/dL Hct 36.3 L (37.2-46.3) % MCV 97.8 H (80.0-97.0) fL MCHC 30.3 L (32.0-37.0) g/dL Basophils # 0.12 H (0.00-0.10) X 10*3/uL Carbon Dioxide (20.0-27.5) mmol/L Creatinine (0.6-1.5) mg/dL BUN/Creatinine Ratio (12.00-20.00) Ratio POC Glucose (mg/dL) 157 H 103 H (75-99) mg/dL Total Protein (6.2-8.2) g/dL Albumin (3.8-4.9) g/dL Albumin/Globulin Ratio (1.60-3.17) g/dL 04/08/21 04/08/21 04/08/21 Range/Units 06:00 11:39 16:52 RBC (4.10-5.20) X 10*6/uL Hgb (12.0-15.0) g/dL Hct (37.2-46.3) % MCV (80.0-97.0) fL MCHC (32.0-37.0) g/dL Basophils # (0.00-0.10) X 10*3/uL Carbon Dioxide 30.2 H (20.0-27.5) mmol/L Creatinine 0.5 L (0.6-1.5) mg/dL BUN/Creatinine Ratio 41.11 H (12.00-20.00) Ratio POC Glucose (mg/dL) 261 H 194 H (75-99) mg/dL Total Protein 6.1 L (6.2-8.2) g/dL Albumin 3.3 L (3.8-4.9) g/dL Albumin/Globulin Ratio 1.16 L (1.60-3.17) g/dL Assessment and Plan Plan: Assessment: #1. Acute hypoxic respiratory failure suspected to acute COVID-19 related pneum onia, status post intubation and mechanical ventilation on 03/19/2021. Patient was successfully weaned and extubated on 04/02/2021. Tolerating extubation quite well so far, currently down to 8 L of oxygen. Patient has profound generalized weakness. #2. Acute hypoxic and possibly metabolic encephalopathy, improving, brain CT on 04/06/2021 was negative #3. Morbid obesity with current BMI 52.6 kg/m #4. Diabetes mellitus type 2 #5. Increased inflammatory markers, improving #6. 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 Acute urinary tract infection related to E. coli, patient has completed a course of Rocephin, ID service is following Plan: continue current medical treatment Continue oral Lasix and Decadron Continue Lovenox Oxygenation continues to improve Labs and chest x-ray have been reviewed Clinical patient is improving Less confused as well Vital signs have been stable, patient is been afebrile Continue physical therapy May consider discharge to rehab in the next day or 2 I performed a history & physical examination of the patient and discussed their management with my nurse practitioner, Caitlyn Manning. I reviewed the nurse practitioner's note and agree with the documented findings and plan of care. Lung sounds are positive for bibasilar crackles throughout the lung shah. The findings and the impression was discussed with the patient. I attest to the documentation by the nurse practitioner. Time with Patient: Less than 30
--- NOTE | 2021-04-08 18:54 | P.PN ---
Subjective Progress Note Date: 04/07/21 Sergio Villatoro, is a 60-year-old female who presented to [facility] emergency room with a chief complaint of cough and shortness of breath, patient stated that she started getting sick on 03/06/2021, she was checked for Covid at that time but the test was negative, she continued to get worse, she had a second test on 03/16/2021 that was positive, patient started getting worsening shortness of breath and she decided to come to emergency room on 03/18/2021. Patient stated that she did not get vaccinated for Covid, her risk factors include diabetes and morbid obesity, she denies any cardiac history. She was evaluated in the emergency room vital examination reveals a temperature of 100.6 pulse 102 respiration 21 blood pressure 139/72 pulse ox 75% on room air and 90% on 6 L nasal cannula, white blood count was 8.4 hemoglobin 14.2 platelet count 204 sodium 134 potassium 4.2 chloride 99 CO2 22 BUN 29 creatinine 0.83 plasma lactic acid was 2.1 AST 54 ALT 38 troponin less than 0.012 EKG was normal, chest x-ray revealed diffuse near complete opacification of bilateral lungs suggestive of diffuse pneumonia or ARDS. Patient was started on IV dexamethasone, subcu Lovenox, vitamin C, vitamin D, and zinc supplements, pulmonary consultation and infectious disease consultation were requested. Patient is a former smoker, she denies ever being diagnosed with asthma or emphysema. On 03/19/2021 patient was urgently intubated this a.m. per critical care services due to decreasing respiratory status. Patient has been started on sedation. Patient remains on Decadron, vitamin C, vitamin D and zinc. Critical care and infectious disease services are following. Patient remains on Lovenox for DVT prophylaxis. PH 7.29, pCO2 57, pO2 76 HCO3 28. On 03/20/2021 patient was seen and examined in the ICU she is intubated sedated maintained on mechanical ventilation, she is maintained on IV Decadron subcu Lovenox, and vitamin supplements bilateral lower extremity Doppler was negative for DVT, pulmonary and infectious disease are following, prognosis is guarded On 03/21/2021 patient is intubated and remains on sedation. Per nursing staff patient is no longer on Levophed. Patient currently on an FiO2 of 55%. PH of 7.38, pCO2 47 pO2 HCO3 28. Pulmonary and infectious disease service is following On 03/22/2021 patient was seen and examined in the ICU she is intubated sedated maintained on mechanical ventilation, she is maintained on IV Decadron subcu Lovenox, and vitamin supplements bilateral lower extremity Doppler was negative for DVT, temperature is 98.3 pulse 48 respiration 30 blood pressure 130/58 pulse ox 97% on FiO2 of 50% white blood count 7.4 hemoglobin 11.9 platelet count 286 d-dimer elevated at 6.36 ABG reveals a pH of 7.4 pCO2 42 PO2 110 pulmonary and infectious disease are following, prognosis is guarded On 03/23/2021 patient remains in the intensive care unit intubated sedated and on mechanical ventilation. Patient remains on fentanyl and propofol drips. Critical care and infectious disease services are following today's ABG showing pH of 7.35 pCO2 45 pO2 83 and HCO3 levels 25 On 03/24/2021 patient was seen and examined in the ICU she is intubated sedated maintained on mechanical ventilation, vital examination reveals a temperature of 100.3 pulse 82 respiration 30 blood pressure 170/53 pulse ox 93% on 50% FiO2 laboratory data reveals white blood count 11.5 hemoglobin 11.7 platelet count 327 sodium 138 potassium 4.7 chloride 110 CO2 22 BUN 46 creatinine 0.83 chest x- ray reveals diffuse interstitial opacities with worsening airspace disease in the left base and left perihilar region. Arterial blood gas reveals a pH of 7.36 pCO2 43 PO2 70 On 03/25/2021 patient was seen and examined in ICU she is intubated sedated maintained on mechanical ventilation, she is on assist control tidal volume 400 FiO2 50% and PEEP of 18 she is maintained on IV Decadron and subcu Lovenox she is also maintained on insulin patient had episode of hypoglycemia and her NovoLog 70/30 was decreased to 30 units twice daily On 03/26/2021 patient remains in the intensive care unit intubated and sedated on mechanical ventilation. Patient's FiO2 has been increased to 65% due to increased oxygen demands. Patient remains on IV Lasix. PH 7.42, pCO2 38, pO2 82 and HCO3 level 25. Infectious disease and critical care services are following On 03/27/2021 patient was seen and examined in the intensive care unit she is intubated sedated maintained on mechanical ventilation, patient is maintained on FiO2 55% and PEEP of 15 vital examination reveals a temperature of 98.1 pulse 70 respiration 30 blood pressure 173/58 pulse ox 95% ABG reveals a pH of 7.44 pCO2 39 PO2 64 white blood count 12.1 hemoglobin 11.0 platelet count 348 BUN 54 creatinine 0.78 glucose level 122 she is maintained on IV Decadron, IV cefepime, subcu Lovenox, IV Lasix, insulin per sliding scale and vitamin supplements. On 03/28/2021 she remains in the intensive care unit intubated on mechanical ventilation. FiO2 has been decreased to 50%. PH 7.4 a pCO2 36 pO2 69 and HCO3 28. Critical care and infectious disease services following patient remains on sedation and IV Lasix On 03/29/2021 patient was seen and examined in the ICU she is intubated sedated maintained on mechanical ventilation assist control rate of 30 FiO2 50% and PEEP of 14 arterial blood gas reveals a pH of 7.50 pCO2 35 and PaO2 of 77 white blood count is 11.5 hemoglobin 10.6 and platelet count 364 BUN 35 creatinine 0.67 chest x-ray done today reveals slight improvement in the patchy bibasilar in terstitial opacities no pneumothorax or large effusion. Patient is improving gradually On 03/30/2021 patient remains in the intensive care unit intubated and on mechanical ventilation. FiO2 has been decreased to 45%. PH is 7.52, pCO2 35 pO2 of 60 HCO3 28. Critical care and infectious disease services are following. Patient is improving gradually. [facility] ( Dr [facility]) will be covering for me starting Wednesday03/31/2021 I am resuming care for this patient on 04/07/2021 On 04/07/2020 patient was seen and examined on the medical floor she is drowsy in no apparent distress she is maintained on high flow oxygen at 9 L vital exam reveals a temperature of 98.6 pulse 90 respiration 20 blood pressure 180/76 pulse ox 98%, medication and labs were reviewed pulmonary are following, with recheck labs in am physical therapy and occupational therapy consult Objective - Vital Signs Vital signs: Vital Signs Temp 98.5 F 04/07/21 07:00 Pulse 94 04/07/21 07:00 Resp 17 04/07/21 07:00 BP 179/74 04/07/21 07:00 Pulse Ox 96 04/07/21 07:00 Intake & Output 04/06/21 04/07/21 04/07/21 18:59 06:59 18:59 Intake Total 500 Balance 500 Weight 130.5 kg Intake: IV 500 Sodium Chloride 0.9% 1, 500 000 ml @ 20 mls/hr IV . Q24H MENDOZA Rx#:[id number] Other: Voiding Method Indwelling Catheter Indwelling Catheter ABP, PAP, CO, CI - Last Documented Arterial Blood Pressure 177/68 - Exam In general patient is intubated sedated maintained on mechanical ventilation HEENT head normocephalic and atraumatic Neck is supple no JVD no goiter no lymphadenopathy no carotid bruit Chest examination coarse crackles in both lung shah with wheezing Cardiac exam reveals regular heart sounds S1 and S2 no gallops no murmurs Abdomen is soft nontender no organomegaly with normal bowel sounds Extremity exam reveals no edema no cyanosis or clubbing - Labs CBC & Chem 7: 04/06/21 07:47 04/06/21 07:47 Labs: Abnormal Lab Results - Last 24 Hours (Table) 04/06/21 04/07/21 04/07/21 Range/Units 16:30 00:11 11:07 POC Glucose (mg/dL) 263 H 208 H 291 H (75-99) mg/dL Assessment and Plan Plan: Acute COVID-19 infection Acute hypoxic respiratory failure secondary to COVID-19 pneumonia requiring intubation and mechanical ventilation on 03/19/2021 Bilateral Pneumonia related to COVID-19 Underlying history of insulin-dependent diabetes mellitus Underlying history of morbid obesity Previous history of smoking patient denies being diagnosed with COPD in the past Hyperkalemia. Resolved Maintained on subcu Lovenox, IV Decadron, vitamin C vitamin D and zinc supplements Pulmonary and infectious disease consultation were requested, case was discussed with Dr. Huynh over the phone Patient remains intubated and sedated on mechanical ventilation in the intensive care unit Prognosis is guarded, will follow closely Repeat labs and x-ray ordered for a.m.
--- NOTE | 2021-04-08 23:49 | PN ---
PROGRESS NOTE DATE OF SERVICE: 04/08/2021 REASON FOR FOLLOWUP: COVID-19 pneumonia and UTI. INTERVAL HISTORY: The patient is afebrile. The patient is currently breathing comfortably. The patient is on 5 L nasal cannula. Patient denies any chest pain. No worsening cough or sputum production. No abdominal pain. No diarrhea. No urinary symptoms. PHYSICAL EXAMINATION: Blood pressure 111/67, pulse 67, temperature 98.5. She is 96% on 5 L nasal cannula. General description is a middle-aged female lying in bed in no distress. Respiratory system: Unlabored breathing, decreased intensity of breath sounds, no wheeze. Heart S1, S2. Regular rate and rhythm. Abdomen soft, no tenderness. LABS: Hemoglobin is 11.9, white count 8.89, creatinine 0.59. DIAGNOSTIC IMPRESSION AND PLAN: 1. Patient with acute respiratory failure secondary to COVID-19 pneumonia in this patient with slow clinical improvement. Patient to continue with dexamethasone, Lovenox, zinc and ascorbic acid. 2. E coli UTI that has been adequately treated. We will monitor the patient closely off antibiotic therapy. MMODL / IJN: [id number] /
[2021-04-09 00:04] LABS: Glucose,Whole Blood 227 mg/dL (75-99)
[2021-04-09] MEDS: amLODIPine 5 MG TAB PO SCH ×3 (00:19→21:57)
[2021-04-09] MEDS: LACTULOSE 20 GM/30 ML CUP PO SCH ×3 (00:19→21:57)
[2021-04-09] MEDS: DOCUSATE ORAL SOLN 100 MG/10 ML CUP PO SCH ×3 (00:19→21:57)
[2021-04-09] MEDS: ASCORBIC ACID 500 MG TAB PO SCH ×3 (00:19→21:57)
[2021-04-09] MEDS: SODIUM CHLORIDE 0.9% 1,000 ML IV SCH ×2 (00:20→22:34)
[2021-04-09] MEDS: METOCLOPRAMIDE 5 MG/ML 2 ML VIAL IVP SCH ×3 (00:20→11:59)
[2021-04-09] MEDS: INSULIN ASPART (NovoLOG) 100 UNIT/ML VIAL SQ SCH ×4 (00:20→17:37)
[2021-04-09 05:09] LABS: Glucose,Whole Blood 250 mg/dL (75-99)
[2021-04-09] MEDS: FUROSEMIDE 40 MG TAB PO SCH (08:32)
[2021-04-09] MEDS: hydrALAZINE HCL 25 MG TAB PO SCH ×2 (08:32→21:57)
[2021-04-09] MEDS: ZINC SULFATE 220 MG CAP PO SCH (08:32)
[2021-04-09] MEDS: CHOLECALCIFEROL 25 MCG (1000 IU) TABLET PO SCH (08:32)
[2021-04-09] MEDS: LOSARTAN 50 MG TAB PO SCH (08:32)
[2021-04-09] MEDS: DEXAMETHASONE SOD PHOSPHATE 4 MG/ML 1 ML VIAL IVP SCH (08:33)
[2021-04-09] MEDS: PANTOPRAZOLE 40 MG TABLET PO SCH (08:33)
[2021-04-09] MEDS: INSULN ASP PRT/INSULIN ASPART 100 UNIT/ML 10 ML VIAL SQ SCH ×2 (08:35→22:13)
--- NOTE | 2021-04-09 09:14 | XR ---
EXAMINATION TYPE: XR chest 1V portable DATE OF EXAM: 04/09/2021 COMPARISON: 04/05/2021 INDICATION: Short of breath TECHNIQUE: Single frontal view of the chest is obtained. FINDINGS: The heart size is mildly prominent. The pulmonary vasculature is prominent. Few scattered infiltrates are present. This is somewhat improved over the interval. Continued follow- up is recommended PICC line enters on the right with the tip in the region of the right atrium. IMPRESSION: 1. Improving diffuse bilateral lung infiltrates. Continued follow-up is recommended. 2. Cardiomegaly with prominent pulmonary vascular markings.
[2021-04-09] MEDS: ALBUTEROL HFA INHALER INHALATION SCH ×5 (09:51→21:49)
[2021-04-09 11:02] LABS: Glucose,Whole Blood 156 mg/dL (75-99)
[2021-04-09] MEDS: cloNIDine 0.3 MG/24HR PATCH TRANSDERM SCH (11:59)
[2021-04-09] MEDS ORDERED: HALOPERIDOL LACTATE 5 MG/ML 1 ML VIAL IM PRN (12:27)
--- NOTE | 2021-04-09 14:03 | US ---
EXAMINATION TYPE: US venous doppler duplex LE RT DATE OF EXAM: 04/09/2021 1:02 PM COMPARISON: NONE CLINICAL HISTORY: warm to touch. R/O DVT. Right leg swelling, poor historian SIDE PERFORMED: Right TECHNIQUE: The lower extremity deep venous system is examined utilizing real time linear array sonog idalmis with graded compression, doppler sonography and color-flow sonography. VESSELS IMAGED: Common Femoral Vein Deep Femoral Vein Greater Saphenous Vein * Femoral Vein Popliteal Vein Small Saphenous Vein * Proximal Calf Veins (* superficial vessels) Right Leg: Negative for DVT IMPRESSION: 1. Right lower extremity ultrasound negative for deep venous thrombosis.
--- NOTE | 2021-04-09 15:45 | P.PN ---
Subjective Progress Note Date: 04/09/21 Principal diagnosis: COVID-19 related pneumonia On 04/07/2021 patient seen in follow-up on medical surgical floor. She is awake and alert, she sits up in the recliner, her daughter is at the bedside, she is a very weak, but she is able to nod and shake her head appropriately to verbal questions, occasionally she gives 1 or 2 word responses, denies any acute distress, currently on 8 L of oxygen pulse ox is 99%, FiO2 has been dropped down to 7 L/m. Lung sounds are diminished, the daughter is requesting incentive spirometry, she needs aggressive pulmonary toileting, she was successfully weaned and extubated from mechanical ventilator on 04/02/2021. Tolerating extubation quite well so far. FiO2 is being weaned down. Last chest x-ray from 04/05/2021 showing similar multifocal airspace opacities. Family reports significant improvement in patient's mentation patient being more awake and alert, and following command. Brain CT yesterday showed no acute findings. Her last blood work from yesterday showed normal white count which was down to 9.45, hemoglobin was 11.9, sodium was 141, potassium 3.7, chloride is 104, CO2 31, B1 is 18, creatinine 0.42. Generally patient appears to be swollen, she remains on oral dose of Lasix 40 mg daily, she is maintaining negative fluid balance. Patient remains on Decadron and the dose is being weaned down and is currently d own to 2 mg daily, she is on once daily dose of Lovenox 40 mg, her IV fluids have been switched to KVO, she is on dysphagia diet and she requires assist and supervision with her meals. On 04/08/2021 patient is seen in follow-up on medical surgical floor. she is currently down to 5 L of oxygen, pulse ox is 96%, she is breathing much more comfortably, she is much more awake and alert, confusion has significantly improved, she is interacting more, denies any acute distress, no dyspnea, no chest pain, no fever or chills. she is in -1.5 L over the last 24 hours. she remains on Decadron 2 mg daily, remains on Lovenox 40 mg, she is on oral Lasix 40 mg daily. she has passed her swallow evaluation today however her appetite is poor. She remains generally weak however she is starting to move her e xtremities more, still can't lift up her extremities against gravity, but able to flex her feet more, and critical care paramedic with her wrists. She required Ximena lift to get her up in the chair. today's labs have been reviewed her white blood cell count is 8.8, hemoglobin is 11, sodium is 143, potassium 3.5, chloride is 101, CO2 is 30, BUN is 18, creatinine 0.5. On 04/09/2021 patient seen in follow-up medical surgical floor. She is awake and alert, in no acute distress, she is resting in bed, she has been get not been the chair on a daily basis although she does require extensive assistance and needs all her lift to get her up in the chair. Breathing comfortably, no cough, no chest discomfort. She continues to diurese, still quite swollen, she is maintaining on oral dose of Lasix 40 mg. She remains on Decadron which is down to 2 mg daily, she is on multivitamins. Is tolerating oral intake although her appetite is poor. Her chest x-ray today has been reviewed showing improving diffuse bilateral lung infiltrates cardiomegaly with prominent pulmonary vascular markings. She is currently down to 4 L. Vital signs have been stable. Overall patient is improving although her reports that patient has been trying to get up unassisted, she is becoming agitated with him, and she has been get agitated with the staff as well. She did not sleep well last night, agitated delirium is suspected. Objective - Vital Signs Vital signs: Vital Signs Temp 98.0 F 04/09/21 08:00 Pulse 92 04/09/21 08:00 Resp 16 04/09/21 08:00 BP 117/72 04/09/21 08:00 Pulse Ox 94 L 04/09/21 08:00 Intake & Output 04/08/21 04/09/21 04/09/21 18:59 06:59 18:59 Intake Total 240 Output Total 650 475 Balance -410 -475 Weight 127.5 kg Intake: Oral 240 Output: Urine 650 475 Other: Voiding Method Indwelling Catheter Indwelling Catheter ABP, PAP, CO, CI - Last Documented Arterial Blood Pressure 177/68 - Exam GENERAL EXAM: Alert, very pleasant, 60-year-old white female, on 4 L of oxygen and the pulse ox of 94%, breathing comfortably HEAD: Normocephalic/atraumatic. EYES: Normal reaction of pupils, equal size. Conjunctiva pink, sclera white. NOSE: Clear with pink turbinates. THROAT: No erythema or exudates. NECK: No masses, no JVD, no thyroid enlargement, no adenopathy. CHEST: No chest wall deformity. Symmetrical expansion. LUNGS: Equal air entry with measurement sounds bilaterally, with bilateral crackles CVS: Regular rate and rhythm, normal S1 and S2, no gallops, no murmurs, no rubs ABDOMEN: Soft, nontender. No hepatosplenomegaly, normal bowel sounds, no guarding or rigidity. EXTREMITIES: No clubbing, mild generalized edema, no cyanosis, 2+ pulses and upper and lower extremities. MUSCULOSKELETAL: Muscle strength and tone normal. SPINE: No scoliosis or deformity SKIN: No rashes CENTRAL NERVOUS SYSTEM: Alert and oriented -3. No focal deficits, tone is normal in all 4 extremities. PSYCHIATRIC: Alert and oriented -3. Appropriate affect. Intact judgment and insight. - Labs CBC & Chem 7: 04/08/21 06:00 04/08/21 06:00 Labs: Abnormal Lab Results - Last 24 Hours (Table) 04/08/21 04/09/21 04/09/21 Range/Units 16:52 00:03 05:07 POC Glucose (mg/dL) 194 H 227 H 250 H (75-99) mg/dL 04/09/21 Range/Units 11:00 POC Glucose (mg/dL) 156 H (75-99) mg/dL Assessment and Plan Plan: Assessment: #1. Acute hypoxic respiratory failure suspected to acute COVID-19 related pneumonia, status post intubation and mechanical ventilation on 03/19/2021. Patient was successfully weaned and extubated on 04/02/2021. Tolerating extubation quite well so far, currently down to 8 L of oxygen. Patient has profound generalized weakness. #2. Acute hypoxic and possibly metabolic encephalopathy, improving, brain CT on 04/06/2021 was negative #3. Morbid obesity with current BMI 52.6 kg/m #4. Diabetes mellitus type 2 #5. Increased inflammatory markers, improving #6. 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 Acute urinary tract infection related to E. coli, patient has completed a course of Rocephin, ID service is following Plan: Continue oral Lasix and Decadron Continue Lovenox Right lower extremity is slightly more swollen than the left, lower extremity Doppler did not show DVT Oxygenation continues to improve FiO2 is currently down to 4 L Labs and chest x-ray have been reviewed X-rays show significant improvement in the appearance of bilateral infiltrates Will add PRN dose Haldol and SEroquel 25 mg daily at bedtime for agitation and confusion avoid Benzodiazepines, DC reglan provide safety precautions Will continue to follow May consider discharge to rehab in the next day or 2 I performed a history & physical examination of the patient and discussed their management with my nurse practitioner, Caitlyn Manning. I reviewed the nurse practitioner's note and agree with the documented findings and plan of care. Lung sounds are positive for bibasilar crackles throughout the lung shah. The findings and the impression was discussed with the patient. I attest to the documentation by the nurse practitioner. Time with Patient: Less than 30
[2021-04-09 17:37] LABS: Glucose,Whole Blood 166 mg/dL (75-99)
--- NOTE | 2021-04-09 17:38 | P.PN ---
Subjective Progress Note Date: 04/08/21 Sergio Villatoro, is a 60-year-old female who presented to [facility] emergency room with a chief complaint of cough and shortness of breath, patient stated that she started getting sick on 03/06/2021, she was checked for Covid at that time but the test was negative, she continued to get worse, she had a second test on 03/16/2021 that was positive, patient started getting worsening shortness of breath and she decided to come to emergency room on 03/18/2021. Patient stated that she did not get vaccinated for Covid, her risk factors include diabetes and morbid obesity, she denies any cardiac history. She was evaluated in the emergency room vital examination reveals a temperature of 100.6 pulse 102 respiration 21 blood pressure 139/72 pulse ox 75% on room air and 90% on 6 L nasal cannula, white blood count was 8.4 hemoglobin 14.2 platelet count 204 sodium 134 potassium 4.2 chloride 99 CO2 22 BUN 29 creatinine 0.83 plasma lactic acid was 2.1 AST 54 ALT 38 troponin less than 0.012 EKG was normal, chest x-ray revealed diffuse near complete opacification of bilateral lungs suggestive of diffuse pneumonia or ARDS. Patient was started on IV dexamethasone, subcu Lovenox, vitamin C, vitamin D, and zinc supplements, pulmonary consultation and infectious disease consultation were requested. Patient is a former smoker, she denies ever being diagnosed with asthma or emphysema. On 03/19/2021 patient was urgently intubated this a.m. per critical care services due to decreasing respiratory status. Patient has been started on sedation. Patient remains on Decadron, vitamin C, vitamin D and zinc. Critical care and infectious disease services are following. Patient remains on Lovenox for DVT prophylaxis. PH 7.29, pCO2 57, pO2 76 HCO3 28. On 03/20/2021 patient was seen and examined in the ICU she is intubated sedated maintained on mechanical ventilation, she is maintained on IV Decadron subcu Lovenox, and vitamin supplements bilateral lower extremity Doppler was negative for DVT, pulmonary and infectious disease are following, prognosis is guarded On 03/21/2021 patient is intubated and remains on sedation. Per nursing staff patient is no longer on Levophed. Patient currently on an FiO2 of 55%. PH of 7.38, pCO2 47 pO2 HCO3 28. Pulmonary and infectious disease service is following On 03/22/2021 patient was seen and examined in the ICU she is intubated sedated maintained on mechanical ventilation, she is maintained on IV Decadron subcu Lovenox, and vitamin supplements bilateral lower extremity Doppler was negative for DVT, temperature is 98.3 pulse 48 respiration 30 blood pressure 130/58 pulse ox 97% on FiO2 of 50% white blood count 7.4 hemoglobin 11.9 platelet count 286 d-dimer elevated at 6.36 ABG reveals a pH of 7.4 pCO2 42 PO2 110 pulmonary and infectious disease are following, prognosis is guarded On 03/23/2021 patient remains in the intensive care unit intubated sedated and on mechanical ventilation. Patient remains on fentanyl and propofol drips. Critical care and infectious disease services are following today's ABG showing pH of 7.35 pCO2 45 pO2 83 and HCO3 levels 25 On 03/24/2021 patient was seen and examined in the ICU she is intubated sedated maintained on mechanical ventilation, vital examination reveals a temperature of 100.3 pulse 82 respiration 30 blood pressure 170/53 pulse ox 93% on 50% FiO2 laboratory data reveals white blood count 11.5 hemoglobin 11.7 platelet count 327 sodium 138 potassium 4.7 chloride 110 CO2 22 BUN 46 creatinine 0.83 chest x- ray reveals diffuse interstitial opacities with worsening airspace disease in the left base and left perihilar region. Arterial blood gas reveals a pH of 7.36 pCO2 43 PO2 70 On 03/25/2021 patient was seen and examined in ICU she is intubated sedated maintained on mechanical ventilation, she is on assist control tidal volume 400 FiO2 50% and PEEP of 18 she is maintained on IV Decadron and subcu Lovenox she is also maintained on insulin patient had episode of hypoglycemia and her NovoLog 70/30 was decreased to 30 units twice daily On 03/26/2021 patient remains in the intensive care unit intubated and sedated on mechanical ventilation. Patient's FiO2 has been increased to 65% due to increased oxygen demands. Patient remains on IV Lasix. PH 7.42, pCO2 38, pO2 82 and HCO3 level 25. Infectious disease and critical care services are following On 03/27/2021 patient was seen and examined in the intensive care unit she is intubated sedated maintained on mechanical ventilation, patient is maintained on FiO2 55% and PEEP of 15 vital examination reveals a temperature of 98.1 pulse 70 respiration 30 blood pressure 173/58 pulse ox 95% ABG reveals a pH of 7.44 pCO2 39 PO2 64 white blood count 12.1 hemoglobin 11.0 platelet count 348 BUN 54 creatinine 0.78 glucose level 122 she is maintained on IV Decadron, IV cefepime, subcu Lovenox, IV Lasix, insulin per sliding scale and vitamin supplements. On 03/28/2021 she remains in the intensive care unit intubated on mechanical ventilation. FiO2 has been decreased to 50%. PH 7.4 a pCO2 36 pO2 69 and HCO3 28. Critical care and infectious disease services following patient remains on sedation and IV Lasix On 03/29/2021 patient was seen and examined in the ICU she is intubated sedated maintained on mechanical ventilation assist control rate of 30 FiO2 50% and PEEP of 14 arterial blood gas reveals a pH of 7.50 pCO2 35 and PaO2 of 77 white blood count is 11.5 hemoglobin 10.6 and platelet count 364 BUN 35 creatinine 0.67 chest x-ray done today reveals slight improvement in the patchy bibasilar in terstitial opacities no pneumothorax or large effusion. Patient is improving gradually On 03/30/2021 patient remains in the intensive care unit intubated and on mechanical ventilation. FiO2 has been decreased to 45%. PH is 7.52, pCO2 35 pO2 of 60 HCO3 28. Critical care and infectious disease services are following. Patient is improving gradually. [facility] ( Dr Gonzalez's group) will be covering for me starting Wednesday03/31/2021 I am resuming care for this patient on 04/07/2021 On 04/07/2021 patient was seen and examined on the medical floor she is drowsy in no apparent distress she is maintained on high flow oxygen at 9 L vital exam reveals a temperature of 98.6 pulse 90 respiration 20 blood pressure 180/76 pulse ox 98%, medication and labs were reviewed pulmonary are following, with recheck labs in am physical therapy and occupational therapy consult On 04/08/2021 patient was seen and examined on the medical floor she is more alert and responsive today her oxygen requirement is down to 5 L nasal cannula there is no fever or chills no headache or dizziness no chest pain she is still having cough no nausea or vomiting no abdominal pain no diarrhea and no urinary symptoms Objective - Vital Signs Vital signs: Vital Signs Temp 97.9 F 04/08/21 15:18 Pulse 62 04/08/21 15:18 Resp 18 04/08/21 15:18 BP 132/62 04/08/21 15:18 Pulse Ox 96 04/08/21 15:18 Intake & Output 04/07/21 04/08/21 04/08/21 18:59 06:59 18:59 Intake Total 240 Output Total 1000 500 650 Balance -1000 -500 -410 Weight 129 kg Intake: Oral 240 Output: Urine 1000 500 650 Other: Voiding Method Indwelling Catheter ABP, PAP, CO, CI - Last Documented Arterial Blood Pressure 177/68 - Exam In general patient is intubated sedated maintained on mechanical ventilation HEENT head normocephalic and atraumatic Neck is supple no JVD no goiter no lymphadenopathy no carotid bruit Chest examination coarse crackles in both lung shah with wheezing Cardiac exam reveals regular heart sounds S1 and S2 no gallops no murmurs Abdomen is soft nontender no organomegaly with normal bowel sounds Extremity exam reveals no edema no cyanosis or clubbing - Labs CBC & Chem 7: 04/08/21 06:00 04/08/21 06:00 Labs: Abnormal Lab Results - Last 24 Hours (Table) 04/07/21 04/08/21 04/08/21 Range/Units 20:24 05:27 06:00 RBC 3.71 L (4.10-5.20) X 10*6/uL Hgb 11.0 L (12.0-15.0) g/dL Hct 36.3 L (37.2-46.3) % MCV 97.8 H (80.0-97.0) fL MCHC 30.3 L (32.0-37.0) g/dL Basophils # 0.12 H (0.00-0.10) X 10*3/uL Carbon Dioxide (20.0-27.5) mmol/L Creatinine (0.6-1.5) mg/dL BUN/Creatinine Ratio (12.00-20.00) Ratio POC Glucose (mg/dL) 157 H 103 H (75-99) mg/dL Total Protein (6.2-8.2) g/dL Albumin (3.8-4.9) g/dL Albumin/Globulin Ratio (1.60-3.17) g/dL 04/08/21 04/08/21 04/08/21 Range/Units 06:00 11:39 16:52 RBC (4.10-5.20) X 10*6/uL Hgb (12.0-15.0) g/dL Hct (37.2-46.3) % MCV (80.0-97.0) fL MCHC (32.0-37.0) g/dL Basophils # (0.00-0.10) X 10*3/uL Carbon Dioxide 30.2 H (20.0-27.5) mmol/L Creatinine 0.5 L (0.6-1.5) mg/dL BUN/Creatinine Ratio 41.11 H (12.00-20.00) Ratio POC Glucose (mg/dL) 261 H 194 H (75-99) mg/dL Total Protein 6.1 L (6.2-8.2) g/dL Albumin 3.3 L (3.8-4.9) g/dL Albumin/Globulin Ratio 1.16 L (1.60-3.17) g/dL Assessment and Plan Plan: Acute COVID-19 infection Acute hypoxic respiratory failure secondary to COVID-19 pneumonia requiring intubation and mechanical ventilation on 03/19/2021, now extubated, on 5 liter nasal canula Bilateral Pneumonia related to COVID-19 Underlying history of insulin-dependent diabetes mellitus Underlying history of morbid obesity Previous history of smoking patient denies being diagnosed with COPD in the past Hyperkalemia. Resolved Maintained on subcu Lovenox, IV Decadron, vitamin C vitamin D and zinc supplements Pulmonary and infectious disease consultation were requested, case was discussed with Dr. Huynh over the phone Patient remains intubated and sedated on mechanical ventilation in the intensive care unit Prognosis is guarded, will follow closely Repeat labs and x-ray ordered for a.m.
[2021-04-09] MEDS: QUEtiapine 25 MG TAB PO SCH (17:39)
[2021-04-09] MEDS: ENOXAPARIN 40 MG/0.4 ML SYRINGE SQ SCH (17:39)
--- NOTE | 2021-04-09 17:54 | P.PN ---
Subjective Progress Note Date: 04/09/21 Sergio Villatoro, is a 60-year-old female who presented to [facility] emergency room with a chief complaint of cough and shortness of breath, patient stated that she started getting sick on 03/06/2021, she was checked for Covid at that time but the test was negative, she continued to get worse, she had a second test on 03/16/2021 that was positive, patient started getting worsening shortness of breath and she decided to come to emergency room on 03/18/2021. Patient stated that she did not get vaccinated for Covid, her risk factors include diabetes and morbid obesity, she denies any cardiac history. She was evaluated in the emergency room vital examination reveals a temperature of 100.6 pulse 102 respiration 21 blood pressure 139/72 pulse ox 75% on room air and 90% on 6 L nasal cannula, white blood count was 8.4 hemoglobin 14.2 platelet count 204 sodium 134 potassium 4.2 chloride 99 CO2 22 BUN 29 creatinine 0.83 plasma lactic acid was 2.1 AST 54 ALT 38 troponin less than 0.012 EKG was normal, chest x-ray revealed diffuse near complete opacification of bilateral lungs suggestive of diffuse pneumonia or ARDS. Patient was started on IV dexamethasone, subcu Lovenox, vitamin C, vitamin D, and zinc supplements, pulmonary consultation and infectious disease consultation were requested. Patient is a former smoker, she denies ever being diagnosed with asthma or emphysema. On 03/19/2021 patient was urgently intubated this a.m. per critical care services due to decreasing respiratory status. Patient has been started on sedation. Patient remains on Decadron, vitamin C, vitamin D and zinc. Critical care and infectious disease services are following. Patient remains on Lovenox for DVT prophylaxis. PH 7.29, pCO2 57, pO2 76 HCO3 28. On 03/20/2021 patient was seen and examined in the ICU she is intubated sedated maintained on mechanical ventilation, she is maintained on IV Decadron subcu Lovenox, and vitamin supplements bilateral lower extremity Doppler was negative for DVT, pulmonary and infectious disease are following, prognosis is guarded On 03/21/2021 patient is intubated and remains on sedation. Per nursing staff patient is no longer on Levophed. Patient currently on an FiO2 of 55%. PH of 7.38, pCO2 47 pO2 HCO3 28. Pulmonary and infectious disease service is following On 03/22/2021 patient was seen and examined in the ICU she is intubated sedated maintained on mechanical ventilation, she is maintained on IV Decadron subcu Lovenox, and vitamin supplements bilateral lower extremity Doppler was negative for DVT, temperature is 98.3 pulse 48 respiration 30 blood pressure 130/58 pulse ox 97% on FiO2 of 50% white blood count 7.4 hemoglobin 11.9 platelet count 286 d-dimer elevated at 6.36 ABG reveals a pH of 7.4 pCO2 42 PO2 110 pulmonary and infectious disease are following, prognosis is guarded On 03/23/2021 patient remains in the intensive care unit intubated sedated and on mechanical ventilation. Patient remains on fentanyl and propofol drips. Critical care and infectious disease services are following today's ABG showing pH of 7.35 pCO2 45 pO2 83 and HCO3 levels 25 On 03/24/2021 patient was seen and examined in the ICU she is intubated sedated maintained on mechanical ventilation, vital examination reveals a temperature of 100.3 pulse 82 respiration 30 blood pressure 170/53 pulse ox 93% on 50% FiO2 laboratory data reveals white blood count 11.5 hemoglobin 11.7 platelet count 327 sodium 138 potassium 4.7 chloride 110 CO2 22 BUN 46 creatinine 0.83 chest x- ray reveals diffuse interstitial opacities with worsening airspace disease in the left base and left perihilar region. Arterial blood gas reveals a pH of 7.36 pCO2 43 PO2 70 On 03/25/2021 patient was seen and examined in ICU she is intubated sedated maintained on mechanical ventilation, she is on assist control tidal volume 400 FiO2 50% and PEEP of 18 she is maintained on IV Decadron and subcu Lovenox she is also maintained on insulin patient had episode of hypoglycemia and her NovoLog 70/30 was decreased to 30 units twice daily On 03/26/2021 patient remains in the intensive care unit intubated and sedated on mechanical ventilation. Patient's FiO2 has been increased to 65% due to increased oxygen demands. Patient remains on IV Lasix. PH 7.42, pCO2 38, pO2 82 and HCO3 level 25. Infectious disease and critical care services are following On 03/27/2021 patient was seen and examined in the intensive care unit she is intubated sedated maintained on mechanical ventilation, patient is maintained on FiO2 55% and PEEP of 15 vital examination reveals a temperature of 98.1 pulse 70 respiration 30 blood pressure 173/58 pulse ox 95% ABG reveals a pH of 7.44 pCO2 39 PO2 64 white blood count 12.1 hemoglobin 11.0 platelet count 348 BUN 54 creatinine 0.78 glucose level 122 she is maintained on IV Decadron, IV cefepime, subcu Lovenox, IV Lasix, insulin per sliding scale and vitamin supplements. On 03/28/2021 she remains in the intensive care unit intubated on mechanical ventilation. FiO2 has been decreased to 50%. PH 7.4 a pCO2 36 pO2 69 and HCO3 28. Critical care and infectious disease services following patient remains on sedation and IV Lasix On 03/29/2021 patient was seen and examined in the ICU she is intubated sedated maintained on mechanical ventilation assist control rate of 30 FiO2 50% and PEEP of 14 arterial blood gas reveals a pH of 7.50 pCO2 35 and PaO2 of 77 white blood count is 11.5 hemoglobin 10.6 and platelet count 364 BUN 35 creatinine 0.67 chest x-ray done today reveals slight improvement in the patchy bibasilar in terstitial opacities no pneumothorax or large effusion. Patient is improving gradually On 03/30/2021 patient remains in the intensive care unit intubated and on mechanical ventilation. FiO2 has been decreased to 45%. PH is 7.52, pCO2 35 pO2 of 60 HCO3 28. Critical care and infectious disease services are following. Patient is improving gradually. [facility] ( Dr Gonzalez's group) will be covering for me starting Wednesday03/31/2021 I am resuming care for this patient on 04/07/2021 On 04/07/2021 patient was seen and examined on the medical floor she is drowsy in no apparent distress she is maintained on high flow oxygen at 9 L vital exam reveals a temperature of 98.6 pulse 90 respiration 20 blood pressure 180/76 pulse ox 98%, medication and labs were reviewed pulmonary are following, with recheck labs in am physical therapy and occupational therapy consult On 04/08/2021 patient was seen and examined on the medical floor she is more alert and responsive today her oxygen requirement is down to 5 L nasal cannula there is no fever or chills no headache or dizziness no chest pain she is still having cough no nausea or vomiting no abdominal pain no diarrhea and no urinary symptoms On 04/09/2021 patient was seen and examined on the medical floor she is alert more oriented and answering questions more appropriately today she is on oxygen 4 L nasal cannula there is no fever or chills no headache or dizziness no chest pain no shortness of breath no cough she is able to swallow well she is moving both lower extremities but not able to stand or walk at this time Objective - Vital Signs Vital signs: Vital Signs Temp 98.4 F 04/09/21 14:00 Pulse 80 04/09/21 14:00 Resp 14 04/09/21 14:00 BP 146/71 04/09/21 14:00 Pulse Ox 94 L 04/09/21 14:00 Intake & Output 04/08/21 04/09/21 04/09/21 18:59 06:59 18:59 Intake Total 240 Output Total 650 475 Balance -410 -475 Weight 127.5 kg 127.5 kg Intake: Oral 240 Output: Urine 650 475 Other: Voiding Method Indwelling Catheter Indwelling Catheter ABP, PAP, CO, CI - Last Documented Arterial Blood Pressure 177/68 - Exam In general patient is intubated sedated maintained on mechanical ventilation HEENT head normocephalic and atraumatic Neck is supple no JVD no goiter no lymphadenopathy no carotid bruit Chest examination coarse crackles in both lung shah with wheezing Cardiac exam reveals regular heart sounds S1 and S2 no gallops no murmurs Abdomen is soft nontender no organomegaly with normal bowel sounds Extremity exam reveals no edema no cyanosis or clubbing - Labs CBC & Chem 7: 04/08/21 06:00 04/08/21 06:00 Labs: Abnormal Lab Results - Last 24 Hours (Table) 04/09/21 04/09/21 04/09/21 Range/Units 00:03 05:07 11:00 POC Glucose (mg/dL) 227 H 250 H 156 H (75-99) mg/dL 04/09/21 Range/Units 17:35 POC Glucose (mg/dL) 166 H (75-99) mg/dL Assessment and Plan Plan: Acute COVID-19 infection Acute hypoxic respiratory failure secondary to COVID-19 pneumonia requiring intubation and mechanical ventilation on 03/19/2021, now extubated, on 5 liter nasal canula Bilateral Pneumonia related to COVID-19 Underlying history of insulin-dependent diabetes mellitus Underlying history of morbid obesity Previous history of smoking patient denies being diagnosed with COPD in the past Hyperkalemia. Resolved Maintained on subcu Lovenox, IV Decadron, vitamin C vitamin D and zinc supplements Pulmonary and infectious disease consultation were requested, case was discussed with Dr. Huynh over the phone Patient remains intubated and sedated on mechanical ventilation in the intensive care unit Prognosis is guarded, will follow closely Repeat labs and x-ray ordered for a.m.
[2021-04-09 22:13] LABS: Glucose,Whole Blood 226 mg/dL (75-99)
--- NOTE | 2021-04-09 23:31 | PN ---
PROGRESS NOTE DATE OF SERVICE: 04/09/2021 REASON FOR FOLLOWUP: 1. Covid 19 infection. 2. UTI. INTERVAL HISTORY: Patient is afebrile. The patient is currently breathing comfortably. She is down to 4 L nasal cannula. The patient denies any chest pain. No worsening cough. No sputum production. No abdominal pain. No diarrhea. PHYSICAL EXAMINATION: Blood pressure 132/60 with a pulse of 78, temperature 98.8. She is 95% on 4 L nasal cannula. General description is a middle-aged female lying in bed in no distress. Respiratory system: Unlabored breathing, decreased intensity of breath sounds. No wheeze. Heart S1, S2. Regular rate and rhythm. Abdomen soft, no tenderness. LABS: No new labs have been obtained today. DIAGNOSTIC IMPRESSION AND PLAN: 1. Patient with acute COVID-19 infection in this patient who has shown overall clinical improvement. The patient is currently on Decadron, Lovenox, zinc and ascorbic acid to continue along with respiratory support. 2. Patient with E. coli urinary tract infection that has been adequately treated. No need for further antibiotics. MMODL / IJN: [id number] /
[2021-04-10] MEDS: INSULIN ASPART (NovoLOG) 100 UNIT/ML VIAL SQ SCH ×4 (02:31→17:26)
[2021-04-10] MEDS: LACTULOSE 20 GM/30 ML CUP PO SCH ×3 (02:32→19:39)
[2021-04-10] MEDS: hydrALAZINE HCL 25 MG TAB PO SCH ×3 (02:32→19:39)
[2021-04-10] MEDS: DOCUSATE ORAL SOLN 100 MG/10 ML CUP PO SCH ×3 (02:33→19:39)
[2021-04-10] MEDS: ASCORBIC ACID 500 MG TAB PO SCH ×3 (02:33→19:39)
[2021-04-10] MEDS: amLODIPine 5 MG TAB PO SCH ×3 (02:33→19:39)
[2021-04-10 05:44] LABS: Glucose,Whole Blood 130 mg/dL (75-99)
[2021-04-10] MEDS: LOSARTAN 50 MG TAB PO SCH (07:17)
[2021-04-10] MEDS: FUROSEMIDE 40 MG TAB PO SCH (07:18)
[2021-04-10] MEDS: CHOLECALCIFEROL 25 MCG (1000 IU) TABLET PO SCH (07:18)
[2021-04-10] MEDS: ZINC SULFATE 220 MG CAP PO SCH (07:18)
[2021-04-10] MEDS: DEXAMETHASONE SOD PHOSPHATE 4 MG/ML 1 ML VIAL IVP SCH (07:18)
[2021-04-10] MEDS: PANTOPRAZOLE 40 MG TABLET PO SCH (07:18)
[2021-04-10] MEDS: INSULN ASP PRT/INSULIN ASPART 100 UNIT/ML 10 ML VIAL SQ SCH ×2 (07:20→19:38)
[2021-04-10] MEDS: QUEtiapine 25 MG TAB PO SCH (07:20)
[2021-04-10] MEDS: ALBUTEROL HFA INHALER INHALATION SCH ×4 (09:27→21:29)
[2021-04-10 11:09] LABS: Basophils # (A) 0.08 X 10*3/uL (0.00-0.10); Eosinophils % (A) 5.1 %; HCT 39.9 % (37.2-46.3); HGB 12.3 g/dL (12.0-15.0); Lymphocytes # (A) 2.19 X 10*3/uL (0.90-5.00); Lymphocytes % (A) 28.2 %; MCH 28.9 pg (27.0-32.0); MCHC 30.8 g/dL (32.0-37.0); MCV 93.7 fL (80.0-97.0); Mean Platelet Volume 11.3 fL (9.5-12.2); Monocytes # (A) 0.83 X 10*3/uL (0.20-1.00); Monocytes % (A) 10.7 %; Neutrophils # (A) 4.24 X 10*3/uL (1.80-7.70); Neutrophils % (A) 54.6 %; Platelet Count 212 X 10*3/uL (140-440); RBC 4.26 X 10*6/uL (4.10-5.20); RDW 13.6 % (11.5-14.5); WBC 7.77 X 10*3/uL (4.50-10.00)
[2021-04-10 11:51] LABS: Potassium 3.2 mmol/L (3.5-5.5)
[2021-04-10 11:52] LABS: African American GFR (CKD) 113.2 (60.0-200.0); Albumin 3.7 g/dL (3.8-4.9); Albumin/Globulin Ratio 1.23 (1.60-3.17); Anion Gap 14.9 mmol/L (10.00-18.00); BUN/Creat Ratio 23.5 Ratio (12.00-20.00); Blood Urea Nitrogen 14.1 mg/dL (9.0-27.0); Calcium 9.7 mg/dL (8.7-10.3); Carbon Dioxide 29.1 mmol/L (20.0-27.5); Non-African American GFR(CKD) 97.7 (60.0-200.0); Total Bilirubin 0.8 mg/dL (0.30-1.20); Total Protein 6.7 g/dL (6.2-8.2)
[2021-04-10] MEDS ORDERED: Potassium Replacement Protocol 1 EACH MISC MISCELLANE PRN ×2 (11:55→17:48)
[2021-04-10 12:31] LABS: Glucose,Whole Blood 193 mg/dL (75-99)
[2021-04-10] MEDS: POTASSIUM CHLORIDE ER 20 MEQ TAB.ER PO SCH ×2 (12:33→13:07)
--- NOTE | 2021-04-10 16:23 | P.PN ---
Subjective Progress Note Date: 04/10/21 Principal diagnosis: COVID-19 related pneumonia On 04/07/2021 patient seen in follow-up on medical surgical floor. She is awake and alert, she sits up in the recliner, her daughter is at the bedside, she is a very weak, but she is able to nod and shake her head appropriately to verbal questions, occasionally she gives 1 or 2 word responses, denies any acute distress, currently on 8 L of oxygen pulse ox is 99%, FiO2 has been dropped down to 7 L/m. Lung sounds are diminished, the daughter is requesting incentive spirometry, she needs aggressive pulmonary toileting, she was successfully weaned and extubated from mechanical ventilator on 04/02/2021. Tolerating extubation quite well so far. FiO2 is being weaned down. Last chest x-ray from 04/05/2021 showing similar multifocal airspace opacities. Family reports significant improvement in patient's mentation patient being more awake and alert, and following command. Brain CT yesterday showed no acute findings. Her last blood work from yesterday showed normal white count which was down to 9.45, hemoglobin was 11.9, sodium was 141, potassium 3.7, chloride is 104, CO2 31, B1 is 18, creatinine 0.42. Generally patient appears to be swollen, she remains on oral dose of Lasix 40 mg daily, she is maintaining negative fluid balance. Patient remains on Decadron and the dose is being weaned down and is currently d own to 2 mg daily, she is on once daily dose of Lovenox 40 mg, her IV fluids have been switched to KVO, she is on dysphagia diet and she requires assist and supervision with her meals. On 04/08/2021 patient is seen in follow-up on medical surgical floor. she is currently down to 5 L of oxygen, pulse ox is 96%, she is breathing much more comfortably, she is much more awake and alert, confusion has significantly improved, she is interacting more, denies any acute distress, no dyspnea, no chest pain, no fever or chills. she is in -1.5 L over the last 24 hours. she remains on Decadron 2 mg daily, remains on Lovenox 40 mg, she is on oral Lasix 40 mg daily. she has passed her swallow evaluation today however her appetite is poor. 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 She required Ximena lift to get her up in the chair. today's labs have been reviewed her white blood cell count is 8.8, hemoglobin is 11, sodium is 143, potassium 3.5, chloride is 101, CO2 is 30, BUN is 18, creatinine 0.5. On 04/09/2021 patient seen in follow-up medical surgical floor. She is awake and alert, in no acute distress, she is resting in bed, she has been get not been the chair on a daily basis although she does require extensive assistance and needs all her lift to get her up in the chair. Breathing comfortably, no cough, no chest discomfort. She continues to diurese, still quite swollen, she is maintaining on oral dose of Lasix 40 mg. She remains on Decadron which is down to 2 mg daily, she is on multivitamins. Is tolerating oral intake although her appetite is poor. Her chest x-ray today has been reviewed showing improving diffuse bilateral lung infiltrates cardiomegaly with prominent pulmonary vascular markings. She is currently down to 4 L. Vital signs have been stable. Overall patient is improving although her reports that patient has been trying to get up unassisted, she is becoming agitated with him, and she has been get agitated with the staff as well. She did not sleep well last night, agitated delirium is suspected. On 04/10/2021 patient seen in follow-up on medical surgical floor. She is resting comfortably in bed, she is on 3 L of oxygen pulse ox is 98%, FiO2 can probably be further weaned, breathing comfortably, no complaints of chest discomfort, no cough, no fever or chills, vital signs have been stable. Her daughter and her are at the bedside there is stating that the patient was much calmer, and somewhat lethargic today. Patient was started on Seroquel last night in view of agitation and confusion 25 mg at bedtime. Patient is awake and alert, she is responding appropriately, still has some confusion but no agitation, she is much more cooperative, she denies any acute distress, she currently remains on Lasix 40 mg daily, her generalized edema is improving, she remains on Decadron currently down to 2 mg daily. Today's chest x-ray has been reviewed her white blood cell count of 7.7, hemoglobin is 12.3, platelet count is 212, sodium is 138, potassium 3.2, chloride is 94, CO2 is 29, BUN is 14 and creatinine 0.6. Her inflammatory markers were improving according to the levels from a few days back. Today's levels are still pending. Generally patient remains weak, she requires a Ximena lift to get the patient up in the chair. The daughter states patient was sleepy today, and for that reason she did not get up in the chair. Currently discharge planning is in progress for possibility of placement into a swing bed at the [facility] where the daughter works as a nurse, versus [place] rehab facility. Currently the family is leaning with the option of placing the patient in the swing bed at the [facility], where they can visit her more freely and assist with her rehabilitation process. Objective - Vital Signs Vital signs: Vital Signs Temp 98.3 F 04/10/21 15:15 Pulse 70 04/10/21 15:15 Resp 15 04/10/21 15:15 BP 128/75 04/10/21 15:15 Pulse Ox 98 04/10/21 15:15 Intake & Output 04/09/21 04/10/21 04/10/21 18:59 06:59 18:59 Output Total 3800 Balance -3800 Weight 127.5 kg 126 kg Output: Urine 3800 Uretheral (Smith) 1700 Other: Voiding Method Indwelling Catheter Indwelling Catheter Indwelling Catheter ABP, PAP, CO, CI - Last Documented Arterial Blood Pressure 177/68 - Exam GENERAL EXAM: Alert, very pleasant, 60-year-old white female, on 3 L of oxygen and the pulse ox of 94%, breathing comfortably HEAD: Normocephalic/atraumatic. EYES: Normal reaction of pupils, equal size. Conjunctiva pink, sclera white. NOSE: Clear with pink turbinates. THROAT: No erythema or exudates. NECK: No masses, no JVD, no thyroid enlargement, no adenopathy. CHEST: No chest wall deformity. Symmetrical expansion. LUNGS: Equal air entry with measurement sounds bilaterally, with bilateral cr ackles CVS: Regular rate and rhythm, normal S1 and S2, no gallops, no murmurs, no rubs ABDOMEN: Soft, nontender. No hepatosplenomegaly, normal bowel sounds, no guarding or rigidity. EXTREMITIES: No clubbing, mild generalized edema, no cyanosis, 2+ pulses and upper and lower extremities. MUSCULOSKELETAL: Muscle strength and tone normal. SPINE: No scoliosis or deformity SKIN: No rashes CENTRAL NERVOUS SYSTEM: Alert and oriented -3. No focal deficits, tone is normal in all 4 extremities. PSYCHIATRIC: Alert and oriented -3. Appropriate affect. Intact judgment and insight. - Labs CBC & Chem 7: 04/10/21 07:44 04/10/21 07:38 Labs: Abnormal Lab Results - Last 24 Hours (Table) 04/09/21 04/09/21 04/10/21 Range/Units 17:35 22:12 05:42 MCHC (32.0-37.0) g/dL Eosinophils # (0.04-0.35) X 10*3/uL Potassium (3.5-5.5) mmol/L Chloride (96-109) mmol/L Carbon Dioxide (20.0-27.5) mmol/L BUN/Creatinine Ratio (12.00-20.00) Ratio Glucose (70-110) mg/dL POC Glucose (mg/dL) 166 H 226 H 130 H (75-99) mg/dL Albumin (3.8-4.9) g/dL Albumin/Globulin Ratio (1.60-3.17) g/dL 04/10/21 04/10/21 04/10/21 Range/Units 07:38 07:44 12:29 MCHC 30.8 L (32.0-37.0) g/dL Eosinophils # 0.40 H (0.04-0.35) X 10*3/uL Potassium 3.2 L (3.5-5.5) mmol/L Chloride 94 L (96-109) mmol/L Carbon Dioxide 29.1 H (20.0-27.5) mmol/L BUN/Creatinine Ratio 23.50 H (12.00-20.00) Ratio Glucose 159 H (70-110) mg/dL POC Glucose (mg/dL) 193 H (75-99) mg/dL Albumin 3.7 L (3.8-4.9) g/dL Albumin/Globulin Ratio 1.23 L (1.60-3.17) g/dL Assessment and Plan Plan: Assessment: #1. Acute hypoxic respiratory failure suspected to acute COVID-19 related pneumonia, status post intubation and mechanical ventilation on 03/19/2021. Patient was successfully weaned and extubated on 04/02/2021. Tolerating extubation quite well so far, currently down to 3 L of oxygen. Patient has profound generalized weakness. #2. Acute hypoxic and possibly metabolic encephalopathy, improving, brain CT on 04/06/2021 was negative. Currently FiO2 is down to 3 L with a pulse ox of 98% #3. Morbid obesity with current BMI 52.6 kg/m #4. Diabetes mellitus type 2 #5. Increased inflammatory markers, improving #6. 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 Acute urinary tract infection related to E. coli, patient has completed a course of Rocephin, ID service is following Plan: Continue oral Lasix and Decadron Continue Lovenox 40 mg daily Oxygenation continues to improve FiO2 is currently down to 3 L Labs and chest x-ray have been reviewed We'll cut back Seroquel to 12.5 mg at bedtime Hold if patient appears to be sedated Discontinue Haldol Continue with safety precautions Continue physical therapy Discharge planning is in progress for placement into a rehab facility in [place], versus a swing bed at the [facility] Patient is stable to discharge once those arrangements are completed I performed a history & physical examination of the patient and discussed their management with my nurse practitioner, Caitlyn Manning. I reviewed the nurse practitioner's note and agree with the documented findings and plan of care. Lung sounds are positive for bibasilar crackles throughout the lung shah. The findings and the impression was discussed with the patient. I attest to the documentation by the nurse practitioner. Time with Patient: Less than 30
[2021-04-10 17:24] LABS: Glucose,Whole Blood 207 mg/dL (75-99)
[2021-04-10] MEDS: ENOXAPARIN 40 MG/0.4 ML SYRINGE SQ SCH (17:27)
--- NOTE | 2021-04-10 18:08 | P.PN ---
Subjective Progress Note Date: 04/10/21 Sergio Villatoro, is a 60-year-old female who presented to [facility] emergency room with a chief complaint of cough and shortness of breath, patient stated that she started getting sick on 03/06/2021, she was checked for Covid at that time but the test was negative, she continued to get worse, she had a second test on 03/16/2021 that was positive, patient started getting worsening shortness of breath and she decided to come to emergency room on 03/18/2021. Patient stated that she did not get vaccinated for Covid, her risk factors include diabetes and morbid obesity, she denies any cardiac history. She was evaluated in the emergency room vital examination reveals a temperature of 100.6 pulse 102 respiration 21 blood pressure 139/72 pulse ox 75% on room air and 90% on 6 L nasal cannula, white blood count was 8.4 hemoglobin 14.2 platelet count 204 sodium 134 potassium 4.2 chloride 99 CO2 22 BUN 29 creatinine 0.83 plasma lactic acid was 2.1 AST 54 ALT 38 troponin less than 0.012 EKG was normal, chest x-ray revealed diffuse near complete opacification of bilateral lungs suggestive of diffuse pneumonia or ARDS. Patient was started on IV dexamethasone, subcu Lovenox, vitamin C, vitamin D, and zinc supplements, pulmonary consultation and infectious disease consultation were requested. Patient is a former smoker, she denies ever being diagnosed with asthma or emphysema. On 03/19/2021 patient was urgently intubated this a.m. per critical care services due to decreasing respiratory status. Patient has been started on sedation. Patient remains on Decadron, vitamin C, vitamin D and zinc. Critical care and infectious disease services are following. Patient remains on Lovenox for DVT prophylaxis. PH 7.29, pCO2 57, pO2 76 HCO3 28. On 03/20/2021 patient was seen and examined in the ICU she is intubated sedated maintained on mechanical ventilation, she is maintained on IV Decadron subcu Lovenox, and vitamin supplements bilateral lower extremity Doppler was negative for DVT, pulmonary and infectious disease are following, prognosis is guarded On 03/21/2021 patient is intubated and remains on sedation. Per nursing staff patient is no longer on Levophed. Patient currently on an FiO2 of 55%. PH of 7.38, pCO2 47 pO2 HCO3 28. Pulmonary and infectious disease service is following On 03/22/2021 patient was seen and examined in the ICU she is intubated sedated maintained on mechanical ventilation, she is maintained on IV Decadron subcu Lovenox, and vitamin supplements bilateral lower extremity Doppler was negative for DVT, temperature is 98.3 pulse 48 respiration 30 blood pressure 130/58 pulse ox 97% on FiO2 of 50% white blood count 7.4 hemoglobin 11.9 platelet count 286 d-dimer elevated at 6.36 ABG reveals a pH of 7.4 pCO2 42 PO2 110 pulmonary and infectious disease are following, prognosis is guarded On 03/23/2021 patient remains in the intensive care unit intubated sedated and on mechanical ventilation. Patient remains on fentanyl and propofol drips. Critical care and infectious disease services are following today's ABG showing pH of 7.35 pCO2 45 pO2 83 and HCO3 levels 25 On 03/24/2021 patient was seen and examined in the ICU she is intubated sedated maintained on mechanical ventilation, vital examination reveals a temperature of 100.3 pulse 82 respiration 30 blood pressure 170/53 pulse ox 93% on 50% FiO2 laboratory data reveals white blood count 11.5 hemoglobin 11.7 platelet count 327 sodium 138 potassium 4.7 chloride 110 CO2 22 BUN 46 creatinine 0.83 chest x- ray reveals diffuse interstitial opacities with worsening airspace disease in the left base and left perihilar region. Arterial blood gas reveals a pH of 7.36 pCO2 43 PO2 70 On 03/25/2021 patient was seen and examined in ICU she is intubated sedated maintained on mechanical ventilation, she is on assist control tidal volume 400 FiO2 50% and PEEP of 18 she is maintained on IV Decadron and subcu Lovenox she is also maintained on insulin patient had episode of hypoglycemia and her NovoLog 70/30 was decreased to 30 units twice daily On 03/26/2021 patient remains in the intensive care unit intubated and sedated on mechanical ventilation. Patient's FiO2 has been increased to 65% due to increased oxygen demands. Patient remains on IV Lasix. PH 7.42, pCO2 38, pO2 82 and HCO3 level 25. Infectious disease and critical care services are following On 03/27/2021 patient was seen and examined in the intensive care unit she is intubated sedated maintained on mechanical ventilation, patient is maintained on FiO2 55% and PEEP of 15 vital examination reveals a temperature of 98.1 pulse 70 respiration 30 blood pressure 173/58 pulse ox 95% ABG reveals a pH of 7.44 pCO2 39 PO2 64 white blood count 12.1 hemoglobin 11.0 platelet count 348 BUN 54 creatinine 0.78 glucose level 122 she is maintained on IV Decadron, IV cefepime, subcu Lovenox, IV Lasix, insulin per sliding scale and vitamin supplements. On 03/28/2021 she remains in the intensive care unit intubated on mechanical ventilation. FiO2 has been decreased to 50%. PH 7.4 a pCO2 36 pO2 69 and HCO3 28. Critical care and infectious disease services following patient remains on sedation and IV Lasix On 03/29/2021 patient was seen and examined in the ICU she is intubated sedated maintained on mechanical ventilation assist control rate of 30 FiO2 50% and PEEP of 14 arterial blood gas reveals a pH of 7.50 pCO2 35 and PaO2 of 77 white blood count is 11.5 hemoglobin 10.6 and platelet count 364 BUN 35 creatinine 0.67 chest x-ray done today reveals slight improvement in the patchy bibasilar in terstitial opacities no pneumothorax or large effusion. Patient is improving gradually On 03/30/2021 patient remains in the intensive care unit intubated and on mechanical ventilation. FiO2 has been decreased to 45%. PH is 7.52, pCO2 35 pO2 of 60 HCO3 28. Critical care and infectious disease services are following. Patient is improving gradually. [facility] will be covering for me starting Wednesday03/31/2021 I am resuming care for this patient on 04/07/2021 On 04/07/2021 patient was seen and examined on the medical floor she is drowsy in no apparent distress she is maintained on high flow oxygen at 9 L vital exam reveals a temperature of 98.6 pulse 90 respiration 20 blood pressure 180/76 pulse ox 98%, medication and labs were reviewed pulmonary are following, with recheck labs in am physical therapy and occupational therapy consult On 04/08/2021 patient was seen and examined on the medical floor she is more alert and responsive today her oxygen requirement is down to 5 L nasal cannula there is no fever or chills no headache or dizziness no chest pain she is still having cough no nausea or vomiting no abdominal pain no diarrhea and no urinary symptoms On 04/09/2021 patient was seen and examined on the medical floor she is alert more oriented and answering questions more appropriately today she is on oxygen 4 L nasal cannula there is no fever or chills no headache or dizziness no chest pain no shortness of breath no cough she is able to swallow well she is moving both lower extremities but not able to stand or walk at this time. On 04/10/2021 patient was seen and examined on the medical floor she is alert and oriented, slightly agitated today in no apparent distress, she is eating some of her meals with help of her daughter, dietitian is estimating about 35% of her meals, at this time will continue to monitor, if not improving we may add appetite stimulant in the next 1-2 days, patient is denying any chest pain or shortness of breath at this time. Her oxygen saturation is 90% on 5-6 L nasal cannula Objective - Vital Signs Vital signs: Vital Signs Temp 98.3 F 04/10/21 15:15 Pulse 70 04/10/21 15:15 Resp 15 04/10/21 15:15 BP 128/75 04/10/21 15:15 Pulse Ox 98 04/10/21 15:15 Intake & Output 04/09/21 04/10/21 04/10/21 18:59 06:59 18:59 Output Total 3800 Balance -3800 Weight 127.5 kg 126 kg Output: Urine 3800 Uretheral (Smith) 1700 Other: Voiding Method Indwelling Catheter Indwelling Catheter Indwelling Catheter ABP, PAP, CO, CI - Last Documented Arterial Blood Pressure 177/68 - Exam In general patient is intubated sedated maintained on mechanical ventilation HEENT head normocephalic and atraumatic Neck is supple no JVD no goiter no lymphadenopathy no carotid bruit Chest examination coarse crackles in both lung shah with wheezing Cardiac exam reveals regular heart sounds S1 and S2 no gallops no murmurs Abdomen is soft nontender no organomegaly with normal bowel sounds Extremity exam reveals no edema no cyanosis or clubbing - Labs CBC & Chem 7: 04/10/21 07:44 04/10/21 07:38 Labs: Abnormal Lab Results - Last 24 Hours (Table) 04/09/21 04/10/21 04/10/21 Range/Units 22:12 05:42 07:38 MCHC (32.0-37.0) g/dL Eosinophils # (0.04-0.35) X 10*3/uL Potassium 3.2 L (3.5-5.5) mmol/L Chloride 94 L (96-109) mmol/L Carbon Dioxide 29.1 H (20.0-27.5) mmol/L BUN/Creatinine Ratio 23.50 H (12.00-20.00) Ratio Glucose 159 H (70-110) mg/dL POC Glucose (mg/dL) 226 H 130 H (75-99) mg/dL Albumin 3.7 L (3.8-4.9) g/dL Albumin/Globulin Ratio 1.23 L (1.60-3.17) g/dL 04/10/21 04/10/21 04/10/21 Range/Units 07:44 12:29 17:23 MCHC 30.8 L (32.0-37.0) g/dL Eosinophils # 0.40 H (0.04-0.35) X 10*3/uL Potassium (3.5-5.5) mmol/L Chloride (96-109) mmol/L Carbon Dioxide (20.0-27.5) mmol/L BUN/Creatinine Ratio (12.00-20.00) Ratio Glucose (70-110) mg/dL POC Glucose (mg/dL) 193 H 207 H (75-99) mg/dL Albumin (3.8-4.9) g/dL Albumin/Globulin Ratio (1.60-3.17) g/dL Assessment and Plan Plan: Acute COVID-19 infection Acute hypoxic respiratory failure secondary to COVID-19 pneumonia requiring intubation and mechanical ventilation on 03/19/2021, now extubated, on 5 liter nasal canula Bilateral Pneumonia related to COVID-19 Underlying history of insulin-dependent diabetes mellitus Underlying history of morbid obesity Previous history of smoking patient denies being diagnosed with COPD in the past Hyperkalemia. Resolved Maintained on subcu Lovenox, IV Decadron, vitamin C vitamin D and zinc supplements Pulmonary and infectious disease consultation were requested, case was discussed with Dr. Huynh over the phone Patient remains intubated and sedated on mechanical ventilation in the intensive care unit Prognosis is guarded, will follow closely Repeat labs and x-ray ordered for a.m.
[2021-04-10 18:17] LABS: Glucose,Whole Blood 253 mg/dL (75-99)
[2021-04-10] MEDS: SODIUM CHLORIDE 0.9% 1,000 ML IV SCH (22:53)
[2021-04-10 23:58] LABS: Glucose,Whole Blood 117 mg/dL (75-99)
--- NOTE | 2021-04-11 00:13 | PN ---
PROGRESS NOTE DATE OF SERVICE: 04/10/2021 REASON FOR FOLLOWUP VISIT: 1. Covid-19 pneumonia. 2. UTI. INTERVAL HISTORY: The patient is afebrile. The patient remains to be breathing more comfortably. Seems to be slightly sleepy, lethargic today. No nausea, vomiting, diarrhea. No changes reported by nursing staff. PHYSICAL EXAMINATION: Blood pressure 109/45, pulse of 64, temperature of 98.5. She is 97% on 3 L nasal cannula. General description is a middle-aged female lying in bed in no distress. Respiratory system: Unlabored breathing, decreased intensity of breath sounds, no wheeze. Heart S1, S2. Regular rate and rhythm. Abdomen soft, no tenderness. LABS: Hemoglobin is 12, white count 7.7, creatinine 0.6. IMPRESSION/PLAN: 1. Patient with acute Covid-19 pneumonia in this patient who has shown overall clinical improvement, some gradual improvement. No evidence of secondary bacterial pneumonia. Patient to continue on dexamethasone, Lovenox, zinc and ascorbic acid and no need for systemic therapy. 2. E coli UTI that has been adequately treated. MMODL / IJN: [id number] /
[2021-04-11] MEDS: INSULIN ASPART (NovoLOG) 100 UNIT/ML VIAL SQ SCH ×5 (01:43→22:11)
[2021-04-11 07:02] LABS: Glucose,Whole Blood 198 mg/dL (75-99)
[2021-04-11] MEDS: ALBUTEROL HFA INHALER INHALATION SCH ×4 (07:39→19:41)
[2021-04-11 08:53] LABS: ALT 39 U/L (4-34); AST 37 U/L (14-36); African American GFR (CKD) >90 (>60 ml/min/1.73 sqM); Albumin 3.3 g/dL (3.5-5.0); Alkaline Phosphatase 75 U/L (38-126); Anion Gap 9 mmol/L; Blood Urea Nitrogen 16 mg/dL (7-17); Calcium 9.6 mg/dL (8.4-10.2); Carbon Dioxide 23 mmol/L (22-30); Chloride 102 mmol/L (98-107); Globulin 3.4 g/dL; Glucose 198 mg/dL (74-99); Non-African American GFR(CKD) >90 (>60 ml/min/1.73 sqM); Potassium 3.7 mmol/L (3.5-5.1); Sodium 134 mmol/L (137-145); Total Protein 6.7 g/dL (6.3-8.2)
[2021-04-11] MEDS: DEXAMETHASONE SOD PHOSPHATE 4 MG/ML 1 ML VIAL IVP SCH (08:57)
[2021-04-11] MEDS: INSULN ASP PRT/INSULIN ASPART 100 UNIT/ML 10 ML VIAL SQ SCH ×2 (08:58→22:10)
[2021-04-11 09:05] LABS: Basophils # (A) 0.1 k/uL (0-0.2); Basophils % (A) 1 %; Eosinophils # (A) 0.4 k/uL (0-0.7); Eosinophils % (A) 5 %; HCT 38.3 % (34.0-46.0); HGB 12.7 gm/dL (11.4-16.0); Lymphocytes # (A) 2.3 k/uL (1.0-4.8); Lymphocytes % (A) 28 %; MCH 30.5 pg (25.0-35.0); MCHC 33.1 g/dL (31.0-37.0); MCV 92.3 fL (80.0-100.0); Mean Platelet Volume 9.4; Monocytes # (A) 0.8 k/uL (0-1.0); Monocytes % (A) 9 %; Neutrophils # (A) 4.6 k/uL (1.3-7.7); Neutrophils % (A) 54 %; RBC 4.15 m/uL (3.80-5.40); RDW 13.6 % (11.5-15.5); WBC 8.4 k/uL (3.8-10.6)
[2021-04-11] MEDS: PANTOPRAZOLE 40 MG TABLET PO SCH (10:02)
[2021-04-11] MEDS: ASCORBIC ACID 500 MG TAB PO SCH ×2 (10:03→22:09)
[2021-04-11] MEDS: LOSARTAN 50 MG TAB PO SCH (10:03)
[2021-04-11] MEDS: CHOLECALCIFEROL 25 MCG (1000 IU) TABLET PO SCH (10:03)
[2021-04-11] MEDS: LACTULOSE 20 GM/30 ML CUP PO SCH ×2 (10:03→22:09)
[2021-04-11] MEDS: FUROSEMIDE 40 MG TAB PO SCH (10:03)
[2021-04-11] MEDS: QUEtiapine 25 MG TAB PO SCH (10:03)
[2021-04-11] MEDS: amLODIPine 5 MG TAB PO SCH ×2 (10:03→22:09)
[2021-04-11] MEDS: hydrALAZINE HCL 25 MG TAB PO SCH ×2 (10:03→22:08)
[2021-04-11] MEDS: DOCUSATE ORAL SOLN 100 MG/10 ML CUP PO SCH ×2 (10:03→22:09)
[2021-04-11] MEDS: ZINC SULFATE 220 MG CAP PO SCH (10:04)
[2021-04-11 11:12] LABS: Glucose,Whole Blood 245 mg/dL (75-99)
[2021-04-11 12:16] LABS: Platelet Count 166 k/uL (150-450)
--- NOTE | 2021-04-11 12:41 | P.PN ---
Subjective Progress Note Date: 04/11/21 Principal diagnosis: COVID-19 pneumonia This is a 60-year-old female patient with a history of diabetes mellitus, obesity, former smoker who presented to the emergency room yesterday with complaints of increasing shortness of breath and low oxygen that she was measuring at home. The patient started having symptoms of shortness of breath cough congestion on 03/06/2021 and reportedly tested negative for CoVID. She was treated with azithromycin and prednisone in the outpatient setting. Her symptoms progressed and she did test positive on 03/16/2021. She was admitted to the regular medical floor and placed on BiPAP over 6 and 70% FiO2 with O2 saturations 85-86% with respiratory rate of 44 and A team was called at 11:00 last night and the patient remained on the floor. Her oxygen requirements continued to progress and she was urgently intubated at 04:43 this morning and placed on mechanical ventilator. He is seen today in consultation in the intensive care unit. Current settings are assist-control mode at a rate of 26, tidal volume 500, FiO2 100% and a PEEP of 14. Blood gases revealed a PaO2 of 76, pCO2 of 47 and a pH of 7.29. She is currently sedated on to follow at 40 mcg/kg/m. She is on Nimbex at 2 mcg/kg/m. She is receiving Dilaudid IVP. 0.9 normal saline at 75 ML's per hour. Chest x-ray reveals diffuse bilateral airspace disease. The endotracheal tube was noted to be quite high and is to be repositioned urgently. White count 9.0. Hemoglobin 14.9. Lymphocytes 0.5. Sodium 134. Potassium 6.1. Chloride 104. Bicarb 15. BUN 28. Creatinine 0.72. Glucose 215. She was initiated on Decadron, Lovenox, vitamin supplements. The patient is seen today 03/20/2021 in follow-up in the intensive care unit. She remains intubated and on mechanical ventilator. Currently an assist-control mode at a rate of 30, temperature Ativan 400, FiO2 70% and a PEEP of 14. Morning blood gases revealed a PaO2 of 71, pCO2 51, pH 7.35. Continued on sedat ion of propofol at 50 mcg/kg/m, Nimbex at 1 mcg/kg/m. Normal saline at 75 ML's per hour. Norepinephrine has been off since approximately 8 PM last evening. She is being nourished with vital AF at 36 ML's per hour which is goal. Urine output has been borderline. Creatinine is up to 1.30. BUN 49. Sodium 136. Potassium 4.6. AST 5. ALT 23. LDH 2112. C-reactive protein 16.1. White count 8.0. Hemoglobin 12.1. Lymphocytes 0.6. D-dimer 1.63. She remains on Lovenox, Decadron, vitamin supplements. Chest x-ray continues show patchy bilateral infiltrates. Endotracheal tube to be repositioned. Sputum culture reveals no growth to date. Blood cultures reveal no growth to date. Had a t emperature of 100.2 yesterday afebrile today. The patient is seen today 03/21/2021 in follow-up in the intensive care unit. She remains intubated on the mechanical ventilator. Current settings are assist control mode with respiratory rate of 30, telephone 400, FiO2 55% and a PEEP of 18. Morning blood gases reveal a pO2 of 89, pCO2 47, pH 7.38. She is sedated on propofol. Nimbex at 1 g/kg/m. Normal saline at 75 ML's per hour. He is being nourished with vital AF at 36 ML's per hour which is goal. Urine output averaging 30-50 ML's per hour. Today's chest x-ray reveals bilateral multifocal reticular opacities consistent with COVID-19 pneumonia. Endotracheal tube in good position. Blood cultures reveal no growth. Sputum culture pending. White count 8.5. Hemoglobin 12.0. Lymphocytes 0.9. D-dimer 10.94. Sodium 138. Potassium 4.7. Creatinine 1.05. LDH 1559. C-reactive protein 4.4. Currently on Decadron, Lovenox, vitamin supplements. Reevaluated today on 04/02/21, patient remains in the ICU, intubated and mechanically ventilated. She is off sedation completely for the last 2 days, patient is requiring clevidipine for her significantly elevated blood pressure, and today I added multiple meds to control her blood pressure, however patient may not need that many blood pressure medications if extubated and kept off mechanical ventilation. Her assist control rate today is 30 tidal volume 400 FiO2 40% and PEEP of 8. Chest x-ray yesterday showed significant improvement in her bilateral infiltrates. Her ABG on the same vent settings as noted showed a pO2 of 76 pCO2 of 34 pH of 7.56. Patient is on assist control mode of mechanical ventilation, she seems to be very comfortable, hence I will try to give the patient a trial of pressure support and CPAP, and if tolerated may even extubated the patient. My only concern is the patient seems to be a bit enceph alopathic, she opens her eyes, follows simple instructions, and she seems to be generally weak, she may have also some component of critical illness polyneuropathy because of prolonged course in the ICU on multiple meds and on paralytics. 04/03/2021, the patient remains extubated. Noted the patient was extubated on 04/01/2021 and currently she is on oxygen at high flow at 15 L. Her current pulse ox is around 89-90%. She is awake. She'll occasionally follow simple commands. Her responses not consistent dull. She is moving all extremities. She is very weak and she is unable to raise her arms and legs against gravity. Her cough is also very weak. She blinks upon demand, she is able to respond and she is alert and she has obvious eye opening. She is not talking at. She is unable to swallow. Her chest x-ray still showing diffuse bilateral pulmonary infiltrates consistent with COVID 19 related pneumonia. The patient remains on record Abilio 6 mg IV every 24 hours. Rest of the treatment includes Lovenox 40 mg subcu every 24 hours. Based on her inability to eat, her blood pressure was noted to be elevated as the patient was unable to take her oral antihypertensive medications. The patient is receiving IV hydralazine I when necessary basis for systolic blood pressure above 160. She is not having regular bowel movements. Our efforts to give her laxatives has failed. The patient had a soapsuds enema yesterday and the same will be done today and I would also recommend obtaining a pleasant some of the abdomen. Limited edema lower extremity is bilaterally. The patient has a Smith catheter in place. Adequate urine output. Active issues for now is her diminished alertness in addition to profound motor weakness in all 4 extremities which is probably related to COVID 19 related infection/pneumonia/prolonged intubation mechanical ventilation. She remains on IV Rocephin for an underlying UTI and the cultures had yielded E. coli. 04/04/2021, the patient remains extubated on 15 L of oxygen high flow. Her current pulse ox is around 90%. She is awake and alert and interactive. She remains quite weak. No significant events overnight. The patient's blood work from today shows normal renal function, normal electrolytes, CBC still pending for now. Meanwhile, I took the opportunity to lower the Decadron dose to 4 mg IV on a daily basis and the patient is also on Lasix 40 mg IV every 24 hours and Lovenox 40 mg subcu on a daily basis. The patient is also on IV Rocephin regarding E. coli urinary tract infection. She is completing a seven-day course. No other issues for now. In terms of oral intake, she is still nothing by mouth and the patient is still unable to swallow. And the patient is going to have a reevaluation by speech. Repeat chest x-ray was done and shows stable patchy bilateral pulmonary infiltrates throughout the lung shah without any significant interval change. She continues to have a PICC line in her right upper extremity. The patient is seen today 04/05/1999 2200 follow-up on the regular medical floor. She is currently sitting up in bed. Awake. Alert. Interactive. She is currently maintaining O2 saturation in the low 90s on 13 L high flow nasal cannula. She's afebrile. Hemodynamically stable. Chest x-ray continues to reveal similar multifocal airspace opacities. Earlier urine culture was positive for E. coli. Blood and sputum cultures had revealed no growth. She is continued on Decadron, Lovenox, vitamin supplements. Remains on Lasix 40 mg IV daily. Continued on Pepcid. Continued on bronchodilators. Remains on antibiotics in the form of ceftriaxone. The patient is seen today 04/06/2021 in follow-up on the regular medical floor. She is currently resting fairly comfortably in bed. Awake and alert. She is following some simple commands. She remains quite weak and debilitated. Still somewhat slow to respond. She is maintaining good O2 saturations in the 90s on 9 L high flow nasal cannula. White count 9.4. Hemoglobin 11.9. Sodium 141, potassium 3.7. Creatinine 0.42. Glucose 102. She remains on Decadron 4 mg daily, Lovenox, vitamin supplements. Continued on bronchodilators. Continued on IV diuretics. In a -2.4 L balance. She remains on ceftriaxone for an E. coli UTI. The patient is seen today 04/11/2021 in follow-up on the regular medical floor. She is currently resting comfortably in bed. Family is at the bedside. She is currently sleeping. She was given Seroquel this morning. She also is receiving Haldol on occasion. She has some times of restlessness. Swatting at staff. She is doing well from pulmonary standpoint. Maintaining O2 saturations in the mid 90s on room air. White count 8.4. Hemoglobin 12.7. Sodium 134. Potassium 3.7. Creatinine 0.57. AST 37. ALT 39. Glucose 198. She is continued on Decadron at 2 mg daily, Lovenox, vitamin supplements. Continued on oral diuretics and remains in a negative balance. Objective - Vital Signs Vital signs: Vital Signs Temp 98.0 F 04/11/21 05:42 Pulse 67 04/11/21 09:56 Resp 15 04/11/21 05:42 BP 105/59 04/11/21 09:56 Pulse Ox 95 04/11/21 09:56 Intake & Output 04/10/21 04/11/21 04/11/21 18:59 06:59 18:59 Output Total 1350 Balance -1350 Weight 123 kg Output: Urine 1350 Other: Voiding Method Indwelling Catheter Indwelling Catheter ABP, PAP, CO, CI - Last Documented Arterial Blood Pressure 177/68 - Exam GENERAL EXAM: Pleasant 60-year-old female patient. Remains quite weak and debilitated. On room air, comfortable in no apparent distress. HEAD: Normocephalic. EYES: Sluggish reaction of pupils, equal size. NOSE: Clear with pink turbinates. THROAT: No erythema or exudates. NECK: No masses, no JVD. CHEST: No chest wall deformity. LUNGS: Equal air entry with bibasilar coarse crackles. CVS: S1 and S2 normal with no audible murmur, regular rhythm. ABDOMEN: No hepatosplenomegaly, normal bowel sounds, no guarding or rigidity. SPINE: No scoliosis or deformity SKIN: No rashes CENTRAL NERVOUS SYSTEM: Profound weakness, tone is normal in all 4 extremities. EXTREMITIES: There is no peripheral edema. No clubbing, no cyanosis. Peripheral pulses are intact. - Labs CBC & Chem 7: 04/11/21 07:45 04/11/21 07:45 Labs: Abnormal Lab Results - Last 24 Hours (Table) 04/10/21 04/10/21 04/10/21 Range/Units 17:23 18:16 23:55 Sodium (137-145) mmol/L Glucose (74-99) mg/dL POC Glucose (mg/dL) 207 H 253 H 117 H (75-99) mg/dL AST (14-36) U/L ALT (4-34) U/L Albumin (3.5-5.0) g/dL 04/11/21 04/11/21 04/11/21 Range/Units 07:00 07:45 11:10 Sodium 134 L (137-145) mmol/L Glucose 198 H (74-99) mg/dL POC Glucose (mg/dL) 198 H 245 H (75-99) mg/dL AST 37 H (14-36) U/L ALT 39 H (4-34) U/L Albumin 3.3 L (3.5-5.0) g/dL Assessment and Plan Assessment: 1 Acute hypoxemic respiratory failure secondary to coronavirus associated pneumonia, S/P intubation and mechanical ventilation on 03/19/2021. The patient for now extubated and out on the regular medical floor. She's on room air. Profoundly weak. Remains with encephalopathy. Did require Haldol. Required Seroquel. Currently resting comfortably bed. Family at the bedside. 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 Plan: The patient was seen and evaluated Currently on room air Discontinue Decadron Quiring Haldol on occasion, on Seroquel for restlessness Remains quite debilitated and weak Awaiting transfer to subacute rehabilitation I, the cosigning physician, performed a history & physical examination of the patient. Lungs sounds with crackles in the bilateral bases. Maintaining good O2 saturations in the 90s on room air. I discussed the assessment and plan of care with my nurse practitioner, Gloria Melgar. I attest to the above note as dictated by her.
--- NOTE | 2021-04-11 13:28 | P.PN ---
Subjective Progress Note Date: 04/11/21 Sergio Villatoro, is a 60-year-old female who presented to [facility] emergency room with a chief complaint of cough and shortness of breath, patient stated that she started getting sick on 03/06/2021, she was checked for Covid at that time but the test was negative, she continued to get worse, she had a second test on 03/16/2021 that was positive, patient started getting worsening shortness of breath and she decided to come to emergency room on 03/18/2021. Patient stated that she did not get vaccinated for Covid, her risk factors include diabetes and morbid obesity, she denies any cardiac history. She was evaluated in the emergency room vital examination reveals a temperature of 100.6 pulse 102 respiration 21 blood pressure 139/72 pulse ox 75% on room air and 90% on 6 L nasal cannula, white blood count was 8.4 hemoglobin 14.2 platelet count 204 sodium 134 potassium 4.2 chloride 99 CO2 22 BUN 29 creatinine 0.83 plasma lactic acid was 2.1 AST 54 ALT 38 troponin less than 0.012 EKG was normal, chest x-ray revealed diffuse near complete opacification of bilateral lungs suggestive of diffuse pneumonia or ARDS. Patient was started on IV dexamethasone, subcu Lovenox, vitamin C, vitamin D, and zinc supplements, pulmonary consultation and infectious disease consultation were requested. Patient is a former smoker, she denies ever being diagnosed with asthma or emphysema. On 03/19/2021 patient was urgently intubated this a.m. per critical care services due to decreasing respiratory status. Patient has been started on sedation. Patient remains on Decadron, vitamin C, vitamin D and zinc. Critical care and infectious disease services are following. Patient remains on Lovenox for DVT prophylaxis. PH 7.29, pCO2 57, pO2 76 HCO3 28. On 03/20/2021 patient was seen and examined in the ICU she is intubated sedated maintained on mechanical ventilation, she is maintained on IV Decadron subcu Lovenox, and vitamin supplements bilateral lower extremity Doppler was negative for DVT, pulmonary and infectious disease are following, prognosis is guarded On 03/21/2021 patient is intubated and remains on sedation. Per nursing staff patient is no longer on Levophed. Patient currently on an FiO2 of 55%. PH of 7.38, pCO2 47 pO2 HCO3 28. Pulmonary and infectious disease service is following On 03/22/2021 patient was seen and examined in the ICU she is intubated sedated maintained on mechanical ventilation, she is maintained on IV Decadron subcu Lovenox, and vitamin supplements bilateral lower extremity Doppler was negative for DVT, temperature is 98.3 pulse 48 respiration 30 blood pressure 130/58 pulse ox 97% on FiO2 of 50% white blood count 7.4 hemoglobin 11.9 platelet count 286 d-dimer elevated at 6.36 ABG reveals a pH of 7.4 pCO2 42 PO2 110 pulmonary and infectious disease are following, prognosis is guarded On 03/23/2021 patient remains in the intensive care unit intubated sedated and on mechanical ventilation. Patient remains on fentanyl and propofol drips. Critical care and infectious disease services are following today's ABG showing pH of 7.35 pCO2 45 pO2 83 and HCO3 levels 25 On 03/24/2021 patient was seen and examined in the ICU she is intubated sedated maintained on mechanical ventilation, vital examination reveals a temperature of 100.3 pulse 82 respiration 30 blood pressure 170/53 pulse ox 93% on 50% FiO2 laboratory data reveals white blood count 11.5 hemoglobin 11.7 platelet count 327 sodium 138 potassium 4.7 chloride 110 CO2 22 BUN 46 creatinine 0.83 chest x- ray reveals diffuse interstitial opacities with worsening airspace disease in the left base and left perihilar region. Arterial blood gas reveals a pH of 7.36 pCO2 43 PO2 70 On 03/25/2021 patient was seen and examined in ICU she is intubated sedated maintained on mechanical ventilation, she is on assist control tidal volume 400 FiO2 50% and PEEP of 18 she is maintained on IV Decadron and subcu Lovenox she is also maintained on insulin patient had episode of hypoglycemia and her NovoLog 70/30 was decreased to 30 units twice daily On 03/26/2021 patient remains in the intensive care unit intubated and sedated on mechanical ventilation. Patient's FiO2 has been increased to 65% due to increased oxygen demands. Patient remains on IV Lasix. PH 7.42, pCO2 38, pO2 82 and HCO3 level 25. Infectious disease and critical care services are following On 03/27/2021 patient was seen and examined in the intensive care unit she is intubated sedated maintained on mechanical ventilation, patient is maintained on FiO2 55% and PEEP of 15 vital examination reveals a temperature of 98.1 pulse 70 respiration 30 blood pressure 173/58 pulse ox 95% ABG reveals a pH of 7.44 pCO2 39 PO2 64 white blood count 12.1 hemoglobin 11.0 platelet count 348 BUN 54 creatinine 0.78 glucose level 122 she is maintained on IV Decadron, IV cefepime, subcu Lovenox, IV Lasix, insulin per sliding scale and vitamin supplements. On 03/28/2021 she remains in the intensive care unit intubated on mechanical ventilation. FiO2 has been decreased to 50%. PH 7.4 a pCO2 36 pO2 69 and HCO3 28. Critical care and infectious disease services following patient remains on sedation and IV Lasix On 03/29/2021 patient was seen and examined in the ICU she is intubated sedated maintained on mechanical ventilation assist control rate of 30 FiO2 50% and PEEP of 14 arterial blood gas reveals a pH of 7.50 pCO2 35 and PaO2 of 77 white blood count is 11.5 hemoglobin 10.6 and platelet count 364 BUN 35 creatinine 0.67 chest x-ray done today reveals slight improvement in the patchy bibasilar in terstitial opacities no pneumothorax or large effusion. Patient is improving gradually On 03/30/2021 patient remains in the intensive care unit intubated and on mechanical ventilation. FiO2 has been decreased to 45%. PH is 7.52, pCO2 35 pO2 of 60 HCO3 28. Critical care and infectious disease services are following. Patient is improving gradually. [facility] ( Dr Gonzalez's group) will be covering for me starting Wednesday03/31/2021 I am resuming care for this patient on 04/07/2021 On 04/07/2021 patient was seen and examined on the medical floor she is drowsy in no apparent distress she is maintained on high flow oxygen at 9 L vital exam reveals a temperature of 98.6 pulse 90 respiration 20 blood pressure 180/76 pulse ox 98%, medication and labs were reviewed pulmonary are following, with recheck labs in am physical therapy and occupational therapy consult On 04/08/2021 patient was seen and examined on the medical floor she is more alert and responsive today her oxygen requirement is down to 5 L nasal cannula there is no fever or chills no headache or dizziness no chest pain she is still having cough no nausea or vomiting no abdominal pain no diarrhea and no urinary symptoms On 04/09/2021 patient was seen and examined on the medical floor she is alert more oriented and answering questions more appropriately today she is on oxygen 4 L nasal cannula there is no fever or chills no headache or dizziness no chest pain no shortness of breath no cough she is able to swallow well she is moving both lower extremities but not able to stand or walk at this time. On 04/10/2021 patient was seen and examined on the medical floor she is alert and oriented, slightly agitated today in no apparent distress, she is eating some of her meals with help of her daughter, dietitian is estimating about 35% of her meals, at this time will continue to monitor, if not improving we may add appetite stimulant in the next 1-2 days, patient is denying any chest pain or shortness of breath at this time. Her oxygen saturation is 90% on 5-6 L nasal cannula On 04/11/2021 patient was seen and examined on the medical floor she is alert slightly somnolent in no apparent distress there is no fever or chills no headache or dizziness no chest pain no shortness of breath no cough no nausea or vomiting no abdominal pain no diarrhea and no urinary symptoms. Oral intake is slightly better with the help of her daughter feeding her. Patient is still not able to stand or walk she is followed by physical therapy she will need transfer to a rehab unit when medically stable Objective - Vital Signs Vital signs: Vital Signs Temp 98.0 F 04/11/21 05:42 Pulse 67 04/11/21 09:56 Resp 15 04/11/21 05:42 BP 105/59 04/11/21 09:56 Pulse Ox 95 04/11/21 09:56 Intake & Output 04/10/21 04/11/21 04/11/21 18:59 06:59 18:59 Output Total 1350 Balance -1350 Weight 123 kg Output: Urine 1350 Other: Voiding Method Indwelling Catheter Indwelling Catheter ABP, PAP, CO, CI - Last Documented Arterial Blood Pressure 177/68 - Exam In general patient is intubated sedated maintained on mechanical ventilation HEENT head normocephalic and atraumatic Neck is supple no JVD no goiter no lymphadenopathy no carotid bruit Chest examination coarse crackles in both lung shah with wheezing Cardiac exam reveals regular heart sounds S1 and S2 no gallops no murmurs Abdomen is soft nontender no organomegaly with normal bowel sounds Extremity exam reveals no edema no cyanosis or clubbing - Labs CBC & Chem 7: 04/11/21 07:45 04/11/21 07:45 Labs: Abnormal Lab Results - Last 24 Hours (Table) 04/10/21 04/10/21 04/10/21 Range/Units 17:23 18:16 23:55 Sodium (137-145) mmol/L Glucose (74-99) mg/dL POC Glucose (mg/dL) 207 H 253 H 117 H (75-99) mg/dL AST (14-36) U/L ALT (4-34) U/L Albumin (3.5-5.0) g/dL 04/11/21 04/11/21 04/11/21 Range/Units 07:00 07:45 11:10 Sodium 134 L (137-145) mmol/L Glucose 198 H (74-99) mg/dL POC Glucose (mg/dL) 198 H 245 H (75-99) mg/dL AST 37 H (14-36) U/L ALT 39 H (4-34) U/L Albumin 3.3 L (3.5-5.0) g/dL Assessment and Plan Plan: Acute COVID-19 infection Acute hypoxic respiratory failure secondary to COVID-19 pneumonia requiring intubation and mechanical ventilation on 03/19/2021, now extubated, on 5 liter nasal canula Bilateral Pneumonia related to COVID-19 Underlying history of insulin-dependent diabetes mellitus Underlying history of morbid obesity Previous history of smoking patient denies being diagnosed with COPD in the past Hyperkalemia. Resolved Maintained on subcu Lovenox, IV Decadron, vitamin C vitamin D and zinc supplements Pulmonary and infectious disease consultation were requested, case was discussed with Dr. Huynh over the phone Patient remains intubated and sedated on mechanical ventilation in the intensive care unit Prognosis is guarded, will follow closely Repeat labs and x-ray ordered for a.m.
[2021-04-11 16:09] LABS: Glucose,Whole Blood 200 mg/dL (75-99)
[2021-04-11] MEDS: ENOXAPARIN 40 MG/0.4 ML SYRINGE SQ SCH (17:25)
--- NOTE | 2021-04-11 18:25 | PN ---
PROGRESS NOTE DATE OF SERVICE: 04/11/2021 REASON FOR FOLLOW UP: 1. Covid-19 infection. 2. UTI. INTERVAL HISTORY: The patient is afebrile. The patient ( ) today. She is breathing comfortably. She is on 3 L nasal cannula. No chest pain. No worsening cough or sputum production has been reported. EXAMINATION: Blood pressure 123/70 with a pulse of 73, temperature 98.1. She is 95% on 3 L nasal cannula. General description is a middle-aged female lying in bed in no distress. Respiratory system: Unlabored breathing, decreased intensity of the breath sounds. No wheeze. Heart S1, S2. Regular rate and rhythm. Abdomen soft, no tenderness. LABS: Hemoglobin is 12.7, white count 8.4, creatinine 0.57. DIAGNOSTIC IMPRESSION: 1. Patient with acute Covid-19 pneumonia and this patient has shown overall clinical improvement. Continue with supportive treatment. Continue Lovenox, zinc and ascorbic acid. 2. No evidence of any significant bacterial pneumonia or need for systemic antibiotic therapy. MMODL / IJN: [id number] /
[2021-04-11 20:01] LABS: Glucose,Whole Blood 237 mg/dL (75-99)
[2021-04-12] MEDS: SODIUM CHLORIDE 0.9% 1,000 ML IV SCH (05:51)
[2021-04-12 06:45] LABS: Glucose,Whole Blood 144 mg/dL (75-99)
[2021-04-12] MEDS: ASCORBIC ACID 500 MG TAB PO SCH ×2 (08:39→21:26)
[2021-04-12] MEDS: PANTOPRAZOLE 40 MG TABLET PO SCH (08:39)
[2021-04-12] MEDS: LOSARTAN 50 MG TAB PO SCH (08:40)
[2021-04-12] MEDS: CHOLECALCIFEROL 25 MCG (1000 IU) TABLET PO SCH (08:40)
[2021-04-12] MEDS: LACTULOSE 20 GM/30 ML CUP PO SCH ×2 (08:40→21:27)
[2021-04-12] MEDS: FUROSEMIDE 40 MG TAB PO SCH (08:40)
[2021-04-12] MEDS: hydrALAZINE HCL 25 MG TAB PO SCH ×2 (08:40→21:26)
[2021-04-12] MEDS: amLODIPine 5 MG TAB PO SCH ×2 (08:40→21:25)
[2021-04-12] MEDS: DOCUSATE ORAL SOLN 100 MG/10 ML CUP PO SCH ×2 (08:40→21:26)
[2021-04-12] MEDS: ZINC SULFATE 220 MG CAP PO SCH (08:40)
[2021-04-12] MEDS: INSULN ASP PRT/INSULIN ASPART 100 UNIT/ML 10 ML VIAL SQ SCH ×2 (08:41→21:27)
[2021-04-12] MEDS: INSULIN ASPART (NovoLOG) 100 UNIT/ML VIAL SQ SCH ×4 (08:41→21:26)
[2021-04-12] MEDS: ALBUTEROL HFA INHALER INHALATION SCH ×4 (08:57→19:19)
[2021-04-12 11:31] LABS: Glucose,Whole Blood 92 mg/dL (75-99)
--- NOTE | 2021-04-12 14:25 | P.PN ---
Subjective Progress Note Date: 04/12/21 Principal diagnosis: COVID-19 pneumonia This is a 60-year-old female patient with a history of diabetes mellitus, obesity, former smoker who presented to the emergency room yesterday with complaints of increasing shortness of breath and low oxygen that she was measuring at home. The patient started having symptoms of shortness of breath cough congestion on 03/06/2021 and reportedly tested negative for CoVID. She was treated with azithromycin and prednisone in the outpatient setting. Her symptoms progressed and she did test positive on 03/16/2021. She was admitted to the regular medical floor and placed on BiPAP over 6 and 70% FiO2 with O2 saturations 85-86% with respiratory rate of 44 and A team was called at 11:00 last night and the patient remained on the floor. Her oxygen requirements continued to progress and she was urgently intubated at 04:43 this morning and placed on mechanical ventilator. He is seen today in consultation in the intensive care unit. Current settings are assist-control mode at a rate of 26, tidal volume 500, FiO2 100% and a PEEP of 14. Blood gases revealed a PaO2 of 76, pCO2 of 47 and a pH of 7.29. She is currently sedated on to follow at 40 mcg/kg/m. She is on Nimbex at 2 mcg/kg/m. She is receiving Dilaudid IVP. 0.9 normal saline at 75 ML's per hour. Chest x-ray reveals diffuse bilateral airspace disease. The endotracheal tube was noted to be quite high and is to be repositioned urgently. White count 9.0. Hemoglobin 14.9. Lymphocytes 0.5. Sodium 134. Potassium 6.1. Chloride 104. Bicarb 15. BUN 28. Creatinine 0.72. Glucose 215. She was initiated on Decadron, Lovenox, vitamin supplements. The patient is seen today 03/20/2021 in follow-up in the intensive care unit. She remains intubated and on mechanical ventilator. Currently an assist-control mode at a rate of 30, temperature Ativan 400, FiO2 70% and a PEEP of 14. Morning blood gases revealed a PaO2 of 71, pCO2 51, pH 7.35. Continued on sedat ion of propofol at 50 mcg/kg/m, Nimbex at 1 mcg/kg/m. Normal saline at 75 ML's per hour. Norepinephrine has been off since approximately 8 PM last evening. She is being nourished with vital AF at 36 ML's per hour which is goal. Urine output has been borderline. Creatinine is up to 1.30. BUN 49. Sodium 136. Potassium 4.6. AST 5. ALT 23. LDH 2112. C-reactive protein 16.1. White count 8.0. Hemoglobin 12.1. Lymphocytes 0.6. D-dimer 1.63. She remains on Lovenox, Decadron, vitamin supplements. Chest x-ray continues show patchy bilateral infiltrates. Endotracheal tube to be repositioned. Sputum culture reveals no growth to date. Blood cultures reveal no growth to date. Had a t emperature of 100.2 yesterday afebrile today. The patient is seen today 03/21/2021 in follow-up in the intensive care unit. She remains intubated on the mechanical ventilator. Current settings are assist control mode with respiratory rate of 30, telephone 400, FiO2 55% and a PEEP of 18. Morning blood gases reveal a pO2 of 89, pCO2 47, pH 7.38. She is sedated on propofol. Nimbex at 1 g/kg/m. Normal saline at 75 ML's per hour. He is being nourished with vital AF at 36 ML's per hour which is goal. Urine output averaging 30-50 ML's per hour. Today's chest x-ray reveals bilateral multifocal reticular opacities consistent with COVID-19 pneumonia. Endotracheal tube in good position. Blood cultures reveal no growth. Sputum culture pending. White count 8.5. Hemoglobin 12.0. Lymphocytes 0.9. D-dimer 10.94. Sodium 138. Potassium 4.7. Creatinine 1.05. LDH 1559. C-reactive protein 4.4. Currently on Decadron, Lovenox, vitamin supplements. Reevaluated today on 04/02/21, patient remains in the ICU, intubated and mechanically ventilated. She is off sedation completely for the last 2 days, patient is requiring clevidipine for her significantly elevated blood pressure, and today I added multiple meds to control her blood pressure, however patient may not need that many blood pressure medications if extubated and kept off mechanical ventilation. Her assist control rate today is 30 tidal volume 400 FiO2 40% and PEEP of 8. Chest x-ray yesterday showed significant improvement in her bilateral infiltrates. Her ABG on the same vent settings as noted showed a pO2 of 76 pCO2 of 34 pH of 7.56. Patient is on assist control mode of mechanical ventilation, she seems to be very comfortable, hence I will try to give the patient a trial of pressure support and CPAP, and if tolerated may even extubated the patient. My only concern is the patient seems to be a bit enceph alopathic, she opens her eyes, follows simple instructions, and she seems to be generally weak, she may have also some component of critical illness polyneuropathy because of prolonged course in the ICU on multiple meds and on paralytics. 04/03/2021, the patient remains extubated. Noted the patient was extubated on 04/01/2021 and currently she is on oxygen at high flow at 15 L. Her current pulse ox is around 89-90%. She is awake. She'll occasionally follow simple commands. Her responses not consistent dull. She is moving all extremities. She is very weak and she is unable to raise her arms and legs against gravity. Her cough is also very weak. She blinks upon demand, she is able to respond and she is alert and she has obvious eye opening. She is not talking at. She is unable to swallow. Her chest x-ray still showing diffuse bilateral pulmonary infiltrates consistent with COVID 19 related pneumonia. The patient remains on record Abilio 6 mg IV every 24 hours. Rest of the treatment includes Lovenox 40 mg subcu every 24 hours. Based on her inability to eat, her blood pressure was noted to be elevated as the patient was unable to take her oral antihypertensive medications. The patient is receiving IV hydralazine I when necessary basis for systolic blood pressure above 160. She is not having regular bowel movements. Our efforts to give her laxatives has failed. The patient had a soapsuds enema yesterday and the same will be done today and I would also recommend obtaining a pleasant some of the abdomen. Limited edema lower extremity is bilaterally. The patient has a Smith catheter in place. Adequate urine output. Active issues for now is her diminished alertness in addition to profound motor weakness in all 4 extremities which is probably related to COVID 19 related infection/pneumonia/prolonged intubation mechanical ventilation. She remains on IV Rocephin for an underlying UTI and the cultures had yielded E. coli. 04/04/2021, the patient remains extubated on 15 L of oxygen high flow. Her current pulse ox is around 90%. She is awake and alert and interactive. She remains quite weak. No significant events overnight. The patient's blood work from today shows normal renal function, normal electrolytes, CBC still pending for now. Meanwhile, I took the opportunity to lower the Decadron dose to 4 mg IV on a daily basis and the patient is also on Lasix 40 mg IV every 24 hours and Lovenox 40 mg subcu on a daily basis. The patient is also on IV Rocephin regarding E. coli urinary tract infection. She is completing a seven-day course. No other issues for now. In terms of oral intake, she is still nothing by mouth and the patient is still unable to swallow. And the patient is going to have a reevaluation by speech. Repeat chest x-ray was done and shows stable patchy bilateral pulmonary infiltrates throughout the lung shah without any significant interval change. She continues to have a PICC line in her right upper extremity. The patient is seen today 04/05/1999 2200 follow-up on the regular medical floor. She is currently sitting up in bed. Awake. Alert. Interactive. She is currently maintaining O2 saturation in the low 90s on 13 L high flow nasal cannula. She's afebrile. Hemodynamically stable. Chest x-ray continues to reveal similar multifocal airspace opacities. Earlier urine culture was positive for E. coli. Blood and sputum cultures had revealed no growth. She is continued on Decadron, Lovenox, vitamin supplements. Remains on Lasix 40 mg IV daily. Continued on Pepcid. Continued on bronchodilators. Remains on antibiotics in the form of ceftriaxone. The patient is seen today 04/06/2021 in follow-up on the regular medical floor. She is currently resting fairly comfortably in bed. Awake and alert. She is following some simple commands. She remains quite weak and debilitated. Still somewhat slow to respond. She is maintaining good O2 saturations in the 90s on 9 L high flow nasal cannula. White count 9.4. Hemoglobin 11.9. Sodium 141, potassium 3.7. Creatinine 0.42. Glucose 102. She remains on Decadron 4 mg daily, Lovenox, vitamin supplements. Continued on bronchodilators. Continued on IV diuretics. In a -2.4 L balance. She remains on ceftriaxone for an E. coli UTI. The patient is seen today 04/11/2021 in follow-up on the regular medical floor. She is currently resting comfortably in bed. Family is at the bedside. She is currently sleeping. She was given Seroquel this morning. She also is receiving Haldol on occasion. She has some times of restlessness. Swatting at staff. She is doing well from pulmonary standpoint. Maintaining O2 saturations in the mid 90s on room air. White count 8.4. Hemoglobin 12.7. Sodium 134. Potassium 3.7. Creatinine 0.57. AST 37. ALT 39. Glucose 198. She is continued on Decadron at 2 mg daily, Lovenox, vitamin supplements. Continued on oral diuretics and remains in a negative balance. The patient is seen today 04/12/2021 in follow-up on the regular medical floor. She is currently resting comfortably in bed. Her is at the bedside. She is calm and cooperative currently. She is tolerating the Seroquel at 12.5 mg at bedtime. She last received Haldol at 2300 last night. She is on 3 L nasal cannula with O2 saturations in the 90s. She's been afebrile. Hemodynamically stable. Blood sugar 144. Objective - Vital Signs Vital signs: Vital Signs Temp 98.4 F 04/12/21 07:23 Pulse 85 04/12/21 07:23 Resp 17 04/12/21 07:23 BP 173/69 04/12/21 07:23 Pulse Ox 96 04/12/21 08:58 Intake & Output 04/11/21 04/12/21 04/12/21 18:59 06:59 18:59 Output Total 1999 Balance -1999 Weight 123 kg 125 kg Output: Urine 1999 Other: Voiding Method Indwelling Catheter Indwelling Catheter ABP, PAP, CO, CI - Last Documented Arterial Blood Pressure 177/68 - Exam GENERAL EXAM: Pleasant 60-year-old female patient. Remains quite weak and debilitated. On 3 liters nasal cannula, comfortable in no apparent distress. HEAD: Normocephalic. EYES: Sluggish reaction of pupils, equal size. NOSE: Clear with pink turbinates. THROAT: No erythema or exudates. NECK: No masses, no JVD. CHEST: No chest wall deformity. LUNGS: Equal air entry with bibasilar coarse crackles. CVS: S1 and S2 normal with no audible murmur, regular rhythm. ABDOMEN: No hepatosplenomegaly, normal bowel sounds, no guarding or rigidity. SPINE: No scoliosis or deformity SKIN: No rashes CENTRAL NERVOUS SYSTEM: Profound weakness, tone is normal in all 4 extremities. EXTREMITIES: There is no peripheral edema. No clubbing, no cyanosis. Peripheral pulses are intact. - Labs CBC & Chem 7: 04/11/21 07:45 04/11/21 07:45 Labs: Abnormal Lab Results - Last 24 Hours (Table) 04/11/21 04/11/21 04/12/21 Range/Units 16:06 19:59 06:41 POC Glucose (mg/dL) 200 H 237 H 144 H (75-99) mg/dL Assessment and Plan Assessment: 1 Acute hypoxemic respiratory failure secondary to coronavirus associated pneumonia, S/P intubation and mechanical ventilation on 03/19/2021. The patient for now extubated and out on the regular medical floor. She's on 3 L nasal cannula. Profoundly weak. Remains with encephalopathy. Did require Haldol. Required Seroquel. Currently resting comfortably bed. at the bedside. 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 Plan: The patient was seen and evaluated Currently on a liters nasal cannula Remains quite debilitated and weak Awaiting transfer to subacute rehabilitation I, the cosigning physician, performed a history & physical examination of the patient. Lungs sounds with crackles in the bilateral bases. Maintaining good O2 saturations in the 90s on3 liters nasal cannula. I discussed the assessment and plan of care with my nurse practitioner, Gloria Melgar. I attest to the above note as dictated by her.
--- NOTE | 2021-04-12 15:36 | P.PN ---
Subjective Progress Note Date: 04/12/21 Sergio Villatoro, is a 60-year-old female who presented to [facility] emergency room with a chief complaint of cough and shortness of breath, patient stated that she started getting sick on 03/06/2021, she was checked for Covid at that time but the test was negative, she continued to get worse, she had a second test on 03/16/2021 that was positive, patient started getting worsening shortness of breath and she decided to come to emergency room on 03/18/2021. Patient stated that she did not get vaccinated for Covid, her risk factors include diabetes and morbid obesity, she denies any cardiac history. She was evaluated in the emergency room vital examination reveals a temperature of 100.6 pulse 102 respiration 21 blood pressure 139/72 pulse ox 75% on room air and 90% on 6 L nasal cannula, white blood count was 8.4 hemoglobin 14.2 platelet count 204 sodium 134 potassium 4.2 chloride 99 CO2 22 BUN 29 creatinine 0.83 plasma lactic acid was 2.1 AST 54 ALT 38 troponin less than 0.012 EKG was normal, chest x-ray revealed diffuse near complete opacification of bilateral lungs suggestive of diffuse pneumonia or ARDS. Patient was started on IV dexamethasone, subcu Lovenox, vitamin C, vitamin D, and zinc supplements, pulmonary consultation and infectious disease consultation were requested. Patient is a former smoker, she denies ever being diagnosed with asthma or emphysema. On 03/19/2021 patient was urgently intubated this a.m. per critical care services due to decreasing respiratory status. Patient has been started on sedation. Patient remains on Decadron, vitamin C, vitamin D and zinc. Critical care and infectious disease services are following. Patient remains on Lovenox for DVT prophylaxis. PH 7.29, pCO2 57, pO2 76 HCO3 28. On 03/20/2021 patient was seen and examined in the ICU she is intubated sedated maintained on mechanical ventilation, she is maintained on IV Decadron subcu Lovenox, and vitamin supplements bilateral lower extremity Doppler was negative for DVT, pulmonary and infectious disease are following, prognosis is guarded On 03/21/2021 patient is intubated and remains on sedation. Per nursing staff patient is no longer on Levophed. Patient currently on an FiO2 of 55%. PH of 7.38, pCO2 47 pO2 HCO3 28. Pulmonary and infectious disease service is following On 03/22/2021 patient was seen and examined in the ICU she is intubated sedated maintained on mechanical ventilation, she is maintained on IV Decadron subcu Lovenox, and vitamin supplements bilateral lower extremity Doppler was negative for DVT, temperature is 98.3 pulse 48 respiration 30 blood pressure 130/58 pulse ox 97% on FiO2 of 50% white blood count 7.4 hemoglobin 11.9 platelet count 286 d-dimer elevated at 6.36 ABG reveals a pH of 7.4 pCO2 42 PO2 110 pulmonary and infectious disease are following, prognosis is guarded On 03/23/2021 patient remains in the intensive care unit intubated sedated and on mechanical ventilation. Patient remains on fentanyl and propofol drips. Critical care and infectious disease services are following today's ABG showing pH of 7.35 pCO2 45 pO2 83 and HCO3 levels 25 On 03/24/2021 patient was seen and examined in the ICU she is intubated sedated maintained on mechanical ventilation, vital examination reveals a temperature of 100.3 pulse 82 respiration 30 blood pressure 170/53 pulse ox 93% on 50% FiO2 laboratory data reveals white blood count 11.5 hemoglobin 11.7 platelet count 327 sodium 138 potassium 4.7 chloride 110 CO2 22 BUN 46 creatinine 0.83 chest x- ray reveals diffuse interstitial opacities with worsening airspace disease in the left base and left perihilar region. Arterial blood gas reveals a pH of 7.36 pCO2 43 PO2 70 On 03/25/2021 patient was seen and examined in ICU she is intubated sedated maintained on mechanical ventilation, she is on assist control tidal volume 400 FiO2 50% and PEEP of 18 she is maintained on IV Decadron and subcu Lovenox she is also maintained on insulin patient had episode of hypoglycemia and her NovoLog 70/30 was decreased to 30 units twice daily On 03/26/2021 patient remains in the intensive care unit intubated and sedated on mechanical ventilation. Patient's FiO2 has been increased to 65% due to increased oxygen demands. Patient remains on IV Lasix. PH 7.42, pCO2 38, pO2 82 and HCO3 level 25. Infectious disease and critical care services are following On 03/27/2021 patient was seen and examined in the intensive care unit she is intubated sedated maintained on mechanical ventilation, patient is maintained on FiO2 55% and PEEP of 15 vital examination reveals a temperature of 98.1 pulse 70 respiration 30 blood pressure 173/58 pulse ox 95% ABG reveals a pH of 7.44 pCO2 39 PO2 64 white blood count 12.1 hemoglobin 11.0 platelet count 348 BUN 54 creatinine 0.78 glucose level 122 she is maintained on IV Decadron, IV cefepime, subcu Lovenox, IV Lasix, insulin per sliding scale and vitamin supplements. On 03/28/2021 she remains in the intensive care unit intubated on mechanical ventilation. FiO2 has been decreased to 50%. PH 7.4 a pCO2 36 pO2 69 and HCO3 28. Critical care and infectious disease services following patient remains on sedation and IV Lasix On 03/29/2021 patient was seen and examined in the ICU she is intubated sedated maintained on mechanical ventilation assist control rate of 30 FiO2 50% and PEEP of 14 arterial blood gas reveals a pH of 7.50 pCO2 35 and PaO2 of 77 white blood count is 11.5 hemoglobin 10.6 and platelet count 364 BUN 35 creatinine 0.67 chest x-ray done today reveals slight improvement in the patchy bibasilar in terstitial opacities no pneumothorax or large effusion. Patient is improving gradually On 03/30/2021 patient remains in the intensive care unit intubated and on mechanical ventilation. FiO2 has been decreased to 45%. PH is 7.52, pCO2 35 pO2 of 60 HCO3 28. Critical care and infectious disease services are following. Patient is improving gradually. [facility] ( Dr Gonzalez's group) will be covering for me starting Wednesday03/31/2021 I am resuming care for this patient on 04/07/2021 On 04/07/2021 patient was seen and examined on the medical floor she is drowsy in no apparent distress she is maintained on high flow oxygen at 9 L vital exam reveals a temperature of 98.6 pulse 90 respiration 20 blood pressure 180/76 pulse ox 98%, medication and labs were reviewed pulmonary are following, with recheck labs in am physical therapy and occupational therapy consult On 04/08/2021 patient was seen and examined on the medical floor she is more alert and responsive today her oxygen requirement is down to 5 L nasal cannula there is no fever or chills no headache or dizziness no chest pain she is still having cough no nausea or vomiting no abdominal pain no diarrhea and no urinary symptoms On 04/09/2021 patient was seen and examined on the medical floor she is alert more oriented and answering questions more appropriately today she is on oxygen 4 L nasal cannula there is no fever or chills no headache or dizziness no chest pain no shortness of breath no cough she is able to swallow well she is moving both lower extremities but not able to stand or walk at this time. On 04/10/2021 patient was seen and examined on the medical floor she is alert and oriented, slightly agitated today in no apparent distress, she is eating some of her meals with help of her daughter, dietitian is estimating about 35% of her meals, at this time will continue to monitor, if not improving we may add appetite stimulant in the next 1-2 days, patient is denying any chest pain or shortness of breath at this time. Her oxygen saturation is 90% on 5-6 L nasal cannula On 04/11/2021 patient was seen and examined on the medical floor she is alert slightly somnolent in no apparent distress there is no fever or chills no headache or dizziness no chest pain no shortness of breath no cough no nausea or vomiting no abdominal pain no diarrhea and no urinary symptoms. Oral intake is slightly better with the help of her daughter feeding her. Patient is still not able to stand or walk she is followed by physical therapy she will need transfer to a rehab unit when medically stable On 04/12/2021 patient was seen and examined on the medical floor she is alert slightly agitated in no apparent distress there is no fever or chills no he adache or dizziness no chest pain no shortness of breath no cough no nausea or vomiting no abdominal pain no diarrhea and no urinary symptoms, she is still significantly weak, and not able to stand or walk, physical therapy and occupational therapy are following, patient will need rehabilitation to be able to Objective - Vital Signs Vital signs: Vital Signs Temp 98.4 F 04/12/21 07:23 Pulse 85 04/12/21 07:23 Resp 17 04/12/21 07:23 BP 173/69 04/12/21 07:23 Pulse Ox 96 04/12/21 07:23 Intake & Output 04/11/21 04/12/21 04/12/21 18:59 06:59 18:59 Output Total 1999 Balance -1999 Weight 123 kg 125 kg Output: Urine 2000 900 Other: Voiding Method Indwelling Catheter ABP, PAP, CO, CI - Last Documented Arterial Blood Pressure 177/68 - Exam In general patient is intubated sedated maintained on mechanical ventilation HEENT head normocephalic and atraumatic Neck is supple no JVD no goiter no lymphadenopathy no carotid bruit Chest examination coarse crackles in both lung shah with wheezing Cardiac exam reveals regular heart sounds S1 and S2 no gallops no murmurs Abdomen is soft nontender no organomegaly with normal bowel sounds Extremity exam reveals no edema no cyanosis or clubbing - Labs CBC & Chem 7: 04/11/21 07:45 04/11/21 07:45 Labs: Abnormal Lab Results - Last 24 Hours (Table) 04/11/21 04/11/21 04/11/21 Range/Units 07:45 11:10 16:06 Sodium 134 L (137-145) mmol/L Glucose 198 H (74-99) mg/dL POC Glucose (mg/dL) 245 H 200 H (75-99) mg/dL AST 37 H (14-36) U/L ALT 39 H (4-34) U/L Albumin 3.3 L (3.5-5.0) g/dL 04/11/21 04/12/21 Range/Units 19:59 06:41 Sodium (137-145) mmol/L Glucose (74-99) mg/dL POC Glucose (mg/dL) 237 H 144 H (75-99) mg/dL AST (14-36) U/L ALT (4-34) U/L Albumin (3.5-5.0) g/dL Assessment and Plan Plan: Acute COVID-19 infection Acute hypoxic respiratory failure secondary to COVID-19 pneumonia requiring intubation and mechanical ventilation on 03/19/2021, now extubated, on 5 liter nasal canula Bilateral Pneumonia related to COVID-19 Underlying history of insulin-dependent diabetes mellitus Underlying history of morbid obesity Previous history of smoking patient denies being diagnosed with COPD in the past Hyperkalemia. Resolved Maintained on subcu Lovenox, IV Decadron, vitamin C vitamin D and zinc supplements Pulmonary and infectious disease consultation were requested, case was discussed with Dr. Huynh over the phone Patient remains intubated and sedated on mechanical ventilation in the intensive care unit Prognosis is guarded, will follow closely Repeat labs and x-ray ordered for a.m.
[2021-04-12 16:14] LABS: Glucose,Whole Blood 114 mg/dL (75-99)
[2021-04-12] MEDS: ENOXAPARIN 40 MG/0.4 ML SYRINGE SQ SCH (16:36)
--- NOTE | 2021-04-12 19:05 | PN ---
PROGRESS NOTE DATE OF SERVICE: 04/12/2021 REASON FOR FOLLOWUP: 1. Pneumonia. 2. Urinary tract infection. INTERVAL HISTORY: Patient is afebrile. The patient is more awake and alert. The patient denies having any chest pain. No shortness of breath or cough. Abdominal pain has extreme weakness. No diarrhea has been reported. EXAMINATION: Blood pressure 101/61, pulse 81, temp 99.2, she is 98% on 3 L nasal cannula. General description is a middle-aged female lying in bed in no distress. Respiratory system: Unlabored breathing, decreased intensity of breath sounds, no wheeze. Heart S1, S2. Regular rate and rhythm. Abdomen soft, no tenderness. Extremities: No edema of the feet. LABORATORY DATA: No labs have been obtained today. DIAGNOSTIC IMPRESSION AND PLAN: Patient with acute respiratory failure, Covid 19 pneumonia, did show overall clinical improvement. The patient is currently on Lovenox, zinc and ascorbic acid along with respiratory support. No evidence of any secondary bacterial pneumonia. The patient monitored closely off antibiotic. at the bedside. Questions answered. MMODL / IJN: [id number] /
[2021-04-12 21:03] LABS: Glucose,Whole Blood 230 mg/dL (75-99)
[2021-04-12] MEDS: QUEtiapine 25 MG TAB PO SCH (21:28)
[2021-04-13] MEDS: SODIUM CHLORIDE 0.9% 1,000 ML IV SCH ×2 (00:49→22:21)
[2021-04-13 06:44] LABS: Glucose,Whole Blood 100 mg/dL (75-99)
[2021-04-13] MEDS: INSULIN ASPART (NovoLOG) 100 UNIT/ML VIAL SQ SCH ×4 (07:19→22:19)
[2021-04-13] MEDS: LOSARTAN 50 MG TAB PO SCH (08:13)
[2021-04-13] MEDS: ZINC SULFATE 220 MG CAP PO SCH (08:13)
[2021-04-13] MEDS: ASCORBIC ACID 500 MG TAB PO SCH ×2 (08:13→22:19)
[2021-04-13] MEDS: hydrALAZINE HCL 25 MG TAB PO SCH ×2 (08:13→22:19)
[2021-04-13] MEDS: PANTOPRAZOLE 40 MG TABLET PO SCH (08:14)
[2021-04-13] MEDS: DOCUSATE ORAL SOLN 100 MG/10 ML CUP PO SCH ×2 (08:14→22:19)
[2021-04-13] MEDS: FUROSEMIDE 40 MG TAB PO SCH (08:14)
[2021-04-13] MEDS: LACTULOSE 20 GM/30 ML CUP PO SCH ×2 (08:14→22:21)
[2021-04-13] MEDS: INSULN ASP PRT/INSULIN ASPART 100 UNIT/ML 10 ML VIAL SQ SCH ×2 (08:14→22:20)
[2021-04-13] MEDS: amLODIPine 5 MG TAB PO SCH ×2 (08:14→22:19)
[2021-04-13] MEDS: CHOLECALCIFEROL 25 MCG (1000 IU) TABLET PO SCH (08:14)
[2021-04-13] MEDS: ALBUTEROL HFA INHALER INHALATION SCH ×4 (09:43→20:19)
[2021-04-13 10:59] LABS: Basophils # (A) 0.08 X 10*3/uL (0.00-0.10); Basophils % (A) 1.3 %; Eosinophils # (A) 0.41 X 10*3/uL (0.04-0.35); Eosinophils % (A) 6.5 %; HCT 38.4 % (37.2-46.3); HGB 11.8 g/dL (12.0-15.0); Lymphocytes # (A) 2.14 X 10*3/uL (0.90-5.00); MCH 28.8 pg (27.0-32.0); MCHC 30.7 g/dL (32.0-37.0); MCV 93.7 fL (80.0-97.0); Mean Platelet Volume 11.6 fL (9.5-12.2); Monocytes # (A) 0.84 X 10*3/uL (0.20-1.00); Monocytes % (A) 13.4 %; Neutrophils # (A) 2.77 X 10*3/uL (1.80-7.70); Platelet Count 206 X 10*3/uL (140-440); WBC 6.29 X 10*3/uL (4.50-10.00)
[2021-04-13 11:04] LABS: Glucose,Whole Blood 90 mg/dL (75-99)
[2021-04-13 11:30] LABS: African American GFR (CKD) 113.8 (60.0-200.0); Albumin 3.4 g/dL (3.8-4.9); Albumin/Globulin Ratio 1.24 (1.60-3.17); Anion Gap 15.7 mmol/L (10.00-18.00); BUN/Creat Ratio 12.45 Ratio (12.00-20.00); Blood Urea Nitrogen 7.4 mg/dL (9.0-27.0); Calcium 9.6 mg/dL (8.7-10.3); Carbon Dioxide 24.1 mmol/L (20.0-27.5); Globulin 2.8 g/dL (1.6-3.3); Non-African American GFR(CKD) 98.2 (60.0-200.0); Potassium 3.3 mmol/L (3.5-5.5); Total Bilirubin 0.5 mg/dL (0.30-1.20); Total Protein 6.2 g/dL (6.2-8.2)
--- NOTE | 2021-04-13 13:29 | P.PN ---
Subjective Progress Note Date: 04/13/21 Principal diagnosis: COVID-19 related pneumonia On 04/07/2021 patient seen in follow-up on medical surgical floor. She is awake and alert, she sits up in the recliner, her daughter is at the bedside, she is a very weak, but she is able to nod and shake her head appropriately to verbal questions, occasionally she gives 1 or 2 word responses, denies any acute distress, currently on 8 L of oxygen pulse ox is 99%, FiO2 has been dropped down to 7 L/m. Lung sounds are diminished, the daughter is requesting incentive spirometry, she needs aggressive pulmonary toileting, she was successfully weaned and extubated from mechanical ventilator on 04/02/2021. Tolerating extubation quite well so far. FiO2 is being weaned down. Last chest x-ray from 04/05/2021 showing similar multifocal airspace opacities. Family reports significant improvement in patient's mentation patient being more awake and alert, and following command. Brain CT yesterday showed no acute findings. Her last blood work from yesterday showed normal white count which was down to 9.45, hemoglobin was 11.9, sodium was 141, potassium 3.7, chloride is 104, CO2 31, B1 is 18, creatinine 0.42. Generally patient appears to be swollen, she remains on oral dose of Lasix 40 mg daily, she is maintaining negative fluid balance. Patient remains on Decadron and the dose is being weaned down and is currently d own to 2 mg daily, she is on once daily dose of Lovenox 40 mg, her IV fluids have been switched to KVO, she is on dysphagia diet and she requires assist and supervision with her meals. On 04/08/2021 patient is seen in follow-up on medical surgical floor. she is currently down to 5 L of oxygen, pulse ox is 96%, she is breathing much more comfortably, she is much more awake and alert, confusion has significantly improved, she is interacting more, denies any acute distress, no dyspnea, no chest pain, no fever or chills. she is in -1.5 L over the last 24 hours. she remains on Decadron 2 mg daily, remains on Lovenox 40 mg, she is on oral Lasix 40 mg daily. she has passed her swallow evaluation today however her appetite is poor. She remains generally weak however she is starting to move her e xtremities more, still can't lift up her extremities against gravity, but able to flex her feet more, and mangle feeder with her wrists. She required Ximena lift to get her up in the chair. today's labs have been reviewed her white blood cell count is 8.8, hemoglobin is 11, sodium is 143, potassium 3.5, chloride is 101, CO2 is 30, BUN is 18, creatinine 0.5. On 04/09/2021 patient seen in follow-up medical surgical floor. She is awake and alert, in no acute distress, she is resting in bed, she has been get not been the chair on a daily basis although she does require extensive assistance and needs all her lift to get her up in the chair. Breathing comfortably, no cough, no chest discomfort. She continues to diurese, still quite swollen, she is maintaining on oral dose of Lasix 40 mg. She remains on Decadron which is down to 2 mg daily, she is on multivitamins. Is tolerating oral intake although her appetite is poor. Her chest x-ray today has been reviewed showing improving diffuse bilateral lung infiltrates cardiomegaly with prominent pulmonary vascular markings. She is currently down to 4 L. Vital signs have been stable. Overall patient is improving although her reports that patient has been trying to get up unassisted, she is becoming agitated with him, and she has been get agitated with the staff as well. She did not sleep well last night, agitated delirium is suspected. On 04/10/2021 patient seen in follow-up on medical surgical floor. She is resting comfortably in bed, she is on 3 L of oxygen pulse ox is 98%, FiO2 can probably be further weaned, breathing comfortably, no complaints of chest discomfort, no cough, no fever or chills, vital signs have been stable. Her daughter and her are at the bedside there is stating that the patient was much calmer, and somewhat lethargic today. Patient was started on Seroquel last night in view of agitation and confusion 25 mg at bedtime. Patient is awake and alert, she is responding appropriately, still has some confusion but no agitation, she is much more cooperative, she denies any acute distress, she currently remains on Lasix 40 mg daily, her generalized edema is improving, she remains on Decadron currently down to 2 mg daily. Today's chest x-ray has been reviewed her white blood cell count of 7.7, hemoglobin is 12.3, platelet count is 212, sodium is 138, potassium 3.2, chloride is 94, CO2 is 29, BUN is 14 and creatinine 0.6. Her inflammatory markers were improving according to the levels from a few days back. Today's levels are still pending. Generally patient remains weak, she requires a Ximena lift to get the patient up in the chair. The daughter states patient was sleepy today, and for that reason she did not get up in the chair. Currently discharge planning is in progress for possibility of placement into a swing bed at the [facility] where the daughter works as a nurse, versus [facility]. Currently the family is leaning with the option of placing the patient in the swing bed at the [facility], where they can visit her more freely and assist with her rehabilitation process. On the 04/13/2021 patient seen in follow-up on medical surgical floor, she is breathing comfortably, she is currently on room air, and her pulse ox is 90%, lung sounds reveal some bibasilar crackles, no cough, she is awake and alert, she is cooperative, at times she gets a bit frustrated, but her confusion has improved. She remains on a low dose Seroquel 12.5 mg at bedtime, she states she slept very well last night, she continues on oral dose Lasix 40 mg daily, she has completed her Decadron, and she continues on Lovenox 40 mg daily. No recent chest x-ray, patient is participating with therapy, she is doing quite well, she started to move her upper and lower extremities. Her, she was able to stand at the bedside with physical therapy and extensive support and get up in the recliner yesterday. She is tolerating oral intake, no nausea vomiting or diarrhea, today's labs have been reviewed, white blood cell count is 6.9, hemoglobin is 7.8, potassium is 3.3, rest of electrolytes were within normal limits, BUN was 7.4, creatinine 0.6. Objective - Vital Signs Vital signs: Vital Signs Temp 98.5 F 04/13/21 07:31 Pulse 71 04/13/21 07:31 Resp 18 04/13/21 07:31 BP 123/66 04/13/21 07:31 Pulse Ox 90 L 04/13/21 07:31 Intake & Output 04/12/21 04/13/21 04/13/21 18:59 06:59 18:59 Intake Total 100 Output Total 900 200 Balance -800 -200 Weight 125.5 kg Intake: Oral 100 Output: Urine 900 200 Other: Voiding Method Indwelling Catheter Indwelling Catheter ABP, PAP, CO, CI - Last Documented Arterial Blood Pressure 177/68 - Exam GENERAL EXAM: Alert, very pleasant, 60-year-old white female, on room air pulse ox of 90% HEAD: Normocephalic/atraumatic. EYES: Normal reaction of pupils, equal size. Conjunctiva pink, sclera white. NOSE: Clear with pink turbinates. THROAT: No erythema or exudates. NECK: No masses, no JVD, no thyroid enlargement, no adenopathy. CHEST: No chest wall deformity. Symmetrical expansion. LUNGS: Equal air entry with measurement sounds bilaterally, with bilateral crackles CVS: Regular rate and rhythm, normal S1 and S2, no gallops, no murmurs, no rubs ABDOMEN: Soft, nontender. No hepatosplenomegaly, normal bowel sounds, no guarding or rigidity. EXTREMITIES: No clubbing, mild generalized edema, no cyanosis, 2+ pulses and upper and lower extremities. MUSCULOSKELETAL: Muscle strength and tone normal. SPINE: No scoliosis or deformity SKIN: No rashes CENTRAL NERVOUS SYSTEM: Alert and oriented -3. No focal deficits, tone is normal in all 4 extremities. PSYCHIATRIC: Alert and oriented -3. Appropriate affect. Intact judgment and insight. - Labs CBC & Chem 7: 04/13/21 07:04 04/13/21 07:04 Labs: Abnormal Lab Results - Last 24 Hours (Table) 04/12/21 04/12/21 04/13/21 Range/Units 16:12 20:54 06:42 Hgb (12.0-15.0) g/dL MCHC (32.0-37.0) g/dL Immature Gran # (0.00-0.04) X 10*3/uL Eosinophils # (0.04-0.35) X 10*3/uL Potassium (3.5-5.5) mmol/L BUN (9.0-27.0) mg/dL POC Glucose (mg/dL) 114 H 230 H 100 H (75-99) mg/dL Albumin (3.8-4.9) g/dL Albumin/Globulin Ratio (1.60-3.17) g/dL 04/13/21 04/13/21 Range/Units 07:04 07:04 Hgb 11.8 L (12.0-15.0) g/dL MCHC 30.7 L (32.0-37.0) g/dL Immature Gran # 0.05 H (0.00-0.04) X 10*3/uL Eosinophils # 0.41 H (0.04-0.35) X 10*3/uL Potassium 3.3 L (3.5-5.5) mmol/L BUN 7.4 L (9.0-27.0) mg/dL POC Glucose (mg/dL) (75-99) mg/dL Albumin 3.4 L (3.8-4.9) g/dL Albumin/Globulin Ratio 1.24 L (1.60-3.17) g/dL Assessment and Plan Plan: Assessment: #1. Acute hypoxic respiratory failure suspected to acute COVID-19 related pneumonia, status post intubation and mechanical ventilation on 03/19/2021. Patient was successfully weaned and extubated on 04/02/2021. Tolerating extubation quite well so far, currently down room air, doing quite well #2. Acute hypoxic and possibly metabolic encephalopathy, improving, brain CT on 04/06/2021 was negative. She remains on low-dose Seroquel 12.5 mg at bedtime #3. Morbid obesity with current BMI 52.6 kg/m #4. Diabetes mellitus type 2 #5. Increased inflammatory markers, improving #6. 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 Acute urinary tract infection related to E. coli, patient has completed a course of Rocephin, ID service is following Plan: Patient remains stable, She is currently on room air Breathing comfortably Continue oral dose Lasix Patient has completed her Decadron Continue Lovenox and multivitamins Follow-up chest x-ray tomorrow Stable for discharge to subacute rehab I performed a history & physical examination of the patient and discussed their management with my nurse practitioner, Caitlyn Manning. I reviewed the nurse practitioner's note and agree with the documented findings and plan of care. Lung sounds are positive for bibasilar crackles throughout the lung shah. The findings and the impression was discussed with the patient. I attest to the documentation by the nurse practitioner. Time with Patient: Less than 30
[2021-04-13] MEDS: ENOXAPARIN 40 MG/0.4 ML SYRINGE SQ SCH (16:25)
[2021-04-13 16:56] LABS: Glucose,Whole Blood 110 mg/dL (75-99)
[2021-04-13 20:06] LABS: Glucose,Whole Blood 157 mg/dL (75-99)
[2021-04-13] MEDS: QUEtiapine 25 MG TAB PO SCH (22:18)
[2021-04-13] MEDS: POTASSIUM CHLORIDE ER 10 MEQ TAB.ER.PRT PO SCH (22:18)
--- NOTE | 2021-04-14 05:39 | PN ---
PROGRESS NOTE DATE OF SERVICE: 04/13/2021. REASON FOR FOLLOW UP: 1. Covid 19 pneumonia. 2. UTI adequately treated. INTERVAL HISTORY: The patient is afebrile. The patient is currently breathing comfortably and was on room air. Patient denies any chest pain. No worsening cough, sputum production. No abdominal pain. No diarrhea. EXAMINATION: Blood pressure 133/74 with pulse 83. Temperature 98.1. She is 97% on 3 L nasal cannula. General description is a middle-aged female lying in bed in no distress. Respiratory system: Unlabored breathing, decreased intensity of breath sounds. No wheeze. Heart S1, S2. Regular rate and rhythm. Abdomen: Soft, no tenderness. LABS: Hemoglobin 11.8, white count 6.29, creatinine 0.6. DIAGNOSTIC IMPRESSION AND PLAN: Patient with Covid 19 pneumonia in this patient who has shown overall clinical improvement. Continue with current supportive treatment , no need for systemic antibiotic therapy. MMODL / IJN: [id number] / MTDD
[2021-04-14] MEDS: POTASSIUM CHLORIDE ER 10 MEQ TAB.ER.PRT PO SCH (06:19)
[2021-04-14 07:16] LABS: Glucose,Whole Blood 114 mg/dL (75-99)
[2021-04-14 08:15] VITALS: BP 147/64; PULSE 62; RESP 19; TEMP 97.8
[2021-04-14] MEDS: INSULIN ASPART (NovoLOG) 100 UNIT/ML VIAL SQ SCH ×2 (08:49→12:19)
[2021-04-14] MEDS: CHOLECALCIFEROL 25 MCG (1000 IU) TABLET PO SCH (08:54)
[2021-04-14] MEDS: LOSARTAN 50 MG TAB PO SCH (08:54)
[2021-04-14] MEDS: ASCORBIC ACID 500 MG TAB PO SCH (08:54)
[2021-04-14] MEDS: hydrALAZINE HCL 25 MG TAB PO SCH (08:54)
[2021-04-14] MEDS: PANTOPRAZOLE 40 MG TABLET PO SCH (08:54)
[2021-04-14] MEDS: INSULN ASP PRT/INSULIN ASPART 100 UNIT/ML 10 ML VIAL SQ SCH (08:54)
[2021-04-14] MEDS: amLODIPine 5 MG TAB PO SCH (08:54)
[2021-04-14] MEDS: DOCUSATE ORAL SOLN 100 MG/10 ML CUP PO SCH (08:54)
[2021-04-14] MEDS: ZINC SULFATE 220 MG CAP PO SCH (08:54)
[2021-04-14] MEDS: FUROSEMIDE 40 MG TAB PO SCH (08:54)
[2021-04-14] MEDS: ALBUTEROL HFA INHALER INHALATION SCH ×2 (08:54→11:41)
[2021-04-14] MEDS: LACTULOSE 20 GM/30 ML CUP PO SCH (08:55)
[2021-04-14 12:05] LABS: Glucose,Whole Blood 203 mg/dL (75-99)
--- NOTE | 2021-04-14 13:30 | P.DS ---
Providers Date of admission: 03/18/21 12:01 Expected date of discharge: 04/14/21 Attending physician: Clover Tompkins Consults: 03/18/21 11:47 Consult Physician Routine Consulting Provider: Dre Bach Consult Reason/Comments: covid Do you want consulting provider notified?: Yes 03/18/21 17:11 Consult Physician Routine Consulting Provider: Latricia Huynh Consult Reason/Comments: covid-19 Do you want consulting provider notified?: Yes Primary care physician: Dayami [facility] Course: Diagnosis on discharge: Sergio Villatoro, is a 60-year-old female who presented to [facility] emergency room with a chief complaint of cough and shortness of breath, patient stated that she started getting sick on 03/06/2021, she was checked for Covid at that time but the test was negative, she continued to get worse, she had a second test on 03/16/2021 that was positive, patient started getting worsening shortness of breath and she decided to come to emergency room on 03/18/2021. Patient stated that she did not get vaccinated for Covid, her risk factors include diabetes and morbid obesity, she denies any cardiac history. She was evaluated in the emergency room vital examination reveals a temperature of 100.6 pulse 102 respiration 21 blood pressure 139/72 pulse ox 75% on room air and 90% on 6 L nasal cannula, white blood count was 8.4 hemoglobin 14.2 platelet count 204 sodium 134 potassium 4.2 chloride 99 CO2 22 BUN 29 creatinine 0.83 plasma lactic acid was 2.1 AST 54 ALT 38 troponin less than 0.012 EKG was normal, chest x-ray revealed diffuse near complete opacification of bilateral lungs suggestive of diffuse pneumonia or ARDS. Patient was started on IV dexamethasone, subcu Lovenox, vitamin C, vitamin D, and zinc supplements, pulmonary consultation and infectious disease consultation were requested. Patient is a former smoker, she denies ever being diagnosed with asthma or emphysema. On 03/19/2021 patient was urgently intubated this a.m. per critical care services due to decreasing respiratory status. Patient has been started on sedation. Patient remains on Decadron, vitamin C, vitamin D and zinc. Critical care and infectious disease services are following. Patient remains on Lovenox for DVT prophylaxis. PH 7.29, pCO2 57, pO2 76 HCO3 28. On 03/20/2021 patient was seen and examined in the ICU she is intubated sedated maintained on mechanical ventilation, she is maintained on IV Decadron subcu Lovenox, and vitamin supplements bilateral lower extremity Doppler was negative for DVT, pulmonary and infectious disease are following, prognosis is guarded On 03/21/2021 patient is intubated and remains on sedation. Per nursing staff patient is no longer on Levophed. Patient currently on an FiO2 of 55%. PH of 7.38, pCO2 47 pO2 HCO3 28. Pulmonary and infectious disease service is following On 03/22/2021 patient was seen and examined in the ICU she is intubated sedated maintained on mechanical ventilation, she is maintained on IV Decadron subcu Lovenox, and vitamin supplements bilateral lower extremity Doppler was negative for DVT, temperature is 98.3 pulse 48 respiration 30 blood pressure 130/58 pulse ox 97% on FiO2 of 50% white blood count 7.4 hemoglobin 11.9 platelet count 286 d-dimer elevated at 6.36 ABG reveals a pH of 7.4 pCO2 42 PO2 110 pulmonary and infectious disease are following, prognosis is guarded On 03/23/2021 patient remains in the intensive care unit intubated sedated and on mechanical ventilation. Patient remains on fentanyl and propofol drips. Critical care and infectious disease services are following today's ABG showing pH of 7.35 pCO2 45 pO2 83 and HCO3 levels 25 On 03/24/2021 patient was seen and examined in the ICU she is intubated sedated maintained on mechanical ventilation, vital examination reveals a temperature of 100.3 pulse 82 respiration 30 blood pressure 170/53 pulse ox 93% on 50% FiO2 laboratory data reveals white blood count 11.5 hemoglobin 11.7 platelet count 327 sodium 138 potassium 4.7 chloride 110 CO2 22 BUN 46 creatinine 0.83 chest x- ray reveals diffuse interstitial opacities with worsening airspace disease in the left base and left perihilar region. Arterial blood gas reveals a pH of 7.36 pCO2 43 PO2 70 On 03/25/2021 patient was seen and examined in ICU she is intubated sedated maintained on mechanical ventilation, she is on assist control tidal volume 400 FiO2 50% and PEEP of 18 she is maintained on IV Decadron and subcu Lovenox she is also maintained on insulin patient had episode of hypoglycemia and her N ovoLog 70/30 was decreased to 30 units twice daily On 03/26/2021 patient remains in the intensive care unit intubated and sedated on mechanical ventilation. Patient's FiO2 has been increased to 65% due to increased oxygen demands. Patient remains on IV Lasix. PH 7.42, pCO2 38, pO2 82 and HCO3 level 25. Infectious disease and critical care services are following On 03/27/2021 patient was seen and examined in the intensive care unit she is intubated sedated maintained on mechanical ventilation, patient is maintained on FiO2 55% and PEEP of 15 vital examination reveals a temperature of 98.1 pulse 70 respiration 30 blood pressure 173/58 pulse ox 95% ABG reveals a pH of 7.44 pCO2 39 PO2 64 white blood count 12.1 hemoglobin 11.0 platelet count 348 BUN 54 creatinine 0.78 glucose level 122 she is maintained on IV Decadron, IV cefepime, subcu Lovenox, IV Lasix, insulin per sliding scale and vitamin supplements. On 03/28/2021 she remains in the intensive care unit intubated on mechanical ventilation. FiO2 has been decreased to 50%. PH 7.4 a pCO2 36 pO2 69 and HCO3 28. Critical care and infectious disease services following patient remains on sedation and IV Lasix On 03/29/2021 patient was seen and examined in the ICU she is intubated sedated maintained on mechanical ventilation assist control rate of 30 FiO2 50% and PEEP of 14 arterial blood gas reveals a pH of 7.50 pCO2 35 and PaO2 of 77 white blood count is 11.5 hemoglobin 10.6 and platelet count 364 BUN 35 creatinine 0.67 chest x-ray done today reveals slight improvement in the patchy bibasilar interstitial opacities no pneumothorax or large effusion. Patient is improving gradually On 03/30/2021 patient remains in the intensive care unit intubated and on mechanical ventilation. FiO2 has been decreased to 45%. PH is 7.52, pCO2 35 pO2 of 60 HCO3 28. Critical care and infectious disease services are following. Patient is improving gradually. [facility] Hospitalists ( Dr Gonzalez's group) will be covering for me starting Wednesday03/31/2021 I am resuming care for this patient on 04/07/2021 On 04/07/2021 patient was seen and examined on the medical floor she is drowsy in no apparent distress she is maintained on high flow oxygen at 9 L vital exam reveals a temperature of 98.6 pulse 90 respiration 20 blood pressure 180/76 pulse ox 98%, medication and labs were reviewed pulmonary are following, with recheck labs in am physical therapy and occupational therapy consult On 04/08/2021 patient was seen and examined on the medical floor she is more moses rt and responsive today her oxygen requirement is down to 5 L nasal cannula there is no fever or chills no headache or dizziness no chest pain she is still having cough no nausea or vomiting no abdominal pain no diarrhea and no urinary symptoms On 04/09/2021 patient was seen and examined on the medical floor she is alert more oriented and answering questions more appropriately today she is on oxygen 4 L nasal cannula there is no fever or chills no headache or dizziness no chest pain no shortness of breath no cough she is able to swallow well she is moving both lower extremities but not able to stand or walk at this time. On 04/10/2021 patient was seen and examined on the medical floor she is alert and oriented, slightly agitated today in no apparent distress, she is eating some of her meals with help of her daughter, dietitian is estimating about 35% of her meals, at this time will continue to monitor, if not improving we may add appetite stimulant in the next 1-2 days, patient is denying any chest pain or shortness of breath at this time. Her oxygen saturation is 90% on 5-6 L nasal cannula On 04/11/2021 patient was seen and examined on the medical floor she is alert slightly somnolent in no apparent distress there is no fever or chills no headache or dizziness no chest pain no shortness of breath no cough no nausea or vomiting no abdominal pain no diarrhea and no urinary symptoms. Oral intake is slightly better with the help of her daughter feeding her. Patient is still not able to stand or walk she is followed by physical therapy she will need transfer to a rehab unit when medically stable On 04/12/2021 patient was seen and examined on the medical floor she is alert slightly agitated in no apparent distress there is no fever or chills no headache or dizziness no chest pain no shortness of breath no cough no nausea or vomiting no abdominal pain no diarrhea and no urinary symptoms, she is still significantly weak, and not able to stand or walk, physical therapy and occupational therapy are following, patient will need rehabilitation. On 04/13/2021 patient was seen and examined on the medical floor she is alert and oriented in no apparent distress, she was able to walk few stps with PT today there is no fever or chills no headache or dizziness no chest pain no shortness of breath no cough no nausea or vomiting no abdominal pain no diarrhea and no urinary symptoms, she is still significantly weak, and not able to stand or walk, physical therapy and occupational therapy are following, patient will need rehabilitation. On 04/14/2021 patient was seen and examined on the medical floor she is alert and oriented in no apparent distress, there is no fever or chills no headache or dizziness no chest pain no shortness of breath no cough no nausea or vomiting no abdominal pain no diarrhea and no urinary symptoms, she is still significantly weak, and not able to stand or walk, physical therapy and occupational therapy are following, patient will need rehabilitation. Plan is for discharge to rehab unit today, this was discussed with her and her daughter and they are in agreement, at the time of discharge will continue was subcu Lovenox for another 10-15 days, due to patient immobility and high risk of DVT and PE after prolonged Covid 19 hospitalization. Patient Condition at Discharge: Fair Plan - Discharge Summary Discharge Rx Participant: No New Discharge Prescriptions: New hydrALAZINE HCL [Apresoline] 25 mg PO BID tab cloNIDine 0.3 MG/24HR PATCH [Catapres-TTS] 1 patch TRANSDERM Q7D patch Docusate Oral Soln [Colace Oral Soln] 100 mg PO BID ml Losartan [Cozaar] 50 mg PO DAILY tab Furosemide [Lasix] 40 mg PO DAILY tab Enoxaparin [Lovenox] 40 mg SQ DAILY@1700 each amLODIPine [Norvasc] 5 mg PO BID tab INSULIN ASPART (NovoLOG) [NovoLOG (formulary)] 0 unit SQ ACHS ml Insuln Asp Prt/Insulin Aspart [NovoLOG MIX 70-30 VIAL] 30 unit SQ BID ml Zinc Sulfate [Orazinc] 220 mg PO DAILY cap QUEtiapine [SEROquel] 12.5 mg PO HS tab Ascorbic Acid [Vitamin C] 500 mg PO BID tab Cholecalciferol [Vitamin D3 (25 Mcg = 1000 Iu)] 50 mcg PO DAILY tablet Lactulose [Cephulac] 10 gm PO BID ml Pantoprazole [Protonix] 40 mg PO AC-BRKFST tab Albuterol Inhaler [Ventolin Hfa Inhaler] 2 puff INHALATION RT-QID gm Continue Empagliflozin [Jardiance] 25 mg PO DAILY Dulaglutide [Trulicity] 1.5 mg SQ BENITO Albuterol Nebulized [Ventolin Nebulized] 2.5 mg INHALATION RT-QID PRN PRN Reason: Shortness Of Breath Discontinued Insuln Asp Prt/Insulin Aspart [NovoLOG MIX 70-30 VIAL] 65 unit SQ BID predniSONE [Deltasone] 20 mg PO BID Azithromycin [Zithromax] 500 mg PO DAILY sitaGLIPtin PHOS/metFORMIN HCL [Janumet Xr 50-1,000 mg Tablet] 1 tab PO DAILY Discharge Medication List Empagliflozin [Jardiance] 25 mg PO DAILY 05/18/19 [History] Albuterol Nebulized [Ventolin Nebulized] 2.5 mg INHALATION RT-QID PRN 03/18/21 [History] Dulaglutide [Trulicity] 1.5 mg SQ BENITO 03/18/21 [History] Albuterol Inhaler [Ventolin Hfa Inhaler] 2 puff INHALATION RT-QID gm 04/14/21 [Rx] Ascorbic Acid [Vitamin C] 500 mg PO BID tab 04/14/21 [Rx] Cholecalciferol [Vitamin D3 (25 Mcg = 1000 Iu)] 50 mcg PO DAILY tablet 04/14/21 [Rx] Docusate Oral Soln [Colace Oral Soln] 100 mg PO BID ml 04/14/21 [Rx] Enoxaparin [Lovenox] 40 mg SQ DAILY@1700 each 04/14/21 [Rx] Furosemide [Lasix] 40 mg PO DAILY tab 04/14/21 [Rx] INSULIN ASPART (NovoLOG) [NovoLOG (formulary)] 0 unit SQ ACHS ml 04/14/21 [Rx] Insuln Asp Prt/Insulin Aspart [NovoLOG MIX 70-30 VIAL] 30 unit SQ BID ml 04/14/21 [Rx] Lactulose [Cephulac] 10 gm PO BID ml 04/14/21 [Rx] Losartan [Cozaar] 50 mg PO DAILY tab 04/14/21 [Rx] Pantoprazole [Protonix] 40 mg PO AC-BRKFST tab 04/14/21 [Rx] QUEtiapine [SEROquel] 12.5 mg PO HS tab 04/14/21 [Rx] Zinc Sulfate [Orazinc] 220 mg PO DAILY cap 04/14/21 [Rx] amLODIPine [Norvasc] 5 mg PO BID tab 04/14/21 [Rx] cloNIDine 0.3 MG/24HR PATCH [Catapres-TTS] 1 patch TRANSDERM Q7D patch 04/14/21 [Rx] hydrALAZINE HCL [Apresoline] 25 mg PO BID tab 04/14/21 [Rx] Follow up Appointment(s)/Referral(s): Dayami Rubio MD [Primary Care Provider] - 1-2 days Dre Bach DO [Doctor of Osteopathic Medicine] - 2 Weeks Patient Instructions/Handouts: Coronavirus Disease 2019 (COVID-19) Activity/Diet/Wound Care/Special Instructions: ENT eval oupatient recommended due to vocal quality changes following extubation Chopped dysphagia 3 diet, breads ok
[2021-04-14 13:40] LABS: ALT 34 U/L (4-34); African American GFR (CKD) 71 (>60 ml/min/1.73 sqM); Albumin 3.8 g/dL (3.5-5.0); Albumin/Globulin Ratio 1.1; Anion Gap 11 mmol/L; Blood Urea Nitrogen 11 mg/dL (7-17); Carbon Dioxide 23 mmol/L (22-30); Chloride 100 mmol/L (98-107); Globulin 3.6 g/dL; Glucose 199 mg/dL (74-99); Non-African American GFR(CKD) 62 (>60 ml/min/1.73 sqM); Sodium 134 mmol/L (137-145); Total Protein 7.4 g/dL (6.3-8.2)
[2021-04-14 13:43] LABS: Potassium 4.5 mmol/L (3.5-5.1)
[2021-04-14 13:44] LABS: AST 34 U/L (14-36); Alkaline Phosphatase 73 U/L (38-126)
[2021-04-14 14:46] VITALS: BMI 49.8
--- NOTE | 2021-04-14 17:47 | P.PN ---
Subjective Progress Note Date: 04/14/21 Principal diagnosis: COVID-19 related pneumonia On 04/07/2021 patient seen in follow-up on medical surgical floor. She is awake and alert, she sits up in the recliner, her daughter is at the bedside, she is a very weak, but she is able to nod and shake her head appropriately to verbal questions, occasionally she gives 1 or 2 word responses, denies any acute distress, currently on 8 L of oxygen pulse ox is 99%, FiO2 has been dropped down to 7 L/m. Lung sounds are diminished, the daughter is requesting incentive spirometry, she needs aggressive pulmonary toileting, she was successfully weaned and extubated from mechanical ventilator on 04/02/2021. Tolerating extubation quite well so far. FiO2 is being weaned down. Last chest x-ray from 04/05/2021 showing similar multifocal airspace opacities. Family reports significant improvement in patient's mentation patient being more awake and alert, and following command. Brain CT yesterday showed no acute findings. Her last blood work from yesterday showed normal white count which was down to 9.45, hemoglobin was 11.9, sodium was 141, potassium 3.7, chloride is 104, CO2 31, B1 is 18, creatinine 0.42. Generally patient appears to be swollen, she remains on oral dose of Lasix 40 mg daily, she is maintaining negative fluid balance. Patient remains on Decadron and the dose is being weaned down and is currently d own to 2 mg daily, she is on once daily dose of Lovenox 40 mg, her IV fluids have been switched to KVO, she is on dysphagia diet and she requires assist and supervision with her meals. On 04/08/2021 patient is seen in follow-up on medical surgical floor. she is currently down to 5 L of oxygen, pulse ox is 96%, she is breathing much more comfortably, she is much more awake and alert, confusion has significantly improved, she is interacting more, denies any acute distress, no dyspnea, no chest pain, no fever or chills. she is in -1.5 L over the last 24 hours. she remains on Decadron 2 mg daily, remains on Lovenox 40 mg, she is on oral Lasix 40 mg daily. she has passed her swallow evaluation today however her appetite is poor. 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 She required Ximena lift to get her up in the chair. today's labs have been reviewed her white blood cell count is 8.8, hemoglobin is 11, sodium is 143, potassium 3.5, chloride is 101, CO2 is 30, BUN is 18, creatinine 0.5. On 04/09/2021 patient seen in follow-up medical surgical floor. She is awake and alert, in no acute distress, she is resting in bed, she has been get not been the chair on a daily basis although she does require extensive assistance and needs all her lift to get her up in the chair. Breathing comfortably, no cough, no chest discomfort. She continues to diurese, still quite swollen, she is maintaining on oral dose of Lasix 40 mg. She remains on Decadron which is down to 2 mg daily, she is on multivitamins. Is tolerating oral intake although her appetite is poor. Her chest x-ray today has been reviewed showing improving diffuse bilateral lung infiltrates cardiomegaly with prominent pulmonary vascular markings. She is currently down to 4 L. Vital signs have been stable. Overall patient is improving although her reports that patient has been trying to get up unassisted, she is becoming agitated with him, and she has been get agitated with the staff as well. She did not sleep well last night, agitated delirium is suspected. On 04/10/2021 patient seen in follow-up on medical surgical floor. She is resting comfortably in bed, she is on 3 L of oxygen pulse ox is 98%, FiO2 can probably be further weaned, breathing comfortably, no complaints of chest discomfort, no cough, no fever or chills, vital signs have been stable. Her daughter and her are at the bedside there is stating that the patient was much calmer, and somewhat lethargic today. Patient was started on Seroquel last night in view of agitation and confusion 25 mg at bedtime. Patient is awake and alert, she is responding appropriately, still has some confusion but no agitation, she is much more cooperative, she denies any acute distress, she currently remains on Lasix 40 mg daily, her generalized edema is improving, she remains on Decadron currently down to 2 mg daily. Today's chest x-ray has been reviewed her white blood cell count of 7.7, hemoglobin is 12.3, platelet count is 212, sodium is 138, potassium 3.2, chloride is 94, CO2 is 29, BUN is 14 and creatinine 0.6. Her inflammatory markers were improving according to the levels from a few days back. Today's levels are still pending. Generally patient remains weak, she requires a Ximena lift to get the patient up in the chair. The daughter states patient was sleepy today, and for that reason she did not get up in the chair. Currently discharge planning is in progress for possibility of placement into a swing bed at the [facility] where the daughter works as a nurse, versus [facility]. Currently the family is leaning with the option of placing the patient in the swing bed at the [facility], where they can visit her more freely and assist with her rehabilitation process. On the 04/13/2021 patient seen in follow-up on medical surgical floor, she is breathing comfortably, she is currently on room air, and her pulse ox is 90%, lung sounds reveal some bibasilar crackles, no cough, she is awake and alert, she is cooperative, at times she gets a bit frustrated, but her confusion has improved. She remains on a low dose Seroquel 12.5 mg at bedtime, she states she slept very well last night, she continues on oral dose Lasix 40 mg daily, she has completed her Decadron, and she continues on Lovenox 40 mg daily. No recent chest x-ray, patient is participating with therapy, she is doing quite well, she started to move her upper and lower extremities. Her, she was able to stand at the bedside with physical therapy and extensive support and get up in the recliner yesterday. She is tolerating oral intake, no nausea vomiting or diarrhea, today's labs have been reviewed, white blood cell count is 6.9, hemoglobin is 7.8, potassium is 3.3, rest of electrolytes were within normal limits, BUN was 7.4, creatinine 0.6. On 04/14/2021 patient seen in follow-up on medical surgical floor, she is, comfortable, breathing comfortably, she is currently on 3 L of oxygen pulse ox is 91-93%, she has had no acute events overnight, she's been afebrile, vital signs have been stable. No acute events overnight. Participating with physical therapy, tolerating activity better, still has a generalized weakness which is improving, no recent chest x-ray, lung sounds are clear, she is tolerating oral intake, her appetite is improving. Today's labs have been reviewed showing sodium of 134, potassium is 4.5, chloride is 100, BUN of 11, creatinine 0.98. Objective - Vital Signs Vital signs: Vital Signs Temp 97.8 F 04/14/21 08:00 Pulse 62 04/14/21 08:00 Resp 19 04/14/21 08:00 BP 147/64 04/14/21 08:00 Pulse Ox 91 L 04/14/21 08:00 Intake & Output 04/13/21 04/14/21 04/14/21 18:59 06:59 18:59 Output Total 200 800 700 Balance -200 -800 -700 Weight 123.5 kg 123.5 kg Output: Urine 200 800 700 Uretheral (Smith) 700 Other: Voiding Method Indwelling Catheter Indwelling Catheter # Bowel Movements 1 ABP, PAP, CO, CI - Last Documented Arterial Blood Pressure 177/68 - Exam GENERAL EXAM: Alert, very pleasant, 60-year-old white female, on 3 l/min on 91% HEAD: Normocephalic/atraumatic. EYES: Normal reaction of pupils, equal size. Conjunctiva pink, sclera white. NOSE: Clear with pink turbinates. THROAT: No erythema or exudates. NECK: No masses, no JVD, no thyroid enlargement, no adenopathy. CHEST: No chest wall deformity. Symmetrical expansion. LUNGS: Equal air entry with measurement sounds bilaterally, with bilateral crackles CVS: Regular rate and rhythm, normal S1 and S2, no gallops, no murmurs, no rubs ABDOMEN: Soft, nontender. No hepatosplenomegaly, normal bowel sounds, no guarding or rigidity. EXTREMITIES: No clubbing, mild generalized edema, no cyanosis, 2+ pulses and upper and lower extremities. MUSCULOSKELETAL: Muscle strength and tone normal. SPINE: No scoliosis or deformity SKIN: No rashes CENTRAL NERVOUS SYSTEM: Alert and oriented -3. No focal deficits, tone is normal in all 4 extremities. PSYCHIATRIC: Alert and oriented -3. Appropriate affect. Intact judgment and insight. - Labs CBC & Chem 7: 04/13/21 07:04 04/14/21 12:45 Labs: Abnormal Lab Results - Last 24 Hours (Table) 04/13/21 04/14/21 04/14/21 Range/Units 20:04 07:14 12:02 Sodium (137-145) mmol/L Glucose (74-99) mg/dL POC Glucose (mg/dL) 157 H 114 H 203 H (75-99) mg/dL 04/14/21 Range/Units 12:45 Sodium 134 L (137-145) mmol/L Glucose 199 H (74-99) mg/dL POC Glucose (mg/dL) (75-99) mg/dL Assessment and Plan Plan: Assessment: #1. Acute hypoxic respiratory failure suspected to acute COVID-19 related p neumonia, status post intubation and mechanical ventilation on 03/19/2021. Patient was successfully weaned and extubated on 04/02/2021. Tolerating extubation quite well so far, currently down room air, doing quite well #2. Acute hypoxic and possibly metabolic encephalopathy, improving, brain CT on 04/06/2021 was negative. She remains on low-dose Seroquel 12.5 mg at bedtime #3. Morbid obesity with current BMI 52.6 kg/m #4. Diabetes mellitus type 2 #5. Increased inflammatory markers, improving #6. 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 Acute urinary tract infection related to E. coli, patient has completed a course of Rocephin, ID service is following Plan: We'll signs have remained stable Patient continues to improve No fever or chills Supplement oxygen down to 3 L No acute events overnight Patient has completed her Decadron Patient continues on daily dose of Lasix 40 mg She is on prophylactic dose Lovenox She is being discharged to subacute rehab She will be followed up by Dr. Bach on 04/25/2021 Stable for discharge to [facility] today I performed a history & physical examination of the patient and discussed their management with my nurse practitioner, Caitlyn Manning. I reviewed the nurse practitioner's note and agree with the documented findings and plan of care. Lung sounds are positive for bibasilar crackles throughout the lung shah. The findings and the impression was discussed with the patient. I attest to the documentation by the nurse practitioner. Time with Patient: Less than 30
--- NOTE | 2021-04-14 21:50 | P.PN ---
Progress Note - Text Progress Note Date: 04/14/21 REASON FOR FOLLOW UP: 1. Covid 19 pneumonia. 2. UTI adequately treated. INTERVAL HISTORY: The patient remains to be afebrile. The patient is breathing comfortably on 3L NC Patient denies any chest pain. minimal cough, no sputum production. No abdominal pain. No diarrhea. EXAMINATION: Blood pressure 130/70 with pulse 83. Temperature 98.1. She is 97% on 3 L nasal cannula. General description is a middle-aged female lying in bed in no distress. Respiratory system: Unlabored breathing, decreased intensity of breath sounds. No wheeze. Heart S1, S2. Regular rate and rhythm. Abdomen: Soft, no tenderness. LABS: Reviewed DIAGNOSTIC IMPRESSION AND PLAN: Patient with Covid 19 pneumonia in this patient who has shown overall clinical improvement. Continue with current supportive treatment , no need for systemic antibiotic therapy on discharge , tucker catheter to be discontinued to decrease risk of CAUTI Family at bed side questions were answered.
== END 2021-04-14 14:46 | disposition swing bed (61) | DRG 207 ==
LOC: EC 09:50 → 3SCARD 12:01 → 2SICU 03-19 01:14 → 4SSUR 04-04 19:12
PROVIDERS: ADMIT Internal Medicine; ATTEND Internal Medicine
PROC: 5A09357 Assistance with Respiratory Ventilation, Less than 24 Consecutive Hours, Continuous Positive Airway Pressure (ICD-10-PCS; 2021-03-18)
PROC: 5A1955Z Respiratory Ventilation, Greater than 96 Consecutive Hours (ICD-10-PCS; principal; 2021-03-19)
PROC: 0BH17EZ Insertion of Endotracheal Airway into Trachea, Via Natural or Artificial Opening (ICD-10-PCS; 2021-03-19)
PROC: 02HV33Z Insertion of Infusion Device into Superior Vena Cava, Percutaneous Approach (ICD-10-PCS; 2021-03-19)
PROC: 03HY32Z Insertion of Monitoring Device into Upper Artery, Percutaneous Approach (ICD-10-PCS; 2021-03-19)
PROC: 4A133B1 Monitoring of Arterial Pressure, Peripheral, Percutaneous Approach (ICD-10-PCS; 2021-03-19)
PROC: 4A133J1 Monitoring of Arterial Pulse, Peripheral, Percutaneous Approach (ICD-10-PCS; 2021-03-19)
PROC: 0D9670Z Drainage of Stomach with Drainage Device, Via Natural or Artificial Opening (ICD-10-PCS; 2021-03-19)
PROC: 3E0G76Z Introduction of Nutritional Substance into Upper GI, Via Natural or Artificial Opening (ICD-10-PCS; 2021-03-19)
PROC: 5A0955A Assistance with Respiratory Ventilation, Greater than 96 Consecutive Hours, High Flow/Velocity Cannula (ICD-10-PCS; 2021-04-02)
PROC: 02HV33Z Insertion of Infusion Device into Superior Vena Cava, Percutaneous Approach (ICD-10-PCS; 2021-04-03)
DX: U07.1 COVID-19 (principal); T83.511A Infection and inflammatory reaction due to indwelling urethral catheter, initial encounter; N39.0 Urinary tract infection, site not specified; J12.82 Pneumonia due to coronavirus disease 2019; J80 Acute respiratory distress syndrome; G93.41 Metabolic encephalopathy; Z68.43 Body mass index [BMI] 50.0-59.9, adult; G72.81 Critical illness myopathy; K56.7 Ileus, unspecified; E87.3 Alkalosis; G62.81 Critical illness polyneuropathy; I5A Non-ischemic myocardial injury (non-traumatic); E11.649 Type 2 diabetes mellitus with hypoglycemia without coma; E66.01 Morbid (severe) obesity due to excess calories; Z79.4 Long term (current) use of insulin; I11.9 Hypertensive heart disease without heart failure; B96.20 Unspecified Escherichia coli [E. coli] as the cause of diseases classified elsewhere; E87.5 Hyperkalemia; E87.6 Hypokalemia; R00.1 Bradycardia, unspecified; K59.03 Drug induced constipation; T38.0X5A Adverse effect of glucocorticoids and synthetic analogues, initial encounter; T40.605A Adverse effect of unspecified narcotics, initial encounter; T48.1X5A Adverse effect of skeletal muscle relaxants [neuromuscular blocking agents], initial encounter; Z79.84 Long term (current) use of oral hypoglycemic drugs; Z79.899 Other long term (current) drug therapy; Z87.891 Personal history of nicotine dependence; Z90.89 Acquired absence of other organs; Z86.018 Personal history of other benign neoplasm; Z98.890 Other specified postprocedural states; Z71.3 Dietary counseling and surveillance; Y84.6 Urinary catheterization as the cause of abnormal reaction of the patient, or of later complication, without mention of misadventure at the time of the procedure
CPT/HCPCS: 36415; 36573; 36600; 70450; 71045; 71275; 74018; 74230; 80048; 80053; 81001; 82805; 83605; 83615; 84132; 84145; 84484; 85025; 85027; 85379; 86140; 87040; 87070; 87077; 87086; 87186; 87205; 93005; 93970; 94002; 94003; 94640; 94660; 94760; 96361; 96372; 96374; 99291

== ENCOUNTER → 2021-12-19 | Outpatient (CLI) | payer BC ==
--- NOTE | 2021-12-19 13:21 | CT ---
EXAMINATION TYPE: CT chest wo con DATE OF EXAM: 12/19/2021 COMPARISON: None HISTORY: Pulmonary Fibrosis CT DLP: 1164.0 mGycm. Automated Exposure Control for Dose Reduction was Utilized. TECHNIQUE: CT scan of the thorax is performed without IV contrast. Exam was performed with high-reso lution technique with scanning in the prone and supine positions. Noncontiguous scanning was performe d. There is no airspace consolidation or abnormal interstitial density. There is no bronchiectasis or ho neycombing of the peripheral lung. There is no pleural effusion or pneumothorax. The great vessels chest are normal is no mediastinal, hilar or axillary adenopathy. Limited scanning the upper abdomen reveals The osseous structures are intact. IMPRESSION: 1. No evidence of interstitial lung disease. 2. No acute cardiopulmonary disease FINDINGS: LUNGS:
== END | disposition home or self-care (01) ==
LOC: RADCTMAIN 12:51
PROVIDERS: ATTEND Internal Medicine Critical Care Medicine
DX: J84.10 Pulmonary fibrosis, unspecified (principal)
CPT/HCPCS: 71250

== ENCOUNTER → 2023-02-10 | Outpatient (CLI) | payer BC ==
--- NOTE | 2023-02-10 11:51 | FL ---
INDICATION: Patient age:Female; 62 years old; Reason for study: R13.10 DYSPHAGIA; PHH. COMPARISON: . Swallow report 04/08/2021 TECHNIQUE: Utilizing real-time video recording fluoroscopy, multiple images were obtained after admin istration of various consistencies of barium contrast. A speech pathologist was present throughout th e exam. Fluoroscopic time: 1 min 3 seconds Fluoroscopic images: None saved Total DAP: Unable to determine due to how old the machine is FINDINGS: Consistencies administered: puree, thin, and cracker barium. During the oral phase there is normal f ormation of food bolus with normal initiation of swallow with all consistencies. Premature spill: None identified. Laryngeal penetration: None identified. Piriform Retention:None identified Vallecular retention: None identified. Nasopharyngeal reflux: None identified. Tracheal aspiration: None identified. IMPRESSION: No evidence of tracheal aspiration or other significant abnormality. Please see dedicated speech pathology report for additional information.
== END | disposition home or self-care (01) ==
LOC: RADFLMAIN 11:15
PROVIDERS: ATTEND Otolaryngology
DX: R13.10 Dysphagia, unspecified (principal)
CPT/HCPCS: 74230

== ENCOUNTER → 2023-02-17 | Outpatient (CLI) | payer BC ==
[2023-02-17 16:21] LABS: Blood Urea Nitrogen 18.1 mg/dL (9.0-27.0); Carbon Dioxide 21.2 mmol/L (21.6-31.8); Chloride 105 mmol/L (96-109); Glucose 203 mg/dL (70-110); Potassium 4.6 mmol/L (3.5-5.5); Sodium 140 mmol/L (135-145)
== END | disposition home or self-care (01) ==
LOC: LABWHC1 07:47
PROVIDERS: ATTEND Nurse Practitioner
DX: E11.9 Type 2 diabetes mellitus without complications (principal); N28.9 Disorder of kidney and ureter, unspecified
CPT/HCPCS: 36415; 80048; 83036